=== PATIENT | female | born 1945 | race Caucasian/White ===

== ENCOUNTER 2018-05-21 10:24 | Inpatient (IN) ==
[2018-05-21] MEDS ORDERED: SODIUM CHLORIDE 0.9% 1000ML 1,000 ML IV SCH (11:00)
[2018-05-21] MEDS ORDERED: SODIUM CHLORIDE 0.9% 250 ML IV PRN ×2 (11:53→14:26)
[2018-05-21] MEDS ORDERED: PANTOprazole 80 MG in DEXTROSE 5% 100 ML IV ONE (11:54)
[2018-05-21 11:55] LABS: Basophils # (auto) 0.02 K/uL (0-0.2); Basophils % (auto) 0.2 %; Eosinophils # (auto) 0.17 K/uL (0-0.5); Eosinophils % (auto) 1.9 %; Hematocrit (blood only) 21.6 % (37-47); Immature Granulocytes # (auto) 0.02 K/uL (0.00-0.02); Immature Granulocytes % (auto) 0.2 %; Lymphocytes # (auto) 1.18 K/uL (1.2-3.4); Lymphocytes % (auto) 13.1 %; Mean Corpuscular Hgb Conc 32.4 g/dL (32-36); Mean Corpuscular Volume 95.6 fL (80-100); Mean Platelet Volume 9.7 fL (7.4-10.4); Monocytes # (auto) 0.55 K/uL (0.11-0.59); Monocytes % (auto) 6.1 %; Neutrophils % (auto) 78.5 %; Platelet Count 258 K/uL (130-400); RDW Coefficient of Variation 14.8 % (11.5-14.5); RDW Standard Deviation 51.1 fL (36.4-46.3); Red Blood Count 2.26 M/uL (4.2-5.4); White Blood Count 9.04 K/uL (4.8-10.8)
[2018-05-21 12:03] LABS: iSTAT Creatinine 1.9 mg/dl (0.6-1.3); iSTAT Hemoglobin 6.5 g/dl (12.0-16.0); iSTAT Ionized Calcium 1.15 mmol/l (1.12-1.32)
[2018-05-21 12:09] LABS: Partial Thromboplastin Ratio 0.9; Prothrombin Time 10.7 Seconds (9.0-12.0)
[2018-05-21 12:11] LABS: Albumin Level 3.3 gm/dl (3.4-5.0); BUN Creatinine Ratio 19.9 (10-20); Bilirubin Direct 0.1 mg/dl (0-0.2); Calcium 8.3 mg/dl (8.5-10.1); Creatinine Clr Calc Pharmacy 27.9 ml/min; Est GFR (African American) 27.3; Est GFR (Non-African American) 23.6
[2018-05-21 12:14] LABS: Bilirubin,Total 0.4 mg/dl (0.2-1); Total Protein 6.7 gm/dl (6.4-8.2)
[2018-05-21 12:19] LABS: RBC Morphology Unremarkable
[2018-05-21] MEDS: PANTOprazole 40 MG in DEXTROSE 5% 100 ML IV SCH ×3 (13:01→23:02)
--- NOTE | 2018-05-21 13:33 | History & Physical Report ---
Date of Service May 21, 2018 Assessment & Plan (1) GI bleed: (2) Anemia: -Admit to [facility] with telemetry -Patient presenting by referral of PCP for evaluation of anemia and dark stools/ bright red bleeding per rectum -Symptoms have been present for the past 1 week -In the ED, hemoglobin noted to be 7.4, patient hemodynamically stable -Given Protonix bolus and started on drip in the ED, will continue with -Type and crossed for 2 units PRBC -will transfuse -History of colonoscopy in 2009 that showed diverticulosis in the sigmoid colon ; no history of EGD -Likely upper GI bleed however bright red blood could be due to lower GI bleed as well; patient does take baby aspirin daily however no other blood thinners or antiplatelets, no history of NSAID or prednisone use -Case discussed with MINNIE Segovia -Clear liquids, n.p.o. after midnight (3) Hypertension: -BP controlled, continue amlodipine, hydralazine, labetalol, losartan -Holding triamterene/HCTZ for now due to GI bleed (4) CKD (chronic kidney disease), stage IV: - baseline creat runs in the low twos - creat noted to be 2.0 today - continue to monitor, avoid nephrotoxic agents when able (5) Diastolic dysfunction: -Echo 2017-EF 61%, grade 2 diastolic dysfunction -Utilizes mild diuretic at home (HCTZ) which is on hold for now due to anemia/ GI bleed -Monitor volume status closely (6) DM type 2 (diabetes mellitus, type 2): -Hgb A1c 5.7 03/2018 -Hold oral agents and utilize Lantus and NovoLog per protocol while hospitalized (7) ROXY on CPAP: -Patient is bringing her CPAP from home (8) COPD, severe: -No signs of acute exacerbation -Continue home inhalers (9) Dyslipidemia: -Continue statin (10) Depression: (11) Anxiety: -Continue bupropion and paroxetine (12) DVT prophylaxis: - SCDs due to GI bleed History of Present Illness Chief Complaint: Dark stools, anemia Primary Care Provider: Liban Chavez MD 73-year-old female who presents to the ED by referral PCP for evaluation of dark stools and anemia. Patient was seen for dark stools and bright red bleeding per rectum as an outpatient on 05/19. At that time, labs were ordered and colonoscopy was scheduled. Patient received a phone call today that her blood count was low and she needs to go to the ED for further evaluation. Patient reports dark stool as well as some bright bleeding per rectum over the past 1 week. She reports stools have been formed. She has been having to 3 bowel movements per day, normally she reports she only moves her bowels about every 3-4 days. She denies abdominal pain, nausea, vomiting. No NSAID or steroid use. She denies chest pain, shortness of breath, lightheadedness, dizziness, diaphoresis, syncopal events. No other recent illnesses, fevers, chills. She denies any urinary symptoms. In the ED, patient's hemoglobin is found to be 7.4. She is hemodynamically stable. She was given a Protonix bolus and started on a drip. She was typed and crossed for 2 units of blood. She was typed and crossed for 2 units of blood. Allergies Allergy/AdvReac Type Severity Reaction Status Date / Time levofloxacin [From Levaquin] Allergy Unknown Unverified 05/21/18 10:56 DOREEN Inhibitors AdvReac coughing Verified 05/21/18 10:56 Home Medications Home Medications Medication Instructions Recorded Confirmed Type amlodipine 10 mg PO DAILY 05/21/18 05/21/18 History aspirin 81 mg PO DAILY 05/21/18 05/21/18 History atorvastatin 20 mg PO DAILY 05/21/18 05/21/18 History bupropion HCl [Wellbutrin SR] 100 mg PO BID 05/21/18 05/21/18 History calcitriol 0.25 mcg PO DAILY 05/21/18 05/21/18 History cetirizine 5 mg PO HS 05/21/18 05/21/18 History cholecalciferol (vitamin D3) 1,000 unit PO DAILY 05/21/18 05/21/18 History [Vitamin D3] fluticasone [Flonase Allergy 2 spray INTRANASAL DAILY 05/21/18 05/21/18 History Relief] glimepiride 2 mg PO DAILY 05/21/18 05/21/18 History hydralazine 25 mg PO TID 05/21/18 05/21/18 History iron,carbonyl-vitamin C [Vitron-C] 1 tab PO DAILY 05/21/18 05/21/18 History labetalol 100 mg PO BID 05/21/18 05/21/18 History losartan 25 mg PO DAILY 05/21/18 05/21/18 History mometasone-formoterol [Dulera] 2 puff INHALATION BID 05/21/18 05/21/18 History montelukast [Singulair] 10 mg PO HS 05/21/18 05/21/18 History omeprazole 20 mg PO DAILY 05/21/18 05/21/18 History paroxetine HCl 40 mg PO DAILY 05/21/18 05/21/18 History triamterene-hydrochlorothiazid 1 tab PO DAILY 05/21/18 05/21/18 History Past Med/Surg History Medical History Depression (Chronic) Anxiety (Chronic) Diastolic dysfunction (Chronic) Hypertension (Chronic) ROXY on CPAP (Chronic) COPD, severe (Chronic) Hyperparathyroidism, secondary renal (Chronic) Dyslipidemia (Chronic) CKD (chronic kidney disease), stage IV (Chronic) DM type 2 (diabetes mellitus, type 2) (Chronic) Surgical History Status post trigger finger release (Chronic) History of cataract surgery (Chronic) Social History marital status: Single Current Living Situation: Alone current occupational status: retired Other Information That Helps Us Care for You: No Feels Safe at Home: Yes Safety Concerns: Feels Safe At This Time Smoking Status: Former smoker Do You Dip or Chew Tobacco: No Second Hand Exposure: No Tobacco Cessation Education Requested by Patient: No Hx Alcohol Use: Yes Alcohol Intake Frequency: a few times a month Hx Substance Use: No Beliefs That Will Affect Care: None Preferred Language: Citizen Of [place] Communication Ability: Effective Product Applications Scientist Required: No Review of Systems ROS per HPI, all other systems reviewed and negative Physical Exam 2 Vital Signs (Past 24 Hours): Last Vital Signs Temp 36.8 C 05/21/18 10:44 Pulse 69 05/21/18 12:45 Resp 20 05/21/18 12:45 BP 139/62 05/21/18 12:45 Pulse Ox 96 05/21/18 12:45 Constitutional: WD/WN, vitals as above Eyes: PERRL, conjunctivae normal, anicteric sclerae ENMT: external ear and nose normal, oropharynx normal Respiratory: normal respiratory effort, lungs clear to auscultation Cardiovascular: Rate/Rhythm: regular rate and regular rhythm Vessels: normal peripheral pulses Extremities: + edema (Trace edema BLE) Gastrointestinal (Abdomen): normal bowel sounds, soft, nontender, no hepatosplenomegaly Musculoskeletal: no cyanosis or clubbing, extremities motor strength 5/5 Skin: no rashes, warm and dry Neurologic: PERRL, EOMI, accommodation nl, no face palsy, no dysarthria Psychiatric: A+Ox3, euthymic affect Results & Data Laboratory Results Laboratory Last Values WBC 9.04 K/uL (4.8-10.8) 05/21/18 11:24 RBC 2.26 M/uL (4.2-5.4) L 05/21/18 11:24 Hgb 7.4 g/dL (12.0-16.0) L 05/21/18 14:36 POC Hgb 6.5 g/dl (12.0-16.0) L* 05/21/18 11:46 Hct 22.4 % (37-47) L 05/21/18 14:36 POC Hct 19 % (37-47) L* 05/21/18 11:46 MCV 95.6 fL (80-100) 05/21/18 11:24 MCH 31.0 pg (25-34) 05/21/18 11:24 MCHC 32.4 g/dL (32-36) 05/21/18 11:24 RDW Std Deviation 51.1 fL (36.4-46.3) H 05/21/18 11:24 RDW Coeff of Waqas 14.8 % (11.5-14.5) H 05/21/18 11:24 Plt Count 258 K/uL (130-400) 05/21/18 11:24 MPV 9.7 fL (7.4-10.4) 05/21/18 11:24 Immature Gran % (Auto) 0.2 % 05/21/18 11:24 Neut % (Auto) 78.5 % 05/21/18 11:24 Lymph % (Auto) 13.1 % 05/21/18 11:24 [place] % (Auto) 6.1 % 05/21/18 11:24 Eos % (Auto) 1.9 % 05/21/18 11:24 Baso % (Auto) 0.2 % 05/21/18 11:24 Immature Gran # (Auto) 0.02 K/uL (0.00-0.02) 05/21/18 11:24 Neut # (Auto) 7.10 K/uL (1.4-6.5) H 05/21/18 11:24 Lymph # (Auto) 1.18 K/uL (1.2-3.4) L 05/21/18 11:24 [place] # (Auto) 0.55 K/uL (0.11-0.59) 05/21/18 11:24 Eos # (Auto) 0.17 K/uL (0-0.5) 05/21/18 11:24 Baso # (Auto) 0.02 K/uL (0-0.2) 05/21/18 11:24 RBC Morphology Unremarkable 05/21/18 11:24 PT 10.7 Seconds (9.0-12.0) 05/21/18 11:24 INR 1.0 (0.9-1.1) 05/21/18 11:24 APTT 24.0 Seconds (21.0-31.0) 05/21/18 11:24 PTT Ratio 0.9 05/21/18 11:24 POC Sodium 141 mEq/L (135-144) 05/21/18 11:46 Sodium 140 mmol/L (136-145) 05/21/18 11:24 POC Potassium 4.0 mEq/L (3.3-5.0) 05/21/18 11:46 Potassium 4.0 mmol/L (3.5-5.1) 05/21/18 11:24 POC Chloride 107 mEq/L (101-112) 05/21/18 11:46 Chloride 108 mmol/L (98-107) H 05/21/18 11:24 Carbon Dioxide 22 mmol/L (21-32) 05/21/18 11:24 POC Total CO2 21 mEq/l (24-31) L 05/21/18 11:46 Anion Gap 10.0 (3-11) 05/21/18 11:24 POC Anion Gap 18.0 mmol/L (16-25) 05/21/18 11:46 POC BUN 33 mg/dl (7-18) H 05/21/18 11:46 BUN 41 mg/dl (7-18) H 05/21/18 11:24 Creatinine 2.04 mg/dl (0.6-1.2) H 05/21/18 11:24 POC Creatinine 1.9 mg/dl (0.6-1.3) H 05/21/18 11:46 Est Cr Clr Drug Dosing 27.9 ml/min 05/21/18 11:24 Est GFR ( Amer) 27.3 05/21/18 11:24 Est GFR (Non-Af Amer) 23.6 05/21/18 11:24 BUN/Creatinine Ratio 19.9 (10-20) 05/21/18 11:24 Glucose 258 mg/dl (70-99) H 05/21/18 11:24 POC Glucose (other) 262 mg/dl (70-99) H 05/21/18 11:46 Calcium 8.3 mg/dl (8.5-10.1) L 05/21/18 11:24 POC Ioniz Calcium [place] 1.15 mmol/l (1.12-1.32) 05/21/18 11:46 Total Bilirubin 0.4 mg/dl (0.2-1) 05/21/18 11:24 Direct Bilirubin 0.1 mg/dl (0-0.2) 05/21/18 11:24 AST 11 U/L (15-37) L 05/21/18 11:24 ALT 18 U/L (12-78) 05/21/18 11:24 Alkaline Phosphatase 65 U/L (45-117) 05/21/18 11:24 Total Protein 6.7 gm/dl (6.4-8.2) 05/21/18 11:24 Albumin 3.3 gm/dl (3.4-5.0) L 05/21/18 11:24 Lipase 119 U/L (73-393) 05/21/18 11:24 Blood Type A Positive 05/21/18 11:24 Blood Type Recheck A Positive 05/21/18 12:38 Antibody Screen NEGATIVE 05/21/18 11:24 Crossmatch See Detail 05/21/18 11:24 Code Status & VTE Plan VTE Prophylaxis Plan VTE Prophylaxis will be ordered: Yes Supervising Physician Co-Signing Physician Notes HISTORY: Record reviewed. Patient interviewed and examined. Care coordinated with MINNIE Love. Please refer to her documentation for patient's history. Briefly, 73-year-old female with history of left ventricular diastolic dysfunction, hypertension, COPD, sleep apnea, CKD, diabetes, and other problems as noted. Recently experiencing dark stools, sometimes with blood clots. No abdominal pain, nausea, vomiting. Feels fatigued. Takes low-dose aspirin, no nonsteroidal anti-inflammatory drugs, no alcohol abuse. EXAM: General- no distress Lungs- clear to auscultation; no respiratory distress Cardiovascular- RRR; I/ systolic murmur at base; no gallop; no JVD; no pretibial edema Abdomen- + bowel sounds, soft, nontender Extremities- no cyanosis; no calf tenderness Neuro- alert, oriented Skin- warm & dry DATA: Hemoglobin 6.5 by [id number] testing and 7.0 per laboratory phlebotomy. Prothrombin time, INR, PTT, platelets all normal. Normal electrolytes, BUN 41, creatinine 2.04, random glucose 258. Other lab studies as noted. EKG performed at 1107 reviewed and demonstrated normal sinus rhythm at 70/ minute, intraventricular conduction delay, poor R wave progression. ASSESSMENT AND PLAN: Severe anemia, probable acute blood loss anemia secondary to GI bleeding. Hemodynamically stable. Probable upper GI source. Patient received pantoprazole bolus/infusion. Transfuse to maintain adequate H&H. Consult GI. History of left ventricular diastolic dysfunction. Check chest x-ray in the morning to monitor for fluid overload associated with transfusions. Diurese PRN. CKD IV. Monitor renal function. Please refer to AFIA Valadez's documentation for discussion of other issues. _ (1) GI bleed GI bleed type/associated pathology: unspecified gastrointestinal hemorrhage type Gastritis type: Qualified Code(s): K92.2 - Gastrointestinal hemorrhage, unspecified
--- NOTE | 2018-05-21 13:45 | Gastrointestinal Consultation ---
Date of Consultation May 21, 2018 Assessment & Plan (1) GI bleed: Ms. Toledo is a73 yr old female with chronic anemia who experienced acute blood loss anemia with Hb 7, down from 10 on Apr 26. Her BUn is elevated and she reports loose black BMs, the largest volume was about a week ago, now with small loose infrequent but still black BMs. Most likely this represents an UGI bleed, possibly from ulcer disease, gastritis , duodenitis or AVM. The red blood in the BM is also suggestive of a lower GI bleed, possibly a diverticular or hemorrhoidal bleed. Plan: Clear liquids po PPI drip Plan for NPO after midnight and EGD on 05/22/18. Present on Admission?: Yes Supervising Physician Co-Signing Physician Notes I have seen and examined the patient on the floor. Admitted for anemia. Reports two episodes of reported melena - one monday and one last night. ? dizziness with this. No overt bleeding, hematemesis, hematochezia. Last colon 2009 with diverticulosis. Feeling fine on the floor- hungry. Ate a full breakfast prior to being called with abnormal test results this morning. No other complaints currently. Denies a known history of liver disease. Social drinker, [place]. EGD for evaluation of melena tomorrow in endo. NPO after midnitie, sips of liquid. Transfuse for hgb to be above 7. Check cbc/cmp/inr in am. Check an abdominal ultrasound to ensure her liver is normal. History of Present Illness Reason for Consultation: melena, anemia Requesting Physician: Debora Valadez NP Attending Physician: Ms. Arabella Toledo is a 73 yr old female with a hx of HTN, DM, CKDIV, COPD, ROXY on CPAP who presented to her PCP, Dr. Duarte on Monday for melena on Monday. Today, when labs were reviewed, her Hb on Monday was 7.5. Her most recent prior to that was on 10.1 on 04/26/2018. She reports experiencing several loose BMs that were black with some bright red blood. This occurred one day about a week ago, but doesn't remember what day that was. She did not have any pain at the time or since then. After that, she reverted back to her more typical pattern of one BM every 2-3 days, most recently about 12 hrs ago, though her BM's have been loose and have continued to be black, small amt. She has fatigue, weakness but no CP or SOB, no fevers, rashes. She has not had any N/V. No recent weight loss. She is seen and examined in the ED. She is awake, alert, oriented and ate a full breakfast this moring, prior to being notificed by her PCP office that she should present to the ED. Today, BP 147/64, HR 80's. BP 147/64. [place] [address] Madden: diverticulosis. She has never undergone EGD History of Present Illness Dr. Kumar Allergies Allergy/AdvReac Type Severity Reaction Status Date / Time levofloxacin [From Levaquin] Allergy Unknown Unverified 05/21/18 10:56 DOREEN Inhibitors AdvReac coughing Verified 05/21/18 10:56 Home Medications Home Medications Medication Instructions Recorded Confirmed Type amlodipine 10 mg PO DAILY 05/21/18 05/21/18 History aspirin 81 mg PO DAILY 05/21/18 05/21/18 History atorvastatin 20 mg PO DAILY 05/21/18 05/21/18 History bupropion HCl [Wellbutrin SR] 100 mg PO BID 05/21/18 05/21/18 History calcitriol 0.25 mcg PO DAILY 05/21/18 05/21/18 History cetirizine 5 mg PO HS 05/21/18 05/21/18 History cholecalciferol (vitamin D3) 1,000 unit PO DAILY 05/21/18 05/21/18 History [Vitamin D3] fluticasone [Flonase Allergy 2 spray INTRANASAL DAILY 05/21/18 05/21/18 History Relief] glimepiride 2 mg PO DAILY 05/21/18 05/21/18 History hydralazine 25 mg PO TID 05/21/18 05/21/18 History iron,carbonyl-vitamin C [Vitron-C] 1 tab PO DAILY 05/21/18 05/21/18 History labetalol 100 mg PO BID 05/21/18 05/21/18 History losartan 25 mg PO DAILY 05/21/18 05/21/18 History mometasone-formoterol [Dulera] 2 puff INHALATION BID 05/21/18 05/21/18 History montelukast [Singulair] 10 mg PO HS 05/21/18 05/21/18 History omeprazole 20 mg PO DAILY 05/21/18 05/21/18 History paroxetine HCl 40 mg PO DAILY 05/21/18 05/21/18 History triamterene-hydrochlorothiazid 1 tab PO DAILY 05/21/18 05/21/18 History Patient History Medical History Depression (Chronic) Anxiety (Chronic) Diastolic dysfunction (Chronic) Hypertension (Chronic) ROXY on CPAP (Chronic) COPD, severe (Chronic) Hyperparathyroidism, secondary renal (Chronic) Dyslipidemia (Chronic) CKD (chronic kidney disease), stage IV (Chronic) DM type 2 (diabetes mellitus, type 2) (Chronic) History of COPD Hx of diabetes mellitus Surgical History Status post trigger finger release (Chronic) History of cataract surgery (Chronic) Family History Other Family history non-contributory Social History marital status: Single Current Living Situation: Alone current occupational status: retired Other Information That Helps Us Care for You: No Feels Safe at Home: Yes Safety Concerns: Feels Safe At This Time Smoking Status: Former smoker Do You Dip or Chew Tobacco: No Second Hand Exposure: No Tobacco Cessation Education Requested by Patient: No Hx Alcohol Use: No Hx Substance Use: No Beliefs That Will Affect Care: None Preferred Language: Citizen Of [place] Communication Ability: Effective Breakfast Cook Required: No Review of Systems Constitutional: + fatigue, + malaise and + weakness; no fever, no chills, no sweats and no body aches Ear, Nose, Mouth, Throat: no dizziness, no hoarseness and no dysphagia Respiratory: + dyspnea (mild); no cough, no chest congestion and no hemoptysis Cardiovascular: + lightheadedness (during trip into the ED); no chest pain, no orthopnea, no palpitations, no syncope and no edema Gastrointestinal: as per Subjective / HPI, + change in bowel habits and + constipation (chronic); no abdominal pain, no belching, no early satiety, no heartburn, no nausea, no hematemesis, no dysphagia and no cramping Genitourinary (Female): no dysuria Neurologic: + falls (tripped "over my own feet"); no gait abnormality, no numbness and no restless legs Psychiatric: no hopelessness, no change in appetite, no irritability, no anxiety , no difficulty concentrating and no confusion Hematologic / Lymphatic: no easy bleeding, no easy bruising, no coagulopathy and no lymphadenopathy Physical Exam 2 Vital Signs (Past 24 Hours): Last Vital Signs Temp 36.8 C 05/21/18 10:44 Pulse 69 05/21/18 12:45 Resp 20 05/21/18 12:45 BP 139/62 05/21/18 12:45 Pulse Ox 96 05/21/18 12:45 Constitutional: WD/WN, vitals as above well developed, well nourished, + obese, cooperative and comfortable; no acute distress Eyes: normal visual santos by confrontation and PERRL; pupils not dilated ENMT: external ear and nose normal, oropharynx normal Neck: trachea midline, no thyromegaly Respiratory: normal respiratory effort, lungs clear to auscultation Cardiovascular: RRR, no murmur, no edema Gastrointestinal (Abdomen): Inspection/Auscultation: normal bowel sounds; abdomen not distended Percussion/Palpation: abdomen soft; abdomen nontender Skin: no rashes, warm and dry few spider angiomas on the lower neck/upper chest Neurologic: normal touch/pain/proprioception and awake; not confused Speech / Cognition: normal speech Motor/Sensory: no tremor Results & Data Laboratory Results Hb 7.0, Hct 19, MCV 98.6, BUN 45, _ (1) GI bleed GI bleed type/associated pathology: unspecified gastrointestinal hemorrhage type Gastritis type: Qualified Code(s): K92.2 - Gastrointestinal hemorrhage, unspecified
[2018-05-21] MEDS ORDERED: GLUCAGON FOR INJ 1 MG VIAL SQ PRN (14:26)
[2018-05-21] MEDS ORDERED: GLUCOSE 40% GEL 15 GM TUBE PO PRN (14:26)
[2018-05-21] MEDS ORDERED: GLUCOSE 10 TABS/TUBE PO PRN (14:26)
[2018-05-21] MEDS ORDERED: ACETAMINOPHEN 325 MG TAB PO PRN (14:26)
[2018-05-21] MEDS ORDERED: DEXTROSE 50% 50 ML SYRINGE IV PRN (14:26)
[2018-05-21 14:44] LABS: Hematocrit (blood only) 22.4 % (37-47); Hemoglobin 7.4 g/dL (12.0-16.0)
[2018-05-21 15:27] LABS: Prothrombin Time 10.3 Seconds (9.0-12.0)
[2018-05-21] MEDS: INSULIN ASPART 100 UNITS/ML 3 ML PEN SC SCH ×2 (17:19→20:11)
--- NOTE | 2018-05-21 18:36 | Emergency Department Note ---
Entered by Dede Campbell acting as a scribe for History of Present Illness General Chief complaint: Rectal Bleed Stated complaint: RECTAL BLEEDING - REF BY Time Seen by Provider: 05/21/18 10:53 Source: patient History of Present Illness Onset (ago): week(s) 1 Location: buttocks (rectal) Pain Consistency: + other (persistent) Quality: + other (bleeding) Associated symptoms: + denies other symptoms (abdominal pain) and + other (low hemoglobin, fatigue); no chest pain, no fever/chills (fever) and no shortness of breath The patient is a 73 year old female who presents to the Emergency Room with complaints of persistent rectal bleeding starting a week ago. The patient states she had bright red blood in her stool. She states that over the week she started having black stools. She reports that over the weekend she went and saw her PCP. She reports that they did blood work and called this morning telling her to come to the ED because her Hemoglobin is 7.5. The patient complains of fatigue. The patient denies using Pepto Bismol, abdominal pain, fever, chest pain, increased difficulty breathing and the use of blood thinners. Home Medications Home Medications Medication Instructions Recorded Confirmed Type amlodipine 10 mg PO DAILY 05/21/18 05/21/18 History aspirin 81 mg PO DAILY 05/21/18 05/21/18 History atorvastatin 20 mg PO DAILY 05/21/18 05/21/18 History bupropion HCl [Wellbutrin SR] 100 mg PO BID 05/21/18 05/21/18 History calcitriol 0.25 mcg PO DAILY 05/21/18 05/21/18 History cetirizine 5 mg PO HS 05/21/18 05/21/18 History cholecalciferol (vitamin D3) 1,000 unit PO DAILY 05/21/18 05/21/18 History [Vitamin D3] fluticasone [Flonase Allergy 2 spray INTRANASAL DAILY 05/21/18 05/21/18 History Relief] glimepiride 2 mg PO DAILY 05/21/18 05/21/18 History hydralazine 25 mg PO TID 05/21/18 05/21/18 History iron,carbonyl-vitamin C [Vitron-C] 1 tab PO DAILY 05/21/18 05/21/18 History labetalol 100 mg PO BID 05/21/18 05/21/18 History losartan 25 mg PO DAILY 05/21/18 05/21/18 History mometasone-formoterol [Dulera] 2 puff INHALATION BID 05/21/18 05/21/18 History montelukast [Singulair] 10 mg PO HS 05/21/18 05/21/18 History omeprazole 20 mg PO DAILY 05/21/18 05/21/18 History paroxetine HCl 40 mg PO DAILY 05/21/18 05/21/18 History triamterene-hydrochlorothiazid 1 tab PO DAILY 05/21/18 05/21/18 History Allergies Allergy/AdvReac Type Severity Reaction Status Date / Time levofloxacin [From Levaquin] Allergy Unknown Unverified 05/21/18 10:56 DOREEN Inhibitors AdvReac coughing Verified 05/21/18 10:56 Past Med/Surg History Medical History Depression (Chronic) Anxiety (Chronic) Diastolic dysfunction (Chronic) Hypertension (Chronic) ROXY on CPAP (Chronic) COPD, severe (Chronic) Hyperparathyroidism, secondary renal (Chronic) Dyslipidemia (Chronic) CKD (chronic kidney disease), stage IV (Chronic) DM type 2 (diabetes mellitus, type 2) (Chronic) Surgical History Status post trigger finger release (Chronic) History of cataract surgery (Chronic) Social History marital status: Single Current Living Situation: Alone current occupational status: retired Other Information That Helps Us Care for You: No Feels Safe at Home: Yes Safety Concerns: Feels Safe At This Time Smoking Status: Former smoker Do You Dip or Chew Tobacco: No Second Hand Exposure: No Tobacco Cessation Education Requested by Patient: No Hx Alcohol Use: Yes Alcohol Intake Frequency: a few times a month Hx Substance Use: No Beliefs That Will Affect Care: None Preferred Language: Bhutanese Communication Ability: Effective Digital Media Designer Required: No Review of Systems See HPI for pertinent positives & negatives. and A total of 10 systems reviewed and were otherwise negative Physical Exam Vital Signs Vital Signs - 24 hr 05/21/18 10:44 05/21/18 11:01 05/21/18 12:45 Temperature 36.8 C Temperature Source Oral Sepsis Recent Fever Within 48 Hours No Sepsis Action Taken by Nursing No Action Required Pulse Rate 73 69 Pulse Rate [Left Finger] Pulse Rate from SpO2 Sensor 70 Pulse Rhythm Pulse Strength Respiratory Rate 20 20 Respiratory Effort / Characteristics Respiratory Depth Respiratory Pattern Blood Pressure 146/68 H 139/62 Blood Pressure [Left Arm] Blood Pressure Mean 94 87 Blood Pressure Mean [Left Arm] Blood Pressure Position Blood Pressure Position [Left Arm] Pulse Oximetry 96 96 Oxygen Delivery Method Room Air Room Air Room Air 05/21/18 13:00 05/21/18 13:30 05/21/18 13:55 Temperature Temperature Source Sepsis Recent Fever Within 48 Hours Sepsis Action Taken by Nursing Pulse Rate 67 69 70 Pulse Rate [Left Finger] Pulse Rate from SpO2 Sensor 67 69 Pulse Rhythm Pulse Strength Respiratory Rate 22 18 20 Respiratory Effort / Characteristics Respiratory Depth Respiratory Pattern Blood Pressure 134/68 147/64 H 147/64 H Blood Pressure [Left Arm] Blood Pressure Mean 90 91 Blood Pressure Mean [Left Arm] Blood Pressure Position Blood Pressure Position [Left Arm] Pulse Oximetry 97 97 97 Oxygen Delivery Method Room Air 05/21/18 14:30 05/21/18 17:54 05/21/18 18:11 Temperature 36.8 C 37.0 C 37.4 C Temperature Source Oral Oral Oral Sepsis Recent Fever Within 48 Hours Sepsis Action Taken by Nursing Pulse Rate 71 71 Pulse Rate [Left Finger] 75 Pulse Rate from SpO2 Sensor Pulse Rhythm Pulse Strength Respiratory Rate 18 18 18 Respiratory Effort / Characteristics Non-Labored Spontaneous Respiratory Depth Normal Respiratory Pattern Regular Blood Pressure 151/63 H 166/67 H Blood Pressure [Left Arm] 163/67 H Blood Pressure Mean 92 100 Blood Pressure Mean [Left Arm] 99 Blood Pressure Position Lying Blood Pressure Position [Left Arm] Sitting Pulse Oximetry 96 98 98 Oxygen Delivery Method Room Air 05/21/18 18:26 Temperature 37.4 C Temperature Source Oral Sepsis Recent Fever Within 48 Hours Sepsis Action Taken by Nursing Pulse Rate 69 Pulse Rate [Left Finger] Pulse Rate from SpO2 Sensor Pulse Rhythm Regular Pulse Strength Normal Respiratory Rate 18 Respiratory Effort / Characteristics Respiratory Depth Respiratory Pattern Blood Pressure 136/68 Blood Pressure [Left Arm] Blood Pressure Mean 90 Blood Pressure Mean [Left Arm] Blood Pressure Position Sitting Blood Pressure Position [Left Arm] Pulse Oximetry 97 Oxygen Delivery Method Physical Exam GENERAL: She is oriented to person, place, and time. She appears well- developed and well-nourished. She does not appear distressed. HENT: Exam performed. -Head: Normocephalic and atraumatic. -Right Ear: External ear normal. No mastoid tenderness. -Left Ear: External ear normal. No mastoid tenderness. -Mouth/Throat: The oropharynx is clear and moist. No trismus in the jaw. No dental abscesses or uvula swelling. No oropharyngeal exudate or tonsillar abscesses. EYES: Conjunctivae and EOM are normal. Pupils are equal, round, and reactive to light. Right eye exhibits no discharge. Left eye exhibits no discharge. No scleral icterus. NECK: Normal range of motion. Neck supple. No JVD present. No spinous process tenderness present. No carotid bruit present. No rigidity. No tracheal deviation and normal range of motion present. No Brudzinski's sign and no Kernig 's sign noted. CV: Normal rate, regular rhythm, normal heart sounds and intact distal pulses. There is no peripheral edema. Palpable radial pulses bue. PULM/CHEST: Effort normal and breath sounds normal. No respiratory distress. No stridor. She has no wheezes. She has no rales. -Chest Wall: She exhibits no tenderness. ABD: The abdomen is soft. Bowel sounds are normal. She has no distension. No mass is present. There is no tenderness. There is no rebound, no guarding, no Martinez's sign and no tenderness at McBurney's point. Rovsig negative RECTAL: Hemacult positive. MUSC/SKEL: Normal range of motion. There is no peripheral edema, tenderness or deformity. LYMPH: No cervical adenopathy. NEURO: She is alert and oriented to person, place, and time. She has normal strength. No cranial nerve deficit or sensory deficit. Coordination and gait normal. GCS eye subscore is 4. GCS verbal subscore is 5. GCS motor subscore is 6. Cerebellar tests wnl. SKIN: Skin is warm and dry. She is not diaphoretic. PSYCH: She has a normal mood and affect. Behavior is normal. Judgment and thought content normal. Course 1054: Past medical records reviewed. The patient was evaluated in room C9, and a complete history and physical examination were performed. 1202: Vital signs stable. Patient's hemoglobin is 7 in the emergency department. She will be started on Protonix drip as well as given Protonix bolus. 2 units packed red blood cells will be transfused. I reviewed the patient's case with SHANE Love. She will evaluate the patient for further management. I reevaluated the patient and updated her on her test results. I discussed the treatment plan with her. She verbally agrees and understands. Consultations Consultation #1: I reviewed the patient's case with SHANE Love. She will evaluate the patient for further management. Time: 12:02 Administered Medications Hydralazine HCl (Apresoline) 25 mg PO TID MARIOLA Stop: 06/20/18 14:25 Last Admin: 05/21/18 16:25 Dose: 25 mg Pantoprazole Sodium 40 mg/ (Dextrose) 100 mls @ 20 mls/hr IV Q5H MARIOLA Stop: 06/20/18 11:59 Last Admin: 05/21/18 17:16 Dose: 20 mls/hr Infusion: 05/21/18 17:16 Dose: 20 mls/hr Admin: 05/21/18 13:01 Dose: 20 mls/hr Insulin Aspart (Novolog Flexpen) 0 units SC ACHS MARIOLA Stop: 06/20/18 16:29 Last Admin: 05/21/18 17:19 Dose: 4 units Miscellaneous (Order Awaiting Action) 1 ea N/A QS MARIOLA Stop: 06/20/18 15:59 Last Admin: 05/21/18 17:18 Dose: Not Given Discontinued Medications Sodium Chloride (Nss 1000ml) 1,000 mls @ 125 mls/hr IV .Q8H MARIOLA Stop: 06/20/18 10:59 Last Infusion: 05/21/18 14:27 Dose: 0 mls/hr Admin: 05/21/18 12:04 Dose: 125 mls/hr Pantoprazole Sodium 80 mg/ (Dextrose) 120 mls @ 400 mls/hr IV NOW ONE Stop: 05/21/18 12:11 Last Admin: 05/21/18 13:03 Dose: Not Given Pantoprazole Sodium 80 mg/ (Dextrose) 120 mls @ 400 mls/hr IV NOW ONE Stop: 05/21/18 12:11 Last Infusion: 05/21/18 12:46 Dose: 0 mls/hr Admin: 05/21/18 12:28 Dose: 400 mls/hr Medical Decision Making Medical Records Attestation: I reviewed the patient's medical records. Home Medications Current Medication List: was personally reviewed by me Laboratory Data Attestation: I reviewed the patient's lab results. Result diagrams: 05/21/18 14:36 05/21/18 11:24 Lab Results 05/21/18 05/21/18 05/21/18 Range/Units 11:24 11:24 11:24 WBC 9.04 (4.8-10.8) K/uL RBC 2.26 L (4.2-5.4) M/uL Hgb 7.0 L (12.0-16.0) g/dL POC Hgb (12.0-16.0) g/dl Hct 21.6 L (37-47) % POC Hct (37-47) % MCV 95.6 (80-100) fL MCH 31.0 (25-34) pg MCHC 32.4 (32-36) g/dL RDW Std Deviation 51.1 H (36.4-46.3) fL RDW Coeff of Waqas 14.8 H (11.5-14.5) % Plt Count 258 (130-400) K/uL MPV 9.7 (7.4-10.4) fL Immature Gran % (Auto) 0.2 % Neut % (Auto) 78.5 % Lymph % (Auto) 13.1 % [place] % (Auto) 6.1 % Eos % (Auto) 1.9 % Baso % (Auto) 0.2 % Immature Gran # (Auto) 0.02 (0.00-0.02) K/uL Neut # (Auto) 7.10 H (1.4-6.5) K/uL Lymph # (Auto) 1.18 L (1.2-3.4) K/uL [place] # (Auto) 0.55 (0.11-0.59) K/uL Eos # (Auto) 0.17 (0-0.5) K/uL Baso # (Auto) 0.02 (0-0.2) K/uL RBC Morphology Unremarkable PT 10.7 (9.0-12.0) Seconds INR 1.0 (0.9-1.1) APTT 24.0 (21.0-31.0) Seconds PTT Ratio 0.9 POC Sodium (135-144) mEq/L Sodium (136-145) mmol/L POC Potassium (3.3-5.0) mEq/L Potassium (3.5-5.1) mmol/L POC Chloride (101-112) mEq/L Chloride (98-107) mmol/L Carbon Dioxide (21-32) mmol/L POC Total CO2 (24-31) mEq/l Anion Gap (3-11) POC Anion Gap (16-25) mmol/L POC BUN (7-18) mg/dl BUN (7-18) mg/dl Creatinine (0.6-1.2) mg/dl POC Creatinine (0.6-1.3) mg/dl Est Cr Clr Drug Dosing ml/min Est GFR ( Amer) Est GFR (Non-Af Amer) BUN/Creatinine Ratio (10-20) Glucose (70-99) mg/dl POC Glucose (70-99) POC Glucose (other) (70-99) mg/dl Calcium (8.5-10.1) mg/dl POC Ioniz Calcium Anderson (1.12-1.32) mmol/l Total Bilirubin (0.2-1) mg/dl Direct Bilirubin (0-0.2) mg/dl AST (15-37) U/L ALT (12-78) U/L Alkaline Phosphatase (45-117) U/L Total Protein (6.4-8.2) gm/dl Albumin (3.4-5.0) gm/dl Lipase (73-393) U/L Blood Type A Positive Blood Type Recheck Antibody Screen NEGATIVE Crossmatch See Detail 05/21/18 05/21/18 05/21/18 Range/Units 11:24 11:46 12:38 WBC (4.8-10.8) K/uL RBC (4.2-5.4) M/uL Hgb (12.0-16.0) g/dL POC Hgb 6.5 L* (12.0-16.0) g/dl Hct (37-47) % POC Hct 19 L* (37-47) % MCV (80-100) fL MCH (25-34) pg MCHC (32-36) g/dL RDW Std Deviation (36.4-46.3) fL RDW Coeff of Waqas (11.5-14.5) % Plt Count (130-400) K/uL MPV (7.4-10.4) fL Immature Gran % (Auto) % Neut % (Auto) % Lymph % (Auto) % [place] % (Auto) % Eos % (Auto) % Baso % (Auto) % Immature Gran # (Auto) (0.00-0.02) K/uL Neut # (Auto) (1.4-6.5) K/uL Lymph # (Auto) (1.2-3.4) K/uL [place] # (Auto) (0.11-0.59) K/uL Eos # (Auto) (0-0.5) K/uL Baso # (Auto) (0-0.2) K/uL RBC Morphology PT (9.0-12.0) Seconds INR (0.9-1.1) APTT (21.0-31.0) Seconds PTT Ratio POC Sodium 141 (135-144) mEq/L Sodium 140 (136-145) mmol/L POC Potassium 4.0 (3.3-5.0) mEq/L Potassium 4.0 (3.5-5.1) mmol/L POC Chloride 107 (101-112) mEq/L Chloride 108 H (98-107) mmol/L Carbon Dioxide 22 (21-32) mmol/L POC Total CO2 21 L (24-31) mEq/l Anion Gap 10.0 (3-11) POC Anion Gap 18.0 (16-25) mmol/L POC BUN 33 H (7-18) mg/dl BUN 41 H (7-18) mg/dl Creatinine 2.04 H (0.6-1.2) mg/dl POC Creatinine 1.9 H (0.6-1.3) mg/dl Est Cr Clr Drug Dosing 27.9 ml/min Est GFR ( Amer) 27.3 Est GFR (Non-Af Amer) 23.6 BUN/Creatinine Ratio 19.9 (10-20) Glucose 258 H (70-99) mg/dl POC Glucose (70-99) POC Glucose (other) 262 H (70-99) mg/dl Calcium 8.3 L (8.5-10.1) mg/dl POC Ioniz Calcium [place] 1.15 (1.12-1.32) mmol/l Total Bilirubin 0.4 (0.2-1) mg/dl Direct Bilirubin 0.1 (0-0.2) mg/dl AST 11 L (15-37) U/L ALT 18 (12-78) U/L Alkaline Phosphatase 65 (45-117) U/L Total Protein 6.7 (6.4-8.2) gm/dl Albumin 3.3 L (3.4-5.0) gm/dl Lipase 119 (73-393) U/L Blood Type Blood Type Recheck A Positive Antibody Screen Crossmatch 05/21/18 05/21/18 05/21/18 Range/Units 14:36 14:59 16:48 WBC (4.8-10.8) K/uL RBC (4.2-5.4) M/uL Hgb 7.4 L (12.0-16.0) g/dL POC Hgb (12.0-16.0) g/dl Hct 22.4 L (37-47) % POC Hct (37-47) % MCV (80-100) fL MCH (25-34) pg MCHC (32-36) g/dL RDW Std Deviation (36.4-46.3) fL RDW Coeff of Waqas (11.5-14.5) % Plt Count (130-400) K/uL MPV (7.4-10.4) fL Immature Gran % (Auto) % Neut % (Auto) % Lymph % (Auto) % [place] % (Auto) % Eos % (Auto) % Baso % (Auto) % Immature Gran # (Auto) (0.00-0.02) K/uL Neut # (Auto) (1.4-6.5) K/uL Lymph # (Auto) (1.2-3.4) K/uL [place] # (Auto) (0.11-0.59) K/uL Eos # (Auto) (0-0.5) K/uL Baso # (Auto) (0-0.2) K/uL RBC Morphology PT 10.3 (9.0-12.0) Seconds INR 1.0 (0.9-1.1) APTT (21.0-31.0) Seconds PTT Ratio POC Sodium (135-144) mEq/L Sodium (136-145) mmol/L POC Potassium (3.3-5.0) mEq/L Potassium (3.5-5.1) mmol/L POC Chloride (101-112) mEq/L Chloride (98-107) mmol/L Carbon Dioxide (21-32) mmol/L POC Total CO2 (24-31) mEq/l Anion Gap (3-11) POC Anion Gap (16-25) mmol/L POC BUN (7-18) mg/dl BUN (7-18) mg/dl Creatinine (0.6-1.2) mg/dl POC Creatinine (0.6-1.3) mg/dl Est Cr Clr Drug Dosing ml/min Est GFR ( Amer) Est GFR (Non-Af Amer) BUN/Creatinine Ratio (10-20) Glucose (70-99) mg/dl POC Glucose 147 H (70-99) POC Glucose (other) (70-99) mg/dl Calcium (8.5-10.1) mg/dl POC Ioniz Calcium [place] (1.12-1.32) mmol/l Total Bilirubin (0.2-1) mg/dl Direct Bilirubin (0-0.2) mg/dl AST (15-37) U/L ALT (12-78) U/L Alkaline Phosphatase (45-117) U/L Total Protein (6.4-8.2) gm/dl Albumin (3.4-5.0) gm/dl Lipase (73-393) U/L Blood Type Blood Type Recheck Antibody Screen Crossmatch ECG Data Attestation: I personally reviewed and interpreted this ECG as follows: Indication: other (arrhythmia) Rate (beats per minute): 68 Rhythm: sinus rhythm Findings: + other (UT and QT-c interval within normal limits, QRS 130) Blood Pressure Blood Pressure Findings: Elevated blood pressure Blood Pressure Disposition: further management by hospitalist [facility] Narrative Vital signs stable. Patient's hemoglobin is 7 in the emergency department. She will be started on Protonix drip as well as given Protonix bolus. 2 units packed red blood cells will be transfused. I reviewed the patient's case with MINNIE Love- [facility] Hospitalist. She will evaluate the patient for further management. I reevaluated the patient and updated her on her test results. I discussed the treatment plan with her. She verbally agrees and understands. Impression & Plan Symptomatic anemia, GI bleed Critical Care Time I have personally spent greater than 73 minutes of critical care time in the direct management of this patient. This includes bedside care, interpretation of diagnostic studies, and testing, discussion with consultants, patient, and family members, and other required patient management activities. This 73 minutes is in excess of all separately billable procedures. Critical Care Time: Yes Total Critical Care Time: 73 Discharge Plan Visit Data *Final* Discharge Date/Time: 05/21/18 13:55 Chief Complaint: Rectal Bleed Stated Complaint: RECTAL BLEEDING - REF BY ED Provider: Dexter Starr Discharge Problem: Symptomatic anemia, GI bleed Patient Disposition: Admitted As Inpatient Discharge Instructions Interventions: ED Discharge Assessment Last Done: 05/21/18 13:55 The scribe's documentation has been prepared under my direction and personally reviewed by me in its entirety. I confirm that the note above accurately reflects all work, treatment, procedures, and medical decision making performed by me.
[2018-05-21] MEDS: CARBOHYDRATES FOR HYPOGLYCEMIA PO PRN ×2 (20:09→20:30)
[2018-05-21] MEDS: INSULIN GLARGINE SOLOSTAR 100 UNITS/ML 3 ML PEN SC SCH (20:11)
[2018-05-21] MEDS: LABETALOL HCL 100 MG TAB PO SCH (20:16)
[2018-05-21] MEDS: BuPROPion SR 100 MG TABCR PO SCH (20:16)
[2018-05-21] MEDS ORDERED: MONTELUKAST SODIUM 10 MG TABLET PO SCH (21:00)
[2018-05-21] MEDS ORDERED: CETIRIZINE HCL 10 MG TABLET PO SCH (21:00)
[2018-05-22] MEDS ORDERED: D5W AND LACTATED RINGERS 1,000 ML IV SCH (01:00)
[2018-05-22 01:19] LABS: Hematocrit (blood only) 26.4 % (37-47); Hemoglobin 8.8 g/dL (12.0-16.0)
[2018-05-22] MEDS: PANTOprazole 40 MG in DEXTROSE 5% 100 ML IV SCH ×2 (03:26→08:59)
[2018-05-22 07:15] LABS: Hematocrit (blood only) 26.5 % (37-47); Hemoglobin 8.7 g/dL (12.0-16.0); Mean Corpuscular Hgb Conc 32.8 g/dL (32-36); Platelet Count 228 K/uL (130-400); RDW Coefficient of Variation 17.1 % (11.5-14.5); Red Blood Count 2.85 M/uL (4.2-5.4); White Blood Count 7.85 K/uL (4.8-10.8)
--- NOTE | 2018-05-22 07:24 | XRay Report ---
XR chest 1V portable CLINICAL HISTORY: GI bleed dyspnea COMPARISON STUDY: 11/13/2010 FINDINGS: Mild cardiomegaly. Diaphragms smooth. Lungs are clear. IMPRESSION: No acute process. Mild cardiomegaly. The above report was generated using voice recognition software. It may contain grammatical, syntax or spelling errors. Electronically signed by: Marshall Curtis M.D. 05/22/2018 7:23 AM
[2018-05-22 07:46] LABS: BUN Creatinine Ratio 13.6 (10-20); Calcium 8.6 mg/dl (8.5-10.1); Creatinine Clr Calc Pharmacy 28.6 ml/min; Est GFR (African American) 27.8; Potassium 3.6 mmol/L (3.5-5.1)
--- NOTE | 2018-05-22 08:19 | Ultrasound Report ---
US abdomen limited HISTORY: 73 years-old Female evaluate for cirrhosis clinical concern for cirrhotic liver disease COMPARISON: Acute abdominal series radiographs 11/13/2010 TECHNIQUE: Multiple real-time sonographic images of the abdominal right upper quadrant were obtained assessing grayscale appearance and color flow FINDINGS: The visualized pancreas is mildly echogenic without focal lesion or pancreatic ductal dilation identi fied. The echogenicity of the liver is equal to that of the right kidney. No significant marginal nod ularity identified to suggest chronic liver disease. No focal hepatic mass lesions or intrahepatic bi liary ductal dilation identified. Common bile duct is normal, 5 mm. Cholelithiasis with trace gallbla dder sludge. There is no gallbladder wall thickening or pericholecystic fluid. Sonographic Martinez sig n not reported. Imaged right kidney is unremarkable without hydronephrosis. IMPRESSION: 1. Cholelithiasis and gallbladder sludge without sonographic evidence of acute cholecystitis. 2. No biliary ductal dilation. 3. No sonographic evidence of cirrhotic liver disease. The above report was generated using voice recognition software. It may contain grammatical, syntax o r spelling errors. Electronically signed by: Malik Sagastume M.D. 05/22/2018 8:18 AM
[2018-05-22] MEDS: INSULIN ASPART 100 UNITS/ML 3 ML PEN SC SCH ×3 (08:26→17:38)
[2018-05-22] MEDS: BuPROPion SR 100 MG TABCR PO SCH (08:27)
[2018-05-22] MEDS: LABETALOL HCL 100 MG TAB PO SCH (08:27)
[2018-05-22] MEDS: INSULIN GLARGINE SOLOSTAR 100 UNITS/ML 3 ML PEN SC SCH (08:29)
[2018-05-22] MEDS ORDERED: NON-FORMULARY MEDICATION (Iron,Carbonyl-Vitamin C [Vitron-C] 1 TAB) PO SCH (09:00)
[2018-05-22] MEDS ORDERED: PARoxetine HCl 20 MG TAB PO SCH (09:00)
[2018-05-22] MEDS ORDERED: CALCITRIOL 0.25 MCG CAPSULE PO SCH (09:00)
[2018-05-22] MEDS ORDERED: AMLODIPINE BESYLATE 5 MG TAB PO SCH (09:00)
[2018-05-22] MEDS ORDERED: PANTOprazole 40 MG TAB PO SCH (09:00)
[2018-05-22] MEDS ORDERED: ATORVASTATIN 20 MG TAB PO SCH (09:00)
[2018-05-22] MEDS ORDERED: CHOLECALCIFEROL 1,000 UNITS TAB PO SCH (09:00)
[2018-05-22] MEDS ORDERED: LOSARTAN POTASSIUM 25 MG TAB PO SCH (09:00)
--- NOTE | 2018-05-22 10:37 | History & Physical Bridge Note ---
Date of Service May 22, 2018 History & Physical Bridge Note I have examined the patient, reviewed the History & Physical and in the interval since the performance of the History & Physical I have noted the following changes of clinical significance: no changes noted EGD for evaluation of melena.
--- NOTE | 2018-05-22 10:45 | Anesthesiology Consultation ---
Date of Service May 22, 2018 Assessment & Plan (1) Encounter for pre-operative examination: Chart Review Chart Review: Acceptable Risk for Surgery and Patient NOT seen in Pre Admission Testing Consults Requested none NPO Date Last Intake of Fluids: 05/21/18 Time Last Intake of Fluids: 21:30 Date Last Intake of Solids: 05/21/18 Time Last Intake of Solids: 08:00 History Surgery Operation Date: 05/22/18 08:30 Proposed Procedures p Esophagogastroduodenoscopy Dr. José Kumar M.D. Height/Weight Height: 5 ft 1 in Weight: 109.7 kg Allergies Allergy/AdvReac Type Severity Reaction Status Date / Time levofloxacin [From Levaquin] Allergy Unknown Verified 05/22/18 10:06 DOREEN Inhibitors AdvReac coughing Verified 05/22/18 10:06 Medications Home Medications Medication Instructions Recorded Confirmed Last Taken amlodipine 10 mg PO DAILY 05/21/18 05/21/18 Unknown aspirin 81 mg PO DAILY 05/21/18 05/21/18 Unknown atorvastatin 20 mg PO DAILY 05/21/18 05/21/18 Unknown bupropion HCl [Wellbutrin SR] 100 mg PO BID 05/21/18 05/21/18 Unknown calcitriol 0.25 mcg PO DAILY 05/21/18 05/21/18 Unknown cetirizine 5 mg PO HS 05/21/18 05/21/18 Unknown cholecalciferol (vitamin D3) 1,000 unit PO DAILY 05/21/18 05/21/18 Unknown [Vitamin D3] fluticasone [Flonase Allergy 2 spray INTRANASAL DAILY 05/21/18 05/21/18 Unknown Relief] glimepiride 2 mg PO DAILY 05/21/18 05/21/18 Unknown hydralazine 25 mg PO TID 05/21/18 05/21/18 Unknown iron,carbonyl-vitamin C [Vitron-C] 1 tab PO DAILY 05/21/18 05/21/18 Unknown labetalol 100 mg PO BID 05/21/18 05/21/18 Unknown losartan 25 mg PO DAILY 05/21/18 05/21/18 Unknown mometasone-formoterol [Dulera] 2 puff INHALATION BID 05/21/18 05/21/18 Unknown montelukast [Singulair] 10 mg PO HS 05/21/18 05/21/18 Unknown omeprazole 20 mg PO DAILY 05/21/18 05/21/18 Unknown paroxetine HCl 40 mg PO DAILY 05/21/18 05/21/18 Unknown triamterene-hydrochlorothiazid 1 tab PO DAILY 05/21/18 05/21/18 Unknown Active Medications Generic Name Dose Route Start Last Admin Trade Name Hong PRN Reason Stop Dose Admin Amlodipine Besylate 10 mg 05/22/18 09:00 05/22/18 08:28 Norvasc PO 06/21/18 08:59 10 mg DAILY MARIOLA Administration Atorvastatin Calcium 20 mg 05/22/18 09:00 05/22/18 08:27 Lipitor PO 06/21/18 08:59 20 mg DAILY MARIOLA Administration Bupropion HCl 100 mg 05/21/18 21:00 05/22/18 08:27 Wellbutrin-Sr PO 06/20/18 20:59 100 mg BID MARIOLA Administration Calcitriol 0.25 mcg 05/22/18 09:00 05/22/18 08:28 Racaltrol PO 06/21/18 08:59 0.25 mcg DAILY MARIOLA Administration Cetirizine HCl 5 mg 05/21/18 21:00 05/21/18 20:18 Zyrtec PO 06/20/18 20:59 5 mg HS MARIOLA Administration Hydralazine HCl 25 mg 05/21/18 14:26 05/22/18 08:26 Apresoline PO 06/20/18 14:25 25 mg TID MARIOLA Administration Pantoprazole Sodium 40 mg/ 100 mls @ 20 mls/hr 05/21/18 12:00 05/22/18 09:59 Dextrose IV 06/20/18 11:59 0 mls/hr Q5H MARIOLA Infusion Dextrose/Lactated Ringer's 1,000 mls @ 80 mls/hr 05/22/18 01:00 05/22/18 10: 00 D5w And Lactated Ringers IV 06/21/18 00:59 0 mls/hr .[id number] MARIOLA Infusion Insulin Aspart 0 units 05/21/18 16:30 05/22/18 08:26 Novolog Flexpen SC 06/20/18 16:29 Not Given ACHS MARIOLA Insulin Glargine 5 - 15 units 05/21/18 21:00 05/22/18 08:29 Lantus Solostar Pen SC 06/20/18 20:59 5 units BID MARIOLA Administration Labetalol HCl 100 mg 05/21/18 21:00 05/22/18 08:27 Normodyne PO 06/20/18 20:59 100 mg BID MARIOLA Administration Losartan Potassium 25 mg 05/22/18 09:00 05/22/18 08:28 Cozaar PO 06/21/18 08:59 25 mg DAILY MARIOLA Administration Miscellaneous 1 ea 05/21/18 16:00 05/22/18 08:26 Order Awaiting Action N/A 06/20/18 15:59 Not Given QS MARIOLA Miscellaneous 15 - 30 gm 05/21/18 14:26 05/21/18 20:30 Carbohydrates For Hypoglycemia PO 06/20/18 14:25 15 gm UD PRN Administration Hypoglycemia Treatment Montelukast Sodium 10 mg 05/21/18 21:00 05/21/18 20:17 Singulair PO 06/20/18 20:59 10 mg HS MARIOLA Administration Paroxetine HCl 40 mg 05/22/18 09:00 05/22/18 08:27 Paxil PO 06/21/18 08:59 40 mg DAILY MARIOLA Administration Vitamin D 1,000 units 05/22/18 09:00 05/22/18 08:28 Vitamin D3 PO 06/21/18 08:59 1,000 units DAILY MARIOLA Administration Past Medical History Medical History Depression (Chronic) Anxiety (Chronic) Diastolic dysfunction (Chronic) Hypertension (Chronic) ROXY on CPAP (Chronic) COPD, severe (Chronic) Hyperparathyroidism, secondary renal (Chronic) Dyslipidemia (Chronic) CKD (chronic kidney disease), stage IV (Chronic) DM type 2 (diabetes mellitus, type 2) (Chronic) Past Family History Family History Sister Colon cancer Past Surgical History Surgical History Status post trigger finger release (Chronic) History of cataract surgery (Chronic) Social History Smoking Status: Former smoker Do You Dip or Chew Tobacco: No Hx Alcohol Use: Yes alcohol intake frequency: a few times a month Hx Substance Use: No substance use type: does not use Physical Exam Vital Signs Last Vital Signs Temp 36.7 C 05/22/18 10:11 Pulse 69 05/22/18 10:11 Resp 16 05/22/18 10:11 BP 153/61 H 05/22/18 10:11 Pulse Ox 97 05/22/18 10:11 Testing Laboratory Results 05/22/18 06:41 05/22/18 06:41 Blood Type A Positive 05/21/18 11:24 Antibody Screen NEGATIVE 05/21/18 11:24 PT 10.3 Seconds (9.0-12.0) 05/21/18 14:59 INR 1.0 (0.9-1.1) 05/21/18 14:59 APTT 24.0 Seconds (21.0-31.0) 05/21/18 11:24 05/22/18 05/22/18 08:00 06:06 POC Glucose 148 H 107 H
[2018-05-22] MEDS ORDERED: ePHEDrine sulfate 50 MG/ML AMP IV PRN (10:47)
[2018-05-22] MEDS ORDERED: ATROPINE SULFATE 0.1 MG/ML 10ML SYR IV PRN (10:47)
[2018-05-22] MEDS ORDERED: MIDAZOLAM HCL 1 MG/ML 2ML VIAL ONE (10:50)
[2018-05-22] MEDS ORDERED: PROPOFOL IV EMULSION 10 MG/ML 20 ML VIAL IV ONE (10:52)
[2018-05-22] MEDS ORDERED: LIDOCAINE HCL 2% 2 ML VIAL/AMP(20MG/ML) INFIL ONE (10:52)
[2018-05-22] MEDS ORDERED: ONDANSETRON INJ 2 MG/ML 2 ML VIAL ONE (10:53)
--- NOTE | 2018-05-22 11:09 | GI REPORT ---
Patient Name: Arabella Toledo Procedure Date: 05/22/2018 10:57 AM Date of : 1945 Admit Type: Inpatient Age: 73 Gender: Female Attending MD: Marycarmen Kumar M.d. Procedure: Upper GI endoscopy Providers: Marycarmen Kumar M.d. Referring MD: Chong Robles M.d. Indications: Melena Medicines: Per Anesthesia Complications: No immediate complications. Estimated Blood Loss: Estimated blood loss: none. Procedure: Pre-Anesthesia Assessment: - Patient identification and proposed procedure were verified prior to the procedure by the physician and the nurse. The procedure was verified in the pre-procedure area. - Prior to the procedure, a History and Physical was performed, and patient medications, allergies and sensitivities were reviewed. The patient's tolerance of previous anesthesia was reviewed. - The risks and benefits of the procedure and the sedation options and risks were discussed with the patient. All questions were answered and informed consent was obtained. - ASA Grade Assessment: III - A patient with severe systemic disease. After obtaining informed consent, the endoscope was passed under direct vision. Throughout the procedure, the patient's blood pressure, pulse, and oxygen saturations were monitored continuously. The Scope was introduced through the mouth, and advanced to the second part of duodenum. The upper GI endoscopy was accomplished without difficulty. The patient tolerated the procedure well. Findings: The examined esophagus appeared normal. The examined stomach appeared normal. The duodenal bulb and second portion of the duodenum were normal. Bile noted in D2. Impression: - Normal esophagus. - Normal stomach. - Normal duodenal bulb and second portion of the duodenum. Recommendation: - No signs of active GI bleeding were noted. - No ulceration or esophagitis seen in the esophagus, stomach, or duodenum. - Can take PPI once daily for 8 weeks. - Return to floor when ready. Ba Garcia M.d. 05/22/2018 11:09:20 AM This report has been signed electronically. Note Initiated On: 05/22/2018 10:57 AM Number of Addenda: 0 I attest to the content of the Intraoperative Record and orders documented therein, exceptions below {[id number]}
--- NOTE | 2018-05-22 11:10 | Gastroenterology Progress Note ---
Date of Service May 22, 2018 Supervising Physician Co-Signing Physician Notes EGD completed in endo - no signs of active GI bleeding. Can take PPI once daily for next 8 weeks. DC to home when ready- outpatient colonoscopy as previously scheduled. GI will sign off. Subjective NO acute distress Physical Exam 2 Vital Signs (Past 24 Hours): Last Vital Signs Temp 36.7 C 05/22/18 10:11 Pulse 69 05/22/18 10:11 Resp 16 05/22/18 10:11 BP 153/61 H 05/22/18 10:11 Pulse Ox 97 05/22/18 10:11 Physical Exam: NAD Eyes: PERRL, conjunctivae normal, anicteric sclerae Gastrointestinal (Abdomen): normal bowel sounds, soft, nontender, no hepatosplenomegaly Results & Data Laboratory Results Labs reviewed
--- NOTE | 2018-05-22 14:06 | Anesthesiology Progress Note ---
Date of Service May 22, 2018 Anesthesia Post Procedure Vital Signs Vital Signs: Temp Pulse Pulse Resp BP BP BP 05/22/18 11:43 66 20 154/71 H 05/22/18 11:28 66 20 141/66 H 05/22/18 11:13 36.7 C 66 20 122/56 L 05/22/18 10:11 36.7 C 69 16 153/61 H 05/22/18 09:28 62 05/22/18 07:23 36.9 C 69 18 158/74 H 05/22/18 03:29 36.9 C 61 14 123/67 05/22/18 00:00 36.7 C 66 16 137/55 L 05/21/18 23:00 36.5 C 71 16 151/75 H 05/21/18 22:30 36.5 C 67 16 146/72 H 05/21/18 22:00 36.8 C 64 16 136/39 L 05/21/18 21:45 36.7 C 63 18 136/69 05/21/18 21:22 36.7 C 65 18 133/67 05/21/18 21:20 36.5 C 65 18 133/67 05/21/18 20:56 36.8 C 65 18 128/61 05/21/18 20:00 36.9 C 75 18 164/74 H 05/21/18 19:00 37.1 C 68 18 166/68 H 05/21/18 18:55 37.1 C 68 18 166/68 H 05/21/18 18:26 37.4 C 69 18 136/68 05/21/18 18:11 37.4 C 71 18 166/67 H 05/21/18 17:54 37.0 C 71 18 151/63 H 05/21/18 14:30 36.8 C 75 18 163/67 H Pulse Ox 05/22/18 11:43 96 05/22/18 11:28 95 05/22/18 11:13 95 05/22/18 10:11 97 05/22/18 09:28 05/22/18 07:23 97 05/22/18 03:29 97 05/22/18 00:00 97 05/21/18 23:00 96 05/21/18 22:30 94 05/21/18 22:00 96 02/25/19 21:45 96 05/21/18 21:22 96 05/21/18 21:20 96 05/21/18 20:56 97 05/21/18 20:00 97 05/21/18 19:00 97 05/21/18 18:55 97 05/21/18 18:26 97 05/21/18 18:11 98 05/21/18 17:54 98 05/21/18 14:30 96 Notes Mental Status: alert / awake / arousable Patient Amnestic to Procedure: Yes Nausea / Vomiting: adequately controlled Pain: adequately controlled Airway Patency, RR, SpO2: stable & adequate BP & HR: stable & adequate Hydration State: stable & adequate Anesthetic Complications: no major complications apparent and Pt Satisfied with anesthetic care
--- NOTE | 2018-05-22 15:46 | Hospitalist Progress Note ---
Date of Service May 22, 2018 Assessment & Plan (1) GI bleed: (2) Anemia: Evaluated for acute blood loss anemia from suspected gastrointestinal bleed but no upper gastrointestinal source of bleeding was found -Patient presenting by referral of PCP for evaluation of anemia and dark stools/ bright red bleeding per rectum -Symptoms have been present for the past 1 week -In the ED on 05/21/18, hemoglobin noted to be 7.4, patient hemodynamically stable, patient was transfused 2 units of PRBC -05/22/18: patient had upper endoscopy and editor book did not find evidence of any acute upper gastrointestinal bleed source and gastroenterology service recommends discharge with outpatient colonoscopy Discharge with follow up appointments to: 05/29/2018 1:00 PM Provider Gisella Tomas MD Department General Internal Medicine [facility] outpatient colonoscopy 06/05/2018 10:00 AM Provider Thai Jones MD Department Endoscopy, [facility] Patient should hold aspirin for now until completion of colonscopy as outpatient or unless recommended to be resumed by primary care doctor Patient should take PPI (omeprazole) daily for 8 weeks (3) Hypertension: -BP controlled, continue amlodipine, hydralazine, labetalol, losartan -can resume triamterene/HCTZ (4) CKD (chronic kidney disease), stage IV: - baseline renal function (5) Diastolic dysfunction: -Echo 2017-EF 61%, grade 2 diastolic dysfunction -can resume triamterene/HCTZ (6) DM type 2 (diabetes mellitus, type 2): Controlled Type 2 Diabetes mellitus without complication and without robotic technician use of insulin -Hgb A1c 5.7 03/2018 -patient can resume home dose glimepiride (7) ROXY on CPAP: can continue CPAP at home (8) COPD, severe: -No signs of acute exacerbation -Continue home inhalers (9) Dyslipidemia: Morbidly obese, BMI 45.7 continue statin (10) Depression: (11) Anxiety: -Continue bupropion and paroxetine (12) DVT prophylaxis: - SCDs while inpatient Discharge diagnosis Evaluated for acute blood loss anemia from suspected gastrointestinal bleed but no upper gastrointestinal source of bleeding was found; Hypertension, Controlled Type 2 Diabetes mellitus without complication and without robotic technician use of insulin, ROXY on CPAP, CKD stage IV Subjective Patient returned from EGD denies vomiting. denies abdominal pain. denies shortness of breath or chest pain. EGD reports did not find evidence of any acute upper gastrointestinal bleed source and gastroenterology service recommends discharge with outpatient colonoscopy planned Physical Exam 2 Vital Signs (Past 24 Hours): Last Vital Signs Temp 37.1 C 05/22/18 15:12 Pulse 66 05/22/18 15:42 Resp 18 05/22/18 15:12 BP 138/70 05/22/18 15:12 Pulse Ox 95 05/22/18 15:12 Constitutional: WD/WN, vitals as above Eyes: PERRL, conjunctivae normal, anicteric sclerae EOM intact bilaterally ENMT: external ear and nose normal, oropharynx normal Neck: trachea midline, no thyromegaly Respiratory: normal respiratory effort, lungs clear to auscultation Cardiovascular: RRR, no murmur, no edema Gastrointestinal (Abdomen): normal bowel sounds, soft, nontender, no hepatosplenomegaly Musculoskeletal: no cyanosis or clubbing, extremities motor strength 5/5 Head/Neck/Chest: normocephalic and head atraumatic Neurologic: PERRL, EOMI, accommodation nl, no face palsy, no dysarthria CN' s II-XI intact bilaterally Psychiatric: A+Ox3, euthymic affect _ (1) GI bleed GI bleed type/associated pathology: unspecified gastrointestinal hemorrhage type Gastritis type: Qualified Code(s): K92.2 - Gastrointestinal hemorrhage, unspecified
--- NOTE | 2018-05-22 16:08 | Discharge Summary ---
Date of Service May 22, 2018 Admission HPI Per Admitting Provider 73-year-old female who presents to the ED by referral PCP for evaluation of dark stools and anemia. Patient was seen for dark stools and bright red bleeding per rectum as an outpatient on 05/19. At that time, labs were ordered and colonoscopy was scheduled. Patient received a phone call today that her blood count was low and she needs to go to the ED for further evaluation. Patient reports dark stool as well as some bright bleeding per rectum over the past 1 week. She reports stools have been formed. She has been having to 3 bowel movements per day, normally she reports she only moves her bowels about every 3-4 days. She denies abdominal pain, nausea, vomiting. No NSAID or steroid use. She denies chest pain, shortness of breath, lightheadedness, dizziness, diaphoresis, syncopal events. No other recent illnesses, fevers, chills. She denies any urinary symptoms. In the ED, patient's hemoglobin is found to be 7.4. She is hemodynamically stable. She was given a Protonix bolus and started on a drip. She was typed and crossed for 2 units of blood. She was typed and crossed for 2 units of blood. Admission Exam Per Admitting Provider Constitutional: WD/WN, vitals as above Eyes: PERRL, conjunctivae normal, anicteric sclerae ENMT: external ear and nose normal, oropharynx normal Respiratory: normal respiratory effort, lungs clear to auscultation Cardiovascular: Rate/Rhythm: regular rate and regular rhythm Vessels: normal peripheral pulses Extremities: + edema (Trace edema BLE) Gastrointestinal (Abdomen): normal bowel sounds, soft, nontender, no hepatosplenomegaly Musculoskeletal: no cyanosis or clubbing, extremities motor strength 5/5 Skin: no rashes, warm and dry Neurologic: PERRL, EOMI, accommodation nl, no face palsy, no dysarthria Psychiatric: A+Ox3, euthymic affect Principal Diagnosis Evaluated for acute blood loss anemia from suspected gastrointestinal bleed but no upper gastrointestinal source of bleeding was found; Hypertension, Controlled Type 2 Diabetes mellitus without complication and without correction use of insulin, ROXY on CPAP, CKD stage IV Discharge Exam Constitutional WD/WN, vitals as above Eyes PERRL, conjunctivae normal, anicteric sclerae EOM intact bilaterally ENMT external ear and nose normal, oropharynx normal Neck trachea midline, no thyromegaly Respiratory normal respiratory effort, lungs clear to auscultation Cardiovascular RRR, no murmur, no edema Gastrointestinal (Abdomen) normal bowel sounds, soft, nontender, no hepatosplenomegaly Musculoskeletal no cyanosis or clubbing, extremities motor strength 5/5 Head/Neck/Chest: normocephalic and head atraumatic Neurologic PERRL, EOMI, accommodation nl, no face palsy, no dysarthria CN's II-XI intact bilaterally Psychiatric A+Ox3, euthymic affect Discharge Data Allergies Allergy/AdvReac Type Severity Reaction Status Date / Time levofloxacin [From Levaquin] Allergy Unknown Verified 05/22/18 10:06 DOREEN Inhibitors AdvReac coughing Verified 05/22/18 10:06 Consultations 05/21/18 12:04 ED Decision to Admit Stat 05/21/18 14:26 Consult Gastroenterology Routine Procedures Performed Operation Date: 05/22/18 08:30 Actual Procedures p Esophagogastroduodenoscopy - Marycarmen Kumar M.D. Ordered Studies 05/22/18 abdomen limited Urgent Hospital Course (1) GI bleed: (2) Anemia: Evaluated for acute blood loss anemia from suspected gastrointestinal bleed but no upper gastrointestinal source of bleeding was found -Patient presenting by referral of PCP for evaluation of anemia and dark stools/ bright red bleeding per rectum -Symptoms have been present for the past 1 week -In the ED on 05/21/18, hemoglobin noted to be 7.4, patient hemodynamically stable, patient was transfused 2 units of PRBC -05/22/18: patient had upper endoscopy and spray operator did not find evidence of any acute upper gastrointestinal bleed source and gastroenterology service recommends discharge with outpatient colonoscopy Discharge with follow up appointments to: 05/29/2018 1:00 PM Provider Gisella Tomas MD Department General Internal Medicine [facility] outpatient colonoscopy 06/05/2018 10:00 AM Provider Thai Jones MD Department Endoscopy, [facility] Patient should hold aspirin for now until completion of colonscopy as outpatient or unless recommended to be resumed by primary care doctor Patient should take PPI (omeprazole) daily for 8 weeks (3) Hypertension: -BP controlled, continue amlodipine, hydralazine, labetalol, losartan -can resume triamterene/HCTZ (4) CKD (chronic kidney disease), stage IV: - baseline renal function (5) Diastolic dysfunction: -Echo 2018-EF 61%, grade 2 diastolic dysfunction -can resume triamterene/HCTZ (6) DM type 2 (diabetes mellitus, type 2): Controlled Type 2 Diabetes mellitus without complication and without terminal clerk use of insulin -Hgb A1c 5.7 03/2018 -patient can resume home dose glimepiride (7) ROXY on CPAP: can continue CPAP at home (8) COPD, severe: -No signs of acute exacerbation -Continue home inhalers (9) Dyslipidemia: Morbidly obese, BMI 45.7 continue statin (10) Depression: (11) Anxiety: -Continue bupropion and paroxetine (12) DVT prophylaxis: - SCDs while inpatient Discharge diagnosis Evaluated for acute blood loss anemia from suspected gastrointestinal bleed but no upper gastrointestinal source of bleeding was found; Hypertension, Controlled Type 2 Diabetes mellitus without complication and without correction use of insulin, ROXY on CPAP, CKD stage IV Total Time Total Time Spent Total Time Spent (In Minutes): 40 minutes Total Time Includes: Examination of the Patient, Discharge Planning and Medication Reconciliation Discharge Plan Discharge Items Patient Disposition: Home - Self-Care Reason For Visit: GI BLEED Discharge Diagnosis: Evaluated for acute blood loss anemia from suspected gastrointestinal bleed but no upper gastrointestinal source of bleeding was found; Hypertension, Controlled Type 2 Diabetes mellitus without complication and without correction use of insulin, ROXY on CPAP, CKD stage IV Condition: Good Discharge Goals: Improve disease control Activity: Resume your previous activity Non-emergency contact: Primary Care Provider and Anthropologist Physical Call non-emergency contact if: you have any medication questions Diet: Regular Addtl Provider Instructions: Discharge with follow up appointments to: 05/29/2018 1:00 PM Provider Gisella Tomas MD Department General Internal Medicine [facility] outpatient colonoscopy 06/05/2018 10:00 AM Provider Thai Jones MD Department Endoscopy, [facility] Patient should hold aspirin for now until completion of colonscopy as outpatient or unless recommended to be resumed by primary care doctor Patient should take PPI (omeprazole) daily for 8 weeks Prescriptions: Continue atorvastatin 20 mg Tablet 20 mg PO DAILY RF: 0 hydralazine 25 mg Tablet 25 mg PO TID RF: 0 bupropion HCl [Wellbutrin SR] 100 mg Tablet Sustained-Release 12 Hr 100 mg PO BID RF: 0 glimepiride 2 mg Tablet 2 mg PO DAILY RF: 0 amlodipine 10 mg Tablet 10 mg PO DAILY RF: 0 losartan 25 mg Tablet 25 mg PO DAILY RF: 0 triamterene-hydrochlorothiazid 37.5-25 mg Tablet 1 tab PO DAILY RF: 0 omeprazole 20 mg Capsule,Delayed Release(Dr/Ec) 20 mg PO DAILY RF: 0 montelukast [Singulair] 10 mg Tablet 10 mg PO HS RF: 0 labetalol 100 mg Tablet 100 mg PO BID RF: 0 fluticasone [Flonase Allergy Relief] 50 mcg/actuation [place],Suspension 2 spray INTRANASAL DAILY RF: 0 calcitriol 0.25 mcg Capsule 0.25 mcg PO DAILY RF: 0 mometasone-formoterol [Dulera] 100-5 mcg/actuation Hfa Aerosol Inhaler 2 puff INHALATION BID RF: 0 cetirizine 5 mg Tablet 5 mg PO HS RF: 0 paroxetine HCl 40 mg tablet 40 mg PO DAILY RF: 0 cholecalciferol (vitamin D3) [Vitamin D3] 1,000 unit Capsule 1,000 unit PO DAILY RF: 0 iron,carbonyl-vitamin C [Vitron-C] 65 mg iron- 125 mg Tablet,Delayed Release ( Dr/Ec) 1 tab PO DAILY RF: 0 Discontinued aspirin 81 mg Tablet,Delayed Release (Dr/Ec) 81 mg PO DAILY RF: 0 Stand-Alone Forms: [facility] Discharge Orders: Discharge Order (Routine); Ordered 05/22/18 Ordered By: Chong Robles Admission Data Admit Date/Time: 05/21/18 12:45 Attending Provider: Chong Robles Admit Provider: Tony Dozier Primary Care Provider: Liban Chavez Other Providers: Tony Dozier ; Marycarmen Kumar Service: Telemetry Medical Other Interventions: Discharge Summary Assessment (RN) Last Done: 05/22/18 12:42
== END 2018-05-22 18:41 | disposition home or self-care (01) ==
LOC: ED 10:24 → 2N 12:45

== ENCOUNTER 2018-10-15 13:18 | Inpatient (IN) ==
--- OUTSIDE RECORDS SUMMARY | 2018-10-15 13:21 | External Medical Summary | Continuity of Care Document ---
:1945 Author Name Lazaro Cosme Address Unavailable Unavailable , Care Team Providers Name Role Phone Skyler Cosme S. Unavailable [email or web address] Active medical history not documented Allergies and Adverse Reactions Allergy history not documented Medications Medications not documented Procedures Procedures not documented Immunizations Immunizations not documented Plan of Treatment Planned Observations Planned Goals not documented Results No Known Results Results not documented
--- NOTE | 2018-10-15 14:37 | XRay Report ---
XR chest 1V portable HISTORY: 73 years-old Female Edema, shob with exertion acute shortness of breath with possible pulmo nary edema COMPARISON: Chest radiograph 05/22/2018 TECHNIQUE: Portable AP view of the chest FINDINGS: Cardiac silhouette is mildly enlarged, unchanged. There is mild pulmonary vascular congestion. Calcif ication of the thoracic aortic arch. No pneumothorax, definite pleural effusion or lobar airspace con solidation. Degenerative changes of the shoulders and spine. IMPRESSION: Cardiomegaly with pulmonary vascular congestion. The above report was generated using voice recognition software. It may contain grammatical, syntax o r spelling errors. Electronically signed by: Malik Sagastume M.D. 10/15/2018 2:35 PM
[2018-10-15 14:52] LABS: Basophils # (auto) 0.03 K/uL (0-0.2); Basophils % (auto) 0.3 %; Eosinophils # (auto) 0.13 K/uL (0-0.5); Eosinophils % (auto) 1.5 %; Hemoglobin 9.9 g/dL (12.0-16.0); Immature Granulocytes # (auto) 0.03 K/uL (0.00-0.02); Immature Granulocytes % (auto) 0.3 %; Lymphocytes % (auto) 25.4 %; Mean Corpuscular Volume 96.5 fL (80-100); Mean Platelet Volume 10.1 fL (7.4-10.4); Monocytes # (auto) 0.57 K/uL (0.11-0.59); Monocytes % (auto) 6.6 %; Neutrophils % (auto) 65.9 %; Platelet Count 227 K/uL (130-400); RDW Coefficient of Variation 15.4 % (11.5-14.5); RDW Standard Deviation 54.4 fL (36.4-46.3); Red Blood Count 3.11 M/uL (4.2-5.4); White Blood Count 8.66 K/uL (4.8-10.8)
[2018-10-15 15:09] LABS: BUN Creatinine Ratio 19.9 (10-20); Blood Urea Nitrogen 43 mg/dl (7-18); Calcium 9.2 mg/dl (8.5-10.1); Carbon Dioxide 25 mmol/L (21-32); Chloride 109 mmol/L (98-107); Est GFR (African American) 25.4; Est GFR (Non-African American) 21.9; Glucose 95 mg/dl (70-99); Potassium 4.3 mmol/L (3.5-5.1); Sodium 142 mmol/L (136-145)
[2018-10-15] MEDS ORDERED: FUROSEMIDE 40 MG in SYRINGE 0 ML IV ONE (15:16)
[2018-10-15 15:19] LABS: NT Pro B Type Natriuretic Pept 617 pg/ml (0-900); Troponin I < 0.015 ng/ml (0-0.045)
[2018-10-15] MEDS ORDERED: FUROSEMIDE 40 MG/4 ML VIAL IV ONE (15:47)
--- NOTE | 2018-10-15 17:09 | History & Physical Report ---
Date of Service October 15, 2018 Assessment & Plan (1) Acute on chronic diastolic CHF (congestive heart failure): -Admit to [facility] with telemetry -Patient presenting from home with reports of increasing lower extremity edema and exertional shortness of breath for the past 1 week -Dopplers checked in the ED and negative for DVT -Likely volume overload; multifactorial due to recent travel, dietary indiscretions, obesity, recent prednisone use, amlodipine use -Echo 07/2017-EF 61%, grade 2 diastolic dysfunction; will update echo -Received furosemide 40 mg IV in the ED, will continue with 40 mg IV daily -EKG without acute ST changes -Noted home diuretic regimen includes torsemide 10 mg daily (was previously on 20 mg daily however this caused orthostatic symptoms, patient also was on HCTZ in the past however this was felt to be causing a rash) (2) DM type 2 (diabetes mellitus, type 2): -Hgb A1c 5.7 06/2018 -Hold oral agents and utilize NovoLog per protocol while hospitalized (3) CKD (chronic kidney disease), stage IV: - baseline creat runs in the high ones to low twos - creat noted to be 2.1 today - continue to monitor, avoid nephrotoxic agents when able -Continue routine renal medication (4) COPD, severe: -No wheezing on exam, no signs of acute exacerbation -Continue home inhalers (5) Hypertension: -BP elevated, likely secondary to volume overload -Should improve with IV diuresis -Continue home doses of losartan, amlodipine, labetalol, hydralazine (6) GERD (gastroesophageal reflux disease): -Continue PPI (7) Dyslipidemia: -Continue statin (8) ROXY on CPAP: -CPAP as per home settings (9) Depression: (10) Anxiety: -Continue bupropion and paroxetine (11) DVT prophylaxis: -SQ heparin History of Present Illness Chief Complaint: Lower extremity edema, shortness of breath Primary Care Provider: Liban Chavez MD 73-year-old male who presents to the ED with lower extremity edema and shortness of breath. Patient reports increasing symptoms over the past 1 week. Patient reports she has some mild lower extremity at baseline however this is currently much worse. Of note, patient was vacationing in [place] on a cruise at the end of August through the beginning of September for 16 days. Patient was also being seen as an outpatient for a rash that was felt to be caused by hydrochlorothiazide. Patient was mistaken and accidentally stopped her hydralazine instead of the hydrochlorothiazide. This was reconciled last week. Patient denies chest pain. She has some chronic exertional shortness of breath at baseline which is been worse as well. No shortness of breath at rest. She does not weigh herself on a daily basis. She denies lightheadedness, dizziness, diaphoresis, syncopal events. No abdominal pain, nausea, vomiting, diarrhea. She denies any fevers chills. No urinary symptoms. In the ED, labs are unremarkable. CXR shows pulmonary vascular congestion. BP elevated at 188/81. She was given furosemide 40 mg IV. Allergies Allergy/AdvReac Type Severity Reaction Status Date / Time levofloxacin [From Levaquin] Allergy Intermediate TORN TENDON Verified 10/15/18 15:04 DOREEN Inhibitors Allergy Mild coughing Verified 10/15/18 15:04 Home Medications Home Medications Medication Instructions Recorded Confirmed Type Dulera 2 puff INHALATION BID 05/21/18 10/15/18 History Vitron-C 1 tab PO QAM 05/21/18 10/15/18 History amlodipine 10 mg PO QAM 05/21/18 10/15/18 History atorvastatin 20 mg PO QAM 05/21/18 10/15/18 History bupropion HCl [Wellbutrin SR] 100 mg PO BID 05/21/18 10/15/18 History calcitriol 0.25 mcg PO QAM 05/21/18 10/15/18 History cetirizine 5 mg PO HS 05/21/18 10/15/18 History cholecalciferol (vitamin D3) 1,000 unit PO QAM 05/21/18 10/15/18 History [Vitamin D3] fluticasone propionate [Flonase 2 spray INTRANASAL DAILY 05/21/18 10/15/18 History Allergy Relief] glimepiride 2 mg PO QAM 05/21/18 10/15/18 History hydralazine 25 mg PO TID 05/21/18 10/15/18 History labetalol 100 mg PO BID 05/21/18 10/15/18 History losartan 25 mg PO QAM 05/21/18 10/15/18 History montelukast [Singulair] 10 mg PO HS 05/21/18 10/15/18 History omeprazole 20 mg PO QAM 05/21/18 10/15/18 History paroxetine HCl 40 mg PO QAM 05/21/18 10/15/18 History albuterol sulfate 2 puff INHALATION Q4H PRN 10/15/18 10/15/18 History albuterol sulfate 2.5 mg INHALATION QID PRN 10/15/18 10/15/18 History fexofenadine [Vonda Allergy] 180 mg PO DAILY PRN 10/15/18 10/15/18 History torsemide 10 mg PO DAILY 10/15/18 10/15/18 History Past Med/Surg History Medical History Chronic diastolic CHF (congestive heart failure) (Chronic) Restless leg syndrome (Chronic) GERD (gastroesophageal reflux disease) (Chronic) Osteoarthritis (Chronic) Gastrointestinal hemorrhage with melena (Resolved) Depression (Chronic) Anxiety (Chronic) Diastolic dysfunction (Chronic) Hypertension (Chronic) ROXY on CPAP (Chronic) COPD, severe (Chronic) Hyperparathyroidism, secondary renal (Chronic) Dyslipidemia (Chronic) CKD (chronic kidney disease), stage IV (Chronic) DM type 2 (diabetes mellitus, type 2) (Chronic) Surgical History History of tooth extraction (Chronic) Status post trigger finger release (Chronic) History of cataract surgery (Chronic) RT/LEFT Family History Sister Colon cancer Mother Family history of diabetes mellitus Social History Preferred Language: Guinean Communication Ability: Effective Safe And Vault Mechanic Required: No Beliefs That Will Affect Care: Gnosticist Gnosticist Beliefs: Advent marital status: Single Current Living Situation: Significant Other current occupational status: retired Other Information That Helps Us Care for You: No Feels Safe at Home: Yes Safety Concerns: Feels Safe At This Time Smoking Status: Former smoker Tobacco Type: cigarettes Smoking End Date: 1987 or Second Hand Exposure: No Hx Alcohol Use: Yes Alcohol type: wine and hard liquor Hx Substance Use: No Review of Systems Review of Systems: ROS per HPI, all other systems reviewed and negative Physical Exam Constitutional: WD/WN, vitals as above Eyes: PERRL, conjunctivae normal, anicteric sclerae ENMT: external ear and nose normal, oropharynx normal Respiratory: normal respiratory effort; no respiratory distress Auscultation: + diminished lung sounds; no crackles and no wheezes Cardiovascular: Rate/Rhythm: regular rate and regular rhythm Vessels: normal peripheral pulses Extremities: + edema (+3-4 pitting edema BLE) Gastrointestinal (Abdomen): normal bowel sounds, soft, nontender, no hepatosplenomegaly Musculoskeletal: no cyanosis or clubbing, extremities motor strength 5/5 Skin: no rashes, warm and dry Neurologic: PERRL, EOMI, accommodation nl, no face palsy, no dysarthria Psychiatric: A+Ox3, euthymic affect Results & Data Vital Signs (Past 12 Hours) Vital Signs Temp Pulse Pulse Resp BP BP Pulse Ox 10/15/18 16:02 96 10/15/18 15:54 87 20 174/91 H 94 10/15/18 14:51 76 18 188/81 H 94 10/15/18 13:28 36.9 C 75 18 147/70 H 96 Laboratory Results Short CBC 10/15/18 Range/Units 14:38 WBC 8.66 (4.8-10.8) K/uL Hgb 9.9 L (12.0-16.0) g/dL Hct 30.0 L (37-47) % Plt Count 227 (130-400) K/uL BMP 10/15/18 14:38 Sodium 142 Potassium 4.3 Chloride 109 H Carbon Dioxide 25 BUN 43 H Creatinine 2.17 H Glucose 95 Calcium 9.2 Cardiac Enzymes 10/15/18 Range/Units 14:38 Troponin I < 0.015 (0-0.045) ng/ml Diagnostic Findings CXR IMPRESSION: Cardiomegaly with pulmonary vascular congestion. BLLE DOPPLER IMPRESSION: No DVT within the right or left lower extremity. Code Status & VTE Plan Code Status Patient is a full code as per my discussion with her. VTE Prophylaxis Plan VTE Prophylaxis will be ordered: Yes Supervising Physician Co-Signing Physician Notes Attending addendum The patient was seen and examined in emergency room He has been complaining of bilateral leg swelling associated with shortness of breath on exertion this is been going on for some time Denies any chest pain and/or palpitation History of grade 2 diastolic dysfunction On examination Obese No apparent distress at rest Blood pressure noted to be on the higher side at presentation Chest decreased breath sounds both sides but no wheezing and/or crackles- Heart-S1-S2, regular Abdomen-distended,soft,, nontender and no organomegaly Extremities-2+ edema bilateral Admission labs and imaging studies reviewed Has increasing creatinine from her baseline of 2.0 to 2.17 with increasing BUN Likely has acute diastolic heart failure We will get echo Agree with assessment plan as outlined above by Debora Trevino
--- NOTE | 2018-10-15 17:15 | Ultrasound Report ---
US venous doppler LE BI HISTORY: Pain. Edema. new onset bilateral leg edema post vacation COMPARISON STUDY: None. FINDINGS: There is normal compressibility, flow, and augmentation within the bilateral lower extremit y deep venous systems. IMPRESSION: No DVT within the right or left lower extremity. The above report was generated using voice recognition software. It may contain grammatical, syntax or spelling errors. Electronically signed by: Marshall Curtis M.D. 10/15/2018 5:13 PM
[2018-10-15] MEDS ORDERED: LORazepam 1 MG TAB PO PRN (18:22)
[2018-10-15] MEDS ORDERED: CARBOHYDRATES FOR HYPOGLYCEMIA PO PRN (18:22)
[2018-10-15] MEDS ORDERED: ALBUTEROL 0.083% NEBU SOLN 3 ML VIAL INH PRN (18:22)
[2018-10-15] MEDS ORDERED: GLUCOSE 10 TABS/TUBE PO PRN (18:22)
[2018-10-15] MEDS ORDERED: GLUCOSE 40% GEL 15 GM TUBE PO PRN (18:22)
[2018-10-15] MEDS ORDERED: DEXTROSE 50% 50 ML SYRINGE IV PRN (18:22)
[2018-10-15] MEDS ORDERED: ACETAMINOPHEN 325 MG TAB PO PRN (18:22)
[2018-10-15] MEDS ORDERED: GLUCAGON FOR INJ 1 MG VIAL SQ PRN (18:22)
--- NOTE | 2018-10-15 18:57 | Emergency Department Note ---
Entered by Dede Reyes acting as a scribe for Ham Gil MD ED Provider Note Name: ParisArabella Age: 73, F Arrives Via: Walk-in Informant: Patient CC: Swelling to lower extremities. HPI: The patient is a 73 year old female who arrives for evaluation of lower extremity swelling. The patient states that the swelling is getting progressively worse and that it hurts to walk or move. The patient notes that this has never happened before. The patient states that she was recently in [place], but got back 2 weeks ago. The patient denies urinary problems, shortness of breath, back pain, chest pain, and kidney issues. ROS: See above HPI for pertinent positives & negatives. A total of 10 systems reviewed and were otherwise negative. Past Medical History: See below. Past Surgical History: See below. Family History: Colon cancer and diabetes. Social History: See below. Home Medications: See below. Allergies Levofloxacin, DOREEN inhibitors. Physical: Vitals: BP 174/91, P 87, RR 20, Temp 36.9 C, O2 sat 96 on NC. Exam: GENERAL: Patient is mildly uncomfortable appearing and in minimal distress. EYES: No scleral icterus, unremarkable pupils. ENT: Mucous membranes moist, no nasal congestion. NECK: No masses appreciated, no meningismus, trachea is midline. RESPIRATORY: Crackles in base of bilateral lungs. No dyspnea. No wheezes. CARDIOVASCULAR: Regular rate and rhythm. No murmurs, rubs, gallops appreciated. GASTROINTESTINAL: Abdomen soft, non-tender, no peritonitis. Bowel sounds positive. No masses appreciated. BACK: No midline tenderness, no CVA tenderness EXTREMITIES: 4+ pitting edema in bilateral legs. Normal motion all extremities, no cyanosis. NEUROLOGIC: Alert and oriented, no acute motor or sensory deficits, no focal weakness, cranial nerves grossly intact. SKIN: No rash, no jaundice, no diaphoresis. ED Course: Prior Medical Record, Triage/Nursing Notes, Medications, Allergies reviewed by Me Vital Signs: reviewed and remarkable for HTN Labs: Reviewed and remarkable for normal BNP Interventions: saline lock, lasix 40mg IV Imaging: Radiology results as stated below per my review and the radiologist's interpretation: XR chest 1V portable HISTORY: 73 years-old Female Edema, shob with exertion acute shortness of breath with possible pulmonary edema COMPARISON: Chest radiograph 05/22/2018 TECHNIQUE: Portable AP view of the chest FINDINGS: Cardiac silhouette is mildly enlarged, unchanged. There is mild pulmonary vascular congestion. Calcification of the thoracic aortic arch. No pneumothorax, definite pleural effusion or lobar airspace consolidation. Degenerative changes of the shoulders and spine. IMPRESSION: Cardiomegaly with pulmonary vascular congestion. The above report was generated using voice recognition software. It may contain grammatical, syntax or spelling errors. Electronically signed by: Malik Sagastume M.D. 10/15/2018 2:35 PM EKG: Per My Interpretation: Indication Leg Swelling. NSR 76 bpm with LBBB qtc 463. No ectopy nor ischemia. It appears LBBB is new from 05/21/2018. Course: 1413: Past medical records reviewed. The patient was evaluated in room B7. A complete history and physical exam was performed. 1520: I paged Adina at this time. 1524: I discussed the patient's case with Debora Valadez PA-C who is accepting for Dr. Ronnie Holden Hospitalist. He will evaluate the patient for further management. Blood pressure: Elevated - Referred to Hospitalist Disposition: Hospitalization Differentials: DVT, CHF, Arterial Occlusion, Infectious, Joint Effusion, Trauma, Lymphedema, Idiopathic, Trauma, amongst other pathologies entertained. Medical Decision Makin yr old female with bilateral leg swelling in addition to dyspnea on exertion. Recent travel thus [place] bilateral legs (negative for DVT). No SHOB/CP at rest thus no indication for CT PE. She has new appearing LBBB on EKG though did have mild intraventricular block previously. Labs with normal BNP and otherwise negative. Normal Trop. Unlikely ACS. Unclear why edema but it appears to have some on lungs. Given IV lasix. Reviewed with hospitalist who will bring in for further management. Impression: Bilateral leg edema, fluid overload, left bundle branch block. The scribe's documentation has been prepared under my direction and personally reviewed by me in its entirety. I confirm that the note above accurately reflects all work, treatment, procedures, and medical decision making performed by me. Ham Gil MD Impression & Plan Bilateral leg edema, Fluid overload, Bundle branch block, left Past Med/Surg History Medical History Chronic diastolic CHF (congestive heart failure) (Chronic) Restless leg syndrome (Chronic) GERD (gastroesophageal reflux disease) (Chronic) Osteoarthritis (Chronic) Gastrointestinal hemorrhage with melena (Resolved) Depression (Chronic) Anxiety (Chronic) Diastolic dysfunction (Chronic) Hypertension (Chronic) ROXY on CPAP (Chronic) COPD, severe (Chronic) Hyperparathyroidism, secondary renal (Chronic) Dyslipidemia (Chronic) CKD (chronic kidney disease), stage IV (Chronic) DM type 2 (diabetes mellitus, type 2) (Chronic) Surgical History History of tooth extraction (Chronic) Status post trigger finger release (Chronic) History of cataract surgery (Chronic) RT/LEFT Family History Sister Colon cancer Mother Family history of diabetes mellitus Social History Preferred Language: Setswana Communication Ability: Effective Assistant Credit Manager Required: No Beliefs That Will Affect Care: Pentecostal Pentecostal Beliefs: Voodoo marital status: Single Current Living Situation: Significant Other current occupational status: retired Other Information That Helps Us Care for You: No Feels Safe at Home: Yes Safety Concerns: Feels Safe At This Time Smoking Status: Former smoker Tobacco Type: cigarettes Smoking End Date: 1987 or Second Hand Exposure: No Hx Alcohol Use: Yes Alcohol type: wine and hard liquor Hx Substance Use: No Results & Data Vital Signs Vital Signs - 24 hr 10/15/18 13:28 10/15/18 14:51 10/15/18 15:54 Temperature 36.9 C Temperature Source Oral Sepsis Recent Fever Within 48 Hours No Sepsis New/Unexplained Change in Mental Status No Sepsis Action Taken by Nursing No Action Required Pulse Rate 75 Pulse Rate [Apical] 76 87 Respiratory Rate 18 18 20 Respiratory Effort / Characteristics Non-Labored Respiratory Depth Normal Blood Pressure 147/70 H Blood Pressure [Left Arm] 188/81 H 174/91 H Blood Pressure Mean 95 Blood Pressure Mean [Left Arm] 116 118 Blood Pressure Position [Left Arm] Lying Pulse Oximetry 96 94 94 Oxygen Delivery Method Room Air Room Air Oxygen Flow Rate 10/15/18 16:02 Temperature Temperature Source Sepsis Recent Fever Within 48 Hours Sepsis New/Unexplained Change in Mental Status Sepsis Action Taken by Nursing Pulse Rate Pulse Rate [Apical] Respiratory Rate Respiratory Effort / Characteristics Respiratory Depth Blood Pressure Blood Pressure [Left Arm] Blood Pressure Mean Blood Pressure Mean [Left Arm] Blood Pressure Position [Left Arm] Pulse Oximetry 96 Oxygen Delivery Method Nasal Cannula Oxygen Flow Rate 2 Home Medications Current Medication List: was personally reviewed by me Laboratory Data Attestation: I reviewed the patient's lab results. Result diagrams: 10/15/18 14:38 10/15/18 14:38 Lab Results 10/15/18 10/15/18 Range/Units 14:38 14:38 WBC 8.66 (4.8-10.8) K/uL RBC 3.11 L (4.2-5.4) M/uL Hgb 9.9 L (12.0-16.0) g/dL Hct 30.0 L (37-47) % MCV 96.5 (80-100) fL MCH 31.8 (25-34) pg MCHC 33.0 (32-36) g/dL RDW Std Deviation 54.4 H (36.4-46.3) fL RDW Coeff of Waqas 15.4 H (11.5-14.5) % Plt Count 227 (130-400) K/uL MPV 10.1 (7.4-10.4) fL Immature Gran % (Auto) 0.3 % Neut % (Auto) 65.9 % Lymph % (Auto) 25.4 % [place] % (Auto) 6.6 % Eos % (Auto) 1.5 % Baso % (Auto) 0.3 % Immature Gran # (Auto) 0.03 H (0.00-0.02) K/uL Neut # (Auto) 5.70 (1.4-6.5) K/uL Lymph # (Auto) 2.20 (1.2-3.4) K/uL [place] # (Auto) 0.57 (0.11-0.59) K/uL Eos # (Auto) 0.13 (0-0.5) K/uL Baso # (Auto) 0.03 (0-0.2) K/uL Sodium 142 (136-145) mmol/L Potassium 4.3 (3.5-5.1) mmol/L Chloride 109 H (98-107) mmol/L Carbon Dioxide 25 (21-32) mmol/L Anion Gap 8.0 (3-11) BUN 43 H (7-18) mg/dl Creatinine 2.17 H (0.6-1.2) mg/dl Est Cr Clr Drug Dosing Not Reportable Est GFR ( Amer) 25.4 Est GFR (Non-Af Amer) 21.9 BUN/Creatinine Ratio 19.9 (10-20) Glucose 95 (70-99) mg/dl Calcium 9.2 (8.5-10.1) mg/dl Troponin I < 0.015 (0-0.045) ng/ml NT-Pro-B Natriuret Pep 617 (0-900) pg/ml TSH 0.944 (0.300-4.500) uIu/ml Administered Medications Discontinued Medications Furosemide (Lasix) Confirm Administered Dose 40 mg IV .STK-MED ONE Stop: 10/15/18 15:48 Last Admin: 10/15/18 15:52 Dose: Not Given Documented by: [id number] Furosemide 40 mg/ Syringe 4 mls @ 4 mls/min IV ONE ONE Stop: 10/15/18 15:17 Last Admin: 10/15/18 15:52 Dose: 4 mls/min Documented by: [id number] Imaging Data Radiologist's Impression: Radiology results as stated below per my review and the radiologist's interpretation: XR chest 1V portable HISTORY: 73 years-old Female Edema, shob with exertion acute shortness of breath with possible pulmonary edema COMPARISON: Chest radiograph 05/22/2018 TECHNIQUE: Portable AP view of the chest FINDINGS: Cardiac silhouette is mildly enlarged, unchanged. There is mild pulmonary vascular congestion. Calcification of the thoracic aortic arch. No pneumothorax, definite pleural effusion or lobar airspace consolidation. Degenerative changes of the shoulders and spine. IMPRESSION: Cardiomegaly with pulmonary vascular congestion. The above report was generated using voice recognition software. It may contain grammatical, syntax or spelling errors. Electronically signed by: Malik Sagastume M.D. 10/15/2018 2:35 PM Blood Pressure Blood Pressure Findings: Elevated blood pressure Blood Pressure Disposition: further management by hospitalist Discharge Plan Visit Data Chief Complaint: Swelling/Edema to Extremity Stated Complaint: SWOLLEN LEGS AND FEET ED Provider: Ham Gil Discharge Problem: Bilateral leg edema, Fluid overload, Bundle branch block, left Patient Disposition: Being Evaluated by Hospitalist Discharge Instructions Interventions: ED Discharge Assessment Last Done: 10/15/18 17:45 The scribe's documentation has been prepared under my direction and personally reviewed by me in its entirety. I confirm that the note above accurately reflects all work, treatment, procedures, and medical decision making performed by me.
[2018-10-15 19:12] LABS: Prothrombin Time 10.5 Seconds (9.0-12.0)
[2018-10-15] MEDS: INSULIN ASPART 100 UNITS/ML 3 ML PEN SC SCH (21:00)
[2018-10-15] MEDS: MONTELUKAST SODIUM 10 MG TABLET PO SCH (21:03)
[2018-10-15] MEDS: CETIRIZINE HCL 10 MG TABLET PO SCH (21:03)
[2018-10-15] MEDS: LABETALOL HCL 100 MG TAB PO SCH (21:05)
[2018-10-15] MEDS: HEPARIN SOD 5,000 UNIT/0.5 ML VIAL SQ SCH (21:06)
[2018-10-15] MEDS: DULERA: ORDER AWAITING ACTION SCH (23:44)
[2018-10-16] MEDS: HEPARIN SOD 5,000 UNIT/0.5 ML VIAL SQ SCH ×3 (06:07→20:41)
[2018-10-16 06:34] LABS: Hematocrit (blood only) 30.2 % (37-47); Hemoglobin 9.7 g/dL (12.0-16.0); Mean Corpuscular Hgb Conc 32.1 g/dL (32-36); Mean Corpuscular Volume 96.2 fL (80-100); Mean Platelet Volume 10.4 fL (7.4-10.4); Platelet Count 230 K/uL (130-400); RDW Coefficient of Variation 15.4 % (11.5-14.5); Red Blood Count 3.14 M/uL (4.2-5.4); White Blood Count 8.28 K/uL (4.8-10.8)
[2018-10-16 07:23] LABS: Blood Urea Nitrogen 41 mg/dl (7-18); Calcium 8.8 mg/dl (8.5-10.1); Carbon Dioxide 28 mmol/L (21-32); Chloride 106 mmol/L (98-107); Est GFR (African American) 25.2; Est GFR (Non-African American) 21.8; Glucose 98 mg/dl (70-99); Potassium 3.5 mmol/L (3.5-5.1); Sodium 141 mmol/L (136-145)
[2018-10-16] MEDS: MULTIVITAMIN TAB PO SCH (08:37)
[2018-10-16] MEDS: LOSARTAN POTASSIUM 25 MG TAB PO SCH (08:37)
[2018-10-16] MEDS: PARoxetine HCl 20 MG TAB PO SCH (08:38)
[2018-10-16] MEDS: PANTOprazole 40 MG TAB PO SCH (08:38)
[2018-10-16] MEDS: AMLODIPINE BESYLATE 5 MG TAB PO SCH (08:38)
[2018-10-16] MEDS: THIAMINE HCL 100 MG TAB PO SCH (08:38)
[2018-10-16] MEDS: BuPROPion SR 100 MG TABCR PO SCH ×2 (08:39→20:40)
[2018-10-16] MEDS: CHOLECALCIFEROL 1,000 UNITS TAB PO SCH (08:39)
[2018-10-16] MEDS: LABETALOL HCL 100 MG TAB PO SCH ×2 (08:39→20:41)
[2018-10-16] MEDS: CALCITRIOL 0.25 MCG CAPSULE PO SCH (08:39)
[2018-10-16] MEDS: FOLIC ACID 1 MG TAB PO SCH (08:39)
[2018-10-16] MEDS: DULERA: ORDER AWAITING ACTION SCH ×2 (08:39→18:33)
[2018-10-16] MEDS: ATORVASTATIN 20 MG TAB PO SCH (08:40)
[2018-10-16] MEDS: FUROSEMIDE 40 MG in SYRINGE 0 ML IV SCH (08:40)
[2018-10-16] MEDS: INSULIN ASPART 100 UNITS/ML 3 ML PEN SC SCH ×4 (08:40→20:41)
[2018-10-16] MEDS ORDERED: NON-FORMULARY MEDICATION (Iron,Carbonyl-Vitamin C [Vitron-C] 1 TAB) PO SCH (09:00)
--- NOTE | 2018-10-16 18:54 | Hospitalist Progress Note ---
Date of Service October 16, 2018 Assessment & Plan (1) Acute on chronic diastolic CHF (congestive heart failure): Presented with increasing lower extremity edema and exertional shortness of breath for the past 1 week -Dopplers checked in the ED and negative for DVT -Likely volume overload; multifactorial due to recent travel, dietary indiscretions, obesity, recent prednisone use, amlodipine use -EKG without acute ST changes Echo: EF 66%, mild concentric LVH, grade 1 diastolic dysfunction -Noted home diuretic regimen includes torsemide 10 mg daily (was previously on 20 mg daily however this caused orthostatic symptoms, patient also was on HCTZ in the past however this was felt to be causing a rash) -Negative 900 cc fluid balance so far -Continue Lasix IV 40 mg daily -Follows with audiology service Dr. Boyd, will request consult for further recommendations (2) DM type 2 (diabetes mellitus, type 2): -Hgb A1c 5.7 06/2018 -Hold oral agents and utilize NovoLog per protocol while hospitalized (3) CKD (chronic kidney disease), stage IV: - baseline creat runs in the high ones to low twos Creatinine stable at 2.18 (4) COPD, severe: Not in exacerbation -Continue home inhalers (5) Hypertension: Blood pressure systolic 140s 150s -Continue home doses of losartan, amlodipine, labetalol, hydralazine -Monitor closely (6) GERD (gastroesophageal reflux disease): -Continue PPI (7) Dyslipidemia: -Continue statin (8) ROXY on CPAP: -CPAP as per home settings (9) Depression: (10) Anxiety: -Continue bupropion and paroxetine (11) DVT prophylaxis: -SQ heparin Disposition pending Anticipate discharge to home medically stable, cleared by cardiology service Subjective Follow-up for acute diastolic CHF exacerbation Seen resting in bed, comfortable, in good spirits States he feels better compared to yesterday No dyspnea with ambulation to the bathroom, no chest pain, dizziness, palpitations Denies other symptoms Review of Systems Review of Systems: All systems reviewed & are unremarkable except as noted in HPI & below Physical Exam Physical Exam: General- oriented x 3, not in distress, speaks in sentences with no effort or accessory muscle use Head- atraumatic Eyes- PERRL, EOMI, anicteric ENT- oropharynx clear Neck- supple, mild JVD, no adenopathy, no thyromegaly; carotids +2/2, no bruits appreciated Lungs-faint rales at the bases, no wheezing, good air entry bilaterally Heart- normal rate, regular rhythm; no murmur, no gallop, no rub appreciated Abdomen- normal bowel sounds, nondistended, soft, nontender, no masses or hepatosplenomegaly Extremities-mild lower leg edema, no calf tenderness; peripheral pulses intact Neuro- alert, oriented x 3; CN 2-12 grossly intact; motor 5/5 bilaterally;sensation 100% on all extremities; no other gross focal neurologic deficits Skin- warm & dry Results & Data Vital Signs (Past 12 Hours) Vital Signs Temp Pulse Pulse Resp BP BP Pulse Ox 10/16/18 16:00 70 10/16/18 15:25 36.4 C L 67 20 144/74 H 93 10/16/18 11:56 36.9 C 67 22 154/69 H 95 10/16/18 10:56 68 10/16/18 07:32 37.1 C 70 18 158/74 H 94 Laboratory Results Laboratory Results - last 24 hr 10/15/18 10/15/18 10/16/18 14:38 20:30 06:05 WBC 8.28 RBC 3.14 L Hgb 9.7 L Hct 30.2 L MCV 96.2 MCH 30.9 MCHC 32.1 RDW Std Deviation 54.0 H RDW Coeff of Waqas 15.4 H Plt Count 230 MPV 10.4 PT 10.5 INR 1.0 Sodium Potassium Chloride Carbon Dioxide Anion Gap BUN Creatinine Est Cr Clr Drug Dosing Est GFR ( Amer) Est GFR (Non-Af Amer) BUN/Creatinine Ratio Glucose POC Glucose 79 Calcium 10/16/18 10/16/18 10/16/18 06:05 07:43 11:32 WBC RBC Hgb Hct MCV MCH MCHC RDW Std Deviation RDW Coeff of Waqas Plt Count MPV PT INR Sodium 141 Potassium 3.5 D Chloride 106 Carbon Dioxide 28 Anion Gap 7.0 BUN 41 H Creatinine 2.18 H Est Cr Clr Drug Dosing Not Reportable Est GFR ( Amer) 25.2 Est GFR (Non-Af Amer) 21.8 BUN/Creatinine Ratio 19.0 Glucose 98 POC Glucose 102 H 139 H Calcium 8.8 10/16/18 16:39 WBC RBC Hgb Hct MCV MCH MCHC RDW Std Deviation RDW Coeff of Waqas Plt Count MPV PT INR Sodium Potassium Chloride Carbon Dioxide Anion Gap BUN Creatinine Est Cr Clr Drug Dosing Est GFR ( Amer) Est GFR (Non-Af Amer) BUN/Creatinine Ratio Glucose POC Glucose 84 Calcium
[2018-10-16] MEDS: MONTELUKAST SODIUM 10 MG TABLET PO SCH (20:39)
[2018-10-16] MEDS: CETIRIZINE HCL 10 MG TABLET PO SCH (20:40)
[2018-10-16] MEDS ORDERED: LORazepam 1 MG TAB PO STA (23:51)
[2018-10-17] MEDS: DULERA: ORDER AWAITING ACTION SCH ×4 (00:12→23:38)
[2018-10-17] MEDS: HEPARIN SOD 5,000 UNIT/0.5 ML VIAL SQ SCH ×3 (06:24→20:47)
[2018-10-17] MEDS: LABETALOL HCL 100 MG TAB PO SCH ×2 (07:54→20:45)
[2018-10-17] MEDS: AMLODIPINE BESYLATE 5 MG TAB PO SCH (07:55)
[2018-10-17] MEDS: ATORVASTATIN 20 MG TAB PO SCH (07:55)
[2018-10-17] MEDS: FOLIC ACID 1 MG TAB PO SCH (07:56)
[2018-10-17] MEDS: PANTOprazole 40 MG TAB PO SCH (07:56)
[2018-10-17] MEDS: MULTIVITAMIN TAB PO SCH (07:56)
[2018-10-17] MEDS: LOSARTAN POTASSIUM 25 MG TAB PO SCH (07:57)
[2018-10-17] MEDS: CHOLECALCIFEROL 1,000 UNITS TAB PO SCH (07:57)
[2018-10-17] MEDS: BuPROPion SR 100 MG TABCR PO SCH ×2 (07:57→17:25)
[2018-10-17] MEDS: CALCITRIOL 0.25 MCG CAPSULE PO SCH (07:57)
[2018-10-17] MEDS: THIAMINE HCL 100 MG TAB PO SCH (07:58)
[2018-10-17] MEDS: PARoxetine HCl 20 MG TAB PO SCH (07:58)
[2018-10-17] MEDS: INSULIN ASPART 100 UNITS/ML 3 ML PEN SC SCH ×4 (08:51→20:46)
[2018-10-17] MEDS ORDERED: KETOROLAC TROMETHAMINE 15 MG/ML VIAL IV ONE (11:01)
[2018-10-17] MEDS: FUROSEMIDE 40 MG in SYRINGE 0 ML IV SCH (11:16)
--- NOTE | 2018-10-17 11:30 | Hospitalist Progress Note ---
Date of Service October 17, 2018 Assessment & Plan (1) Acute on chronic diastolic CHF (congestive heart failure): Presented with increasing lower extremity edema and exertional shortness of breath for the past 1 week -Dopplers checked in the ED and negative for DVT -Likely volume overload; multifactorial due to recent travel, dietary indiscretions, obesity, recent prednisone use, amlodipine use -EKG without acute ST changes Echo: EF 66%, mild concentric LVH, grade 1 diastolic dysfunction -Noted home diuretic regimen includes torsemide 10 mg daily (was previously on 20 mg daily however this caused orthostatic symptoms, patient also was on HCTZ in the past however this was felt to be causing a rash) -Usually torsemide 10 mg p.o. daily Given Lasix 40 mg IV daily x2 days Negative 1250 cc fluid balance so far Crackles resolved, leg edema resolved Torsemide 20 mg p.o. daily started, but patient reports this dose made her dizzy in the past Follows with cardiology service Dr. Boyd, consult placed for further diuretic recommendations (2) DM type 2 (diabetes mellitus, type 2): -Hgb A1c 5.7 06/2018 -Hold oral agents and utilize NovoLog per protocol while hospitalized- Small discoloration noted on second and third inter phalangeal spaces, monitor as an outpatient (3) CKD (chronic kidney disease), stage IV: - baseline creat runs in the high ones to low twos Creatinine stable at 2.18 BMP pending today (4) COPD, severe: Not in exacerbation -Continue home inhalers (5) Hypertension: Blood pressure systolic 140s to 150s -Continue home doses of losartan, amlodipine, labetalol, hydralazine -Monitor closely (6) GERD (gastroesophageal reflux disease): -Continue PPI (7) Dyslipidemia: -Continue statin (8) ROXY on CPAP: -CPAP as per home settings (9) Depression: (10) Anxiety: -Continue bupropion and paroxetine (11) DVT prophylaxis: -SQ heparin Disposition pending Anticipate discharge to home medically stable, cleared by cardiology service Subjective Follow-up for acute on chronic CHF diastolic type Seen resting in bed, sleeping but easily awakened, comfortable States she feels better overall today No shortness of breath, ambulating to the bathroom with no problems Denies chest pain, dizziness, palpitations No other symptoms Review of Systems Review of Systems: All systems reviewed & are unremarkable except as noted in HPI & below Physical Exam Physical Exam: General- oriented x 3, not in distress, speaks in sentences with no effort or accessory muscle use Eyes- anicteric Neck- no JVD Lungs-very faint rales bilateral bases, no wheezing Heart- normal rate, regular rhythm; no murmurs Abdomen- normal bowel sounds, nondistended, soft, nontender Extremities- no pretibial edema, no calf tenderness Neuro- alert, oriented x 3; no gross focal neurologic deficits Skin- warm & dry Results & Data Vital Signs (Past 12 Hours) Vital Signs Temp Pulse Pulse Pulse Resp BP BP 10/17/18 11:22 36.9 C 67 18 145/74 H 10/17/18 10:39 65 154/67 H 10/17/18 07:28 36.8 C 77 18 184/78 H 10/17/18 07:26 65 10/17/18 05:43 36.7 C 69 19 149/80 H 10/17/18 01:05 71 Pulse Ox 10/17/18 11:22 90 10/17/18 10:39 10/17/18 07:28 91 10/17/18 07:26 10/17/18 05:43 90 10/17/18 01:05 Laboratory Results Laboratory Results - last 24 hr 10/16/18 10/16/18 10/16/18 11:32 16:39 20:00 POC Glucose 139 H 84 103 H 10/17/18 07:51 POC Glucose 124 H
[2018-10-17] MEDS: TORSEMIDE 10 MG TAB PO SCH (11:32)
[2018-10-17 11:56] LABS: D Dimer 1090 ug/L FEU (0-500)
[2018-10-17 12:18] LABS: BUN Creatinine Ratio 15.7 (10-20); Blood Urea Nitrogen 34 mg/dl (7-18); C Reactive Protein 0.75 mg/dl (0-0.29); Calcium 8.7 mg/dl (8.5-10.1); Carbon Dioxide 30 mmol/L (21-32); Chloride 105 mmol/L (98-107); Est GFR (African American) 25.2; Est GFR (Non-African American) 21.8; Glucose 160 mg/dl (70-99); Magnesium 2.4 mg/dl (1.8-2.4); Potassium 4.1 mmol/L (3.5-5.1); Sodium 139 mmol/L (136-145)
--- NOTE | 2018-10-17 15:44 | Cardiology Consultation ---
Date of Consultation October 17, 2018 Assessment & Plan (1) Edema leg: (2) Chronic diastolic CHF (congestive heart failure): (3) HTN (hypertension): (4) CKD (chronic kidney disease), stage IV: 73-year-old female admitted with worsening lower extremity edema attributed to dietary indiscretion and recent travel. Edema resolved with 1 dose of intravenous furosemide. Renal function remains at baseline. Continue torsemide 10 mg daily in the outpatient setting. Patient instructed to take an additional 10 mg of torsemide if weight increases more than 2 pounds in 48-hour period, or 5 pounds in 1 week. She will monitor for any worsening edema. Invited to contact me with any concerns or questions. Continue current antihypertensive medications. Sodium restriction advised. Other therapeutic lifestyle changes recommended including weight loss, dietary improvements, and regular aerobic exercise. Thank you for allowing to participate in the care of your patient. History of Present Illness Reason for Consultation: Diastolic heart failure Requesting Physician: Dr. Trevino Attending Physician: Hansa Trevino MD History of Present Illness 73-year-old female presented to the emergency room with lower extremity edema. Patient noted to have mildly elevated BNP. Previously evaluated by the undersigned in the outpatient setting for uncontrolled hypertension and diastolic dysfunction. Chronic left bundle branch block noted. Mild diastolic dysfunction with preserved LV systolic function per echocardiogram performed during current hospitalization. Blood pressure moderately elevated since admission. Dobutamine stress echo performed in April with results listed below. Patient reports recent vacation in [place] where she was on a cruise for 7 days. She then flew back on a long plane ride. Edema began the day she returned home. She became concerned because edema did not improve overnight. She came to the emergency department for further evaluation. Treated with 1 dose of IV furosemide. Edema has resolved. She has been compliant with daily torsemide 10 mg daily in the outpatient setting. Notes dietary indiscretions including excessive sodium intake. She does not wear compression stockings regularly. No orthopnea or paroxysmal nocturnal dyspnea. Denies chest pain, palpitations, lightheaded, dizziness, syncope, near syncope. Telemetry demonstrates sinus rhythm without dysrhythmia. Dobutamine stress echo report 05/10/2018: The stress echo is negative for inducible ischemia. Resting Study: The qualitative LV ejection fraction is 55-59% (normal). The LV wall thickness is mildly increased (concentric). The left ventricular diastolic function is mildly abnormal (grade I). Mild aortic valve sclerosis is present. Mild tricuspid regurgitation is present. The estimated pulmonary artery systolic pressure is 37mm Hg. Mild mitral regurgitation is present. Allergies Allergy/AdvReac Type Severity Reaction Status Date / Time levofloxacin [From Levaquin] Allergy Intermediate TORN TENDON Verified 10/15/18 15:04 DOREEN Inhibitors Allergy Mild coughing Verified 10/15/18 15:04 Home Medications Home Medications Medication Instructions Recorded Confirmed Type Dulera 2 puff INHALATION BID 05/21/18 10/15/18 History Vitron-C 1 tab PO QAM 05/21/18 10/15/18 History amlodipine 10 mg PO QAM 05/21/18 10/15/18 History atorvastatin 20 mg PO QAM 05/21/18 10/15/18 History bupropion HCl [Wellbutrin SR] 100 mg PO BID 05/21/18 10/15/18 History calcitriol 0.25 mcg PO QAM 05/21/18 10/15/18 History cetirizine 5 mg PO HS 05/21/18 10/15/18 History cholecalciferol (vitamin D3) 1,000 unit PO QAM 05/21/18 10/15/18 History [Vitamin D3] fluticasone propionate [Flonase 2 spray INTRANASAL DAILY 05/21/18 10/15/18 History Allergy Relief] glimepiride 2 mg PO QAM 05/21/18 10/15/18 History hydralazine 25 mg PO TID 05/21/18 10/15/18 History labetalol 100 mg PO BID 05/21/18 10/15/18 History losartan 25 mg PO QAM 05/21/18 10/15/18 History montelukast [Singulair] 10 mg PO HS 05/21/18 10/15/18 History omeprazole 20 mg PO QAM 05/21/18 10/15/18 History paroxetine HCl 40 mg PO QAM 05/21/18 10/15/18 History albuterol sulfate 2 puff INHALATION Q4H PRN 10/15/18 10/15/18 History albuterol sulfate 2.5 mg INHALATION QID PRN 10/15/18 10/15/18 History fexofenadine [Vonda Allergy] 180 mg PO DAILY PRN 10/15/18 10/15/18 History torsemide 10 mg PO DAILY 10/15/18 10/15/18 History Patient History Medical History Chronic diastolic CHF (congestive heart failure) (Chronic) Restless leg syndrome (Chronic) GERD (gastroesophageal reflux disease) (Chronic) Osteoarthritis (Chronic) Gastrointestinal hemorrhage with melena (Resolved) Depression (Chronic) Anxiety (Chronic) Diastolic dysfunction (Chronic) Hypertension (Chronic) ROXY on CPAP (Chronic) COPD, severe (Chronic) Hyperparathyroidism, secondary renal (Chronic) Dyslipidemia (Chronic) CKD (chronic kidney disease), stage IV (Chronic) DM type 2 (diabetes mellitus, type 2) (Chronic) Surgical History History of tooth extraction (Chronic) Status post trigger finger release (Chronic) History of cataract surgery (Chronic) RT/LEFT Family History Sister Colon cancer Mother Family history of diabetes mellitus Social History Preferred Language: [place] Communication Ability: Effective Piano Teacher Required: No Beliefs That Will Affect Care: Mosque Mosque Beliefs: Oriental Orthodox marital status: Single Current Living Situation: Significant Other current occupational status: retired Other Information That Helps Us Care for You: No Feels Safe at Home: Yes Safety Concerns: Feels Safe At This Time Smoking Status: Former smoker Tobacco Type: cigarettes Smoking End Date: 1987 Second Hand Exposure: No Hx Alcohol Use: Yes Alcohol type: wine and hard liquor Hx Substance Use: No Review of Systems Review of Systems: All systems reviewed & are unremarkable except as noted in HPI & below Physical Exam Physical Exam: General: NAD, AAO x3, well nourished. Obese. HEENT: Normocephalic. Atraumatic. Conjunctiva pink, no scleral icterus. Neck: No carotid bruits, the carotid upstrokes are brisk. No JVD. No HJR Heart: Regular normal S-1 and S-2 no S-3 or S-4 gallop. No murmurs or rub appreciated. PMI is not displaced. No RV heave. Lungs: Clear bilateral without rales , rhonchi, or wheeze. Abdomen: Normal bowel sounds. Soft. Nontender. No masses or organomegaly. No abdominal bruits. Extremities: No clubbing, cyanosis, or edema. Pulses: radial=2/4, Dorsalis pedis =2/4, posterior tibial=2/4. Neuro: Cranial nerves grossly intact. No focal motor deficit. Results & Data Vital Signs (Past 12 Hours) Vital Signs Temp Pulse Pulse Pulse Resp BP BP 10/17/18 15:10 62 10/17/18 11:22 36.9 C 67 18 145/74 H 10/17/18 10:39 65 154/67 H 10/17/18 07:28 36.8 C 77 18 184/78 H 10/17/18 07:26 65 10/17/18 05:43 36.7 C 69 19 149/80 H Pulse Ox 10/17/18 15:10 10/17/18 11:22 90 10/17/18 10:39 10/17/18 07:28 91 10/17/18 07:26 10/17/18 05:43 90
--- NOTE | 2018-10-17 15:48 | Nuclear Medicine Report ---
NM pul vent and perfuse CLINICAL HISTORY: Atypical chest pain and shortness of breath. Suspected pulmonary embolism. Positive d-dimer COMPARISON STUDY: Chest x-ray dated 10/15/2018 FINDINGS: The patient was ventilated utilizing 29.8 mCi of technetium 99m DTPA. The patient was perfu sed arising 5.5 mCi of technetium 99m MAA. There is marked central deposition of the tracer on the ve ntilatory portion of the study, consistent with airway disease. The perfusion pattern is patchy with multiple small to moderate defects. These appear largely matched. Due to the severe airway disease, a nd multiple matched defects, this study is of low intermediate probability for pulmonary embolism IMPRESSION: 1. Difficult study to interpret due to severe airway disease. There are multiple perfusion defects wh ich appear largely matched. This examination is of low intermediate probability for pulmonary embolis m. If there is a high a priori probability of pulmonary embolism, then CT angiography of the chest sh ould be obtained in follow-up. Electronically signed by: Eric Cheng M.D. 10/17/2018 3:47 PM
[2018-10-17] MEDS: MONTELUKAST SODIUM 10 MG TABLET PO SCH (20:45)
[2018-10-17] MEDS: CETIRIZINE HCL 10 MG TABLET PO SCH (20:47)
[2018-10-18] MEDS: HEPARIN SOD 5,000 UNIT/0.5 ML VIAL SQ SCH ×3 (06:16→21:07)
[2018-10-18] MEDS: DULERA: ORDER AWAITING ACTION SCH ×2 (08:16→17:02)
[2018-10-18] MEDS: ATORVASTATIN 20 MG TAB PO SCH (08:24)
[2018-10-18] MEDS: AMLODIPINE BESYLATE 5 MG TAB PO SCH (08:24)
[2018-10-18] MEDS: BuPROPion SR 100 MG TABCR PO SCH ×2 (08:25→17:31)
[2018-10-18] MEDS: PANTOprazole 40 MG TAB PO SCH (08:25)
[2018-10-18] MEDS: MULTIVITAMIN TAB PO SCH (08:25)
[2018-10-18] MEDS: CHOLECALCIFEROL 1,000 UNITS TAB PO SCH (08:25)
[2018-10-18] MEDS: FOLIC ACID 1 MG TAB PO SCH (08:26)
[2018-10-18] MEDS: LABETALOL HCL 100 MG TAB PO SCH ×2 (08:26→21:04)
[2018-10-18] MEDS: TORSEMIDE 10 MG TAB PO SCH (08:26)
[2018-10-18] MEDS: CALCITRIOL 0.25 MCG CAPSULE PO SCH (08:26)
[2018-10-18] MEDS: PARoxetine HCl 20 MG TAB PO SCH (08:27)
[2018-10-18] MEDS: THIAMINE HCL 100 MG TAB PO SCH (08:27)
[2018-10-18] MEDS: LOSARTAN POTASSIUM 25 MG TAB PO SCH (08:27)
[2018-10-18] MEDS: INSULIN ASPART 100 UNITS/ML 3 ML PEN SC SCH ×4 (08:29→20:53)
[2018-10-18 09:28] LABS: BUN Creatinine Ratio 15.6 (10-20); Blood Urea Nitrogen 35 mg/dl (7-18); Calcium 8.9 mg/dl (8.5-10.1); Carbon Dioxide 27 mmol/L (21-32); Chloride 103 mmol/L (98-107); Est GFR (Non-African American) 20.7; Glucose 171 mg/dl (70-99); Magnesium 2.3 mg/dl (1.8-2.4); Potassium 4.1 mmol/L (3.5-5.1); Sodium 138 mmol/L (136-145)
[2018-10-18] MEDS: HydrALAZINE TAB 50 MG TAB PO SCH ×2 (14:25→21:04)
--- NOTE | 2018-10-18 17:56 | Hospitalist Progress Note ---
Date of Service October 18, 2018 Assessment & Plan (1) Acute on chronic diastolic CHF (congestive heart failure): Presented with increasing lower extremity edema and exertional shortness of breath for the past 1 week Dopplers checked in the ED and negative for DVT Likely volume overload; multifactorial due to recent travel, dietary indiscretions, obesity, recent prednisone use, amlodipine use Echo: EF 66%, mild concentric LVH, grade 1 diastolic dysfunction Received Lasix 40 mg IV daily x2 days Torsemide 20 mg p.o. daily started, but patient reports this dose made her dizzy in the past Appreciate cardiology input and recommendation We will give additional torsemide of 10 mg if there is weight gain of 2 pounds in 48 hours as an outpatient (2) DM type 2 (diabetes mellitus, type 2): -Hgb A1c 5.7 06/2018 -Hold oral agents and utilize NovoLog per protocol while hospitalized- Small discoloration noted on second and third inter phalangeal spaces, monitor as an outpatient (3) CKD (chronic kidney disease), stage IV: Baseline creat runs around 1.9 Received Toradol for pain Creatinine went up to 2. 2 7 We will hold lisinopril for now Repeat PRP in the morning If creatinine has been improving will discharge her home (4) COPD, severe: Not in exacerbation -Continue home inhalers (5) Hypertension: Blood pressure systolic 140s to 150s -Continue home doses of losartan, amlodipine, labetalol, hydralazine -Blood pressure remains high -We will increase hydralazine to 50 mg 3 times daily and stop lisinopril -The blood pressure is reasonable tomorrow, will discharge home (6) GERD (gastroesophageal reflux disease): -Continue PPI (7) Dyslipidemia: -Continue statin (8) ROXY on CPAP: -CPAP as per home settings (9) Depression: (10) Anxiety: -Continue bupropion and paroxetine (11) DVT prophylaxis: -SQ heparin Disposition pending Anticipate discharge to home medically stable, cleared by cardiology service Subjective 10/18 Patient was seen and examined in medical telemetry unit She denies any symptoms at rest Complaint history of shortness of breath on exertion Clinical status seems to be stable Noted to have high blood pressure with systolic at 170 Review of Systems Review of Systems: ROS per HPI, all other systems reviewed and negative Physical Exam Physical Exam: Lying in bed comfortably Constitutional: no acute distress and not ill appearing Eyes: PERRL, conjunctivae normal, anicteric sclerae ENMT: external ear and nose normal, oropharynx normal Neck: trachea midline, no thyromegaly Respiratory: normal respiratory effort; no respiratory distress Auscultation: + diminished lung sounds; no crackles and no wheezes Cardiovascular: Rate/Rhythm: regular rate and regular rhythm Vessels: normal peripheral pulses Extremities: + edema (+3-4 pitting edema BLE) Gastrointestinal (Abdomen): Inspection/Auscultation: abdomen normal to inspection and normal bowel sounds Percussion/Palpation: abdomen soft Musculoskeletal: no cyanosis or clubbing, extremities motor strength 5/5 No acute arthritis in the Skin: no rashes, warm and dry Neurologic: PERRL, EOMI, accommodation nl, no face palsy, no dysarthria Psychiatric: A+Ox3, euthymic affect Lymphatic: no cervical or axillary lymphadenopathy Results & Data Vital Signs (Past 12 Hours) Vital Signs Temp Pulse Pulse Resp BP BP Pulse Ox 10/18/18 15:56 36.8 C 72 18 146/75 H 93 10/18/18 12:00 37.1 C 85 20 157/75 H 94 10/18/18 07:45 67 10/18/18 07:00 36.8 C 69 20 170/71 H 154/74 H 92 Laboratory Results [facility] 10/18/18 08:37 Sodium 138 Potassium 4.1 Chloride 103 Carbon Dioxide 27 BUN 35 H Creatinine 2.27 H Glucose 171 H Calcium 8.9 Medications Administered Current Inpatient Medications Acetaminophen (Tylenol) 650 mg PO Q4H PRN PRN Reason: pain/fever Stop: 11/14/18 18:21 Albuterol (Ventolin 0.083% 2.5mg/3ml) 2.5 mg INH QID PRN PRN Reason: Shortness Of Breath Stop: 11/14/18 18:21 Amlodipine Besylate (Norvasc) [facility] Stop: 11/15/18 08:59 Last Admin: 10/18/18 08:24 Dose: 10 mg Documented by: Atorvastatin Calcium (Lipitor) 20 mg PO QAM [facility] Stop: 11/15/18 08:59 Last Admin: 10/18/18 08:24 Dose: 20 mg Documented by: Bupropion HCl (Wellbutrin-Sr) 100 mg PO BID17 [facility] Stop: 11/15/18 08:59 Last Admin: 10/18/18 17:31 Dose: 100 mg Documented by: Calcitriol (Rocaltrol) 0.25 mcg PO QAM [facility] Stop: 11/15/18 08:59 Last Admin: 10/18/18 08:26 Dose: 0.25 mcg Documented by: Cetirizine HCl (Zyrtec) 5 mg PO HS [facility] Stop: 11/14/18 20:59 Last Admin: 10/17/18 20:47 Dose: 5 mg Documented by: Dextrose (Dextrose 50%) 25 - 50 ml IV UD PRN; Protocol PRN Reason: Hypoglycemia Protocol Stop: 11/14/18 18:21 Folic Acid (Folvite) 1 mg PO QAM [facility] Stop: 11/15/18 08:59 Last Admin: 10/18/18 08:26 Dose: 1 mg Documented by: Glucagon (Glucagen) 1 mg SQ UD PRN; Protocol PRN Reason: Hypoglycemia Protocol Stop: 11/14/18 18:21 Glucose (Glucose 40%) 15 - 30 gm PO UD PRN; Protocol PRN Reason: Hypoglycemia Protocol Stop: 11/14/18 18:21 Glucose (Dex4 Glucose) 4 - 8 tabs PO UD PRN; Protocol PRN Reason: Hypoglycemia Protocol Stop: 11/14/18 18:21 Heparin Sodium (Porcine) (Heparin Sodium (Porcine)) 5,000 units SQ Q8 [facility] Stop: 11/14/18 21:59 Last Admin: 10/18/18 14:03 Dose: 5,000 units Documented by: Hydralazine HCl (Apresoline) 50 mg PO TID [facility] Stop: 11/17/18 13:59 Last Admin: 10/18/18 14:25 Dose: 50 mg Documented by: Insulin Aspart (Novolog Flexpen) 0 units SC ACHS [facility] Stop: 11/14/18 20:59 Last Admin: 10/18/18 17:30 Dose: 4 units Documented by: Labetalol HCl (Normodyne) 100 mg PO BID [facility] Stop: 11/14/18 20:59 Last Admin: 10/18/18 08:26 Dose: 100 mg Documented by: Lorazepam (Ativan) 1 mg PO ONE PRN; Protocol PRN Reason: EtoH Withdrawal AWSS 6-10 Miscellaneous (Carbohydrates For Hypoglycemia) 15 - 30 gm PO UD PRN PRN Reason: Hypoglycemia Treatment Stop: 11/14/18 18:21 Miscellaneous (Order Awaiting Action) 1 ea N/A QS [facility] Stop: 11/15/18 00:00 Last Admin: 10/18/18 17:02 Dose: Not Given Documented by: Montelukast Sodium (Singulair) 10 mg PO [facility] Stop: 11/14/18 20:59 Last Admin: 10/17/18 20:45 Dose: 10 mg Documented by: Multivitamins (Multivitamin Tab) 1 tab PO [facility] Stop: 11/15/18 08:59 Last Admin: 10/18/18 08:25 Dose: 1 tab Documented by: Pantoprazole Sodium (Protonix) 40 mg PO [facility] Stop: 11/15/18 08:59 Last Admin: 10/18/18 08:25 Dose: 40 mg Documented by: Paroxetine HCl (Paxil) 40 mg PO [facility] Stop: 11/15/18 08:59 Last Admin: 10/18/18 08:27 Dose: 40 mg Documented by: Thiamine HCl (Vitamin B-1) 100 mg PO [facility] Stop: 11/15/18 08:59 Last Admin: 10/18/18 08:27 Dose: 100 mg Documented by: Torsemide (Demadex) 20 mg PO [facility] Stop: 11/16/18 10:14 Last Admin: 10/18/18 08:26 Dose: 20 mg Documented by: Vitamin D (Vitamin D3) 1,000 units PO [facility] Stop: 11/15/18 08:59 Last Admin: 10/18/18 08:25 Dose: 1,000 units Documented by:
[2018-10-18] MEDS: MONTELUKAST SODIUM 10 MG TABLET PO SCH (21:04)
[2018-10-18] MEDS: CETIRIZINE HCL 10 MG TABLET PO SCH (21:04)
[2018-10-19] MEDS: DULERA: ORDER AWAITING ACTION SCH ×4 (00:26→23:31)
[2018-10-19] MEDS: HEPARIN SOD 5,000 UNIT/0.5 ML VIAL SQ SCH ×3 (05:11→21:00)
[2018-10-19 06:47] LABS: BUN Creatinine Ratio 15.9 (10-20); Blood Urea Nitrogen 40 mg/dl (7-18); Calcium 9.4 mg/dl (8.5-10.1); Carbon Dioxide 29 mmol/L (21-32); Chloride 99 mmol/L (98-107); Est GFR (African American) 21.5; Est GFR (Non-African American) 18.5; Glucose 116 mg/dl (70-99); Magnesium 2.5 mg/dl (1.8-2.4); Potassium 3.7 mmol/L (3.5-5.1); Sodium 137 mmol/L (136-145)
[2018-10-19] MEDS: INSULIN ASPART 100 UNITS/ML 3 ML PEN SC SCH ×4 (09:21→21:03)
[2018-10-19] MEDS: HydrALAZINE TAB 50 MG TAB PO SCH ×3 (09:22→20:57)
[2018-10-19] MEDS: TORSEMIDE 10 MG TAB PO SCH (09:23)
[2018-10-19] MEDS: ATORVASTATIN 20 MG TAB PO SCH (09:24)
[2018-10-19] MEDS: FOLIC ACID 1 MG TAB PO SCH (09:24)
[2018-10-19] MEDS: MULTIVITAMIN TAB PO SCH (09:25)
[2018-10-19] MEDS: LABETALOL HCL 100 MG TAB PO SCH ×3 (09:26→20:56)
[2018-10-19] MEDS: PARoxetine HCl 20 MG TAB PO SCH (09:27)
[2018-10-19] MEDS: AMLODIPINE BESYLATE 5 MG TAB PO SCH (09:27)
[2018-10-19] MEDS: CHOLECALCIFEROL 1,000 UNITS TAB PO SCH ×2 (09:28→10:37)
[2018-10-19] MEDS: THIAMINE HCL 100 MG TAB PO SCH ×2 (09:28→10:37)
[2018-10-19] MEDS: PANTOprazole 40 MG TAB PO SCH (09:28)
[2018-10-19] MEDS: CALCITRIOL 0.25 MCG CAPSULE PO SCH (09:28)
[2018-10-19] MEDS: BuPROPion SR 100 MG TABCR PO SCH ×2 (09:29→17:25)
[2018-10-19] MEDS ORDERED: SODIUM CHLORIDE 0.9% 500 ML IV SCH (09:45)
[2018-10-19] MEDS: SODIUM CHLORIDE 0.9% 1000ML 1,000 ML IV SCH ×2 (10:38→19:13)
--- NOTE | 2018-10-19 13:12 | Hospitalist Progress Note ---
Date of Service October 19, 2018 Assessment & Plan (1) Acute on chronic diastolic CHF (congestive heart failure): Presented with increasing lower extremity edema and exertional shortness of breath for the past 1 week Dopplers checked in the ED and negative for DVT Likely volume overload; multifactorial due to recent travel, dietary indiscretions, obesity, recent prednisone use, amlodipine use Echo: EF 66%, mild concentric LVH, grade 1 diastolic dysfunction Received Lasix 40 mg IV daily x2 days Torsemide 20 mg p.o. daily started, but patient reports this dose made her dizzy in the past Appreciate cardiology input and recommendation We will give additional torsemide of 10 mg if there is weight gain of 2 pounds in 48 hours as an outpatient No fluid overload and no symptoms of CHF (2) DM type 2 (diabetes mellitus, type 2): -Hgb A1c 5.7 06/2018 -Hold oral agents and utilize NovoLog per protocol while hospitalized- Small discoloration noted on second and third inter phalangeal spaces, monitor as an outpatient (3) CKD (chronic kidney disease), stage IV: Baseline creat runs around 1.9 Received Toradol for pain Creatinine went up to 2. 2 7 We will hold lisinopril for now Repeat PRP in the morning If creatinine has been improving will discharge her home Creatinine went up to 2.49 on 10/19 Minutes likely intravascularly dehydrated and complicated by use of Toradol Will try 1 L of intravenous fluid and was advised to drink more fluid for today Check PRP at around 4:00 If creatinine has been improving, She will be discharged home (4) COPD, severe: Not in exacerbation -Continue home inhalers (5) Hypertension: Blood pressure systolic 140s to 150s -Continue home doses of losartan, amlodipine, labetalol, hydralazine -Blood pressure remains high -We will increase hydralazine to 50 mg 3 times daily and stop lisinopril -The blood pressure is reasonable tomorrow, will discharge home -Her blood pressure is well controlled with increasing dose of hydralazine -Will not restart her lisinopril (6) GERD (gastroesophageal reflux disease): -Continue PPI (7) Dyslipidemia: -Continue statin (8) ROXY on CPAP: -CPAP as per home settings (9) Depression: (10) Anxiety: -Continue bupropion and paroxetine (11) DVT prophylaxis: -SQ heparin Disposition pending Anticipate discharge to home medically stable, cleared by cardiology service Subjective 10/18 Patient was seen and examined in medical telemetry unit She denies any symptoms at rest Complaint history of shortness of breath on exertion Clinical status seems to be stable Noted to have high blood pressure with systolic at 170 10/19 The patient was seen and examined in the medical telemetry unit She denies any complaints but her creatinine went up to 2.49 today She is advised to ambulate more hard in the hospital Review of Systems Review of Systems: ROS per HPI, all other systems reviewed and negative Physical Exam Physical Exam: Sitting on a chair without any symptoms Constitutional: well developed, well nourished and + obese; no acute distress and not ill appearing Eyes: PERRL, conjunctivae normal, anicteric sclerae ENMT: external ear and nose normal, oropharynx normal Neck: trachea midline, no thyromegaly Respiratory: normal respiratory effort; no respiratory distress Auscultation: + diminished lung sounds; no crackles and no wheezes Cardiovascular: Rate/Rhythm: regular rate and regular rhythm Vessels: normal peripheral pulses Extremities: + edema (+3-4 pitting edema BLE) Gastrointestinal (Abdomen): Inspection/Auscultation: abdomen normal to inspection and normal bowel sounds Percussion/Palpation: abdomen soft Musculoskeletal: no cyanosis or clubbing, extremities motor strength 5/5 No acute arthritis in any joint Skin: no rashes, warm and dry Neurologic: PERRL, EOMI, accommodation nl, no face palsy, no dysarthria moves all extremities Psychiatric: A+Ox3, euthymic affect Lymphatic: no cervical or axillary lymphadenopathy Results & Data Vital Signs (Past 12 Hours) Vital Signs Temp Pulse Resp BP BP Pulse Ox 10/19/18 11:23 36.8 C 67 18 137/68 94 10/19/18 07:28 36.5 C 70 18 131/82 95 10/19/18 04:00 36.6 C 70 16 140/75 93 Laboratory Results [facility] 10/19/18 05:31 Sodium 137 Potassium 3.7 Chloride 99 Carbon Dioxide 29 BUN 40 H Creatinine 2.49 H Glucose 116 H Calcium 9.4 Medications Administered Current Inpatient Medications Acetaminophen (Tylenol) 650 mg PO Q4H PRN PRN Reason: pain/fever Stop: 11/14/18 18:21 Albuterol (Ventolin 0.083% 2.5mg/3ml) 2.5 mg INH QID PRN PRN Reason: Shortness Of Breath Stop: 11/14/18 18:21 Amlodipine Besylate (Norvasc) 10 mg PO QAM [facility] Stop: 11/15/18 08:59 Last Admin: 10/19/18 09:27 Dose: 10 mg Documented by: Atorvastatin Calcium (Lipitor) 20 mg PO QAM [facility] Stop: 11/15/18 08:59 Last Admin: 10/19/18 09:24 Dose: 20 mg Documented by: Bupropion HCl (Wellbutrin-Sr) 100 mg PO BID17 [facility] Stop: 11/15/18 08:59 Last Admin: 10/19/18 09:29 Dose: 100 mg Documented by: Calcitriol (Rocaltrol) 0.25 mcg PO QAM [facility] Stop: 11/15/18 08:59 Last Admin: 10/19/18 09:28 Dose: 0.25 mcg Documented by: Cetirizine HCl (Zyrtec) 5 mg PO HS [facility] Stop: 11/14/18 20:59 Last Admin: 10/18/18 21:04 Dose: 5 mg Documented by: Dextrose (Dextrose 50%) 25 - 50 ml IV UD PRN; Protocol PRN Reason: Hypoglycemia Protocol Stop: 11/14/18 18:21 Folic Acid (Folvite) 1 mg PO QAM [facility] Stop: 11/15/18 08:59 Last Admin: 10/19/18 09:24 Dose: 1 mg Documented by: Glucagon (Glucagen) 1 mg SQ UD PRN; Protocol PRN Reason: Hypoglycemia Protocol Stop: 11/14/18 18:21 Glucose (Glucose 40%) 15 - 30 gm PO UD PRN; Protocol PRN Reason: Hypoglycemia Protocol Stop: 11/14/18 18:21 Glucose (Dex4 Glucose) 4 - 8 tabs PO UD PRN; Protocol PRN Reason: Hypoglycemia Protocol Stop: 11/14/18 18:21 Heparin Sodium (Porcine) (Heparin Sodium (Porcine)) 5,000 units SQ Q8 [facility] Stop: 11/14/18 21:59 Last Admin: 10/19/18 12:55 Dose: Not Given Documented by: Hydralazine HCl (Apresoline) 50 mg PO TID [facility] Stop: 11/17/18 13:59 Last Admin: 10/19/18 12:55 Dose: 50 mg Documented by: Sodium Chloride (Nss 1000ml) 1,000 mls @ 125 mls/hr IV .Q8H [facility] Stop: 10/19/18 18:14 Last Admin: 10/19/18 10:38 Dose: 125 mls/hr Documented by: Insulin Aspart (Novolog Flexpen) 0 units SC ACHS [facility] Stop: 11/14/18 20:59 Last Admin: 10/19/18 12:54 Dose: 3 units Documented by: Labetalol HCl (Normodyne) 100 mg PO BID [facility] Stop: 11/14/18 20:59 Last Admin: 10/19/18 10:32 Dose: 100 mg Documented by: Lorazepam (Ativan) 1 mg PO ONE PRN; Protocol PRN Reason: EtoH Withdrawal AWSS 6-10 Miscellaneous (Carbohydrates For Hypoglycemia) 15 - 30 gm PO UD PRN PRN Reason: Hypoglycemia Treatment Stop: 11/14/18 18:21 Miscellaneous (Order Awaiting Action) 1 ea N/A QS [facility] Stop: 11/15/18 00:00 Last Admin: 10/19/18 09:22 Dose: Not Given Documented by: Montelukast Sodium (Singulair) 10 mg PO HS [facility] Stop: 11/14/18 20:59 Last Admin: 10/18/18 21:04 Dose: 10 mg Documented by: [facility]ivitamins ([facility]itamin Tab) [facility] [place]: 11/15/18 08:59 Last Admin: 10/19/18 09:25 Dose: 1 tab Documented by: Pantoprazole Sodium (Protonix) [facility] [place] Stop: 11/15/18 08:59 Last Admin: 10/19/18 09:28 Dose: 40 mg Documented by: Paroxetine HCl (Paxil) 40 mg PO QAM [facility] Stop: 11/15/18 08:59 Last Admin: 10/19/18 09:27 Dose: 40 mg Documented by: Thiamine HCl (Vitamin B-1) 100 mg PO QAM [facility] Stop: 11/15/18 08:59 Last Admin: 10/19/18 10:37 Dose: 100 mg Documented by: Torsemide (Demadex) 20 mg PO QAM [facility] Stop: 11/16/18 10:14 Last Admin: 10/19/18 09:23 Dose: 20 mg Documented by: Vitamin D (Vitamin D3) 1,[facility] [place] [place]: 11/15/18 08:59 Last Admin: 10/19/18 10:37 Dose: 1,000 units Documented by:
[2018-10-19 16:29] LABS: BUN Creatinine Ratio 15.9 (10-20); Blood Urea Nitrogen 40 mg/dl (7-18); Calcium 9.2 mg/dl (8.5-10.1); Carbon Dioxide 27 mmol/L (21-32); Chloride 103 mmol/L (98-107); Est GFR (African American) 21.3; Est GFR (Non-African American) 18.4; Glucose 109 mg/dl (70-99); Potassium 4.1 mmol/L (3.5-5.1); Sodium 138 mmol/L (136-145)
[2018-10-19] MEDS: MONTELUKAST SODIUM 10 MG TABLET PO SCH (20:57)
[2018-10-19] MEDS: CETIRIZINE HCL 10 MG TABLET PO SCH (20:58)
[2018-10-20] MEDS: HEPARIN SOD 5,000 UNIT/0.5 ML VIAL SQ SCH (05:42)
[2018-10-20] MEDS: DULERA: ORDER AWAITING ACTION SCH (07:48)
[2018-10-20] MEDS: ATORVASTATIN 20 MG TAB PO SCH (07:50)
[2018-10-20] MEDS: BuPROPion SR 100 MG TABCR PO SCH (07:50)
[2018-10-20] MEDS: PANTOprazole 40 MG TAB PO SCH (07:50)
[2018-10-20] MEDS: MULTIVITAMIN TAB PO SCH (07:50)
[2018-10-20] MEDS: CHOLECALCIFEROL 1,000 UNITS TAB PO SCH (07:50)
[2018-10-20] MEDS: AMLODIPINE BESYLATE 5 MG TAB PO SCH (07:50)
[2018-10-20] MEDS: HydrALAZINE TAB 50 MG TAB PO SCH (07:51)
[2018-10-20] MEDS: CALCITRIOL 0.25 MCG CAPSULE PO SCH (07:51)
[2018-10-20] MEDS: PARoxetine HCl 20 MG TAB PO SCH (07:51)
[2018-10-20] MEDS: TORSEMIDE 10 MG TAB PO SCH (07:51)
[2018-10-20] MEDS: LABETALOL HCL 100 MG TAB PO SCH (07:52)
[2018-10-20] MEDS: THIAMINE HCL 100 MG TAB PO SCH (07:52)
[2018-10-20] MEDS: FOLIC ACID 1 MG TAB PO SCH (07:52)
[2018-10-20] MEDS: INSULIN ASPART 100 UNITS/ML 3 ML PEN SC SCH ×2 (07:57→12:13)
[2018-10-20 08:38] LABS: BUN Creatinine Ratio 17.7 (10-20); Blood Urea Nitrogen 43 mg/dl (7-18); Calcium 8.9 mg/dl (8.5-10.1); Carbon Dioxide 29 mmol/L (21-32); Chloride 105 mmol/L (98-107); Est GFR (African American) 21.9; Est GFR (Non-African American) 18.9; Glucose 122 mg/dl (70-99); Potassium 3.9 mmol/L (3.5-5.1); Sodium 139 mmol/L (136-145)
--- NOTE | 2018-10-20 11:15 | Hospitalist Progress Note ---
Date of Service October 20, 2018 Assessment & Plan (1) Acute on chronic diastolic CHF (congestive heart failure): Presented with increasing lower extremity edema and exertional shortness of breath for the past 1 week Dopplers checked in the ED and negative for DVT Likely volume overload; multifactorial due to recent travel, dietary indiscretions, obesity, recent prednisone use, amlodipine use Echo: EF 66%, mild concentric LVH, grade 1 diastolic dysfunction Received Lasix 40 mg IV daily x2 days Torsemide 20 mg p.o. daily started, but patient reports this dose made her dizzy in the past Appreciate cardiology input and recommendation We will give additional torsemide of 10 mg if there is weight gain of 2 pounds in 48 hours as an outpatient No fluid overload and no symptoms of CHF (2) DM type 2 (diabetes mellitus, type 2): -Hgb A1c 5.7 06/2018 -Hold oral agents and utilize NovoLog per protocol while hospitalized- Small discoloration noted on second and third inter phalangeal spaces, monitor as an outpatient (3) CKD (chronic kidney disease), stage IV: Baseline creat runs around 1.9 Received Toradol for pain Creatinine went up to 2. 2 7 We will hold lisinopril for now Repeat PRP in the morning If creatinine has been improving will discharge her home Creatinine went up to 2.49 on 10/18 and 2.51 on 10/19 Has been improved at 2.45 this morning She will be discharged home today (4) COPD, severe: Not in exacerbation -Continue home inhalers (5) Hypertension: Blood pressure systolic 140s to 150s -Continue home doses of losartan, amlodipine, labetalol, hydralazine -Blood pressure remains high -We will increase hydralazine to 50 mg 3 times daily and stop lisinopril -The blood pressure is reasonable tomorrow, will discharge home -Her blood pressure is well controlled with increasing dose of hydralazine -Will not restart her lisinopril -Blood pressure seems to be controlled (6) GERD (gastroesophageal reflux disease): -Continue PPI (7) Dyslipidemia: -Continue statin (8) ROXY on CPAP: -CPAP as per home settings (9) Depression: (10) Anxiety: -Continue bupropion and paroxetine (11) DVT prophylaxis: -SQ heparin Disposition pending Anticipate discharge to home medically stable, cleared by cardiology service Discharge home today Subjective 10/18 Patient was seen and examined in medical telemetry unit She denies any symptoms at rest Complaint history of shortness of breath on exertion Clinical status seems to be stable Noted to have high blood pressure with systolic at 170 10/19 The patient was seen and examined in the medical telemetry unit She denies any complaints but her creatinine went up to 2.49 today She is advised to ambulate more hard in the hospital 10/20 The patient was seen and examined in medical floor She has been ambulating without any problem Denies any shortness of breath and her leg swelling Her kidney function has been improving Review of Systems Review of Systems: ROS per HPI, all other systems reviewed and negative Physical Exam Physical Exam: No apparent distress at rest Constitutional: well developed, well nourished and + obese; no acute distress and not ill appearing Eyes: PERRL, conjunctivae normal, anicteric sclerae ENMT: external ear and nose normal, oropharynx normal Neck: trachea midline, no thyromegaly Respiratory: normal respiratory effort; no respiratory distress Auscultation: + diminished lung sounds; no crackles and no wheezes Cardiovascular: Rate/Rhythm: regular rate and regular rhythm Vessels: normal peripheral pulses Extremities: + edema (Improved a lot ,trace edema bilaterally) Gastrointestinal (Abdomen): Inspection/Auscultation: abdomen normal to inspection and normal bowel sounds Percussion/Palpation: abdomen soft Musculoskeletal: no cyanosis or clubbing, extremities motor strength 5/5 Skin: no rashes, warm and dry Neurologic: PERRL, EOMI, accommodation nl, no face palsy, no dysarthria moves all extremities Psychiatric: A+Ox3, euthymic affect Lymphatic: no cervical or axillary lymphadenopathy Results & Data Vital Signs (Past 12 Hours) Vital Signs Temp Pulse Pulse Resp BP BP Pulse Ox 10/20/18 11:08 36.5 C 65 20 122/64 93 10/20/18 07:30 36.5 C 64 18 156/71 H 94 10/20/18 07:23 60 10/20/18 03:00 36.7 C 64 20 124/64 94 Laboratory Results [facility] 10/19/18 10/20/18 15:46 07:46 Sodium 138 139 Potassium 4.1 3.9 Chloride 103 105 Carbon Dioxide 27 29 BUN 40 H 43 H Creatinine 2.51 H 2.45 H Glucose 109 H 122 H Calcium 9.2 8.9 Medications Administered Current Inpatient Medications Acetaminophen (Tylenol) 650 mg PO Q4H PRN PRN Reason: pain/fever Stop: 11/14/18 18:21 Last Admin: 10/19/18 21:07 Dose: 650 mg Documented by: Albuterol (Ventolin 0.083% 2.5mg/3ml) 2.5 mg INH QID PRN PRN Reason: Shortness Of Breath Stop: 11/14/18 18:21 Amlodipine Besylate ([facility]asc) [facility] [place] Stop: 11/15/18 08:59 Last Admin: 10/20/18 07:50 Dose: 10 mg Documented by: Atorvastatin Calcium (Lipitor) 20 mg PO QAM [facility] Stop: 11/15/18 08:59 Last Admin: 10/20/18 07:50 Dose: 20 mg Documented by: Bupropion HCl (Wellbutrin-Sr) 100 mg PO BID17 [facility] Stop: 11/15/18 08:59 Last Admin: 10/20/18 07:50 Dose: 100 mg Documented by: Calcitriol (Rocaltrol) 0.25 mcg PO QAM [facility] Stop: 11/15/18 08:59 Last Admin: 10/20/18 07:51 Dose: 0.25 mcg Documented by: Cetirizine HCl (Zyrtec) 5 mg PO HS [facility] Stop: 11/14/18 20:59 Last Admin: 10/19/18 20:58 Dose: 5 mg Documented by: Dextrose (Dextrose 50%) 25 - 50 ml IV UD PRN; Protocol PRN Reason: Hypoglycemia Protocol Stop: 11/14/18 18:21 Folic Acid (Folvite) [facility] [place] Stop: 11/15/18 08:59 Last Admin: 10/20/18 07:52 Dose: 1 mg Documented by: Glucagon (Glucagen) 1 mg SQ UD PRN; Protocol PRN Reason: Hypoglycemia Protocol Stop: 11/14/18 18:21 Glucose (Glucose 40%) 15 - 30 gm PO UD PRN; Protocol PRN Reason: Hypoglycemia Protocol Stop: 11/14/18 18:21 Glucose (Dex4 Glucose) 4 - 8 tabs PO UD PRN; Protocol PRN Reason: Hypoglycemia Protocol Stop: 11/14/18 18:21 Heparin Sodium (Porcine) (Heparin Sodium (Porcine)) 5,000 units SQ Q8 [facility] Stop: 11/14/18 21:59 Last Admin: 10/20/18 05:42 Dose: Not Given Documented by: Hydralazine HCl (Apresoline) 50 mg PO TID [facility] Stop: 11/17/18 13:59 Last Admin: 10/20/18 07:51 Dose: 50 mg Documented by: Insulin Aspart (Novolog Flexpen) 0 units SC ACHS [facility] Stop: 11/14/18 20:59 Last Admin: 10/20/18 07:57 Dose: 4 units Documented by: Labetalol HCl (Normodyne) 100 mg PO BID [facility] Stop: 11/14/18 20:59 Last Admin: 10/20/18 07:52 Dose: 100 mg Documented by: Lorazepam (Ativan) 1 mg PO ONE PRN; Protocol PRN Reason: EtoH Withdrawal AWSS 6-10 Miscellaneous (Carbohydrates For Hypoglycemia) 15 - 30 gm PO UD PRN PRN Reason: Hypoglycemia Treatment Stop: 11/14/18 18:21 Miscellaneous (Order Awaiting Action) 1 ea N/A QS [facility] Stop: 11/15/18 00:00 Last Admin: 10/20/18 07:48 Dose: Not Given Documented by: Montelukast Sodium (Singulair) 10 mg PO HS [facility] Stop: 11/14/18 20:59 Last Admin: 10/19/18 20:57 Dose: 10 mg Documented by: Multivitamins (Multivitamin Tab) 1 tab PO QAM [facility] Stop: 11/15/18 08:59 Last Admin: 10/20/18 07:50 Dose: 1 tab Documented by: Pantoprazole Sodium (Protonix) 40 mg PO QAM [facility] Stop: 11/15/18 08:59 Last Admin: 10/20/18 07:50 Dose: 40 mg Documented by: Paroxetine HCl (Paxil) 40 mg PO QAM [facility] Stop: 11/15/18 08:59 Last Admin: 10/20/18 07:51 Dose: 40 mg Documented by: Thiamine HCl (Vitamin B-1) 100 mg PO QAM [facility] Stop: 11/15/18 08:59 Last Admin: 10/20/18 07:52 Dose: 100 mg Documented by: Torsemide (Demadex) 20 mg PO QAM [facility] Stop: 11/16/18 10:14 Last Admin: 10/20/18 07:51 Dose: 20 mg Documented by: Vitamin D (Vitamin D3) 1,[facility] [place] Stop: 11/15/18 08:59 Last Admin: 10/20/18 07:50 Dose: 1,000 units Documented by:
--- NOTE | 2018-10-21 07:55 | Discharge Summary ---
Date of Service October 21, 2018 Admission HPI Per Admitting Provider 73-year-old male who presents to the ED with lower extremity edema and shortness of breath. Patient reports increasing symptoms over the past 1 week. Patient reports she has some mild lower extremity at baseline however this is currently much worse. Of note, patient was vacationing in [place] on a cruise at the end of August through the beginning of September for 16 days. Patient was also being seen as an outpatient for a rash that was felt to be caused by hydrochlorothiazide. Patient was mistaken and accidentally stopped her hydralazine instead of the hydrochlorothiazide. This was reconciled last week. Patient denies chest pain. She has some chronic exertional shortness of breath at baseline which is been worse as well. No shortness of breath at rest. She does not weigh herself on a daily basis. She denies lightheadedness, dizziness, diaphoresis, syncopal events. No abdominal pain, nausea, vomiting, diarrhea. She denies any fevers chills. No urinary symptoms. In the ED, labs are unremarkable. CXR shows pulmonary vascular congestion. BP elevated at 188/81. She was given furosemide 40 mg IV. Admission Exam Per Admitting Provider Constitutional: WD/WN, vitals as above Eyes: PERRL, conjunctivae normal, anicteric sclerae ENMT: external ear and nose normal, oropharynx normal Respiratory: normal respiratory effort; no respiratory distress Auscultation: + diminished lung sounds; no crackles and no wheezes Cardiovascular: Rate/Rhythm: regular rate and regular rhythm Vessels: normal peripheral pulses Extremities: + edema (+3-4 pitting edema BLE) Gastrointestinal (Abdomen): normal bowel sounds, soft, nontender, no hepatosplenomegaly Musculoskeletal: no cyanosis or clubbing, extremities motor strength 5/5 Skin: no rashes, warm and dry Neurologic: PERRL, EOMI, accommodation nl, no face palsy, no dysarthria Psychiatric: A+Ox3, euthymic affect Principal Diagnosis Acute on chronic diastolic CHF, acute on chronic CKD stage IV, type 2 diabetes Discharge Exam Constitutional well developed, well nourished and + obese; no acute distress and not ill appearing Eyes PERRL, conjunctivae normal, anicteric sclerae ENMT external ear and nose normal, oropharynx normal Neck trachea midline, no thyromegaly Respiratory normal respiratory effort; no respiratory distress Auscultation: + diminished lung sounds; no crackles and no wheezes Cardiovascular Rate/Rhythm: regular rate and regular rhythm Vessels: normal peripheral pulses Extremities: + edema (Improved a lot ,trace edema bilaterally) Gastrointestinal (Abdomen) Inspection/Auscultation: abdomen normal to inspection and normal bowel sounds Percussion/Palpation: abdomen soft Musculoskeletal no cyanosis or clubbing, extremities motor strength 5/5 Skin no rashes, warm and dry Neurologic PERRL, EOMI, accommodation nl, no face palsy, no dysarthria moves all extremities Psychiatric A+Ox3, euthymic affect Lymphatic no cervical or axillary lymphadenopathy Discharge Data Allergies Allergy/AdvReac Type Severity Reaction Status Date / Time levofloxacin [From Levaquin] Allergy Intermediate TORN TENDON Verified 10/15/18 15:04 DOREEN Inhibitors Allergy Mild coughing Verified 10/15/18 15:04 Consultations 10/15/18 15:24 ED Decision to Admit Stat 10/17/18 08:00 Consult Cardiology Routine Ordered Studies 10/15/18 14:21 US venous doppler [facility] Hospital Course (1) Acute on chronic diastolic CHF (congestive heart failure): Presented with increasing lower extremity edema and exertional shortness of breath for the past 1 week Dopplers checked in the ED and negative for DVT Likely volume overload; multifactorial due to recent travel, dietary indiscretions, obesity, recent prednisone use, amlodipine use Echo: EF 66%, mild concentric LVH, grade 1 diastolic dysfunction Received Lasix 40 mg IV daily x2 days Torsemide 20 mg p.o. daily started, but patient reports this dose made her dizzy in the past Appreciate cardiology input and recommendation We will give additional torsemide of 10 mg if there is weight gain of 2 pounds in 48 hours as an outpatient No fluid overload and no symptoms of CHF (2) DM type 2 (diabetes mellitus, type 2): -Hgb A1c 5.7 06/2018 -Hold oral agents and utilize NovoLog per protocol while hospitalized- Small discoloration noted on second and third inter phalangeal spaces, monitor as an outpatient (3) CKD (chronic kidney disease), stage IV: Baseline creat runs around 1.9 Received Toradol for pain Creatinine went up to 2. 2 7 We will hold lisinopril for now Repeat PRP in the morning If creatinine has been improving will discharge her home Creatinine went up to 2.49 on 10/18 and 2.51 on 10/19 Has been improved at 2.45 this morning She will be discharged home today (4) COPD, severe: Not in exacerbation -Continue home inhalers (5) Hypertension: Blood pressure systolic 140s to 150s -Continue home doses of losartan, amlodipine, labetalol, hydralazine -Blood pressure remains high -We will increase hydralazine to 50 mg 3 times daily and stop lisinopril -The blood pressure is reasonable tomorrow, will discharge home -Her blood pressure is well controlled with increasing dose of hydralazine -Will not restart her lisinopril -Blood pressure seems to be controlled (6) GERD (gastroesophageal reflux disease): -Continue PPI (7) Dyslipidemia: -Continue statin (8) ROXY on CPAP: -CPAP as per home settings (9) Depression: (10) Anxiety: -Continue bupropion and paroxetine (11) DVT prophylaxis: -SQ heparin Disposition pending Anticipate discharge to home medically stable, cleared by cardiology service Discharge home today Total Time Total Time Spent Total Time Spent (In Minutes): 35 minutes Total Time Includes: Examination of the Patient, Discharge Planning, Medication Reconciliation and Communication With Other Providers Discharge Plan Discharge Items Patient Disposition: Home - Self-Care Reason For Visit: LOWER EXTREMITY EDEMA Discharge Diagnosis: Acute on chronic diastolic CHF, acute on chronic CKD stage IV, type 2 diabetes Condition: Good Discharge Goals: Decrease discomfort, Improve function and Increase independence Activity: Resume your previous activity Non-emergency contact: Primary Care Provider Call non-emergency contact if: you have any medication questions and your symptoms worsen Follow-up/Referrals: Liban Chavez MD [Primary Care Provider] - (Your doctor's office will call with an appointment within 7 days) Diet: Carb Consistent or DM2 and Heart Healthy Fluids: 1800ml (7 cups) Addtl Provider Instructions: Your torsemide dose has been changed. Losartan has been discontinued Hydralazine has been increased to 50 mg 3 times daily. New medications Folic acid, thiamine and multivitamins Prescriptions: New hydralazine 50 mg Tablet 50 mg PO TID 30 Days Qty: 90 RF: 0 multivitamin [Daily-Keyana] Tablet 1 tab PO QAM 30 Days Qty: 30 RF: 0 thiamine HCl (vitamin B1) [Vitamin B-1] 100 mg Tablet 100 mg PO QAM 30 Days Qty: 30 RF: 0 folic acid 1 mg Tablet 1 mg PO QAM 30 Days Qty: 30 RF: 0 Continued atorvastatin 20 mg Tablet 20 mg PO QAM RF: 0 bupropion HCl [Wellbutrin SR] 100 mg Tablet Sustained-Release 12 Hr 100 mg PO BID RF: 0 glimepiride 2 mg Tablet 2 mg PO QAM RF: 0 amlodipine 10 mg Tablet 10 mg PO QAM RF: 0 omeprazole 20 mg Capsule,Delayed Release(Dr/Ec) 20 mg PO QAM RF: 0 montelukast [Singulair] 10 mg Tablet 10 mg PO HS RF: 0 labetalol 100 mg Tablet 100 mg PO BID RF: 0 fluticasone propionate [Flonase Allergy Relief] 50 mcg/actuation [place],Suspension 2 spray INTRANASAL DAILY RF: 0 calcitriol 0.25 mcg Capsule 0.25 mcg PO QAM RF: 0 Dulera 100-5 mcg/actuation Hfa Aerosol Inhaler 2 puff INHALATION BID RF: 0 cetirizine 5 mg Tablet 5 mg PO HS RF: 0 paroxetine HCl 40 mg tablet 40 mg PO QAM RF: 0 cholecalciferol (vitamin D3) [Vitamin D3] 1,000 unit Capsule 1,000 unit PO QAM RF: 0 Vitron-C 65 mg iron- 125 mg Tablet,Delayed Release (Dr/Ec) 1 tab PO QAM RF: 0 albuterol sulfate 2.5 mg /3 mL (0.083 %) Solution For Nebulization 2.5 mg INHALATION QID PRN (Reason: Shortness Of Breath) RF: 0 fexofenadine [Vonda Allergy] 180 mg Tablet 180 mg PO DAILY PRN (Reason: Allergic Reaction) RF: 0 albuterol sulfate 90 mcg/actuation HFA aerosol inhaler 2 puff inhalation Q4H PRN (Reason: Shortness Of Breath) RF: 0 torsemide 20 mg tablet 10 mg PO DAILY Qty: 0 RF: 0 Changed hydralazine 25 mg Tablet 50 mg PO TID Qty: 0 RF: 0 Discontinued losartan 25 mg Tablet 25 mg PO QAM RF: 0 Stand-Alone Forms: [facility] Discharge Orders: Discharge Order (Routine); Ordered 10/20/18 Ordered By: Hansa Trevino Admission Data Admit Date/Time: 10/15/18 16:06 Attending Provider: Hansa Trevino Admit Provider: Hansa Tervino Primary Care Provider: Liban Chavez Other Providers: Hansa Trevino ; Leon Boyd ; Toro Shea Service: Telemetry Medical Other Interventions: Discharge Summary Assessment (RN) Last Done: 10/20/18 13:25 DC Date/Time DO NOT enter until pt leaves facility: 10/20/18 14:13
== END 2018-10-20 14:13 | disposition home or self-care (01) | DRG 291 ==
LOC: ED 13:18 → SUATTDRO 16:06 → 2N 16:06

== ENCOUNTER 2021-05-02 14:59 | Inpatient (IN) ==
[2021-05-02] MEDS ORDERED: SODIUM CHLORIDE 0.9% 1000ML 1,000 ML IV ONE (15:07)
[2021-05-02] MEDS ORDERED: ONDANSETRON INJ 2 MG/ML 2 ML VIAL IV STA (15:07)
[2021-05-02] MEDS ORDERED: HYDROmorphone INJ 0.5 MG/0.5 ML SYR IV STA ×2 (15:07→16:20)
--- NOTE | 2021-05-02 15:14 | Emergency Department Note ---
Impression & Plan Traumatic fracture of ribs of right side with pneumothorax, Rhabdomyolysis, Acute dehydration, Fall ED Provider Note Name: CARYN Whitman DONNA Age: 76 Sex: F Arrives Via: Ambulance Informant: Patient, EMS, Nursing ED Provider: Ham Gil MD Chief Complaint: Fall Impression: As per impressions above Medical Decision Making: Pleasant 76-year-old female with extensive past medical history but on no blood thinners arrives for evaluation following a fall laying on the floor this morning. Patient notes she was drinking heavily last night and after going to the bathroom this morning she fell to the ground. She hit her right ribs off the toilet. She has been laying on the ground since around 8 AM and eventually allowed friends to call 911 this afternoon. Patient has some mild crepitus over the right lateral ribs and a CT was obtained of the head, neck, chest, abdomen and pelvis. It was not obtained with IV contrast given her renal function. CT reveals multiple right lower rib fractures and a very trace pneumothorax. There is no hemothorax and there is no other evidence of traumatic findings. Her vital signs are normal and her labs look okay other than her chronic renal failure and elevated CK. She is not actively bleeding and she has no need for reversal of any anticoagulants as she is on none. Patient is tolerating IV narcotics which are working well for her pain and she was given a lidocaine patch over the ribs. I will note that her labs do reveal some rhabdomyolysis and given this with her chronic renal issues I do feel it would be indicated to monitor in the hospital overnight for fluid/hydration and pain control. Patient is on board with this plan. Hospitalist were consulted for further management. I do not feel that it is indicated to transfer at this time to a trauma center as she has an isolated right trace pneumothorax with several ribs fracture and no other acute traumatic findings. She would not be a candidate for chest tube at this time. Given the control of pain I do not feel that she requires spinal anesthesia at this time either. Prior Medical Record and Triage/Nursing Notes reviewed by Me Additional history obtained from friends, EMS and labs Differentials:Fracture, dislocation, contusion, intra-abdominal, pneumothorax, intrathoracic, intracranial, neurologic, compartment syndrome, rhabdomyolysis, as well as other pathologies. Vital Signs: reviewed and remarkable for no significant abnormalities Interventions: Saline lock, Dilaudid IV, normal saline bolus, lidocaine patch Labs:Reviewed and remarkable for elevated ck Imaging:CT of head, cervical, chest, abdomen, pelvis read by radiologist see results below. Findings remarkable for right rib fracture with sub q air EKG:Per My Interpretation: Indication weakness: NSR 63 bpm, qtc 458 with very faint P waves. No Ectopy. No Ischemia. Compared to EKG 10/15/18, no significant changes. Cardiac/Tele Monitoring: Cardiac Monitoring: An Order was placed for continuous cardiac monitoring. The monitor shows a rate of 60 with a normal sinus rhythm. Consults:Dr Abarca Plan: Disposition:Hospitalization. Condition: Good History of Present Illness:76-year-old female arrives for evaluation following a fall. Patient notes she was drinking heavily last night to celebrate her birthday and had gotten quite intoxicated. When she got up to go to the bathroom and after urinating she fell to the floor. She does not think she passed out but she does not really remember falling very well. She thinks she hit her right ribs off the toilet seat as she fell. She had been laying on the ground for the last 6+ hours unable to get out before she was able to call for h elp. Patient notes primarily she is having pain in her right ribs. She also notes she is feeling severely dehydrated and lightheaded. She denies any abdominal pain or back pain. She does note a bruise on her anterior abdomen which she does not recall how it got there. Patient denies any headache no neck pain at this time. She has had no focal neurologic deficits nor seizures. Patient denies any shortness of breath, chest pain other than with movement or deep inspiration in the area of her right lateral ribs. Patient denies being on any sort of blood thinner. She did not have her medications this morning due to being fact she has been lying on the floor. Patient states any movement makes worse and staying still without taking a deep breath makes her rib pain better. She was given 50 mcg of fentanyl by EMS with mild improvement in her pain though her oxygen dropped slightly. Patient denies a history of rib fractures. She denies regular falls. She denies previous or recent syncope issues. ROS: See above HPI for pertinent positives & negatives. A total of 10 systems reviewed and were otherwise negative. Past Medical History:See Below Past Surgical History:See Below Family History:See Below Social History:See Below Home Medications:See Below Allergies:levaquin, doreen Vitals:Blood Pressure: 143/73, Pulse 60, RR 18, T 36.7C, O2 96% on 2L NC Physical Exam: GENERAL: Patient is uncomfortable appearing and in moderate distress. Dehydrated appearing HEAD: AT/NC EYES: No scleral icterus, unremarkable pupils. ENT: Mucous membranes dry, no nasal congestion. NECK: No masses appreciated, nomeningismus, trachea is midline. CHEST: TTP over right lower ribs. Crackles bilateral bases, clear apical lung sounds bilaterally. RESPIRATORY: No dyspnea. Clear to auscultation and equal bilaterally. No wheeze, no rhonchi. CARDIOVASCULAR: Regular rate and rhythm.No murmurs, rubs, gallops appreciated. GASTROINTESTINAL: Small bruise anterior upper abdomen, otherwise abdomen soft, non-tender, no peritonitis.Bowel sounds positive.No masses appreciated. BACK: No midline tenderness, no CVA tenderness EXTREMITIES: Normal motion all extremities, no cyanosis, no edema. NEUROLOGIC: Alert and oriented, no acute motor or sensory deficits, no focal weakness, cranial nerves grossly intact. SKIN: Bruising abdomen and right knee. No rash, no jaundice, no diaphoresis. PSYCH: Appropriate GCS: 15 ED Course: Times/Reassessments: Full repeat evaluations patient comfortable with IV na rcotics and lidocaine patch. She is in no extremis and is agreeable to avoiding transfer to a trauma center at this time. Ham Gil MD Past Med/Surg History Medical History Anxiety Chronic diastolic CHF (congestive heart failure) CKD (chronic kidney disease), stage IV COPD, severe Depression Diastolic dysfunction DM type 2 (diabetes mellitus, type 2) Dyslipidemia Gastrointestinal hemorrhage with melena GERD (gastroesophageal reflux disease) Hyperparathyroidism, secondary renal Hypertension ROXY on CPAP Osteoarthritis Restless leg syndrome Surgical History H/O shoulder surgery History of cataract surgery RT/LEFT History of tooth extraction Status post trigger finger release Family History Sister Colon cancer Mother Family history of diabetes mellitus Social History Smoking Status: Former smoker Smoking End Date: 1987; Second Hand Exposure: No; Hx Alcohol Use: Yes Alcohol type: wine and hard liquor Alcohol Intake Frequency: 2-3 x/Week Alcohol Intake Frequency Comment: wine Hx Substance Use: No Preferred Language: Hungarian Communication Ability: Effective Therapeutic Specialist Required: No Beliefs That Will Affect Care: None marital status: Single Current Living Situation: Alone current occupational status: retired How many Children do You have: 1 Other Information That Helps Us Care for You: No Feels Safe at Home: Yes Safety Concerns: Feels Safe At This Time Assistive Devices: Oxygen - Continuous Allergies Allergies Allergy/AdvReac Type Severity Reaction Status Date / Time levofloxacin [From Levaquin] Allergy Intermediate TORN TENDON Verified 05/02/21 15:30 DOREEN Inhibitors Allergy Mild coughing Verified 05/02/21 15:30 hydrochlorothiazide Allergy Rash Verified 05/02/21 15:29 Home Meds Home Medications Medication Instructions Recorded Confirmed calcitriol 0.25 mcg capsule 0.25 mcg PO QAM 05/21/18 05/02/21 cholecalciferol (vitamin D3) 25 1,000 unit PO QAM 05/21/18 05/02/21 mcg (1,000 unit) capsule (Vitamin D3) iron,carbonyl 65 mg-vitamin C 125 1 tab PO QAM 05/21/18 05/02/21 mg tablet,delayed release (Vitron-C) montelukast 10 mg tablet 10 mg PO HS 05/21/18 05/02/21 (Singulair) omeprazole 20 mg capsule,delayed 20 mg PO QAM 05/21/18 05/02/21 release amlodipine 5 mg tablet 5 mg PO DAILY 05/02/21 05/02/21 aspirin 81 mg tablet 81 mg PO DAILY 05/02/21 05/02/21 atorvastatin 80 mg tablet 80 mg PO DAILY 05/02/21 05/02/21 bupropion HCl 100 mg tablet,12 hr 100 mg PO BID 05/02/21 05/02/21 sustained-release docusate sodium 100 mg capsule 100 mg PO DAILY 05/02/21 05/02/21 ezetimibe 10 mg tablet 10 mg PO DAILY 05/02/21 05/02/21 fluticasone propionate 115 2 puff INHALATION BID 05/02/21 05/02/21 mcg-salmeterol 21 mcg/actuation HFA inhaler (Advair HFA) folic acid 1 mg tablet 1 mg PO DAILY 05/02/21 05/02/21 glimepiride 1 mg tablet 1 mg PO DAILY 05/02/21 05/02/21 hydralazine 100 mg tablet 100 mg PO BID 05/02/21 05/02/21 multivitamin 1 tab PO DAILY 05/02/21 05/02/21 thiamine HCl (vitamin B1) 100 mg 100 mg PO DAILY 05/02/21 05/02/21 tablet tizanidine 4 mg tablet 4 mg PO Q8 PRN 05/02/21 05/02/21 torsemide 10 mg tablet 10 mg PO DAILY 05/02/21 05/02/21 Results & Data (ED) Vital Signs Vital Signs - 24 hr 05/02/21 14:58 05/02/21 15:10 05/02/21 15:20 Temperature 36.7 C Temperature Source Oral Pulse Rate 61 61 59 L Pulse Rate from SpO2 Sensor 61 59 L Respiratory Rate 16 17 18 Respiratory Effort / Characteristics Non-Labored Spontaneous Blood Pressure 154/78 H Blood Pressure Mean 103 Blood Pressure Position Lying Pulse Oximetry 94 94 92 Oxygen Delivery Method Room Air Room Air Room Air Oxygen Flow Rate Sepsis Recent Fever Within 48 Hours No Sepsis New/Unexplained Change in Mental Status No Sepsis Action Taken by Nursing No Action Required 05/02/21 15:30 05/02/21 15:40 Temperature Temperature Source Pulse Rate 59 L 59 L Pulse Rate from SpO2 Sensor 59 L 59 L Respiratory Rate 18 17 Respiratory Effort / Characteristics Blood Pressure 143/73 H Blood Pressure Mean 96 Blood Pressure Position Pulse Oximetry 97 96 Oxygen Delivery Method Nasal Cannula Nasal Cannula Oxygen Flow Rate 2 2 Sepsis Recent Fever Within 48 Hours Sepsis New/Unexplained Change in Mental Status Sepsis Action Taken by Nursing Laboratory Data Result diagrams: 05/04/21 06:00 05/04/21 06:00 Lab Results 05/02/21 05/02/21 05/02/21 Range/Units 14:53 15:10 15:10 WBC 12.66 H (4.8-10.8) K/uL RBC 3.44 L (4.2-5.4) M/uL Hgb 10.6 L (12.0-16.0) g/dL Hct 32.8 L (37-47) % MCV 95.3 (80-100) fL MCH 30.8 (25-34) pg MCHC 32.3 (32-36) g/dL RDW Std Deviation 47.4 H (36.4-46.3) fL RDW Coeff of Waqas 13.5 (11.5-14.5) % Plt Count 243 (130-400) K/uL MPV 10.3 (7.4-10.4) fL Immature Gran % (Auto) 0.2 % Neut % (Auto) 83.6 % Lymph % (Auto) 10.3 % [place] % (Auto) 5.5 % Eos % (Auto) 0.2 % Baso % (Auto) 0.2 % Neut # (Auto) 10.59 H (1.4-6.5) K/uL Lymph # (Auto) 1.30 (1.2-3.4) K/uL [place] # (Auto) 0.69 H (0.11-0.59) K/uL Eos # (Auto) 0.03 (0-0.5) K/uL Baso # (Auto) 0.03 (0-0.2) K/uL Immature Gran # (Auto) 0.02 (0.00-0.02) K/uL PT (9.0-12.0) Seconds INR (0.9-1.1) Sodium 142 (136-145) mmol/L Potassium 4.2 (3.5-5.1) mmol/L Chloride 110 H (98-107) mmol/L Carbon Dioxide 24 (21-32) mmol/L Anion Gap 8 (3-11) BUN 54 H (6-23) mg/dl Creatinine 1.99 H (0.6-1.2) mg/dl Est Cr Clr Drug Dosing 27.0 ml/min Est GFR ( Amer) 27.6 ml/min Est GFR (Non-Af Amer) 23.8 ml/min BUN/Creatinine Ratio 27.1 H (10-20) Glucose 181 H (70-99(Fasting)) mg/dl Calcium 8.8 (8.5-10.1) mg/dl Magnesium 2.4 (1.7-2.4) mg/dl Total Bilirubin 0.3 (0.2-1.0) mg/dl Direct Bilirubin 0.1 (0-0.2) mg/dl AST 27 (13-39) U/L ALT 22 (7-52) U/L Alkaline Phosphatase 68 (34-104) U/L Total Creatine Kinase 364 H (26-192) U/L Troponin I 0.04 (0-0.04) ng/ml Total Protein 6.8 (6.0-8.3) gm/dl Albumin 3.8 (3.4-5.0) gm/dl Lipase 24 (11-82) U/L SARS-CoV-2, RNA, NAAT NEGATIVE (NEGATIVE) 05/02/21 Range/Units 15:10 WBC (4.8-10.8) K/uL RBC (4.2-5.4) M/uL Hgb (12.0-16.0) g/dL Hct (37-47) % MCV (80-100) fL MCH (25-34) pg MCHC (32-36) g/dL RDW Std Deviation (36.4-46.3) fL RDW Coeff of Waqas (11.5-14.5) % Plt Count (130-400) K/uL MPV (7.4-10.4) fL Immature Gran % (Auto) % Neut % (Auto) % Lymph % (Auto) % [place] % (Auto) % Eos % (Auto) % Baso % (Auto) % Neut # (Auto) (1.4-6.5) K/uL Lymph # (Auto) (1.2-3.4) K/uL [place] # (Auto) (0.11-0.59) K/uL Eos # (Auto) (0-0.5) K/uL Baso # (Auto) (0-0.2) K/uL Immature Gran # (Auto) (0.00-0.02) K/uL PT 10.1 (9.0-12.0) Seconds INR 1.0 (0.9-1.1) Sodium (136-145) mmol/L Potassium (3.5-5.1) mmol/L Chloride (98-107) mmol/L Carbon Dioxide (21-32) mmol/L Anion Gap (3-11) BUN (6-23) mg/dl Creatinine (0.6-1.2) mg/dl Est Cr Clr Drug Dosing ml/min Est GFR ( Amer) ml/min Est GFR (Non-Af Amer) ml/min BUN/Creatinine Ratio (10-20) Glucose (70-99(Fasting)) mg/dl Calcium (8.5-10.1) mg/dl Magnesium (1.7-2.4) mg/dl Total Bilirubin (0.2-1.0) mg/dl Direct Bilirubin (0-0.2) mg/dl AST (13-39) U/L ALT (7-52) U/L Alkaline Phosphatase (34-104) U/L Total Creatine Kinase (26-192) U/L Troponin I (0-0.04) ng/ml Total Protein (6.0-8.3) gm/dl Albumin (3.4-5.0) gm/dl Lipase (11-82) U/L SARS-CoV-2, RNA, NAAT (NEGATIVE) Administered Medications Amlodipine Besylate (Amlodipine Besylate 5 Mg Tab) 5 mg PO DAILY [facility] Stop: 06/02/21 08:59 Last Admin: 05/03/21 09:16 Dose: 5 mg Documented by: [id number] Ascorbic Acid (Ascorbic Acid 500 Mg Tab) 250 mg PO DAILY [facility]; Protocol Stop: 06/02/21 08:59 Last Admin: 05/04/21 07:49 Dose: 250 mg Documented by: [id number] Admin: 05/03/21 09:16 Dose: 250 mg Documented by: [id number] Aspirin (Aspirin 81 Mg Ectab) 81 mg PO DAILY [facility] Stop: 06/02/21 08:59 Last Admin: 05/04/21 07:49 Dose: 81 mg Documented by: [id number] Admin: 05/03/21 09:16 Dose: 81 mg Documented by: [id number] Atorvastatin Calcium (Atorvastatin 40 Mg Tab) 80 mg PO DAILY [facility] Stop: 06/02/21 08:59 Last Admin: 05/04/21 07:50 Dose: 80 mg Documented by: [id number] Admin: 05/03/21 09:16 Dose: 80 mg Documented by: [id number] Bupropion HCl (Bupropion Sr 100 Mg Tabcr) 100 mg PO BID [facility] Stop: 06/01/21 20:59 Last Admin: 05/04/21 07:48 Dose: 100 mg Documented by: [id number] Admin: 05/03/21 20:07 Dose: 100 mg Documented by: [id number] Admin: 05/03/21 11:32 Dose: 100 mg Documented by: [id number] Admin: 05/02/21 21:59 Dose: 100 mg Documented by: [id number] Calcitriol (Calcitriol 0.25 Mcg Capsule) 0.25 mcg PO QAM [facility] Stop: 06/02/21 08:59 Last Admin: 05/04/21 07:49 Dose: 0.25 mcg Documented by: [id number] Admin: 05/03/21 09:15 Dose: 0.25 mcg Documented by: [id number] Docusate Sodium (Docusate Sodium 100 Mg Cap) 100 mg PO DAILY [facility] Stop: 06/01/21 19:44 Last Admin: 05/03/21 11:34 Dose: 100 mg Documented by: [id number] Admin: 05/02/21 22:00 Dose: 100 mg Documented by: [id number] Ezetimibe (Ezetimibe 10 Mg Tablet) 10 mg PO DAILY [facility] Stop: 06/02/21 08:59 Last Admin: 05/04/21 07:49 Dose: 10 mg Documented by: [id number] Admin: 05/03/21 09:14 Dose: 10 mg Documented by: [id number] Ferrous Sulfate (Ferrous Sulfate 325 Mg Tab) 325 mg PO DAILY [facility]; Protocol Stop: 06/02/21 08:59 Last Admin: 05/04/21 07:48 Dose: 325 mg Documented by: [id number] Admin: 05/03/21 09:16 Dose: 325 mg Documented by: [id number] Fluticasone/Vilanterol (Fluticasone/Vilanterol 100/25mcg 14 Puffs/Inhaler) 1 puffs INH DAILY [facility]; Protocol Stop: 06/02/21 08:59 Last Admin: 05/03/21 11:32 Dose: 1 puffs Documented by: [id number] Folic Acid (Folic Acid 1 Mg Tab) 1 mg PO DAILY [facility] Stop: 06/02/21 08:59 Last Admin: 05/04/21 07:49 Dose: 1 mg Documented by: [id number] Admin: 05/03/21 09:15 Dose: 1 mg Documented by: [id number] Hydralazine HCl (Hydralazine Tab 50 Mg Tab) 100 mg PO BID [facility] Stop: 06/01/21 19:34 Last Admin: 05/04/21 07:48 Dose: 100 mg Documented by: [id number] Admin: 05/03/21 20:06 Dose: 100 mg Documented by: [id number] Admin: 05/03/21 09:14 Dose: 100 mg Documented by: [id number] Admin: 05/02/21 22:01 Dose: Not Given Documented by: [id number] Admin: 05/02/21 21:58 Dose: 100 mg Documented by: [id number] Hydromorphone HCl (Hydromorphone Inj 0.5 Mg/0.5 Ml Syr) 0.5 mg IV Q4H PRN PRN Reason: Pain Stop: 05/17/21 01:15 Last Admin: 05/03/21 01:35 Dose: 0.5 mg Documented by: [id number] Insulin Aspart (Insulin Aspart Per Unit) 0 units SC ACHS [facility] Stop: 06/01/21 20:59 Last Admin: 05/04/21 08:58 Dose: Not Given Documented by: [id number] Admin: 05/03/21 23:17 Dose: Not Given Documented by: [id number] Cosigned by: [id number] Admin: 05/03/21 17:09 Dose: Not Given Documented by: [id number] Admin: 05/03/21 12:07 Dose: 4 units Documented by: [id number] Cosigned by: [id number] Admin: 05/03/21 09:18 Dose: 3 units Documented by: [id number] Cosigned by: [id number] Admin: 05/02/21 20:59 Dose: 1 units Documented by: [id number] Cosigned by: [id number] Miscellaneous (Remove Lidoderm Patch) 1 ea N/A DAILY@2100 [facility] Stop: 06/01/21 20:59 Last Admin: 05/03/21 20:14 Dose: Not Given Documented by: [id number] Admin: 05/02/21 22:00 Dose: 1 ea Documented by: [id number] Montelukast Sodium (Montelukast Sodium 10 Mg Tablet) 10 mg PO HS [facility] Stop: 06/01/21 20:59 Last Admin: 05/03/21 20:06 Dose: 10 mg Documented by: [id number] Admin: 05/02/21 22:00 Dose: 10 mg Documented by: [id number] Multivitamins (Multivitamin Tab) 1 tab PO QAM [facility] Stop: 06/02/21 08:59 Last Admin: 05/04/21 07:49 Dose: 1 tab Documented by: [id number] Admin: 05/03/21 09:16 Dose: 1 tab Documented by: [id number] Oxycodone/Acetaminophen (Oxycodone/Acetaminophen 5mg/325mg Tab) 1 tab PO Q6H PRN PRN Reason: Pain Stop: 05/16/21 19:34 Last Admin: 05/04/21 05:30 Dose: 1 tab Documented by: [id number] Admin: 05/03/21 19:54 Dose: 1 tab Documented by: [id number] Admin: 05/03/21 09:15 Dose: 1 tab Documented by: [id number] Admin: 05/02/21 21:02 Dose: 1 tab Documented by: [id number] Pantoprazole Sodium (Pantoprazole 40 Mg Tab) 40 mg PO QAM [facility]; Protocol Stop: 06/02/21 08:59 Last Admin: 05/04/21 07:50 Dose: 40 mg Documented by: [id number] Admin: 05/03/21 09:15 Dose: 40 mg Documented by: [id number] Polyethylene Glycol (Polyethylene (Miralax) 17 Gm Pack) 17 gm PO DAILY PRN PRN Reason: Constipation Stop: 06/01/21 20:53 Last Admin: 05/03/21 20:07 Dose: 17 gm Documented by: [id number] Admin: 05/03/21 01:22 Dose: 17 gm Documented by: [id number] Thiamine HCl (Thiamine Hcl 100 Mg Tab) 100 mg PO DAILY [facility] Stop: 06/02/21 08:59 Last Admin: 05/04/21 07:49 Dose: 100 mg Documented by: [id number] Admin: 05/03/21 09:16 Dose: 100 mg Documented by: [id number] Tizanidine HCl (Tizanidine Hcl 4 Mg Tablet) 4 mg PO Q8 PRN PRN Reason: Muscle Spasm Stop: 06/01/21 20:53 Last Admin: 05/03/21 09:15 Dose: 4 mg Documented by: [id number] Torsemide (Torsemide 10 Mg Tab) 10 mg PO DAILY [facility] Stop: 06/02/21 08:59 Last Admin: 05/04/21 07:48 Dose: 10 mg Documented by: [id number] Admin: 05/03/21 09:15 Dose: 10 mg Documented by: [id number] Vitamin D (Cholecalciferol 1,000 Units 25 Mcg Tab) 1,000 units PO QAM [facility] Stop: 06/02/21 08:59 Last Admin: 05/04/21 07:49 Dose: 1,000 units Documented by: [id number] Admin: 05/03/21 09:15 Dose: 1,000 units Documented by: [id number] Discontinued Medications Hydromorphone HCl (Hydromorphone Inj 0.5 Mg/0.5 Ml Syr) 0.5 mg IV NOW STA Stop: 05/02/21 15:08 Last Admin: 05/02/21 15:20 Dose: 0.5 mg Documented by: [id number] Hydromorphone HCl (Hydromorphone Inj 0.5 Mg/0.5 Ml Syr) 0.5 mg IV NOW STA Stop: 05/02/21 16:21 Last Admin: 05/02/21 16:34 Dose: 0.5 mg Documented by: [id number] Sodium Chloride (Nss 1000ml) 1,000 mls @ 999 mls/hr IV .Q1H1M ONE Stop: 05/02/21 16:07 Last Infusion: 05/02/21 16:24 Dose: 0 mls/hr Documented by: [id number] Admin: 05/02/21 15:20 Dose: 999 mls/hr Documented by: [id number] Sodium Chloride (Nss 1000ml) 1,000 mls @ 100 mls/hr IV .Q10H [facility] Stop: 05/03/21 12:29 Last Infusion: 05/03/21 17:09 Dose: 0 mls/hr Documented by: [id number] Admin: 05/03/21 04:39 Dose: 100 mls/hr Documented by: [id number] Infusion: 05/03/21 04:39 Dose: 0 mls/hr Documented by: [id number] Infusion: 05/02/21 21:08 Dose: 100 mls/hr Documented by: [id number] Admin: 05/02/21 16:32 Dose: 125 mls/hr Documented by: [id number] Lidocaine (Lidocaine 5% 1 Patch) 1 patch TD NOW STA Stop: 05/02/21 16:21 Last Admin: 05/02/21 16:36 Dose: 1 patch Documented by: [id number] Metoprolol Tartrate (Metoprolol Tartrate 25 Mg Tab) 25 mg PO NOW STA Stop: 05/02/21 21:50 Last Admin: 05/03/21 00:35 Dose: 25 mg Documented by: [id number] Ondansetron HCl (Ondansetron Inj 2 Mg/Ml 2 Ml Vial) 4 mg IV NOW STA Stop: 05/02/21 15:08 Last Admin: 05/02/21 15:20 Dose: 4 mg Documented by: [id number] Polyethylene Glycol (Polyethylene (Miralax) 17 Gm Pack) 17 gm PO ONE ONE Stop: 05/02/21 20:01 Last Admin: 05/02/21 22:00 Dose: 17 gm Documented by: [id number] Discharge Plan Visit Data Chief Complaint: Fall Stated Complaint: Fall, Rib Pain ED Provider: Ham Gil Discharge Problem: Traumatic fracture of ribs of right side with pneumothorax, Rhabdomyolysis, Acute dehydration, Fall Patient Disposition: Admitted As Inpatient Discharge Instructions Interventions: ED Discharge Assessment Last Done: 05/02/21 19:52 Discharge Problem: Fall Qualifiers: Encounter type: initial encounter Qualified Code(s): W19.XXXA - Unspecified fall, initial encounter
[2021-05-02 15:22] LABS: Basophils # (auto) 0.03 K/uL (0-0.2); Basophils % (auto) 0.2 %; Eosinophils # (auto) 0.03 K/uL (0-0.5); Eosinophils % (auto) 0.2 %; Hematocrit (blood only) 32.8 % (37-47); Hemoglobin 10.6 g/dL (12.0-16.0); Immature Granulocytes # (auto) 0.02 K/uL (0.00-0.02); Immature Granulocytes % (auto) 0.2 %; Lymphocytes % (auto) 10.3 %; Mean Corpuscular Hemoglobin 30.8 pg (25-34); Mean Corpuscular Hgb Conc 32.3 g/dL (32-36); Mean Corpuscular Volume 95.3 fL (80-100); Mean Platelet Volume 10.3 fL (7.4-10.4); Monocytes # (auto) 0.69 K/uL (0.11-0.59); Monocytes % (auto) 5.5 %; Neutrophils # (auto) 10.59 K/uL (1.4-6.5); Neutrophils % (auto) 83.6 %; Platelet Count 243 K/uL (130-400); RDW Coefficient of Variation 13.5 % (11.5-14.5); RDW Standard Deviation 47.4 fL (36.4-46.3); Red Blood Count 3.44 M/uL (4.2-5.4); White Blood Count 12.66 K/uL (4.8-10.8)
[2021-05-02 15:31] LABS: Prothrombin Time 10.1 Seconds (9.0-12.0)
[2021-05-02 15:57] LABS: Troponin I 0.04 ng/ml (0-0.04)
[2021-05-02 16:02] LABS: Albumin Level 3.8 gm/dl (3.4-5.0); BUN Creatinine Ratio 27.1 (10-20); Bilirubin Direct 0.1 mg/dl (0-0.2); Bilirubin,Total 0.3 mg/dl (0.2-1.0); Calcium 8.8 mg/dl (8.5-10.1); Est GFR (African American) 27.6 ml/min; Est GFR (Non-African American) 23.8 ml/min; Magnesium 2.4 mg/dl (1.7-2.4); Potassium 4.2 mmol/L (3.5-5.1); Total Protein 6.8 gm/dl (6.0-8.3)
[2021-05-02] MEDS ORDERED: LIDOCAINE 5% 1 PATCH TD STA (16:20)
[2021-05-02] MEDS: SODIUM CHLORIDE 0.9% 1000ML 1,000 ML IV SCH (16:32)
--- NOTE | 2021-05-02 17:03 | CT Scan Report ---
CT head/brain wo con CLINICAL HISTORY: fall, trauma . Pain COMPARISON STUDY: No previous studies for comparison. CT DOSE: TECHNIQUE: Standard CT of the Brain was performed without IV contrast. A dose lowering technique was utilized adhering to the principles of ALARA. FINDINGS: Extraaxial space: There is no evidence for subdural hematoma. There are no extra-axial fluid collecti ons. Ventricles and cisterns: The ventricles are normal in size and configuration. There is no evidence f or midline shift or mass effect. Parenchyma: There is no subarachnoid or intraparenchymal hemorrhage. There is no evidence for an acu te infarct or cerebral edema. There is mild cerebral cortical atrophy and decreased attenuation in th e periventricular white matter representing remote small vessel disease. There are no gross mass lesi ons. Osseous structures: There is no evidence for an acute fracture. The visualized paranasal sinuses are clear. The mastoid air cells are clear bilaterally. Soft tissues: There is no evidence for focal soft tissue swelling. IMPRESSION: No acute intracerebral pathology. Mild cerebral cortical atrophy and remote small vessel disease. ACT 112: Negative or not required by law. Electronically signed by: Vamshi Peña M.D. 05/02/2021 5:01 PM
--- NOTE | 2021-05-02 17:06 | CT Scan Report ---
CT cervical spine wo con CLINICAL HISTORY: fall, trauma . Neck pain COMPARISON STUDY: No previous studies for comparison. CT DOSE: 3853.74 mGy.cm TECHNIQUE: Standard CT of the Cervical Spine was performed without IV contrast. A dose lowering te chnique was utilized adhering to the principles of ALARA. FINDINGS: Bones: Bones are osteopenic. There is straightening and slight reversal of expected cervical lordosis related to degenerative change. There is no evidence for an acute fracture or malalignment. The heig hts of the vertebral bodies are maintained. The vertebral bodies are in anatomic alignment. The odont oid is intact. Degenerative changes are seen at the atlantoaxial articulation. Disc spaces:Moderate to marked disc space narrowing is present from C2 through C7 with endplate scler osis and osteophyte formation. Apophyseal joints:The apophyseal joints are intact bilaterally. Soft tissues:The prevertebral soft tissues are within normal limits. Extensive carotid artery calcifi cations present. IMPRESSION: Osteopenia with no acute osseous pathology. Degenerative disc and degenerative facet join t disease. Carotid artery calcification. ACT 112: Negative or not required by law. Electronically signed by: Vamshi Peña M.D. 05/02/2021 5:04 PM
--- NOTE | 2021-05-02 17:15 | CT Scan Report ---
CT chest diagnostic wo con CLINICAL HISTORY: fall, trauma, right rib injury COMPARISON STUDY: No previous studies for comparison. CT DOSE: TECHNIQUE: Standard CT of the Chest was performed without IV contrast. A dose lowering technique was utilized adhering to the principles of ALARA. FINDINGS: Airway: The airway is clear. No endobronchial lesion is identified. Lungs: There is a 10 mm noncalcified pulmonary nodule within the right lower lobe in the deep costoph renic angle. The lungs are otherwise clear of acute alveolar opacities, air bronchograms or additiona l pulmonary nodules. Minimal scarring is seen within the right middle lobe and lingula. Pleura: There is no evidence for pleural effusion. There is no evidence for pneumothorax. Mediastinum: There is no evidence for pathologic adenopathy on these limited noncontrast images. The heart size is within normal limits. The thoracic aorta is within normal limits. There is no evidence for pericardial effusion. Upper abdomen: The adrenal glands are normal bilaterally. Osseous structures: There are fractures of the right ninth and 10th ribs posterior laterally which ar e displaced. There is no adjacent lung contusion. However, there is mild subcutaneous emphysema seen within the right chest wall site fractures. IMPRESSION: 1. Mildly displaced fractures of the right ninth and 10th ribs posterior laterally with subcutaneous emphysema present. However, there is no evidence for adjacent lung contusion or pneumothorax. 2. 10 mm noncalcified right lower lobe pulmonary nodule. Follow-up CT in 3 months is recommended for further evaluation. 3. There is no other evidence for acute chest disease on these noncontrast images. ACT 112: Positive. There are findings on this exam that require communication between the performing entity and the patient following Patient Test Result Information Act ([place] Act 112) guidelines. Electronically signed by: Vamshi Peña M.D. 05/02/2021 5:14 PM
--- NOTE | 2021-05-02 17:24 | CT Scan Report ---
CT abd pelvis wo con CLINICAL HISTORY: right chest/abdominal trauma s/p fall COMPARISON STUDY: Chest CT from the same date. CT DOSE: TECHNIQUE: Standard CT of the Abdomen and Pelvis was performed without IV contrast. The patient did not receive oral contrast. A dose lowering technique was utilized adhering to the principles of JULIANNE Lopez. FINDINGS: Lung base: As seen on chest CT, there are mildly displaced fractures of the right ninth and 10th rib s posterolaterally. There is no evidence for lung contusion. Right lower lobe pulmonary nodule is aga in seen. This was described on chest CT. Abdominal cavity: There is no evidence for abdominal mass, adenopathy or ascites. There is no evidenc e for visceral injury. Liver: The liver is homogeneous in attenuation on these limited noncontrast images.. Spleen: The spleen is homogeneous in attenuation on these limited noncontrast images. Pancreas: The pancreas is homogeneous in attenuation on these limited noncontrast images. Gall Bladder: The gallbladder is well distended with no evidence for cholelithiasis, wall thickening or pericholecystic edema.. Adrenal glands: The adrenal glands are normal in size and attenuation on these limited noncontrast im ages. Kidneys: The kidneys are homogeneous in attenuation on these limited noncontrast images. There is no evidence for gross renal mass, calculus or hydronephrosis bilaterally. Bowel: There is a small to moderate size hiatal hernia. The bowel loops are normally placed within th e abdomen and pelvis without evidence for dilatation or obstruction. There is no evidence for mass le camilla. There is moderate fecal stasis without significant impaction or obstruction. There are no infla mmatory changes present. There is no evidence for free air. There is a normal retrocecal appendix. Bladder: There is distention of the bladder with no evidence for focal bladder wall thickening, calcu cj or diverticulum. : There is no evidence for pelvic mass or adenopathy. There is calcified fibroid uterus. Vasculature: There is no evidence for focal aneurysmal dilatation of the abdominal aorta. Atheroscler otic calcification is present. Osseous structures: There is no acute osseous pathology. Degenerative changes are present involving t he lumbar spine and both hips. IMPRESSION: 1. Mildly displaced fractures of the right ninth and 10th ribs are again seen is reported on chest CT . 2. No evidence for visceral injury within the abdomen. 3. Small to moderate size hiatal hernia. 4. Moderate fecal stasis without impaction or obstruction. 5. No other evidence for acute intra-abdominal or pelvic abnormality on these limited noncontrast felicitas ges. 6. Additional nonacute findings are delineated above. ACT 112: Negative or not required by law. Electronically signed by: Vamshi Peña M.D. 05/02/2021 5:22 PM
--- NOTE | 2021-05-02 18:01 | History & Physical Report ---
Date of Service May 02, 2021 Assessment & Plan (1) Fall: (2) Traumatic fracture of ribs of right side with pneumothorax: Plan: This is a 76yo F with a PMH of chronic diastolic heart failure, type 2 diabetes, CKD IV, COPD, hypertension, alcohol use, mood disorder, ROXY on CPAP and other medical problems listed below who presents after fall and was found to have mildly displaced fractures of R 9th and 10th ribs. Fell overnight and remained on floor for 6+ hours Chest CT with mildly displaced fractures of the right ninth and 10th ribs posterior laterally with subcutaneous emphysema present. No evidence for adjacent lung contusion or pneumothorax No evidence of other acute changes on head CT, cervical spine CT or CT abd/pelvis Pain control, ice, fall precautions (3) Elevated CK: Plan: CK 364 in setting of prolonged fall. Does not meet criteria for rhabdo. Renal function at baseline. Continue IV fluids (4) CKD (chronic kidney disease), stage IV: Plan: Renal function at baseline with Cr ~2 (baseline low-mid 2s) Monitor renal function, avoid nephrotoxic agents when able (5) HTN (hypertension): Plan: Missed AM medications. Give PM dose of hydralazine Continue amlodipine, hydralazine (6) DM type 2 (diabetes mellitus, type 2): Plan: A1c 6.9 in Jan 2021. Repeat a1c in AM Hold home agents SSI while in-patient BSG AC HS (7) Chronic diastolic CHF (congestive heart failure): Plan: Appears dehydrated on initial exam. Will give 1 L gentle fluids overnight and diet, reassess volume status in AM Plan to continue torsemide tomorrow (8) Depression: Plan: Continue buproprion (9) Alcohol use: Plan: Significant use in past, will add PRN Ativan with at risk precautions Continue home folic acid and thiamine (10) ROXY on CPAP: Plan: CPAP HS (11) Pulmonary nodule: Plan: CT chest with incidental 10 mm noncalcified right lower lobe pulmonary nodule. Follow-up CT in 3 months is recommended for further evaluation DVT Ppx: SCDs for now Code status: DNR per discussion with patient PCP: Kathy Dispo: Observation med tele Patient seen in collaboration with Dr. Abarca. Please see addendum. History of Present Illness Chief Complaint: fall, rib pain Primary Care Provider: Liban Chavez MD This is a 76yo F with a PMH of chronic diastolic heart failure, type 2 diabetes, CKD IV, COPD, hypertension, alcohol use, mood disorder, ROXY on CPAP and other medical problems listed below who presents after fall. She recalls drinking heavily last night to celebrate her birthday at a friend's house and when she got up to use the restroom during the night, she lost her balance and fell to the floor, hitting her right side on the toilet on her way down. Denies any preceding lightheadedness, CP or palpitations. Patient had been lying on the ground for over 6 hours and was unable to get up when she called for help. Pain is primarily over her ribs and is worse with deep inspiration or movement and made better with rest. Friends brought her into ED for further evaluation. Denies any headache and does not think she lost consciousness. No new focal weakness, lightheadedness, chest pain, shortness of breath, nausea, vomiting, abdominal pain, dysuria, diarrhea or constipation. Feels dehydrated. Allergies Allergy/AdvReac Type Severity Reaction Status Date / Time levofloxacin [From Levaquin] Allergy Intermediate TORN TENDON Verified 05/02/21 15:30 DOREEN Inhibitors Allergy Mild coughing Verified 05/02/21 15:30 hydrochlorothiazide Allergy Rash Verified 05/02/21 15:29 Home Medications Medication Instructions Recorded Confirmed Type calcitriol 0.25 mcg capsule 0.25 mcg PO QAM 05/21/18 05/02/21 History cholecalciferol (vitamin D3) 25 1,000 unit PO QAM 05/21/18 05/02/21 History mcg (1,000 unit) capsule (Vitamin D3) iron,carbonyl 65 mg-vitamin C 125 1 tab PO QAM 05/21/18 05/02/21 History mg tablet,delayed release (Vitron-C) montelukast 10 mg tablet 10 mg PO HS 05/21/18 05/02/21 History (Singulair) omeprazole 20 mg capsule,delayed 20 mg PO QAM 05/21/18 05/02/21 History release amlodipine 5 mg tablet 5 mg PO DAILY 05/02/21 05/02/21 History aspirin 81 mg tablet 81 mg PO DAILY 05/02/21 05/02/21 History atorvastatin 80 mg tablet 80 mg PO DAILY 05/02/21 05/02/21 History bupropion HCl 100 mg tablet,12 hr 100 mg PO BID 05/02/21 05/02/21 History sustained-release docusate sodium 100 mg capsule 100 mg PO DAILY 05/02/21 05/02/21 History ezetimibe 10 mg tablet 10 mg PO DAILY 05/02/21 05/02/21 History fluticasone propionate 115 2 puff INHALATION BID 05/02/21 05/02/21 History mcg-salmeterol 21 mcg/actuation HFA inhaler (Advair HFA) folic acid 1 mg tablet 1 mg PO DAILY 05/02/21 05/02/21 History glimepiride 1 mg tablet 1 mg PO DAILY 05/02/21 05/02/21 History hydralazine 100 mg tablet 100 mg PO BID 05/02/21 05/02/21 History multivitamin 1 tab PO DAILY 05/02/21 05/02/21 History thiamine HCl (vitamin B1) 100 mg 100 mg PO DAILY 05/02/21 05/02/21 History tablet tizanidine 4 mg tablet 4 mg PO Q8 PRN 05/02/21 05/02/21 History torsemide 10 mg tablet 10 mg PO DAILY 05/02/21 05/02/21 History Past Med/Surg History Medical History (Updated 05/02/21 @ 19:19 by Yari Sam PA-C) Anxiety Chronic diastolic CHF (congestive heart failure) CKD (chronic kidney disease), stage IV COPD, severe Depression Diastolic dysfunction DM type 2 (diabetes mellitus, type 2) Dyslipidemia Gastrointestinal hemorrhage with melena GERD (gastroesophageal reflux disease) Hyperparathyroidism, secondary renal Hypertension ROXY on CPAP Osteoarthritis Restless leg syndrome Surgical History (Updated 05/02/21 @ 18:25 by Yari Sam PA-C) H/O shoulder surgery History of cataract surgery RT/LEFT History of tooth extraction Status post trigger finger release Family History Sister Colon cancer Mother Family history of diabetes mellitus Social History Smoking Status: Former smoker Smoking End Date: 1987; Second Hand Exposure: No; Hx Alcohol Use: Yes Alcohol type: wine and hard liquor Alcohol Intake Frequency: 2-3 x/Week Alcohol Intake Frequency Comment: wine Hx Substance Use: No Preferred Language: Wallisian Communication Ability: Effective Applied Exercise Physiologist Required: No Beliefs That Will Affect Care: Worship Worship Beliefs: Alevism marital status: Single Current Living Situation: Significant Other current occupational status: retired Feels Safe at Home: Yes Assistive Devices: Glasses Review of Systems Review of Systems: At least ten systems reviewed and negative except as noted in the HPI. Physical Exam Physical Exam: Please see Dr. Abarca's addendum for physical exam. Results & Data Results & Data ([facility]) Vital Signs (Past 12 Hours) Vital Signs Temp Pulse Resp BP Pulse Ox 05/02/21 17:20 60 15 95 05/02/21 17:10 58 L 16 94 05/02/21 17:00 59 L 14 95 05/02/21 16:50 59 L 15 93 05/02/21 16:40 61 22 95 05/02/21 16:30 58 L 17 161/74 H 95 05/02/21 16:20 58 L 18 96 05/02/21 16:10 57 L 15 96 05/02/21 16:07 56 L 13 96 05/02/21 15:40 59 L 17 96 05/02/21 15:30 59 L 18 143/73 H 97 05/02/21 15:20 59 L 18 92 05/02/21 15:10 61 17 94 05/02/21 14:58 36.7 C 61 16 154/78 H 94 Laboratory Results Short CBC 05/02/21 Range/Units 15:10 WBC 12.66 H (4.8-10.8) K/uL Hgb 10.6 L (12.0-16.0) g/dL Hct 32.8 L (37-47) % Plt Count 243 (130-400) K/uL BMP 05/02/21 15:10 Sodium 142 Potassium 4.2 Chloride 110 H Carbon Dioxide 24 BUN 54 H Creatinine 1.99 H Glucose 181 H Calcium 8.8 Cardiac Enzymes 05/02/21 Range/Units 15:10 Total Creatine Kinase 364 H (26-192) U/L Troponin I 0.04 (0-0.04) ng/ml Liver Function 05/02/21 Range/Units 15:10 Total Bilirubin 0.3 (0.2-1.0) mg/dl Direct Bilirubin 0.1 (0-0.2) mg/dl AST 27 (13-39) U/L ALT 22 (7-52) U/L Alkaline Phosphatase 68 (34-104) U/L Albumin 3.8 (3.4-5.0) gm/dl Diagnostic Findings Abdomen/Pelvis CT 05/02/21 15:06 CT abd pelvis wo con CLINICAL HISTORY: right chest/abdominal trauma s/p fall COMPARISON STUDY: Chest CT from the same date. CT DOSE: TECHNIQUE: Standard CT of the Abdomen and Pelvis was performed without IV contrast. The patient did not receive oral contrast. A dose lowering technique was utilized adhering to the principles of ALARA. FINDINGS: Lung base: As seen on chest CT, there are mildly displaced fractures of the right ninth and 10th ribs posterolaterally. There is no evidence for lung contusion. Right lower lobe pulmonary nodule is again seen. This was described on chest CT. Abdominal cavity: There is no evidence for abdominal mass, adenopathy or ascites. There is no evidence for visceral injury. Liver: The liver is homogeneous in attenuation on these limited noncontrast images.. Spleen: The spleen is homogeneous in attenuation on these limited noncontrast images. Pancreas: The pancreas is homogeneous in attenuation on these limited noncontrast images. Gall Bladder: The gallbladder is well distended with no evidence for cholelithiasis, wall thickening or pericholecystic edema.. Adrenal glands: The adrenal glands are normal in size and attenuation on these limited noncontrast images. Kidneys: The kidneys are homogeneous in attenuation on these limited noncontrast images. There is no evidence for gross renal mass, calculus or hydronephrosis bilaterally. Bowel: There is a small to moderate size hiatal hernia. The bowel loops are normally placed within the abdomen and pelvis without evidence for dilatation or obstruction. There is no evidence for mass lesion. There is moderate fecal stasis without significant impaction or obstruction. There are no inflammatory changes present. There is no evidence for free air. There is a normal retrocecal appendix. Bladder: There is distention of the bladder with no evidence for focal bladder wall thickening, calculus or diverticulum. : There is no evidence for pelvic mass or adenopathy. There is calcified fibroid uterus. Vasculature: There is no evidence for focal aneurysmal dilatation of the abdominal aorta. Atherosclerotic calcification is present. Osseous structures: There is no acute osseous pathology. Degenerative changes are present involving the lumbar spine and both hips. IMPRESSION: 1. Mildly displaced fractures of the right ninth and 10th ribs are again seen is reported on chest CT. 2. No evidence for visceral injury within the abdomen. 3. Small to moderate size hiatal hernia. 4. Moderate fecal stasis without impaction or obstruction. 5. No other evidence for acute intra-abdominal or pelvic abnormality on these limited noncontrast images. 6. Additional nonacute findings are delineated above. ACT 112: Negative or not required by law. Electronically signed by: Vamshi Peña M.D. 05/02/2021 5:[address] 05/02/21 15:06 CT cervical spine wo con CLINICAL HISTORY: fall, trauma . Neck pain COMPARISON STUDY: No previous studies for comparison. CT DOSE: 3853.74 mGy.cm TECHNIQUE: Standard CT of the Cervical Spine was performed without IV contrast. A dose lowering technique was utilized adhering to the principles of ALARA. FINDINGS: Bones: Bones are osteopenic. There is straightening and slight reversal of expected cervical lordosis related to degenerative change. There is no evidence for an acute fracture or malalignment. The heights of the vertebral bodies are maintained. The vertebral bodies are in anatomic alignment. The odontoid is intact. Degenerative changes are seen at the atlantoaxial articulation. Disc spaces:Moderate to marked disc space narrowing is present from C2 through C7 with endplate sclerosis and osteophyte formation. Apophyseal joints:The apophyseal joints are intact bilaterally. Soft tissues:The prevertebral soft tissues are within normal limits. Extensive carotid artery calcifications present. IMPRESSION: Osteopenia with no acute osseous pathology. Degenerative disc and degenerative facet joint disease. Carotid artery calcification. ACT 112: Negative or not required by law. Electronically signed by: Vamshi Peña M.D. 05/02/2021 5:[address] 05/02/21 15:06 CT chest diagnostic wo con CLINICAL HISTORY: fall, trauma, right rib injury COMPARISON STUDY: No previous studies for comparison. CT DOSE: TECHNIQUE: Standard CT of the Chest was performed without IV contrast. A dose lowering technique was utilized adhering to the principles of ALARA. FINDINGS: Airway: The airway is clear. No endobronchial lesion is identified. Lungs: There is a 10 mm noncalcified pulmonary nodule within the right lower lobe in the deep costophrenic angle. The lungs are otherwise clear of acute alveolar opacities, air bronchograms or additional pulmonary nodules. Minimal scarring is seen within the right middle lobe and lingula. Pleura: There is no evidence for pleural effusion. There is no evidence for pneumothorax. Mediastinum: There is no evidence for pathologic adenopathy on these limited noncontrast images. The heart size is within normal limits. The thoracic aorta is within normal limits. There is no evidence for pericardial effusion. Upper abdomen: The adrenal glands are normal bilaterally. Osseous structures: There are fractures of the right ninth and 10th ribs posterior laterally which are displaced. There is no adjacent lung contusion. However, there is mild subcutaneous emphysema seen within the right chest wall site fractures. IMPRESSION: 1. Mildly displaced fractures of the right ninth and 10th ribs posterior laterally with subcutaneous emphysema present. However, there is no evidence for adjacent lung contusion or pneumothorax. 2. 10 mm noncalcified right lower lobe pulmonary nodule. Follow-up CT in 3 months is recommended for further evaluation. 3. There is no other evidence for acute chest disease on these noncontrast images. ACT 112: Positive. There are findings on this exam that require communication between the performing entity and the patient following Patient Test Result Information Act ([place] Act 112) guidelines. Electronically signed by: Vamshi Peña M.D. 05/02/2021 5:[address] 05/02/21 15:06 CT head/brain wo con CLINICAL HISTORY: fall, trauma . Pain COMPARISON STUDY: No previous studies for comparison. CT DOSE: TECHNIQUE: Standard CT of the Brain was performed without IV contrast. A dose lowering technique was utilized adhering to the principles of ALARA. FINDINGS: Extraaxial space: There is no evidence for subdural hematoma. There are no extra-axial fluid collections. Ventricles and cisterns: The ventricles are normal in size and configuration. There is no evidence for midline shift or mass effect. Parenchyma: There is no subarachnoid or intraparenchymal hemorrhage. There is no evidence for an acute infarct or cerebral edema. There is mild cerebral cortical atrophy and decreased attenuation in the periventricular white matter representing remote small vessel disease. There are no gross mass lesions. Osseous structures: There is no evidence for an acute fracture. The visualized paranasal sinuses are clear. The mastoid air cells are clear bilaterally. Soft tissues: There is no evidence for focal soft tissue swelling. IMPRESSION: No acute intracerebral pathology. Mild cerebral cortical atrophy and remote small vessel disease. ACT 112: Negative or not required by law. Electronically signed by: Vamshi Peña M.D. 05/02/2021 5:01 PM Supervising Physician Co-Signing Physician Notes 76yo F with a PMH of chronic diastolic heart failure, type 2 diabetes, CKD IV, COPD, hypertension, alcohol use, mood disorder, ROXY on CPAP presented 05/02 to our ED after fall at her friend's house. She lost her balance when getting up to use the restroom during the night. She had her birthday celebration yesterday night and drank alcohol. She denies any preceding signs and symptoms and no loss of consciousness after fall. Labs reviewed, WBC mildly elevated, continue to monitor, likely secondary to stress. Other labs including kidney function fairly WNL. Glucose level elevated. CK mildly elevated. Imagings reviewed, CT chest reveals mildly displaced fracture of ninth and 10th rib posterolaterally with subcutaneous emphysema. Also right lower lobe pulmonary nodule 10 mm noted, follow-up recommended in [address] chest[address] C-spine CT, CTAP and head CT fairly WNL with no acute findings. Pain control, gentle IV hydration, as needed Ativan with at risk precaution for her history of alcohol use, follow-up WBC in a.m. Resume home meds as and when appropriate. On sliding scale for diabetes. Upon Exam GENERAL: Alert and oriented x3. NAD, on 2L. Morbidly obese HEENT: No pallor, no icterus. Pupils equal, round and reactive to light. Oral mucosa moist. NECK: No JVD, no neck masses. HEART: S1 and S2 heard. Regular rate and rhythm. No murmur, no gallop. RESPIRATORY SYSTEM: Normal AP diameter. No accessory muscle use. No wheezing, no crackles. ABDOMEN: Soft, bowel sounds present, nontender, no distention. CENTRAL NERVOUS SYSTEM: No facial droop. Speech is clear. Obeys simple commands. Moves extremities. EXTREMITIES: No edema, no erythema seen. Tenderness over right posterior lateral back. I have seen and examined the patient and have discussed the case with the provider above. I agree with the assessment and plan as stated. (1) Fall Encounter type: initial encounter Qualified Code(s): W19.XXXA - Unspecified fall, initial encounter
[2021-05-02] MEDS ORDERED: POLYETHYLENE (MIRALAX) 17 GM PACK PO ONE (20:00)
[2021-05-02] MEDS ORDERED: GLUCOSE 40% GEL 15 GM TUBE PO PRN (20:54)
[2021-05-02] MEDS ORDERED: CARBOHYDRATES FOR HYPOGLYCEMIA PO PRN (20:54)
[2021-05-02] MEDS ORDERED: tiZANidine HCL 4 MG TABLET PO PRN (20:54)
[2021-05-02] MEDS ORDERED: GLUCOSE 10 TABS/TUBE PO PRN (20:54)
[2021-05-02] MEDS ORDERED: ONDANSETRON INJ 2 MG/ML 2 ML VIAL IV PRN (20:54)
[2021-05-02] MEDS ORDERED: DEXTROSE 50% 50 ML SYRINGE IV PRN (20:54)
[2021-05-02] MEDS ORDERED: GLUCAGON FOR INJ 1 MG VIAL SQ PRN (20:54)
[2021-05-02] MEDS ORDERED: LORazepam 1 MG/2 ML VIAL IV PRN (20:54)
[2021-05-02] MEDS: INSULIN ASPART PER UNIT SC SCH (20:59)
[2021-05-02] MEDS: oxyCODONE/ACETAMINOPHEN 5mg/325mg TAB PO PRN (21:02)
[2021-05-02] MEDS ORDERED: METOPROLOL TARTRATE 25 MG TAB PO STA (21:49)
[2021-05-02] MEDS: hydrALAZINE TAB 50 MG TAB PO SCH ×2 (21:58→22:01)
[2021-05-02] MEDS: buPROPion SR 100 MG TABCR PO SCH (21:59)
[2021-05-02] MEDS: DOCUSATE SODIUM 100 MG CAP PO SCH (22:00)
[2021-05-02] MEDS: MONTELUKAST SODIUM 10 MG TABLET PO SCH (22:00)
[2021-05-02 23:48] LABS: Appearance Urine Clear (Clear); Bacteria Urine Automated Negative (Negative); Bilirubin Urine Negative (Negative); Blood Urine Negative (Negative); Color Urine Yellow; Glucose Urine UA Negative (Negative); Ketones Urine Negative (Negative); Leukocyte Esterase Urine Negative (Negative); Nitrite Urine Negative (Negative); Protein Urine 1+ (Negative); RBC Urine Automated 0-4 /hpf (0-4); Specific Gravity Urine 1.019 (1.000-1.030); Urobilinogen Urine Negative (Negative)
[2021-05-03] MEDS: POLYETHYLENE (MIRALAX) 17 GM PACK PO PRN ×2 (01:22→20:07)
[2021-05-03] MEDS: HYDROmorphone INJ 0.5 MG/0.5 ML SYR IV PRN (01:35)
[2021-05-03] MEDS: SODIUM CHLORIDE 0.9% 1000ML 1,000 ML IV SCH (04:39)
[2021-05-03 06:12] LABS: Hemoglobin 9.4 g/dL (12.0-16.0); Mean Corpuscular Hemoglobin 30.5 pg (25-34); Mean Corpuscular Hgb Conc 31.3 g/dL (32-36); Mean Corpuscular Volume 97.4 fL (80-100); Mean Platelet Volume 10.5 fL (7.4-10.4); Platelet Count 215 K/uL (130-400); RDW Standard Deviation 50.3 fL (36.4-46.3); Red Blood Count 3.08 M/uL (4.2-5.4); White Blood Count 11.84 K/uL (4.8-10.8)
--- NOTE | 2021-05-03 06:13 | Electrocardiogram Report ---
Test Reason : Blood Pressure : / mmHG Vent. Rate : 063 BPM Atrial Rate : 054 BPM P-R Int : 000 ms QRS Dur : 136 ms QT Int : 448 ms P-R-T Axes : 000 -47 007 degrees QTc Int : 458 ms Possible Atrial fibrillation Left axis deviation Left bundle branch block Abnormal ECG When compared with ECG of 15-OCT-2018 14:41, Possible Atrial fibrillation has replaced Sinus rhythm Confirmed by Lawrence Fuentes ([id number]) on 05/03/2021 6:12:48 AM Referred By: Confirmed By:Lawrence Fuentes
[2021-05-03 06:42] LABS: Calcium 8.1 mg/dl (8.5-10.1); Creatinine Clr Calc Pharmacy 31.1 ml/min; Est GFR (Non-African American) 27.6 ml/min; Potassium 4.2 mmol/L (3.5-5.1)
[2021-05-03 08:04] LABS: Estimated Average Glucose 137 mg/dl; Hemoglobin A1C 6.4 % (4.5-5.6)
[2021-05-03] MEDS ORDERED: NON-FORMULARY MEDICATION (Iron,Carbonyl-Vitamin C [Vitron-C] 65 mg iron- 125 mg Tablet,Del PO SCH (09:00)
[2021-05-03] MEDS: hydrALAZINE TAB 50 MG TAB PO SCH ×2 (09:14→20:06)
[2021-05-03] MEDS: EZETIMIBE 10 MG TABLET PO SCH (09:14)
[2021-05-03] MEDS: FOLIC ACID 1 MG TAB PO SCH (09:15)
[2021-05-03] MEDS: oxyCODONE/ACETAMINOPHEN 5mg/325mg TAB PO PRN ×2 (09:15→19:54)
[2021-05-03] MEDS: CHOLECALCIFEROL 1,000 UNITS 25 MCG TAB PO SCH (09:15)
[2021-05-03] MEDS: PANTOprazole 40 MG TAB PO SCH (09:15)
[2021-05-03] MEDS: CALCITRIOL 0.25 MCG CAPSULE PO SCH (09:15)
[2021-05-03] MEDS: TORSEMIDE 10 MG TAB PO SCH (09:15)
[2021-05-03] MEDS: ASCORBIC ACID 500 MG TAB PO SCH (09:16)
[2021-05-03] MEDS: FERROUS SULFATE 325 MG TAB PO SCH (09:16)
[2021-05-03] MEDS: THIAMINE HCL 100 MG TAB PO SCH (09:16)
[2021-05-03] MEDS: ATORVASTATIN 40 MG TAB PO SCH (09:16)
[2021-05-03] MEDS: ASPIRIN 81 MG ECTAB PO SCH (09:16)
[2021-05-03] MEDS: amLODIPine BESYLATE 5 MG TAB PO SCH (09:16)
[2021-05-03] MEDS: MULTIVITAMIN TAB PO SCH (09:16)
[2021-05-03] MEDS: INSULIN ASPART PER UNIT SC SCH ×4 (09:18→23:17)
[2021-05-03] MEDS: buPROPion SR 100 MG TABCR PO SCH ×2 (11:32→20:07)
[2021-05-03] MEDS: FLUTICASONE/VILANTEROL 100/25MCG 14 PUFFS/INHALER INH SCH (11:32)
[2021-05-03] MEDS: DOCUSATE SODIUM 100 MG CAP PO SCH (11:34)
--- NOTE | 2021-05-03 12:41 | Cardiology Consultation ---
Date of Consultation May 03, 2021 Assessment & Plan (1) Alcohol use: (2) Traumatic fracture of ribs of right side with pneumothorax: (3) Fall: (4) Diastolic dysfunction: (5) Hypertension: (6) ROXY on CPAP: (7) CKD (chronic kidney disease), stage IV: (8) DM type 2 (diabetes mellitus, type 2): I reviewed the patient's EKGs and telemetry. 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 She does have, and what is new, what appears to be a junctional rhythm. It is very regular and I do not believe this this is atrial fibrillation with a controlled heart rate. I think this is a junctional escape rhythm. She has no electrolyte abnormalities and appears to be well-hydrated so I do not believe anything can be corrected there. She is not on any AV leslee blocking agents or other medications that could cause a junctional rhythm. She is currently hemodynamically stable but ultimately she may require permanent pacemaker. I will discuss it with my EP colleagues. Currently I would continue current treatment and keep the patient at bedrest. History of Present Illness Attending Physician: Hansa Trevino MD History of Present Illness This is a 76-year-old female with a history of obesity, stage IV chronic kidney disease, hypertension and chronic diastolic dysfunction. The patient has sleep apnea and is on CPAP. She has peripheral vascular disease and aortic sclerosis. She does have a interventricular conduction delay on EKGs from our clinic. She was in her usual state of health last night and was celebrating her birthday. She was drinking. She got up in the middle the night to go the bathroom. She insists that she fell. She did not have syncope or presyncope. She was not dizzy or lightheaded. When she fell she hit her right side on the toilet. She laid there for approximately 6 hours until she was able to call for help. She sustained rib fractures of the right ninth and 10th ribs. No pneumothorax or lung contusion. Recently she has had no dizziness or lightheadedness. She denies presyncope or syncope. Allergies Allergy/AdvReac Type Severity Reaction Status Date / Time levofloxacin [From Levaquin] Allergy Intermediate TORN TENDON Verified 05/02/21 15:30 DOREEN Inhibitors Allergy Mild coughing Verified 05/02/21 15:30 hydrochlorothiazide Allergy Rash Verified 05/02/21 15:29 Home Medications Medication Instructions Recorded Confirmed Type calcitriol 0.25 mcg capsule 0.25 mcg PO QAM 05/21/18 05/02/21 History cholecalciferol (vitamin D3) 25 1,000 unit PO QAM 05/21/18 05/02/21 History mcg (1,000 unit) capsule (Vitamin D3) iron,carbonyl 65 mg-vitamin C 125 1 tab PO QAM 05/21/18 05/02/21 History mg tablet,delayed release (Vitron-C) montelukast 10 mg tablet 10 mg PO HS 05/21/18 05/02/21 History (Singulair) omeprazole 20 mg capsule,delayed 20 mg PO QAM 05/21/18 05/02/21 History release amlodipine 5 mg tablet 5 mg PO DAILY 05/02/21 05/02/21 History aspirin 81 mg tablet 81 mg PO DAILY 05/02/21 05/02/21 History atorvastatin 80 mg tablet 80 mg PO DAILY 05/02/21 05/02/21 History bupropion HCl 100 mg tablet,12 hr 100 mg PO BID 05/02/21 05/02/21 History sustained-release docusate sodium 100 mg capsule 100 mg PO DAILY 05/02/21 05/02/21 History ezetimibe 10 mg tablet 10 mg PO DAILY 05/02/21 05/02/21 History fluticasone propionate 115 2 puff INHALATION BID 05/02/21 05/02/21 History mcg-salmeterol 21 mcg/actuation HFA inhaler (Advair HFA) folic acid 1 mg tablet 1 mg PO DAILY 05/02/21 05/02/21 History glimepiride 1 mg tablet 1 mg PO DAILY 05/02/21 05/02/21 History hydralazine 100 mg tablet 100 mg PO BID 05/02/21 05/02/21 History multivitamin 1 tab PO DAILY 05/02/21 05/02/21 History thiamine HCl (vitamin B1) 100 mg 100 mg PO DAILY 05/02/21 05/02/21 History tablet tizanidine 4 mg tablet 4 mg PO Q8 PRN 05/02/21 05/02/21 History torsemide 10 mg tablet 10 mg PO DAILY 05/02/21 05/02/21 History Patient History Medical History Anxiety Chronic diastolic CHF (congestive heart failure) CKD (chronic kidney disease), stage IV COPD, severe Depression Diastolic dysfunction DM type 2 (diabetes mellitus, type 2) Dyslipidemia Gastrointestinal hemorrhage with melena GERD (gastroesophageal reflux disease) Hyperparathyroidism, secondary renal Hypertension ROXY on CPAP Osteoarthritis Restless leg syndrome Surgical History H/O shoulder surgery History of cataract surgery RT/LEFT History of tooth extraction Status post trigger finger release Family History Sister Colon cancer Mother Family history of diabetes mellitus Social History Smoking Status: Former smoker Smoking End Date: 1987; Second Hand Exposure: No; Hx Alcohol Use: Yes Alcohol type: wine and hard liquor Alcohol Intake Frequency: 2-3 x/Week Alcohol Intake Frequency Comment: wine Hx Substance Use: No Preferred Language: [place] Communication Ability: Effective Assistant Gm Of Content [employer] Delivery Required: No Beliefs That Will Affect Care: None marital status: Single Current Living Situation: Alone current occupational status: retired How many Children do You have: 1 Other Information That Helps Us Care for You: No Feels Safe at Home: Yes Safety Concerns: Feels Safe At This Time Assistive Devices: Oxygen - Continuous Review of Systems Review of Systems: Review of Systems: See HPI for pertinent positives. All other 10 point review of systems are negative. Physical Exam Physical Exam: General: no acute distress and stated age Head: normocephalic, no masses, lesions, tenderness or abnormalities Eyes: conjunctiva are pink and non-injected, sclera clear Neck: supple, no adenopathy, no bruits, normal jugular venous pulse, no hepatojugular reflux Chest: normal shape and normal respiratory effort Lungs: clear to auscultation and percussion Cardiac Exam: - regular rate & rhythm, no murmurs gallops or rubs - normal S1, normal S2 Pulses: 2(+) throughout Abdomen: abdomen soft, non-tender, no abnormal masses and no hepatosplenomegaly Musculoskeletal: no gait disturbance, no joint inflammation, no deforming arthritis Extremities: no edema and no cyanosis Neuro: grossly normal exam Results & Data ([facility]) Vital Signs (Past 12 Hours) Vital Signs Temp Pulse Pulse Pulse Resp BP Pulse Ox 05/03/21 11:27 36.5 C 54 L 16 126/74 97 05/03/21 07:35 36.7 C 60 14 158/78 H 96 05/03/21 07:00 52 L 05/03/21 04:00 37.0 C 55 L 18 152/78 H 92 Laboratory Results Laboratory Results - last 24 hr 05/02/21 05/02/21 05/02/21 14:53 15:10 15:10 WBC 12.66 H RBC 3.44 L Hgb 10.6 L Hct 32.8 L MCV 95.3 MCH 30.8 MCHC 32.3 RDW Std Deviation 47.4 H RDW Coeff of [place] 13.5 Plt Count 243 MPV 10.3 Immature Gran % (Auto) 0.2 Neut % (Auto) 83.6 Lymph % (Auto) 10.3 [place] % (Auto) 5.5 Eos % (Auto) 0.2 Baso % (Auto) 0.2 Neut # (Auto) 10.59 H Lymph # (Auto) 1.30 [place] # (Auto) 0.69 H Eos # (Auto) 0.03 Baso # (Auto) 0.03 Immature Gran # (Auto) 0.02 PT INR Sodium 142 Potassium 4.2 Chloride 110 H Carbon Dioxide 24 Anion Gap 8 BUN 54 H Creatinine 1.99 H Est Cr Clr Drug Dosing 27.0 Est GFR ( Amer) 27.6 Est GFR (Non-Af Amer) 23.8 BUN/Creatinine Ratio 27.1 H Glucose 181 H POC Glucose Estimat Average Glucose Hemoglobin A1c Calcium 8.8 Magnesium 2.4 Total Bilirubin 0.3 Direct Bilirubin 0.1 AST 27 ALT 22 Alkaline Phosphatase 68 Total Creatine Kinase 364 H Troponin I 0.04 Total Protein 6.8 Albumin 3.8 Lipase 24 Urine Color Urine Appearance Urine pH Ur Specific [place] Urine Protein Urine Glucose (UA) Urine Ketones Urine Blood Urine Nitrite Urine Bilirubin Urine Urobilinogen Ur Leukocyte Esterase Urine WBC (Auto) Urine RBC (Auto) U Hyaline Cast (Auto) U Epithel Cells (Auto) Urine Bacteria (Auto) SARS-CoV-2, RNA, NAAT NEGATIVE 05/02/21 05/02/21 05/02/21 15:10 20:59 23:21 WBC RBC Hgb Hct MCV MCH MCHC RDW Std Deviation RDW Coeff of [place] Plt Count MPV Immature Gran % (Auto) Neut % (Auto) Lymph % (Auto) [place] % (Auto) Eos % (Auto) Baso % (Auto) Neut # (Auto) Lymph # (Auto) [place] # (Auto) Eos # (Auto) Baso # (Auto) Immature Gran # (Auto) PT 10.1 INR 1.0 Sodium Potassium Chloride Carbon Dioxide Anion Gap BUN Creatinine Est Cr Clr Drug Dosing Est GFR ( Amer) Est GFR (Non-Af Amer) BUN/Creatinine Ratio Glucose POC Glucose 164 H Estimat Average Glucose Hemoglobin A1c Calcium Magnesium Total Bilirubin Direct Bilirubin AST ALT Alkaline Phosphatase Total Creatine Kinase Troponin I Total Protein Albumin Lipase Urine Color Yellow Urine Appearance Clear Urine pH 5.0 Ur Specific [place] 1.019 Urine Protein 1+ H Urine Glucose (UA) Negative Urine Ketones Negative Urine Blood Negative Urine Nitrite Negative Urine Bilirubin Negative Urine Urobilinogen Negative Ur Leukocyte Esterase Negative Urine WBC (Auto) 1-5 Urine RBC (Auto) 0-4 U Hyaline Cast (Auto) 1-5 U Epithel Cells (Auto) 5-10 H Urine Bacteria (Auto) Negative SARS-CoV-2, RNA, NAAT 05/03/21 05/03/21 05/03/21 05:36 05:36 05:36 WBC 11.84 H RBC 3.08 L Hgb 9.4 L Hct 30.0 L MCV 97.4 MCH 30.5 MCHC 31.3 L RDW Std Deviation 50.3 H RDW Coeff of [place] 14.0 Plt Count 215 MPV 10.5 H Immature Gran % (Auto) Neut % (Auto) Lymph % (Auto) [place] % (Auto) Eos % (Auto) Baso % (Auto) Neut # (Auto) Lymph # (Auto) [place] # (Auto) Eos # (Auto) Baso # (Auto) Immature Gran # (Auto) PT INR Sodium 142 Potassium 4.2 Chloride 111 H Carbon Dioxide 24 Anion Gap 7 BUN 51 H Creatinine 1.76 H Est Cr Clr Drug Dosing 31.1 Est GFR ( Amer) 32.0 Est GFR (Non-Af Amer) 27.6 BUN/Creatinine Ratio 29.0 H Glucose 140 H POC Glucose Estimat Average Glucose 137 Hemoglobin A1c 6.4 H Calcium 8.1 L Magnesium Total Bilirubin Direct Bilirubin AST ALT Alkaline Phosphatase Total Creatine Kinase Troponin I Total Protein Albumin Lipase Urine Color Urine Appearance Urine pH Ur Specific [place] Urine Protein Urine Glucose (UA) Urine Ketones Urine Blood Urine Nitrite Urine Bilirubin Urine Urobilinogen Ur Leukocyte Esterase Urine WBC (Auto) Urine RBC (Auto) U Hyaline Cast (Auto) U Epithel Cells (Auto) Urine Bacteria (Auto) SARS-CoV-2, RNA, NAAT 05/03/21 05/03/21 07:44 11:49 WBC RBC Hgb Hct MCV MCH MCHC RDW Std Deviation RDW Coeff of [place] Plt Count MPV Immature Gran % (Auto) Neut % (Auto) Lymph % (Auto) [place] % (Auto) Eos % (Auto) Baso % (Auto) Neut # (Auto) Lymph # (Auto) [place] # (Auto) Eos # (Auto) Baso # (Auto) Immature Gran # (Auto) PT INR Sodium Potassium Chloride Carbon Dioxide Anion Gap BUN Creatinine Est Cr Clr Drug Dosing Est GFR ( Amer) Est GFR (Non-Af Amer) BUN/Creatinine Ratio Glucose POC Glucose 166 H 176 H Estimat Average Glucose Hemoglobin A1c Calcium Magnesium Total Bilirubin Direct Bilirubin AST ALT Alkaline Phosphatase Total Creatine Kinase Troponin I Total Protein Albumin Lipase Urine Color Urine Appearance Urine pH Ur Specific [place] Urine Protein Urine Glucose (UA) Urine Ketones Urine Blood Urine Nitrite Urine Bilirubin Urine Urobilinogen Ur Leukocyte Esterase Urine WBC (Auto) Urine RBC (Auto) U Hyaline Cast (Auto) U Epithel Cells (Auto) Urine Bacteria (Auto) SARS-CoV-2, RNA, NAAT Medications Administered Current Inpatient Medications Amlodipine Besylate (Amlodipine Besylate 5 Mg Tab) 5 mg PO DAILY [facility] Stop: 06/02/21 08:59 Last Admin: 05/03/21 09:16 Dose: 5 mg Documented by: Ascorbic Acid (Ascorbic Acid 500 Mg Tab) 250 mg PO DAILY [facility]; Protocol Stop: 06/02/21 08:59 Last Admin: 05/03/21 09:16 Dose: 250 mg Documented by: Aspirin (Aspirin 81 Mg Ectab) 81 mg PO DAILY [facility] Stop: 06/02/21 08:59 Last Admin: 05/03/21 09:16 Dose: 81 mg Documented by: Atorvastatin Calcium (Atorvastatin 40 Mg Tab) 80 mg PO DAILY [facility] Stop: 06/02/21 08:59 Last Admin: 05/03/21 09:16 Dose: 80 mg Documented by: Bupropion HCl (Bupropion Sr 100 Mg Tabcr) 100 mg PO BID [facility] Stop: 06/01/21 20:59 Last Admin: 05/03/21 11:32 Dose: 100 mg Documented by: Calcitriol (Calcitriol 0.25 Mcg Capsule) 0.25 mcg PO QAM [facility] Stop: 06/02/21 08:59 Last Admin: 05/03/21 09:15 Dose: 0.25 mcg Documented by: Dextrose (Dextrose 50% 50 Ml Syringe) 25 - 50 ml IV UD PRN; Protocol PRN Reason: Hypoglycemia Protocol Stop: 06/01/21 20:53 Docusate Sodium (Docusate Sodium 100 Mg Cap) 100 mg PO DAILY [facility] Stop: 06/01/21 19:44 Last Admin: 05/03/21 11:34 Dose: 100 mg Documented by: Ezetimibe (Ezetimibe 10 Mg Tablet) 10 mg PO DAILY [facility] Stop: 06/02/21 08:59 Last Admin: 05/03/21 09:14 Dose: 10 mg Documented by: Ferrous Sulfate (Ferrous Sulfate 325 Mg Tab) 325 mg PO DAILY [facility]; Protocol Stop: 06/02/21 08:59 Last Admin: 05/03/21 09:16 Dose: 325 mg Documented by: Fluticasone/Vilanterol (Fluticasone/Vilanterol 100/25mcg 14 Puffs/Inhaler) 1 puffs INH DAILY [facility]; Protocol Stop: 06/02/21 08:59 Last Admin: 05/03/21 11:32 Dose: 1 puffs Documented by: Folic Acid (Folic Acid 1 Mg Tab) 1 mg PO DAILY [facility] Stop: 06/02/21 08:59 Last Admin: 05/03/21 09:15 Dose: 1 mg Documented by: Glucagon (Glucagon For Inj 1 Mg Vial) 1 mg SQ UD PRN; Protocol PRN Reason: Hypoglycemia Protocol Stop: 06/01/21 20:53 Glucose (Glucose 10 Tabs/Tube) 4 - 8 tabs PO UD PRN; Protocol PRN Reason: Hypoglycemia Protocol Stop: 06/01/21 20:53 Glucose (Glucose 40% Gel 15 Gm Tube) 15 - 30 gm PO UD PRN; Protocol PRN Reason: Hypoglycemia Protocol Stop: 06/01/21 20:53 Hydralazine HCl (Hydralazine Tab 50 Mg Tab) 100 mg PO BID [facility] Stop: 06/01/21 19:34 Last Admin: 05/03/21 09:14 Dose: 100 mg Documented by: Hydromorphone HCl (Hydromorphone Inj 0.5 Mg/0.5 Ml Syr) 0.5 mg IV Q4H PRN PRN Reason: Pain Stop: 05/17/21 01:15 Last Admin: 05/03/21 01:35 Dose: 0.5 mg Documented by: Lorazepam (Ativan) 1 mg in 2 mls @ 2 mls/min IV ONE PRN; Protocol PRN Reason: EtoH Withdrawal AWSS 6-10 Stop: 06/01/21 20:53 Insulin Aspart (Insulin Aspart Per Unit) 0 units SC ACHS [facility] Stop: 06/01/21 20:59 Last Admin: 05/03/21 12:07 Dose: 4 units Documented by: Miscellaneous (Remove Lidoderm Patch) 1 ea N/A DAILY@2100 [facility] Stop: 06/01/21 20:59 Last Admin: 05/02/21 22:00 Dose: 1 ea Documented by: Miscellaneous (Carbohydrates For Hypoglycemia ) 15 - 30 gm PO UD PRN PRN Reason: Hypoglycemia Protocol Stop: 06/01/21 20:53 Montelukast Sodium (Montelukast Sodium 10 Mg Tablet) 10 mg PO HS [facility] Stop: 06/01/21 20:59 Last Admin: 05/02/21 22:00 Dose: 10 mg Documented by: Multivitamins (Multivitamin Tab) [facility] [place] [facility]: 06/02/21 08:59 Last Admin: 05/03/21 09:16 Dose: 1 tab Documented by: Ondansetron HCl (Ondansetron Inj 2 Mg/Ml 2 Ml Vial) 4 mg IV Q6H PRN PRN Reason: Nausea Stop: 06/01/21 20:53 Oxycodone/Acetaminophen (Oxycodone/Acetaminophen 5mg/325mg Tab) 1 tab PO Q6H PRN PRN Reason: Pain Stop: 05/16/21 19:34 Last Admin: 05/03/21 09:15 Dose: 1 tab Documented by: Pantoprazole Sodium (Pantoprazole 40 Mg Tab) 40 mg PO QAM [facility]; Protocol Stop: 06/02/21 08:59 Last Admin: 05/03/21 09:15 Dose: 40 mg Documented by: Polyethylene Glycol (Polyethylene (Miralax) 17 Gm Pack) 17 gm PO DAILY PRN PRN Reason: Constipation Stop: 06/01/21 20:53 Last Admin: 05/03/21 01:22 Dose: 17 gm Documented by: Thiamine HCl (Thiamine Hcl 100 Mg Tab) 100 mg PO DAILY [facility] Stop: 06/02/21 08:59 Last Admin: 05/03/21 09:16 Dose: 100 mg Documented by: Tizanidine HCl (Tizanidine Hcl 4 Mg Tablet) 4 mg PO Q8 PRN PRN Reason: Muscle Spasm Stop: 06/01/21 20:53 Last Admin: 05/03/21 09:15 Dose: 4 mg Documented by: Torsemide (Torsemide 10 Mg Tab) 10 mg PO DAILY [facility] Stop: 06/02/21 08:59 Last Admin: 05/03/21 09:15 Dose: 10 mg Documented by: Vitamin D (Cholecalciferol 1,000 Units 25 Mcg Tab) 1,000 units PO QAM [facility] Stop: 06/02/21 08:59 Last Admin: 05/03/21 09:15 Dose: 1,000 units Documented by: (1) Fall Encounter type: initial encounter Qualified Code(s): W19.XXXA - Unspecified fall, initial encounter
--- NOTE | 2021-05-03 14:26 | Hospitalist Progress Note ---
Date of Service May 03, 2021 Assessment & Plan (1) Fall: (2) Traumatic fracture of ribs of right side with pneumothorax: Plan: This is a 76yo F with a PMH of chronic diastolic heart failure, type 2 diabetes, CKD IV, COPD, hypertension, alcohol use, mood disorder, ROXY on CPAP and other medical problems listed below who presents after fall and was found to have mildly displaced fractures of R 9th and 10th ribs. Fell overnight and remained on floor for 6+ hours Chest CT with mildly displaced fractures of the right ninth and 10th ribs posterior laterally with subcutaneous emphysema present. No evidence for adjacent lung contusion or pneumothorax No evidence of other acute changes on head CT, cervical spine CT or CT abd/pelvis Pain control, ice, fall precautions Complains to have chest pain with deep inspiration Has been given incentive spirometry to try Remains stable Junctional bradycardia Noted to have junctional rhythm on monitor and the EKG is confirmatory Not on any beta-frannie and does not have any electrolyte abnormality Appreciate cardiology input and recommendation Likely going to have an EP cardiology evaluation (3) Elevated CK: Plan: CK 364 in setting of prolonged fall. Does not meet criteria for rhabdo. Renal function at baseline. Continue IV fluids Will repeat CK level (4) CKD (chronic kidney disease), stage IV: Plan: Renal function at baseline with Cr ~2 (baseline low-mid 2s) Monitor renal function, avoid nephrotoxic agents when able Creatinine has been improving and it is 1.76 as of 05/03/2021 (5) HTN (hypertension): Plan: Missed AM medications. Give PM dose of hydralazine Continue amlodipine, hydralazine (6) DM type 2 (diabetes mellitus, type 2): Plan: A1c 6.9 in Jan 2021. Repeat a1c in AM -6.4 Hold home agents SSI while in-patient BSG AC HS (7) Chronic diastolic CHF (congestive heart failure): Plan: Appears dehydrated on initial exam. Will give 1 L gentle fluids overnight and diet, reassess volume status in AM Plan to continue torsemide tomorrow No evidence of fluid overload (8) Depression: Plan: Continue buproprion (9) Alcohol use: Plan: Significant use in past, will add PRN Ativan with at risk precautions Continue home folic acid and thiamine (10) ROXY on CPAP: Plan: CPAP HS (11) Pulmonary nodule: Plan: CT chest with incidental 10 mm noncalcified right lower lobe pulmonary nodule. Follow-up CT in 3 months is recommended for further evaluation DVT Ppx: SCDs for now Code status: DNR per discussion with patient PCP: Kathy Dispo: Observation med tele Admission and Anticipated Discharge Date Admission Date: May 02, 2021 Subjective 05/03/2021 The patient was seen and examined in medical telemetry unit She has been complaining of pain with deep breathing Denies any chest pain otherwise and does not have any palpitation No nausea and or vomiting Review of Systems Review of Systems: All systems reviewed and are unremarkable except as noted below Constitutional: + malaise; no chills Physical Exam Physical Exam: Lying in bed comfortably Constitutional: well developed, well nourished, + ill appearing and + obese Eyes: PERRL, conjunctivae normal, anicteric sclerae ENMT: external ear and nose normal, oropharynx normal Neck: trachea midline, no thyromegaly Respiratory: no respiratory distress Auscultation: + diminished lung sounds; no crackles Cardiovascular: Rate/Rhythm: regular rate and regular rhythm; not bradycardic Heart Sounds: normal S1 and normal S2; no murmur Extremities: + edema (Trace edema bilaterally) Gastrointestinal (Abdomen): Inspection/Auscultation: normal bowel sounds; abdomen not distended Percussion/Palpation: abdomen soft; abdomen nontender Musculoskeletal: No acute arthritis in any joint Neurologic: Alert, awake and oriented x3 Results & Data Results & Data ([facility]) Vital Signs (Past 12 Hours) Vital Signs Temp Pulse Pulse Pulse Resp BP Pulse Ox 05/03/21 11:27 36.5 C 54 L 16 126/74 97 05/03/21 07:35 36.7 C 60 14 158/78 H 96 05/03/21 07:00 52 L 05/03/21 04:00 37.0 C 55 L 18 152/78 H 92 Laboratory Results Short CBC 05/02/21 05/03/21 Range/Units 15:10 05:36 WBC 12.66 H 11.84 H (4.8-10.8) K/uL Hgb 10.6 L 9.4 L (12.0-16.0) g/dL Hct 32.8 L 30.0 L (37-47) % Plt Count 243 215 (130-400) K/uL BMP 05/02/21 05/03/21 15:10 05:36 Sodium 142 142 Potassium 4.2 4.2 Chloride 110 H 111 H Carbon Dioxide 24 24 BUN 54 H 51 H Creatinine 1.99 H 1.76 H Glucose 181 H 140 H Calcium 8.8 8.1 L Cardiac Enzymes 05/02/21 Range/Units 15:10 Total Creatine Kinase 364 H (26-192) U/L Troponin I 0.04 (0-0.04) ng/ml Liver Function 05/02/21 Range/Units 15:10 Total Bilirubin 0.3 (0.2-1.0) mg/dl Direct Bilirubin 0.1 (0-0.2) mg/dl AST 27 (13-39) U/L ALT 22 (7-52) U/L Alkaline Phosphatase 68 (34-104) U/L Albumin 3.8 (3.4-5.0) gm/dl Urine 05/02/21 Range/Units 23:21 Urine Color Yellow Urine Appearance Clear (Clear) Urine pH 5.0 (4.5-7.5) Ur Specific [place] 1.019 (1.000-1.030) Urine Protein 1+ H (Negative) Urine Glucose (UA) Negative (Negative) Medications Administered Current Inpatient Medications Amlodipine Besylate (Amlodipine Besylate 5 Mg Tab) 5 mg PO DAILY [facility] Stop: 06/02/21 08:59 Last Admin: 05/03/21 09:16 Dose: 5 mg Documented by: Ascorbic Acid (Ascorbic Acid 500 Mg Tab) 250 mg PO DAILY [facility]; Protocol Stop: 06/02/21 08:59 Last Admin: 05/03/21 09:16 Dose: 250 mg Documented by: Aspirin (Aspirin 81 Mg Ectab) 81 mg PO DAILY [facility] Stop: 06/02/21 08:59 Last Admin: 05/03/21 09:16 Dose: 81 mg Documented by: Atorvastatin Calcium (Atorvastatin 40 Mg Tab) 80 mg PO DAILY [facility] Stop: 06/02/21 08:59 Last Admin: 05/03/21 09:16 Dose: 80 mg Documented by: Bupropion HCl (Bupropion Sr 100 Mg Tabcr) 100 mg PO BID [facility] Stop: 06/01/21 20:59 Last Admin: 05/03/21 11:32 Dose: 100 mg Documented by: Calcitriol (Calcitriol 0.25 Mcg Capsule) 0.25 mcg PO QAM [facility] Stop: 06/02/21 08:59 Last Admin: 05/03/21 09:15 Dose: 0.25 mcg Documented by: Dextrose (Dextrose 50% 50 Ml Syringe) 25 - 50 ml IV UD PRN; Protocol PRN Reason: Hypoglycemia Protocol Stop: 06/01/21 20:53 Docusate Sodium (Docusate Sodium 100 Mg Cap) 100 mg PO DAILY [facility] Stop: 06/01/21 19:44 Last Admin: 05/03/21 11:34 Dose: 100 mg Documented by: Ezetimibe (Ezetimibe 10 Mg Tablet) 10 mg PO DAILY [facility] Stop: 06/02/21 08:59 Last Admin: 05/03/21 09:14 Dose: 10 mg Documented by: Ferrous Sulfate (Ferrous Sulfate 325 Mg Tab) 325 mg PO DAILY [facility]; Protocol Stop: 06/02/21 08:59 Last Admin: 05/03/21 09:16 Dose: 325 mg Documented by: Fluticasone/Vilanterol (Fluticasone/Vilanterol 100/25mcg 14 Puffs/Inhaler) 1 puffs INH DAILY [facility]; Protocol Stop: 06/02/21 08:59 Last Admin: 05/03/21 11:32 Dose: 1 puffs Documented by: Folic Acid (Folic Acid 1 Mg Tab) 1 mg PO DAILY [facility] Stop: 06/02/21 08:59 Last Admin: 05/03/21 09:15 Dose: 1 mg Documented by: Glucagon (Glucagon For Inj 1 Mg Vial) 1 mg SQ UD PRN; Protocol PRN Reason: Hypoglycemia Protocol Stop: 06/01/21 20:53 Glucose (Glucose 10 Tabs/Tube) 4 - 8 tabs PO UD PRN; Protocol PRN Reason: Hypoglycemia Protocol Stop: 06/01/21 20:53 Glucose (Glucose 40% Gel 15 Gm Tube) 15 - 30 gm PO UD PRN; Protocol PRN Reason: Hypoglycemia Protocol Stop: 06/01/21 20:53 Hydralazine HCl (Hydralazine Tab 50 Mg Tab) 100 mg PO BID [facility] Stop: 06/01/21 19:34 Last Admin: 05/03/21 09:14 Dose: 100 mg Documented by: Hydromorphone HCl (Hydromorphone Inj 0.5 Mg/0.5 Ml Syr) 0.5 mg IV Q4H PRN PRN Reason: Pain Stop: 05/17/21 01:15 Last Admin: 05/03/21 01:35 Dose: 0.5 mg Documented by: Lorazepam (Ativan) 1 mg in 2 mls @ 2 mls/min IV ONE PRN; Protocol PRN Reason: EtoH Withdrawal AWSS 6-10 Stop: 06/01/21 20:53 Insulin Aspart (Insulin Aspart Per Unit) 0 units SC ACHS [facility] Stop: 06/01/21 20:59 Last Admin: 05/03/21 12:07 Dose: 4 units Documented by: Leidycellaneous (Remove Lidoderm Patch) 1 ea N/A DAILY@2100 [facility] Stop: 06/01/21 20:59 Last Admin: 05/02/21 22:00 Dose: 1 ea Documented by: [place]yer (Carbohydrates For Hypoglycemia ) 15 - 30 gm PO UD PRN PRN Reason: Hypoglycemia Protocol Stop: 06/01/21 20:53 Montelukast Sodium (Montelukast Sodium 10 Mg Tablet) 10 mg PO HS [facility] Stop: 06/01/21 20:59 Last Admin: 05/02/21 22:00 Dose: 10 mg Documented by: Multivitamins (Multivitamin Tab) 1 tab PO [facility] Stop: 06/02/21 08:59 Last Admin: 05/03/21 09:16 Dose: 1 tab Documented by: Ondansetron HCl (Ondansetron Inj 2 Mg/Ml 2 Ml Vial) 4 mg IV Q6H PRN PRN Reason: Nausea Stop: 06/01/21 20:53 Oxycodone/Acetaminophen (Oxycodone/Acetaminophen 5mg/325mg Tab) 1 tab PO Q6H PRN PRN Reason: Pain Stop: 05/16/21 19:34 Last Admin: 05/03/21 09:15 Dose: 1 tab Documented by: Pantoprazole Sodium (Pantoprazole 40 Mg Tab) 40 mg PO QAM [facility]; Protocol Stop: 06/02/21 08:59 Last Admin: 05/03/21 09:15 Dose: 40 mg Documented by: Polyethylene Glycol (Polyethylene (Miralax) 17 Gm Pack) 17 gm PO DAILY PRN PRN Reason: Constipation Stop: 06/01/21 20:53 Last Admin: 05/03/21 01:22 Dose: 17 gm Documented by: Thiamine HCl (Thiamine Hcl 100 Mg Tab) 100 mg PO DAILY [facility] Stop: 06/02/21 08:59 Last Admin: 05/03/21 09:16 Dose: 100 mg Documented by: Tizanidine HCl (Tizanidine Hcl 4 Mg Tablet) 4 mg PO Q8 PRN PRN Reason: Muscle Spasm Stop: 06/01/21 20:53 Last Admin: 05/03/21 09:15 Dose: 4 mg Documented by: Torsemide (Torsemide 10 Mg Tab) 10 mg PO DAILY [facility] Stop: 06/02/21 08:59 Last Admin: 05/03/21 09:15 Dose: 10 mg Documented by: Vitamin D (Cholecalciferol 1,000 Units 25 Mcg Tab) 1,000 units PO QAM [facility] Stop: 06/02/21 08:59 Last Admin: 05/03/21 09:15 Dose: 1,000 units Documented by: (1) Fall Encounter type: initial encounter Qualified Code(s): W19.XXXA - Unspecified fall, initial encounter
[2021-05-03] MEDS: MONTELUKAST SODIUM 10 MG TABLET PO SCH (20:06)
[2021-05-04] MEDS: oxyCODONE/ACETAMINOPHEN 5mg/325mg TAB PO PRN ×2 (05:30→18:13)
--- NOTE | 2021-05-04 06:35 | Electrocardiogram Report ---
Test Reason : Blood Pressure : / mmHG Vent. Rate : 051 BPM Atrial Rate : 054 BPM P-R Int : 000 ms QRS Dur : 132 ms QT Int : 454 ms P-R-T Axes : 000 -53 -14 degrees QTc Int : 418 ms Possible Junctional rhythm Left axis deviation Left bundle branch block Abnormal ECG When compared with ECG of 02-MAY-2021 15:10, similar findings Confirmed by Lawrence Fuentes ([id number]) on 05/04/2021 6:34:34 AM Referred By: REFERRED SELF Confirmed By:Lawrence Fuentes
[2021-05-04 06:45] LABS: Basophils # (auto) 0.04 K/uL (0-0.2); Basophils % (auto) 0.3 %; Eosinophils # (auto) 0.12 K/uL (0-0.5); Hematocrit (blood only) 31.2 % (37-47); Hemoglobin 9.8 g/dL (12.0-16.0); Immature Granulocytes # (auto) 0.03 K/uL (0.00-0.02); Immature Granulocytes % (auto) 0.2 %; Lymphocytes % (auto) 19.6 %; Mean Corpuscular Hemoglobin 30.3 pg (25-34); Mean Corpuscular Hgb Conc 31.4 g/dL (32-36); Mean Corpuscular Volume 96.6 fL (80-100); Mean Platelet Volume 10.5 fL (7.4-10.4); Monocytes # (auto) 1.05 K/uL (0.11-0.59); Monocytes % (auto) 8.6 %; Neutrophils # (auto) 8.61 K/uL (1.4-6.5); Neutrophils % (auto) 70.3 %; Platelet Count 196 K/uL (130-400); RDW Standard Deviation 49.5 fL (36.4-46.3); Red Blood Count 3.23 M/uL (4.2-5.4); White Blood Count 12.25 K/uL (4.8-10.8)
[2021-05-04 07:12] LABS: BUN Creatinine Ratio 27.4 (10-20); Calcium 8.6 mg/dl (8.5-10.1); Creatinine Clr Calc Pharmacy 31.1 ml/min; Est GFR (African American) 32.2 ml/min; Est GFR (Non-African American) 27.8 ml/min; Magnesium 2.3 mg/dl (1.7-2.4); Potassium 3.6 mmol/L (3.5-5.1)
[2021-05-04] MEDS: hydrALAZINE TAB 50 MG TAB PO SCH ×2 (07:48→21:47)
[2021-05-04] MEDS: TORSEMIDE 10 MG TAB PO SCH (07:48)
[2021-05-04] MEDS: FERROUS SULFATE 325 MG TAB PO SCH (07:48)
[2021-05-04] MEDS: buPROPion SR 100 MG TABCR PO SCH ×2 (07:48→21:49)
[2021-05-04] MEDS: CALCITRIOL 0.25 MCG CAPSULE PO SCH (07:49)
[2021-05-04] MEDS: CHOLECALCIFEROL 1,000 UNITS 25 MCG TAB PO SCH (07:49)
[2021-05-04] MEDS: THIAMINE HCL 100 MG TAB PO SCH (07:49)
[2021-05-04] MEDS: EZETIMIBE 10 MG TABLET PO SCH (07:49)
[2021-05-04] MEDS: FOLIC ACID 1 MG TAB PO SCH (07:49)
[2021-05-04] MEDS: MULTIVITAMIN TAB PO SCH (07:49)
[2021-05-04] MEDS: ASPIRIN 81 MG ECTAB PO SCH (07:49)
[2021-05-04] MEDS: ASCORBIC ACID 500 MG TAB PO SCH (07:49)
[2021-05-04] MEDS: ATORVASTATIN 40 MG TAB PO SCH (07:50)
[2021-05-04] MEDS: PANTOprazole 40 MG TAB PO SCH (07:50)
[2021-05-04] MEDS: INSULIN ASPART PER UNIT SC SCH ×4 (08:58→21:49)
--- NOTE | 2021-05-04 09:52 | Cardiology Progress Note ---
Date of Service May 04, 2021 Assessment & Plan (1) Alcohol use: (2) Traumatic fracture of ribs of right side with pneumothorax: (3) Fall: (4) Diastolic dysfunction: (5) Hypertension: (6) ROXY on CPAP: (7) CKD (chronic kidney disease), stage IV: (8) DM type 2 (diabetes mellitus, type 2): Plan: The patient has returned to normal sinus rhythm. Junctional rhythm, possibly was related to dehydration as she laid on the floor for at least 6 hours before being discovered. In any case, she is hemodynamically stable and I do not believe at this time she will require a pacemaker. After discharge I think she should have a ZIO monitor to be certain we are not dealing with sick sinus syndrome. Admission and Anticipated Discharge Date Admission Date: May 02, 2021 Subjective The patient is more alert today. Uneventful night. She has returned to normal sinus rhythm. Review of Systems Review of Systems: Review of Systems: See HPI for pertinent positives. All other 10 point review of systems are negative. Physical Exam Physical Exam: General: no acute distress and stated age Head: normocephalic, no masses, lesions, tenderness or abnormalities Eyes: conjunctiva are pink and non-injected, sclera clear Neck: supple, no adenopathy, no bruits, normal jugular venous pulse, no hepatojugular reflux Chest: normal shape and normal respiratory effort Lungs: clear to auscultation and percussion Cardiac Exam: - regular rate & rhythm, no murmurs gallops or rubs - normal S1, normal S2 Pulses: 2(+) throughout Abdomen: abdomen soft, non-tender, no abnormal masses and no hepatosplenomegaly Musculoskeletal: no gait disturbance, no joint inflammation, no deforming arthritis Extremities: no edema and no cyanosis Neuro: grossly normal exam Results & Data ([facility]) Vital Signs (Past 12 Hours) Vital Signs Temp Pulse Pulse Resp BP BP Pulse Ox 05/04/21 07:44 37.0 C 74 20 186/72 H 186/71 H 90 05/04/21 03:21 37.2 C 77 16 168/74 H 90 05/04/21 00:27 37.3 C 79 20 145/56 H 92 05/03/21 22:30 65 Laboratory Results Laboratory Results - last 24 hr 05/03/21 05/03/21 05/03/21 11:49 15:58 16:41 WBC RBC Hgb Hct MCV MCH MCHC RDW Std Deviation RDW Coeff of Waqas Plt Count MPV Immature Gran % (Auto) Neut % (Auto) Lymph % (Auto) [place] % (Auto) Eos % (Auto) Baso % (Auto) Neut # (Auto) Lymph # (Auto) [place] # (Auto) Eos # (Auto) Baso # (Auto) Immature Gran # (Auto) Sodium Potassium Chloride Carbon Dioxide Anion Gap BUN Creatinine Est Cr Clr Drug Dosing Est GFR ( Amer) Est GFR (Non-Af Amer) BUN/Creatinine Ratio Glucose POC Glucose 176 H 109 H Calcium Magnesium Total Creatine Kinase 400 H 05/03/21 05/04/21 05/04/21 20:28 06:00 06:00 WBC 12.25 H RBC 3.23 L Hgb 9.8 L Hct 31.2 L MCV 96.6 MCH 30.3 MCHC 31.4 L RDW Std Deviation 49.5 H RDW Coeff of Waqas 14.0 Plt Count 196 MPV 10.5 H Immature Gran % (Auto) 0.2 Neut % (Auto) 70.3 Lymph % (Auto) 19.6 [place] % (Auto) 8.6 Eos % (Auto) 1.0 Baso % (Auto) 0.3 Neut # (Auto) 8.61 H Lymph # (Auto) 2.40 [place] # (Auto) 1.05 H Eos # (Auto) 0.12 Baso # (Auto) 0.04 Immature Gran # (Auto) 0.03 H Sodium 139 Potassium 3.6 Chloride 109 H Carbon Dioxide 23 Anion Gap 7 BUN 48 H Creatinine 1.75 H Est Cr Clr Drug Dosing 31.1 Est GFR ( Amer) 32.2 Est GFR (Non-Af Amer) 27.8 BUN/Creatinine Ratio 27.4 H Glucose 100 H POC Glucose 120 H Calcium 8.6 Magnesium 2.3 Total Creatine Kinase 05/04/21 07:24 WBC RBC Hgb Hct MCV MCH MCHC RDW Std Deviation RDW Coeff of [place] Plt Count MPV Immature Gran % (Auto) Neut % (Auto) Lymph % (Auto) [place] % (Auto) Eos % (Auto) Baso % (Auto) Neut # (Auto) Lymph # (Auto) [place] # (Auto) Eos # (Auto) Baso # (Auto) Immature Gran # (Auto) Sodium Potassium Chloride Carbon Dioxide Anion Gap BUN Creatinine Est Cr Clr Drug Dosing Est GFR ( Amer) Est GFR (Non-Af Amer) BUN/Creatinine Ratio Glucose POC Glucose 107 H Calcium Magnesium Total Creatine Kinase Medications Administered Current Inpatient Medications Amlodipine Besylate (Amlodipine Besylate 5 Mg Tab) 5 mg PO DAILY [facility] Stop: 06/02/21 08:59 Last Admin: 05/03/21 09:16 Dose: 5 mg Documented by: Ascorbic Acid (Ascorbic Acid 500 Mg Tab) 250 mg PO DAILY [facility]; Protocol Stop: 06/02/21 08:59 Last Admin: 05/04/21 07:49 Dose: 250 mg Documented by: Aspirin (Aspirin 81 Mg Ectab) 81 mg PO DAILY [facility] Stop: 06/02/21 08:59 Last Admin: 05/04/21 07:49 Dose: 81 mg Documented by: Atorvastatin Calcium (Atorvastatin 40 Mg Tab) 80 mg PO DAILY [facility] Stop: 06/02/21 08:59 Last Admin: 05/04/21 07:50 Dose: 80 mg Documented by: Bupropion HCl (Bupropion Sr 100 Mg Tabcr) 100 mg PO BID [facility] Stop: 06/01/21 20:59 Last Admin: 05/04/21 07:48 Dose: 100 mg Documented by: Calcitriol (Calcitriol 0.25 Mcg Capsule) 0.25 mcg PO QAM [facility] Stop: 06/02/21 08:59 Last Admin: 05/04/21 07:49 Dose: 0.25 mcg Documented by: Dextrose (Dextrose 50% 50 Ml Syringe) 25 - 50 ml IV UD PRN; Protocol PRN Reason: Hypoglycemia Protocol Stop: 06/01/21 20:53 Docusate Sodium (Docusate Sodium 100 Mg Cap) 100 mg PO DAILY [facility] Stop: 06/01/21 19:44 Last Admin: 05/03/21 11:34 Dose: 100 mg Documented by: Ezetimibe (Ezetimibe 10 Mg Tablet) 10 mg PO DAILY [facility] Stop: 06/02/21 08:59 Last Admin: 05/04/21 07:49 Dose: 10 mg Documented by: Ferrous Sulfate (Ferrous Sulfate 325 Mg Tab) 325 mg PO DAILY [facility]; Protocol Stop: 06/02/21 08:59 Last Admin: 05/04/21 07:48 Dose: 325 mg Documented by: Fluticasone/Vilanterol (Fluticasone/Vilanterol 100/25mcg 14 Puffs/Inhaler) 1 puffs INH DAILY [facility]; Protocol Stop: 06/02/21 08:59 Last Admin: 05/03/21 11:32 Dose: 1 puffs Documented by: Folic Acid (Folic Acid 1 Mg Tab) 1 mg PO DAILY [facility] Stop: 06/02/21 08:59 Last Admin: 05/04/21 07:49 Dose: 1 mg Documented by: Glucagon (Glucagon For Inj 1 Mg Vial) 1 mg SQ UD PRN; Protocol PRN Reason: Hypoglycemia Protocol Stop: 06/01/21 20:53 Glucose (Glucose 10 Tabs/Tube) 4 - 8 tabs PO UD PRN; Protocol PRN Reason: Hypoglycemia Protocol Stop: 06/01/21 20:53 Glucose (Glucose 40% Gel 15 Gm Tube) 15 - 30 gm PO UD PRN; Protocol PRN Reason: Hypoglycemia Protocol Stop: 06/01/21 20:53 Hydralazine HCl (Hydralazine Tab 50 Mg Tab) 100 mg PO BID [facility] Stop: 06/01/21 19:34 Last Admin: 05/04/21 07:48 Dose: 100 mg Documented by: Hydromorphone HCl (Hydromorphone Inj 0.5 Mg/0.5 Ml Syr) 0.5 mg IV Q4H PRN PRN Reason: Pain Stop: 05/17/21 01:15 Last Admin: 05/03/21 01:35 Dose: 0.5 mg Documented by: Lorazepam (Ativan) 1 mg in 2 mls @ 2 mls/min IV ONE PRN; Protocol PRN Reason: EtoH Withdrawal AWSS 6-10 Stop: 06/01/21 20:53 Insulin Aspart (Insulin Aspart Per Unit) 0 units SC ACHS [facility] Stop: 06/01/21 20:59 Last Admin: 05/04/21 08:58 Dose: Not Given Documented by: Miscellaneous (Remove Lidoderm Patch) 1 ea N/A DAILY@2100 [facility] Stop: 06/01/21 20:59 Last Admin: 05/03/21 20:14 Dose: Not Given Documented by: Miscellaneous (Carbohydrates For Hypoglycemia ) 15 - 30 gm PO UD PRN PRN Reason: Hypoglycemia Protocol Stop: 06/01/21 20:53 Montelukast Sodium (Montelukast Sodium 10 Mg Tablet) 10 mg PO [facility] Stop: 06/01/21 20:59 Last Admin: 05/03/21 20:06 Dose: 10 mg Documented by: Multivitamins ([facility]amin Tab) [facility] Stop: 06/02/21 08:59 Last Admin: 05/04/21 07:49 Dose: 1 tab Documented by: Ondansetron HCl (Ondansetron Inj 2 Mg/Ml 2 Ml Vial) 4 mg IV Q6H PRN PRN Reason: Nausea Stop: 06/01/21 20:53 Oxycodone/Acetaminophen (Oxycodone/Acetaminophen 5mg/325mg Tab) 1 tab PO Q6H PRN PRN Reason: Pain Stop: 05/16/21 19:34 Last Admin: 05/04/21 05:30 Dose: 1 tab Documented by: Pantoprazole Sodium (Pantoprazole 40 Mg Tab) [facility]; Protocol Stop: 06/02/21 08:59 Last Admin: 05/04/21 07:50 Dose: 40 mg Documented by: Polyethylene Glycol (Polyethylene (Miralax) 17 Gm Pack) 17 gm PO DAILY PRN PRN Reason: Constipation Stop: 06/01/21 20:53 Last Admin: 05/03/21 20:07 Dose: 17 gm Documented by: Thiamine HCl (Thiamine Hcl 100 Mg Tab) 100 mg PO DAILY [facility] Stop: 06/02/21 08:59 Last Admin: 05/04/21 07:49 Dose: 100 mg Documented by: Tizanidine HCl (Tizanidine Hcl 4 Mg Tablet) 4 mg PO Q8 PRN PRN Reason: Muscle Spasm Stop: 06/01/21 20:53 Last Admin: 05/03/21 09:15 Dose: 4 mg Documented by: Torsemide (Torsemide 10 Mg Tab) 10 mg PO DAILY [facility] Stop: 06/02/21 08:59 Last Admin: 05/04/21 07:48 Dose: 10 mg Documented by: Vitamin D (Cholecalciferol 1,000 Units 25 Mcg Tab) 1,000 [facility] Stop: 06/02/21 08:59 Last Admin: 05/04/21 07:49 Dose: 1,000 units Documented by: (1) Fall Encounter type: initial encounter Qualified Code(s): W19.XXXA - Unspecified fall, initial encounter
[2021-05-04] MEDS: DOCUSATE SODIUM 100 MG CAP PO SCH (09:53)
[2021-05-04] MEDS: FLUTICASONE/VILANTEROL 100/25MCG 14 PUFFS/INHALER INH SCH (09:53)
[2021-05-04] MEDS: amLODIPine BESYLATE 5 MG TAB PO SCH (10:04)
--- NOTE | 2021-05-04 16:56 | Hospitalist Progress Note ---
Date of Service May 04, 2021 Assessment & Plan (1) Fall: (2) Traumatic fracture of ribs of right side with pneumothorax: Plan: This is a 76yo F with a PMH of chronic diastolic heart failure, type 2 diabetes, CKD IV, COPD, hypertension, alcohol use, mood disorder, ROXY on CPAP and other medical problems listed below who presents after fall and was found to have mildly displaced fractures of R 9th and 10th ribs. Fell overnight and remained on floor for 6+ hours Chest CT with mildly displaced fractures of the right ninth and 10th ribs posterior laterally with subcutaneous emphysema present. No evidence for adjacent lung contusion or pneumothorax No evidence of other acute changes on head CT, cervical spine CT or CT abd/pelvis Pain control, ice, fall precautions Complains to have chest pain with deep inspiration Has been given incentive spirometry to try Remains stable Can have CPAP placed Continue spirometry to improve lung function and prevent atelectasis Junctional bradycardia Noted to have junctional rhythm on monitor and the EKG is confirmatory Not on any beta-frannie and does not have any electrolyte abnormality Appreciate cardiology input and recommendation Likely going to have an EP cardiology evaluation Remained in sinus rhythm and does not require any pacemaker as per the film spooler Will have Zio patch on discharge (3) Elevated CK: Plan: CK 364 in setting of prolonged fall. Does not meet criteria for rhabdo. Renal function at baseline. Continue IV fluids Will repeat CK level Remains mildly elevated at 400 (4) CKD (chronic kidney disease), stage IV: Plan: Renal function at baseline with Cr ~2 (baseline low-mid 2s) Monitor renal function, avoid nephrotoxic agents when able Creatinine has been improving and it is 1.76 as of 05/03/2021 (5) HTN (hypertension): Plan: Missed AM medications. Give PM dose of hydralazine Continue amlodipine, hydralazine Minimally elevated at 174/55 (6) DM type 2 (diabetes mellitus, type 2): Plan: A1c 6.9 in Jan 2021. Repeat a1c in AM -6.4 Hold home agents SSI while in-patient BSG AC HS (7) Chronic diastolic CHF (congestive heart failure): Plan: Appears dehydrated on initial exam. Will give 1 L gentle fluids overnight and diet, reassess volume status in AM Plan to continue torsemide tomorrow No evidence of fluid overload (8) Depression: Plan: Continue buproprion (9) Alcohol use: Plan: Significant use in past, will add PRN Ativan with at risk precautions Continue home folic acid and thiamine (10) ROXY on CPAP: Plan: CPAP HS Continue CPAP (11) Pulmonary nodule: Plan: CT chest with incidental 10 mm noncalcified right lower lobe pulmonary nodule. Follow-up CT in 3 months is recommended for further evaluation Will have outpatient follow-up with CT in 3 months DVT Ppx: SCDs for now Code status: DNR per discussion with patient PCP: Kathy Dispo: Observation med tele PT/OT-recommended rehab Admission and Anticipated Discharge Date Admission Date: May 04, 2021 Subjective 05/03/2021 The patient was seen and examined in medical telemetry unit She has been complaining of pain with deep breathing Denies any chest pain otherwise and does not have any palpitation No nausea and or vomiting 05/04/2021 The patient was seen and examined in medical telemetry unit She noted to be a drowsy today and has not had her CPAP placed Denies any chest pain or palpitation, no abdominal pain nausea and or vomiting Review of Systems Review of Systems: All systems reviewed and are unremarkable except as noted below Constitutional: + malaise; no chills Physical Exam Physical Exam: Lying in bed comfortably with some drowsiness but no confusion Constitutional: well developed, well nourished, + ill appearing and + obese Eyes: PERRL, conjunctivae normal, anicteric sclerae ENMT: external ear and nose normal, oropharynx normal Neck: trachea midline, no thyromegaly Respiratory: no respiratory distress Auscultation: + diminished lung sounds; no crackles Cardiovascular: Rate/Rhythm: regular rate and regular rhythm; not bradycardic Heart Sounds: normal S1 and normal S2; no murmur Extremities: + edema (Trace edema bilaterally) Gastrointestinal (Abdomen): Inspection/Auscultation: normal bowel sounds; abdomen not distended Percussion/Palpation: abdomen soft; abdomen nontender Musculoskeletal: No acute arthritis in any joint Neurologic: Alert and awake. Minimal drowsiness without any confusion. Moves all extremities equally Results & Data Results & Data ([facility]) Vital Signs (Past 12 Hours) Vital Signs Temp Pulse Pulse Resp BP BP Pulse Ox 05/04/21 15:38 36.2 C L 78 22 174/55 H 97 05/04/21 15:13 80 05/04/21 13:22 36.8 C 77 22 164/74 H 97 05/04/21 07:44 37.0 C 74 20 186/72 H 186/71 H 90 05/04/21 07:00 76 Laboratory Results Short CBC 05/04/21 Range/Units 06:00 WBC 12.25 H (4.8-10.8) K/uL Hgb 9.8 L (12.0-16.0) g/dL Hct 31.2 L (37-47) % Plt Count 196 (130-400) K/uL BMP 05/04/21 06:00 Sodium 139 Potassium 3.6 Chloride 109 H Carbon Dioxide 23 BUN 48 H Creatinine 1.75 H Glucose 100 H Calcium 8.6 Medications Administered Current Inpatient Medications Amlodipine Besylate (Amlodipine Besylate 5 Mg Tab) 5 mg PO DAILY [facility] Stop: 06/02/21 08:59 Last Admin: 05/04/21 10:04 Dose: 5 mg Documented by: Ascorbic Acid (Ascorbic Acid 500 Mg Tab) 250 mg PO DAILY [facility]; Protocol Stop: 06/02/21 08:59 Last Admin: 05/04/21 07:49 Dose: 250 mg Documented by: Aspirin (Aspirin 81 Mg Ectab) 81 mg PO DAILY [facility] Stop: 06/02/21 08:59 Last Admin: 05/04/21 07:49 Dose: 81 mg Documented by: Atorvastatin Calcium (Atorvastatin 40 Mg Tab) 80 mg PO DAILY [facility] Stop: 06/02/21 08:59 Last Admin: 05/04/21 07:50 Dose: 80 mg Documented by: Bupropion HCl (Bupropion Sr 100 Mg Tabcr) 100 mg PO BID [facility] Stop: 06/01/21 20:59 Last Admin: 05/04/21 07:48 Dose: 100 mg Documented by: Calcitriol (Calcitriol 0.25 Mcg Capsule) 0.25 mcg PO QAM [facility] Stop: 06/02/21 08:59 Last Admin: 05/04/21 07:49 Dose: 0.25 mcg Documented by: Dextrose (Dextrose 50% 50 Ml Syringe) 25 - 50 ml IV UD PRN; Protocol PRN Reason: Hypoglycemia Protocol Stop: 06/01/21 20:53 Docusate Sodium (Docusate Sodium 100 Mg Cap) 100 mg PO DAILY [facility] Stop: 06/01/21 19:44 Last Admin: 05/04/21 09:53 Dose: 100 mg Documented by: Ezetimibe (Ezetimibe 10 Mg Tablet) 10 mg PO DAILY [facility] Stop: 06/02/21 08:59 Last Admin: 05/04/21 07:49 Dose: 10 mg Documented by: Ferrous Sulfate (Ferrous Sulfate 325 Mg Tab) 325 mg PO DAILY [facility]; Protocol Stop: 06/02/21 08:59 Last Admin: 05/04/21 07:48 Dose: 325 mg Documented by: Fluticasone/Vilanterol (Fluticasone/Vilanterol 100/25mcg 14 Puffs/Inhaler) 1 puffs INH DAILY [facility]; Protocol Stop: 06/02/21 08:59 Last Admin: 05/04/21 09:53 Dose: 1 puffs Documented by: Folic Acid (Folic Acid 1 Mg Tab) 1 mg PO DAILY [facility] Stop: 06/02/21 08:59 Last Admin: 05/04/21 07:49 Dose: 1 mg Documented by: Glucagon (Glucagon For Inj 1 Mg Vial) 1 mg SQ UD PRN; Protocol PRN Reason: Hypoglycemia Protocol Stop: 06/01/21 20:53 Glucose (Glucose 10 Tabs/Tube) 4 - 8 tabs PO UD PRN; Protocol PRN Reason: Hypoglycemia Protocol Stop: 06/01/21 20:53 Glucose (Glucose 40% Gel 15 Gm Tube) 15 - 30 gm PO UD PRN; Protocol PRN Reason: Hypoglycemia Protocol Stop: 06/01/21 20:53 Hydralazine HCl (Hydralazine Tab 50 Mg Tab) 100 mg PO BID [facility] Stop: 06/01/21 19:34 Last Admin: 05/04/21 07:48 Dose: 100 mg Documented by: Hydromorphone HCl (Hydromorphone Inj 0.5 Mg/0.5 Ml Syr) 0.5 mg IV Q4H PRN PRN Reason: Pain Stop: 05/17/21 01:15 Last Admin: 05/03/21 01:35 Dose: 0.5 mg Documented by: Lorazepam (Ativan) 1 mg in 2 mls @ 2 mls/min IV ONE PRN; Protocol PRN Reason: EtoH Withdrawal AWSS 6-10 Stop: 06/01/21 20:53 Insulin Aspart (Insulin Aspart Per Unit) 0 units SC ACHS [facility] Stop: 06/01/21 20:59 Last Admin: 02/08/22 12:10 Dose: Not Given Documented by: Miscellaneous (Remove Lidoderm Patch) 1 ea N/A DAILY@2100 [facility] Stop: 06/01/21 20:59 Last Admin: 05/03/21 20:14 Dose: Not Given Documented by: Miscellaneous (Carbohydrates For Hypoglycemia ) 15 - 30 gm PO UD PRN PRN Reason: Hypoglycemia Protocol Stop: 06/01/21 20:53 Montelukast Sodium (Montelukast Sodium 10 Mg Tablet) 10 mg PO [facility] Stop: 06/01/21 20:59 Last Admin: 05/03/21 20:06 Dose: 10 mg Documented by: Multivitamins (Multivitamin Tab) 1 tab PO [facility] Stop: 06/02/21 08:59 Last Admin: 05/04/21 07:49 Dose: 1 tab Documented by: Ondansetron HCl (Ondansetron Inj 2 Mg/Ml 2 Ml Vial) 4 mg IV Q6H PRN PRN Reason: Nausea Stop: 06/01/21 20:53 Oxycodone/Acetaminophen (Oxycodone/Acetaminophen 5mg/325mg Tab) 1 tab PO Q6H PRN PRN Reason: Pain Stop: 05/16/21 19:34 Last Admin: 05/04/21 05:30 Dose: 1 tab Documented by: Pantoprazole Sodium (Pantoprazole 40 Mg Tab) 40 mg PO [facility]; Protocol Stop: 06/02/21 08:59 Last Admin: 05/04/21 07:50 Dose: 40 mg Documented by: Polyethylene Glycol (Polyethylene (Miralax) 17 Gm Pack) 17 gm PO DAILY PRN PRN Reason: Constipation Stop: 06/01/21 20:53 Last Admin: 05/03/21 20:07 Dose: 17 gm Documented by: Thiamine HCl (Thiamine Hcl 100 Mg Tab) 100 mg PO DAILY [facility] Stop: 06/02/21 08:59 Last Admin: 05/04/21 07:49 Dose: 100 mg Documented by: Tizanidine HCl (Tizanidine Hcl 4 Mg Tablet) 4 mg PO Q8 PRN PRN Reason: Muscle Spasm Stop: 06/01/21 20:53 Last Admin: 05/03/21 09:15 Dose: 4 mg Documented by: Torsemide (Torsemide 10 Mg Tab) 10 mg PO DAILY [facility] Stop: 06/02/21 08:59 Last Admin: 05/04/21 07:48 Dose: 10 mg Documented by: Vitamin D (Cholecalciferol 1,000 Units 25 Mcg Tab) 1,000 units PO QAM [facility] Stop: 06/02/21 08:59 Last Admin: 05/04/21 07:49 Dose: 1,000 units Documented by: (1) Fall Encounter type: initial encounter Qualified Code(s): W19.XXXA - Unspecified fall, initial encounter
[2021-05-04] MEDS: MONTELUKAST SODIUM 10 MG TABLET PO SCH (21:48)
[2021-05-04] MEDS: HYDROmorphone INJ 0.5 MG/0.5 ML SYR IV PRN (21:55)
[2021-05-05] MEDS: oxyCODONE/ACETAMINOPHEN 5mg/325mg TAB PO PRN ×3 (03:46→23:32)
[2021-05-05 07:31] LABS: BUN Creatinine Ratio 24.2 (10-20); Calcium 8.5 mg/dl (8.5-10.1); Creatinine Clr Calc Pharmacy 34.6 ml/min; Est GFR (African American) 36.7 ml/min; Est GFR (Non-African American) 31.7 ml/min; Magnesium 2.1 mg/dl (1.7-2.4); Potassium 3.4 mmol/L (3.5-5.1)
[2021-05-05] MEDS: EZETIMIBE 10 MG TABLET PO SCH (08:17)
[2021-05-05] MEDS: INSULIN ASPART PER UNIT SC SCH ×4 (08:17→21:06)
[2021-05-05] MEDS: PANTOprazole 40 MG TAB PO SCH (08:17)
[2021-05-05] MEDS: buPROPion SR 100 MG TABCR PO SCH ×2 (08:17→21:06)
[2021-05-05] MEDS: THIAMINE HCL 100 MG TAB PO SCH (08:18)
[2021-05-05] MEDS: TORSEMIDE 10 MG TAB PO SCH (08:18)
[2021-05-05] MEDS: CALCITRIOL 0.25 MCG CAPSULE PO SCH (08:18)
[2021-05-05] MEDS: ASPIRIN 81 MG ECTAB PO SCH (08:18)
[2021-05-05] MEDS: CHOLECALCIFEROL 1,000 UNITS 25 MCG TAB PO SCH (08:18)
[2021-05-05] MEDS: amLODIPine BESYLATE 5 MG TAB PO SCH (08:18)
[2021-05-05] MEDS: ASCORBIC ACID 500 MG TAB PO SCH (08:18)
[2021-05-05] MEDS: MULTIVITAMIN TAB PO SCH (08:18)
[2021-05-05] MEDS: ATORVASTATIN 40 MG TAB PO SCH (08:19)
[2021-05-05] MEDS: hydrALAZINE TAB 50 MG TAB PO SCH ×2 (08:19→21:06)
[2021-05-05] MEDS: FOLIC ACID 1 MG TAB PO SCH (08:19)
[2021-05-05] MEDS: FERROUS SULFATE 325 MG TAB PO SCH (08:19)
[2021-05-05] MEDS: HYDROmorphone INJ 0.5 MG/0.5 ML SYR IV PRN (08:23)
[2021-05-05] MEDS: FLUTICASONE/VILANTEROL 100/25MCG 14 PUFFS/INHALER INH SCH (08:23)
[2021-05-05] MEDS: DOCUSATE SODIUM 100 MG CAP PO SCH (08:30)
--- NOTE | 2021-05-05 12:49 | Cardiology Progress Note ---
Date of Service May 05, 2021 Assessment & Plan (1) Alcohol use: (2) Traumatic fracture of ribs of right side with pneumothorax: (3) Fall: (4) Diastolic dysfunction: (5) Hypertension: (6) ROXY on CPAP: (7) CKD (chronic kidney disease), stage IV: (8) DM type 2 (diabetes mellitus, type 2): Plan: Reviewing the patient's telemetry, she has been in a sinus mechanism for over 24 hours now. Appropriate heart rates. I would recommend no additional cardiac testing during this hospital admission. After discharge she can have a ZIO monitor for a week and then follow-up with us. Admission and Anticipated Discharge Date Admission Date: May 04, 2021 Subjective The patient had an uneventful night. Review of Systems Review of Systems: Review of Systems: See HPI for pertinent positives. All other 10 point review of systems are negative. Physical Exam Physical Exam: General: no acute distress and stated age Head: normocephalic, no masses, lesions, tenderness or abnormalities Eyes: conjunctiva are pink and non-injected, sclera clear Neck: supple, no adenopathy, no bruits, normal jugular venous pulse, no hepatojugular reflux Chest: normal shape and normal respiratory effort Lungs: clear to auscultation and percussion Cardiac Exam: - regular rate & rhythm, no murmurs gallops or rubs - normal S1, normal S2 Pulses: 2(+) throughout Abdomen: abdomen soft, non-tender, no abnormal masses and no hepatosplenomegaly Musculoskeletal: no gait disturbance, no joint inflammation, no deforming arthritis Extremities: no edema and no cyanosis Neuro: grossly normal exam Results & Data ([facility]) Vital Signs (Past 12 Hours) Vital Signs Temp Pulse Pulse Resp BP Pulse Ox 05/05/21 11:29 37.3 C 77 14 165/73 H 98 05/05/21 10:08 76 05/05/21 07:29 37 C 79 18 181/71 H 97 05/05/21 04:19 37.2 C 86 20 174/55 H 96 05/05/21 03:56 22 98 Laboratory Results Laboratory Results - last 24 hr 05/04/21 05/04/21 05/05/21 16:41 20:15 06:31 Sodium 138 Potassium 3.4 L Chloride 107 Carbon Dioxide 24 Anion Gap 7 BUN 38 H Creatinine 1.57 H Est Cr Clr Drug Dosing 34.6 Est GFR ( Amer) 36.7 Est GFR (Non-Af Amer) 31.7 BUN/Creatinine Ratio 24.2 H Glucose 152 H POC Glucose 146 H 154 H Calcium 8.5 Magnesium 2.1 05/05/21 05/05/21 07:12 11:35 Sodium Potassium Chloride Carbon Dioxide Anion Gap BUN Creatinine Est Cr Clr Drug Dosing Est GFR ( Amer) Est GFR (Non-Af Amer) BUN/Creatinine Ratio Glucose POC Glucose 165 H 169 H Calcium Magnesium Medications Administered Current Inpatient Medications Amlodipine Besylate (Amlodipine Besylate 5 Mg Tab) 5 mg PO DAILY [facility] Stop: 06/02/21 08:59 Last Admin: 05/05/21 08:18 Dose: 5 mg Documented by: Ascorbic Acid (Ascorbic Acid 500 Mg Tab) 250 mg PO DAILY [facility]; Protocol Stop: 06/02/21 08:59 Last Admin: 05/05/21 08:18 Dose: 250 mg Documented by: Aspirin (Aspirin 81 Mg Ectab) 81 mg PO DAILY [facility] Stop: 06/02/21 08:59 Last Admin: 05/05/21 08:18 Dose: 81 mg Documented by: Atorvastatin Calcium (Atorvastatin 40 Mg Tab) 80 mg PO DAILY [facility] Stop: 06/02/21 08:59 Last Admin: 05/05/21 08:19 Dose: 80 mg Documented by: Bupropion HCl (Bupropion Sr 100 Mg Tabcr) 100 mg PO BID [facility] Stop: 06/01/21 20:59 Last Admin: 05/05/21 08:17 Dose: 100 mg Documented by: Calcitriol (Calcitriol 0.25 Mcg Capsule) 0.25 mcg PO QAM [facility] Stop: 06/02/21 08:59 Last Admin: 05/05/21 08:18 Dose: 0.25 mcg Documented by: Dextrose (Dextrose 50% 50 Ml Syringe) 25 - 50 ml IV UD PRN; Protocol PRN Reason: Hypoglycemia Protocol Stop: 06/01/21 20:53 Docusate Sodium (Docusate Sodium 100 Mg Cap) 100 mg PO DAILY [facility] Stop: 06/01/21 19:44 Last Admin: 05/05/21 08:30 Dose: 100 mg Documented by: Ezetimibe (Ezetimibe 10 Mg Tablet) 10 mg PO DAILY [facility] Stop: 06/02/21 08:59 Last Admin: 05/05/21 08:17 Dose: 10 mg Documented by: Ferrous Sulfate (Ferrous Sulfate 325 Mg Tab) 325 mg PO DAILY [facility]; Protocol Stop: 06/02/21 08:59 Last Admin: 05/05/21 08:19 Dose: 325 mg Documented by: Fluticasone/Vilanterol (Fluticasone/Vilanterol 100/25mcg 14 Puffs/Inhaler) 1 puffs INH DAILY [facility]; Protocol Stop: 06/02/21 08:59 Last Admin: 05/05/21 08:23 Dose: 1 puffs Documented by: Folic Acid (Folic Acid 1 Mg Tab) 1 mg PO DAILY [facility] Stop: 06/02/21 08:59 Last Admin: 05/05/21 08:19 Dose: 1 mg Documented by: Glucagon (Glucagon For Inj 1 Mg Vial) 1 mg SQ UD PRN; Protocol PRN Reason: Hypoglycemia Protocol Stop: 06/01/21 20:53 Glucose (Glucose 10 Tabs/Tube) 4 - 8 tabs PO UD PRN; Protocol PRN Reason: Hypoglycemia Protocol Stop: 06/01/21 20:53 Glucose (Glucose 40% Gel 15 Gm Tube) 15 - 30 gm PO UD PRN; Protocol PRN Reason: Hypoglycemia Protocol Stop: 06/01/21 20:53 Hydralazine HCl (Hydralazine Tab 50 Mg Tab) 100 mg PO BID [facility] Stop: 06/01/21 19:34 Last Admin: 05/05/21 08:19 Dose: 100 mg Documented by: Hydromorphone HCl (Hydromorphone Inj 0.5 Mg/0.5 Ml Syr) 0.5 mg IV Q4H PRN PRN Reason: Pain Stop: 05/17/21 01:15 Last Admin: 05/05/21 08:23 Dose: 0.5 mg Documented by: Lorazepam (Ativan) 1 mg in 2 mls @ 2 mls/min IV ONE PRN; Protocol PRN Reason: EtoH Withdrawal AWSS 6-10 Stop: 06/01/21 20:53 Insulin Aspart (Insulin Aspart Per Unit) 0 units SC ACHS [facility] Stop: 06/01/21 20:59 Last Admin: 05/05/21 12:07 Dose: 7 units Documented by: Miscellaneous (Remove Lidoderm Patch) 1 ea N/A DAILY@2100 [facility] Stop: 06/01/21 20:59 Last Admin: 05/04/21 21:48 Dose: Not Given Documented by: Miscellaneous (Carbohydrates For Hypoglycemia ) 15 - 30 gm PO UD PRN PRN Reason: Hypoglycemia Protocol Stop: 06/01/21 20:53 Montelukast Sodium (Montelukast Sodium 10 Mg Tablet) 10 mg PO [facility] Stop: 06/01/21 20:59 Last Admin: 05/04/21 21:48 Dose: 10 mg Documented by: Multivitamins (Multivitamin Tab) [facility] [place] Stop: 06/02/21 08:59 Last Admin: 05/05/21 08:18 Dose: 1 tab Documented by: Ondansetron HCl (Ondansetron Inj 2 Mg/Ml 2 Ml Vial) 4 mg IV Q6H PRN PRN Reason: Nausea Stop: 06/01/21 20:53 Oxycodone/Acetaminophen (Oxycodone/Acetaminophen 5mg/325mg Tab) 1 tab PO Q6H PRN PRN Reason: Pain Stop: 05/16/21 19:34 Last Admin: 05/05/21 11:13 Dose: 1 tab Documented by: Pantoprazole Sodium (Pantoprazole 40 Mg Tab) [facility] [place]; Protocol Stop: 06/02/21 08:59 Last Admin: 05/05/21 08:17 Dose: 40 mg Documented by: Polyethylene Glycol (Polyethylene (Miralax) 17 Gm Pack) 17 gm PO DAILY PRN PRN Reason: Constipation Stop: 06/01/21 20:53 Last Admin: 05/03/21 20:07 Dose: 17 gm Documented by: Thiamine HCl (Thiamine Hcl 100 Mg Tab) 100 mg PO DAILY [facility] Stop: 06/02/21 08:59 Last Admin: 05/05/21 08:18 Dose: 100 mg Documented by: Tizanidine HCl (Tizanidine Hcl 4 Mg Tablet) 4 mg PO Q8 PRN PRN Reason: Muscle Spasm Stop: 06/01/21 20:53 Last Admin: 05/03/21 09:15 Dose: 4 mg Documented by: Torsemide (Torsemide 10 Mg Tab) 10 mg PO DAILY [facility] Stop: 06/02/21 08:59 Last Admin: 05/05/21 08:18 Dose: 10 mg Documented by: Vitamin D (Cholecalciferol 1,000 Units 25 Mcg Tab) 1,000 units PO QAM [facility] Stop: 06/02/21 08:59 Last Admin: 05/05/21 08:18 Dose: 1,000 units Documented by: (1) Fall Encounter type: initial encounter Qualified Code(s): W19.XXXA - Unspecified fall, initial encounter
[2021-05-05] MEDS ORDERED: POTASSIUM CHLORIDE CRTAB 20 MEQ TABCR PO STA (12:58)
--- NOTE | 2021-05-05 13:25 | Hospitalist Progress Note ---
Date of Service May 05, 2021 Assessment & Plan (1) Fall: (2) Traumatic fracture of ribs of right side with pneumothorax: Plan: This is a 76yo F with a PMH of chronic diastolic heart failure, type 2 diabetes, CKD IV, COPD, hypertension, alcohol use, mood disorder, ROXY on CPAP and other medical problems listed below who presents after fall and was found to have mildly displaced fractures of R 9th and 10th ribs. Fell overnight and remained on floor for 6+ hours Chest CT with mildly displaced fractures of the right ninth and 10th ribs posterior laterally with subcutaneous emphysema present. No evidence for adjacent lung contusion or pneumothorax No evidence of other acute changes on head CT, cervical spine CT or CT abd/pelvis Pain control, ice, fall precautions Complains to have chest pain with deep inspiration Has been given incentive spirometry to try Can have CPAP placed Continue spirometry to improve lung function and prevent atelectasis Will continue titrate off oxygen Fall Ambulatory dysfunction CT showed right 9th and 10th posterior ribs fracture PT/OT on board that recommended inpatient rehab Pt does not want to go to rehab No safe to go home due to risk of fall and fracture Junctional bradycardia Noted to have junctional rhythm on monitor and the EKG is confirmatory Not on any beta-frannie and does not have any electrolyte abnormality Appreciate cardiology input and recommendation Likely going to have an EP cardiology evaluation Remained in sinus rhythm and does not require any pacemaker as per the emergency medical technician/driver Will have Zio patch on discharge [place] need outpatient follow up with cardio (3) Elevated CK: Plan: CK 364 in setting of prolonged fall. Does not meet criteria for rhabdo. Renal function at baseline. Continue IV fluids Will repeat CK level Remains mildly elevated at 400 (4) CKD (chronic kidney disease), stage IV: Plan: Renal function at baseline with Cr ~2 (baseline low-mid 2s) Monitor renal function, avoid nephrotoxic agents when able Creatinine has been improving and it is 1.5 today (5) HTN (hypertension): Plan: Missed AM medications. Give PM dose of hydralazine Continue amlodipine, hydralazine Continue monitor BP (6) DM type 2 (diabetes mellitus, type 2): Plan: A1c 6.9 in Jan 2021. Repeat a1c in AM -6.4 Hold home agents SSI while in-patient BSG AC HS (7) Chronic diastolic CHF (congestive heart failure): Plan: Appears dehydrated on initial exam. Will give 1 L gentle fluids overnight and diet, reassess volume status in AM Plan to continue torsemide tomorrow No evidence of fluid overload (8) Depression: Plan: Continue buproprion (9) Alcohol use: Plan: Significant use in past, will add PRN Ativan with at risk precautions Continue home folic acid and thiamine (10) ROXY on CPAP: Plan: CPAP HS Continue CPAP (11) Pulmonary nodule: Plan: CT chest with incidental 10 mm noncalcified right lower lobe pulmonary nodule. Follow-up CT in 3 months is recommended for further evaluation Will have outpatient follow-up with CT in 3 months DVT Ppx: SCDs for now Code status: DNR per discussion with patient PCP: Kathy Dispo: PT/OT-recommended rehab Admission and Anticipated Discharge Date Admission Date: May 04, 2021 Subjective Patient was seen and examined for follow-up of rib fracture due to fall Sitting in chair with no acute distress Pt that pain is control with the narcotic She said that she does have some pain around his rib area Denies any chest pain, palpitation, dizziness and SOB Review of Systems Review of Systems: All systems reviewed & are unremarkable except as noted in Subjective Physical Exam Physical Exam: General- No acute distress Head- atraumatic Eyes- PERRL, EOMI, ENT- oropharynx clear Neck- supple, no JVD Lungs- +diminished BS Heart- regular rhythm; no murmur Abdomen- normal bowel sounds, soft, nontender Extremities- no calf tenderness Neuro- alert, oriented x 3; PERRL, EOMI; no facial palsy; no dysarthria Skin- warm & dry Results & Data Results & Data ([facility]) Vital Signs (Past 12 Hours) Vital Signs Temp Pulse Pulse Resp BP Pulse Ox 05/05/21 11:29 37.3 C 77 14 165/73 H 98 05/05/21 10:08 76 05/05/21 07:29 37 C 79 18 181/71 H 97 05/05/21 04:19 37.2 C 86 20 174/55 H 96 05/05/21 03:56 22 98 (1) Fall Encounter type: initial encounter Qualified Code(s): W19.XXXA - Unspecified fall, initial encounter
[2021-05-05] MEDS: MONTELUKAST SODIUM 10 MG TABLET PO SCH (21:06)
[2021-05-06] MEDS: HYDROmorphone INJ 0.5 MG/0.5 ML SYR IV PRN (00:28)
[2021-05-06] MEDS: FLUTICASONE/VILANTEROL 100/25MCG 14 PUFFS/INHALER INH SCH (08:01)
[2021-05-06] MEDS: INSULIN ASPART PER UNIT SC SCH ×4 (08:01→20:14)
[2021-05-06] MEDS: ASPIRIN 81 MG ECTAB PO SCH (08:02)
[2021-05-06] MEDS: hydrALAZINE TAB 50 MG TAB PO SCH ×2 (08:02→20:13)
[2021-05-06] MEDS: buPROPion SR 100 MG TABCR PO SCH ×2 (08:02→20:12)
[2021-05-06] MEDS: EZETIMIBE 10 MG TABLET PO SCH (08:02)
[2021-05-06] MEDS: MULTIVITAMIN TAB PO SCH (08:02)
[2021-05-06] MEDS: CALCITRIOL 0.25 MCG CAPSULE PO SCH (08:03)
[2021-05-06] MEDS: TORSEMIDE 10 MG TAB PO SCH (08:03)
[2021-05-06] MEDS: PANTOprazole 40 MG TAB PO SCH (08:03)
[2021-05-06] MEDS: amLODIPine BESYLATE 5 MG TAB PO SCH (08:03)
[2021-05-06] MEDS: THIAMINE HCL 100 MG TAB PO SCH (08:03)
[2021-05-06] MEDS: FERROUS SULFATE 325 MG TAB PO SCH (08:03)
[2021-05-06] MEDS: ASCORBIC ACID 500 MG TAB PO SCH (08:03)
[2021-05-06] MEDS: FOLIC ACID 1 MG TAB PO SCH (08:03)
[2021-05-06] MEDS: ATORVASTATIN 40 MG TAB PO SCH (08:04)
[2021-05-06] MEDS: CHOLECALCIFEROL 1,000 UNITS 25 MCG TAB PO SCH (08:04)
[2021-05-06] MEDS: DOCUSATE SODIUM 100 MG CAP PO SCH (08:05)
[2021-05-06 10:38] LABS: BUN Creatinine Ratio 21.6 (10-20); Calcium 8.9 mg/dl (8.5-10.1); Creatinine Clr Calc Pharmacy 32.6 ml/min; Est GFR (African American) 35.4 ml/min; Est GFR (Non-African American) 30.5 ml/min; Potassium 4.2 mmol/L (3.5-5.1)
[2021-05-06] MEDS: METOPROLOL TARTRATE 25 MG TAB PO SCH ×2 (16:51→20:13)
--- NOTE | 2021-05-06 19:07 | Hospitalist Progress Note ---
Date of Service May 06, 2021 Assessment & Plan (1) Fall: (2) Traumatic fracture of ribs of right side with pneumothorax: Plan: This is a 76yo F with a PMH of chronic diastolic heart failure, type 2 diabetes, CKD IV, COPD, hypertension, alcohol use, mood disorder, ROXY on CPAP and other medical problems listed below who presents after fall and was found to have mildly displaced fractures of R 9th and 10th ribs. Fell overnight and remained on floor for 6+ hours Chest CT with mildly displaced fractures of the right ninth and 10th ribs posterior laterally with subcutaneous emphysema present. No evidence for adjacent lung contusion or pneumothorax No evidence of other acute changes on head CT, cervical spine CT or CT abd/pelvis Pain control, ice, fall precautions Complains to have chest pain with deep inspiration Has been given incentive spirometry to try Can have CPAP placed Continue spirometry to improve lung function and prevent atelectasis Will continue titrate off oxygen Fall Ambulatory dysfunction CT showed right 9th and 10th posterior ribs fracture PT/OT on board that recommended inpatient rehab Pt does not want to go to rehab No safe to go home due to risk of fall and fracture Tachycardia telemonitor showed possible atrial flutter EKG showed sinus tachy Case discussed with cardio that recommended to start on low dose beta frannie Continue monitor closely Junctional bradycardia Noted to have junctional rhythm on monitor and the EKG is confirmatory Not on any beta-frannie and does not have any electrolyte abnormality Appreciate cardiology input and recommendation Likely going to have an EP cardiology evaluation Remained in sinus rhythm and does not require any pacemaker as per the rn imaging Will have Zio patch on discharge Jay Jay need outpatient follow up with cardio (3) Elevated CK: Plan: CK 364 in setting of prolonged fall. Does not meet criteria for rhabdo. Renal function at baseline. Continue IV fluids Remains mildly elevated at 400 (4) CKD (chronic kidney disease), stage IV: Plan: Renal function at baseline with Cr ~2 (baseline low-mid 2s) Monitor renal function, avoid nephrotoxic agents when able Creatinine has been improving and it is 1.5 today (5) HTN (hypertension): Plan: Missed AM medications. Give PM dose of hydralazine Continue amlodipine, hydralazine Continue monitor BP (6) DM type 2 (diabetes mellitus, type 2): Plan: A1c 6.9 in Jan 2021. Repeat a1c in AM -6.4 Hold home agents SSI while in-patient BSG AC HS (7) Chronic diastolic CHF (congestive heart failure): Plan: to continue torsemide No evidence of fluid overload (8) Depression: Plan: Continue buproprion (9) Alcohol use: Plan: Significant use in past, will add PRN Ativan with at risk precautions Continue home folic acid and thiamine (10) ROXY on CPAP: Plan: CPAP HS Continue CPAP (11) Pulmonary nodule: Plan: CT chest with incidental 10 mm noncalcified right lower lobe pulmonary nodule. Follow-up CT in 3 months is recommended for further evaluation Will have outpatient follow-up with CT in 3 months DVT Ppx: SCDs for now Code status: DNR per discussion with patient PCP: Kathy Dispo: PT/OT-recommended rehab Admission and Anticipated Discharge Date Admission Date: May 04, 2021 Subjective Patient was seen and examined for follow-up of rib fracture due to fall Sitting in chair with no acute distress Tele monitor showed possible atrial flutter with rate in the 120's Denies any chest pain, palpitation, dizziness and SOB Review of Systems Review of Systems: All systems reviewed & are unremarkable except as noted in Subjective Physical Exam Physical Exam: General- No acute distress Head- atraumatic Eyes- PERRL, EOMI, ENT- oropharynx clear Neck- supple, no JVD Lungs- +diminished BS Heart- +tachycardia, no murmur Abdomen- normal bowel sounds, soft, nontender Extremities- no calf tenderness Neuro- alert, oriented x 3; PERRL, EOMI; no facial palsy; no dysarthria Skin- warm & dry Results & Data Results & Data ([facility]) Vital Signs (Past 12 Hours) Vital Signs Temp Pulse Pulse Resp BP Pulse Ox 05/06/21 15:15 121 H 05/06/21 14:44 37.1 C 126 H 20 153/93 H 94 05/06/21 11:03 36.6 C 74 21 160/78 H 94 05/06/21 07:21 72 (1) Fall Encounter type: initial encounter Qualified Code(s): W19.XXXA - Unspecified fall, initial encounter
[2021-05-06] MEDS: MONTELUKAST SODIUM 10 MG TABLET PO SCH (20:12)
[2021-05-06] MEDS ORDERED: SODIUM CHLORIDE 0.9% 500 ML IV ONE (22:46)
--- NOTE | 2021-05-06 22:47 | Communication Note ---
Date of Service: May 06, 2021 Patient with transient episode of atrial flutter as per RN. Will request AM provider to update clinical coordinator.
[2021-05-06] MEDS: oxyCODONE/ACETAMINOPHEN 5mg/325mg TAB PO PRN (22:48)
[2021-05-07 07:24] LABS: BUN Creatinine Ratio 21.6 (10-20); Calcium 8.7 mg/dl (8.5-10.1); Est GFR (Non-African American) 27.6 ml/min; Magnesium 1.9 mg/dl (1.7-2.4); Potassium 3.6 mmol/L (3.5-5.1)
[2021-05-07] MEDS: FLUTICASONE/VILANTEROL 100/25MCG 14 PUFFS/INHALER INH SCH (08:30)
[2021-05-07] MEDS: METOPROLOL TARTRATE 25 MG TAB PO SCH ×2 (08:30→20:18)
[2021-05-07] MEDS: hydrALAZINE TAB 50 MG TAB PO SCH ×2 (08:30→20:17)
[2021-05-07] MEDS: PANTOprazole 40 MG TAB PO SCH (08:30)
[2021-05-07] MEDS: buPROPion SR 100 MG TABCR PO SCH ×2 (08:30→20:17)
[2021-05-07] MEDS: ASCORBIC ACID 500 MG TAB PO SCH (08:30)
[2021-05-07] MEDS: MULTIVITAMIN TAB PO SCH (08:30)
[2021-05-07] MEDS: CALCITRIOL 0.25 MCG CAPSULE PO SCH (08:31)
[2021-05-07] MEDS: THIAMINE HCL 100 MG TAB PO SCH (08:31)
[2021-05-07] MEDS: ATORVASTATIN 40 MG TAB PO SCH (08:31)
[2021-05-07] MEDS: amLODIPine BESYLATE 5 MG TAB PO SCH ×2 (08:31→09:44)
[2021-05-07] MEDS: TORSEMIDE 10 MG TAB PO SCH (08:31)
[2021-05-07] MEDS: FOLIC ACID 1 MG TAB PO SCH (08:31)
[2021-05-07] MEDS: FERROUS SULFATE 325 MG TAB PO SCH (08:31)
[2021-05-07] MEDS: CHOLECALCIFEROL 1,000 UNITS 25 MCG TAB PO SCH (08:31)
[2021-05-07] MEDS: EZETIMIBE 10 MG TABLET PO SCH (08:31)
[2021-05-07] MEDS: ASPIRIN 81 MG ECTAB PO SCH (08:31)
[2021-05-07] MEDS: DOCUSATE SODIUM 100 MG CAP PO SCH (08:36)
[2021-05-07] MEDS: INSULIN ASPART PER UNIT SC SCH ×4 (08:37→20:17)
--- NOTE | 2021-05-07 08:48 | Cardiology Progress Note ---
Date of Service May 07, 2021 Assessment & Plan (1) Alcohol use: (2) Traumatic fracture of ribs of right side with pneumothorax: (3) Fall: (4) Diastolic dysfunction: (5) Hypertension: (6) ROXY on CPAP: (7) CKD (chronic kidney disease), stage IV: (8) DM type 2 (diabetes mellitus, type 2): (9) PAF (paroxysmal atrial fibrillation): Plan: The patient has not had any additional arrhythmias since starting metoprolol. Heart rates have been adequate. She is a little hypertensive today and I will increase her amlodipine. From a cardiac standpoint I believe she can be discharged with outpatient follow-up. She should continue with the metoprolol and aspirin only. I considered anticoagulation but given her recent fall and trauma I think it is best to just start aspirin for now and consider anticoagulation at a later date if indicated. Admission and Anticipated Discharge Date Admission Date: May 04, 2021 Subjective The patient is sitting in a chair comfortably. No complaints today. She has maintained sinus rhythm for the past 24 hours. Review of Systems Review of Systems: Review of Systems: See HPI for pertinent positives. All other 10 point review of systems are negative. Physical Exam Physical Exam: General: no acute distress and stated age Head: normocephalic, no masses, lesions, tenderness or abnormalities Eyes: conjunctiva are pink and non-injected, sclera clear Neck: supple, no adenopathy, no bruits, normal jugular venous pulse, no hepatojugular reflux Chest: normal shape and normal respiratory effort Lungs: clear to auscultation and percussion Cardiac Exam: - regular rate & rhythm, no murmurs gallops or rubs - normal S1, normal S2 Pulses: 2(+) throughout Abdomen: abdomen soft, non-tender, no abnormal masses and no hepatosplenomegaly Musculoskeletal: no gait disturbance, no joint inflammation, no deforming arthritis Extremities: no edema and no cyanosis Neuro: grossly normal exam Results & Data ([facility]) Vital Signs (Past 12 Hours) Vital Signs Temp Pulse Pulse Pulse Resp BP BP 05/07/21 08:12 36.6 C 65 20 186/83 H 05/07/21 03:58 37.7 C H 63 20 159/67 H 05/06/21 23:26 37.1 C 66 20 152/73 H 05/06/21 22:21 64 Pulse Ox 05/07/21 08:12 92 05/07/21 03:58 92 05/06/21 23:26 94 05/06/21 22:21 Laboratory Results Laboratory Results - last 24 hr 05/06/21 05/06/21 05/06/21 09:55 09:55 11:37 Sodium 140 Potassium 4.2 D Chloride 105 Carbon Dioxide 29 Anion Gap 6 BUN 35 H Creatinine 1.62 H Est Cr Clr Drug Dosing 32.6 Est GFR ( Amer) 35.4 Est GFR (Non-Af Amer) 30.5 BUN/Creatinine Ratio 21.6 H Glucose 209 H POC Glucose 169 H Calcium 8.9 Magnesium 2.0 05/06/21 05/06/21 05/07/21 16:33 20:07 06:48 Sodium 138 Potassium 3.6 Chloride 105 Carbon Dioxide 26 Anion Gap 7 BUN 38 H Creatinine 1.76 H Est Cr Clr Drug Dosing 31.0 Est GFR ( Amer) 32.0 Est GFR (Non-Af Amer) 27.6 BUN/Creatinine Ratio 21.6 H Glucose 143 H POC Glucose 137 H 117 H Calcium 8.7 Magnesium 1.9 05/07/21 07:55 Sodium Potassium Chloride Carbon Dioxide Anion Gap BUN Creatinine Est Cr Clr Drug Dosing Est GFR ( Amer) Est GFR (Non-Af Amer) BUN/Creatinine Ratio Glucose POC Glucose 148 H Calcium Magnesium Medications Administered Current Inpatient Medications Amlodipine Besylate (Amlodipine Besylate 5 Mg Tab) 5 mg PO DAILY [facility] Stop: 06/02/21 08:59 Last Admin: 05/07/21 08:31 Dose: 5 mg Documented by: Ascorbic Acid (Ascorbic Acid 500 Mg Tab) 250 mg PO DAILY [facility]; Protocol Stop: 06/02/21 08:59 Last Admin: 05/07/21 08:30 Dose: 250 mg Documented by: Aspirin (Aspirin 81 Mg Ectab) 81 mg PO DAILY [facility] Stop: 06/02/21 08:59 Last Admin: 05/07/21 08:31 Dose: 81 mg Documented by: Atorvastatin Calcium (Atorvastatin 40 Mg Tab) 80 mg PO DAILY [facility] Stop: 06/02/21 08:59 Last Admin: 05/07/21 08:31 Dose: 80 mg Documented by: Bupropion HCl (Bupropion Sr 100 Mg Tabcr) 100 mg PO BID [facility] Stop: 06/01/21 20:59 Last Admin: 05/07/21 08:30 Dose: 100 mg Documented by: Calcitriol (Calcitriol 0.25 Mcg Capsule) 0.25 mcg PO QAM [facility] Stop: 06/02/21 08:59 Last Admin: 05/07/21 08:31 Dose: 0.25 mcg Documented by: Dextrose (Dextrose 50% 50 Ml Syringe) 25 - 50 ml IV UD PRN; Protocol PRN Reason: Hypoglycemia Protocol Stop: 06/01/21 20:53 Docusate Sodium (Docusate Sodium 100 Mg Cap) 100 mg PO DAILY [facility] Stop: 06/01/21 19:44 Last Admin: 05/07/21 08:36 Dose: 100 mg Documented by: Ezetimibe (Ezetimibe 10 Mg Tablet) 10 mg PO DAILY [facility] Stop: 06/02/21 08:59 Last Admin: 05/07/21 08:31 Dose: 10 mg Documented by: Ferrous Sulfate (Ferrous Sulfate 325 Mg Tab) 325 mg PO DAILY [facility]; Protocol Stop: 06/02/21 08:59 Last Admin: 05/07/21 08:31 Dose: 325 mg Documented by: Fluticasone/Vilanterol (Fluticasone/Vilanterol 100/25mcg 14 Puffs/Inhaler) 1 puffs INH DAILY [facility]; Protocol Stop: 06/02/21 08:59 Last Admin: 05/07/21 08:30 Dose: 1 puffs Documented by: Folic Acid (Folic Acid 1 Mg Tab) 1 mg PO DAILY [facility] Stop: 06/02/21 08:59 Last Admin: 05/07/21 08:31 Dose: 1 mg Documented by: Glucagon (Glucagon For Inj 1 Mg Vial) 1 mg SQ UD PRN; Protocol PRN Reason: Hypoglycemia Protocol Stop: 06/01/21 20:53 Glucose (Glucose 10 Tabs/Tube) 4 - 8 tabs PO UD PRN; Protocol PRN Reason: Hypoglycemia Protocol Stop: 06/01/21 20:53 Glucose (Glucose 40% Gel 15 Gm Tube) 15 - 30 gm PO UD PRN; Protocol PRN Reason: Hypoglycemia Protocol Stop: 06/01/21 20:53 Hydralazine HCl (Hydralazine Tab 50 Mg Tab) 100 mg PO BID [facility] Stop: 06/01/21 19:34 Last Admin: 05/07/21 08:30 Dose: 100 mg Documented by: Hydromorphone HCl (Hydromorphone Inj 0.5 Mg/0.5 Ml Syr) 0.5 mg IV Q4H PRN PRN Reason: Pain Stop: 05/17/21 01:15 Last Admin: 05/06/21 00:28 Dose: 0.5 mg Documented by: Lorazepam (Ativan) 1 mg in 2 mls @ 2 mls/min IV ONE PRN; Protocol PRN Reason: EtoH Withdrawal AWSS 6-10 Stop: 06/01/21 20:53 Insulin Aspart (Insulin Aspart Per Unit) 0 units SC ACHS [facility] Stop: 06/01/21 20:59 Last Admin: 05/07/21 08:37 Dose: 5 units Documented by: Metoprolol Tartrate (Metoprolol Tartrate 25 Mg Tab) 25 mg PO BID [facility] Stop: 06/05/21 15:59 Last Admin: 05/07/21 08:30 Dose: 25 mg Documented by: Miscellaneous (Remove Lidoderm Patch) 1 ea N/A DAILY@2100 [facility] Stop: 06/01/21 20:59 Last Admin: 05/06/21 20:20 Dose: 1 ea Documented by: Miscellaneous (Carbohydrates For Hypoglycemia ) 15 - 30 gm PO UD PRN PRN Reason: Hypoglycemia Protocol Stop: 06/01/21 20:53 Montelukast Sodium (Montelukast Sodium 10 Mg Tablet) 10 mg PO HS [facility] Stop: 06/01/21 20:59 Last Admin: 05/06/21 20:12 Dose: 10 mg Documented by: Multivitamins (Multivitamin Tab) 1 tab PO [facility] Stop: 06/02/21 08:59 Last Admin: 05/07/21 08:30 Dose: 1 tab Documented by: Ondansetron HCl (Ondansetron Inj 2 Mg/Ml 2 Ml Vial) 4 mg IV Q6H PRN PRN Reason: Nausea Stop: 06/01/21 20:53 Oxycodone/Acetaminophen (Oxycodone/Acetaminophen 5mg/325mg Tab) 1 tab PO Q6H PRN PRN Reason: Pain Stop: 05/16/21 19:34 Last Admin: 05/06/21 22:48 Dose: 1 tab Documented by: Pantoprazole Sodium (Pantoprazole 40 Mg Tab) 40 mg PO [facility]; Protocol Stop: 06/02/21 08:59 Last Admin: 05/07/21 08:30 Dose: 40 mg Documented by: Polyethylene Glycol (Polyethylene (Miralax) 17 Gm Pack) 17 gm PO DAILY PRN PRN Reason: Constipation Stop: 06/01/21 20:53 Last Admin: 05/03/21 20:07 Dose: 17 gm Documented by: Thiamine HCl (Thiamine Hcl 100 Mg Tab) 100 mg PO DAILY [facility] Stop: 06/02/21 08:59 Last Admin: 05/07/21 08:31 Dose: 100 mg Documented by: Tizanidine HCl (Tizanidine Hcl 4 Mg Tablet) 4 mg PO Q8 PRN PRN Reason: Muscle Spasm Stop: 06/01/21 20:53 Last Admin: 05/03/21 09:15 Dose: 4 mg Documented by: Torsemide (Torsemide 10 Mg Tab) 10 mg PO DAILY [facility] Stop: 06/02/21 08:59 Last Admin: 05/07/21 08:31 Dose: 10 mg Documented by: Vitamin D (Cholecalciferol 1,000 Units 25 Mcg Tab) 1,000 units PO QAM [facility] Stop: 06/02/21 08:59 Last Admin: 05/07/21 08:31 Dose: 1,000 units Documented by: (1) Fall Encounter type: initial encounter Qualified Code(s): W19.XXXA - Unspecified fall, initial encounter
[2021-05-07] MEDS: MONTELUKAST SODIUM 10 MG TABLET PO SCH (20:18)
[2021-05-07] MEDS: oxyCODONE/ACETAMINOPHEN 5mg/325mg TAB PO PRN (22:21)
--- NOTE | 2021-05-07 23:32 | Hospitalist Progress Note ---
Date of Service May 07, 2021 Assessment & Plan (1) Fall: (2) Traumatic fracture of ribs of right side with pneumothorax: Plan: This is a 76yo F with a PMH of chronic diastolic heart failure, type 2 diabetes, CKD IV, COPD, hypertension, alcohol use, mood disorder, ROXY on CPAP and other medical problems listed below who presents after fall and was found to have mildly displaced fractures of R 9th and 10th ribs. Fell overnight and remained on floor for 6+ hours Chest CT with mildly displaced fractures of the right ninth and 10th ribs posterior laterally with subcutaneous emphysema present. No evidence for adjacent lung contusion or pneumothorax No evidence of other acute changes on head CT, cervical spine CT or CT abd/pelvis Pain control, ice, fall precautions Complains to have chest pain with deep inspiration Has been given incentive spirometry to try Can have CPAP place Continue spirometry to improve lung function and prevent atelectasis Currently saturating well on room air Continue monitor Fall Ambulatory dysfunction CT showed right 9th and 10th posterior ribs fracture PT/OT on board that recommended inpatient rehab Pt does not want to go to rehab Not safe to go home due to risk of fall and fracture Waiting for placement to rehab Tachycardia telemonitor showed possible atrial flutter yesterday EKG showed sinus tachy Case discussed with cardio that recommended to continue metoprolol 25 mg twice daily Continue monitor closely Junctional bradycardia Noted to have junctional rhythm on monitor and the EKG is confirmatory Not on any beta-frannie and does not have any electrolyte abnormality Appreciate cardiology input and recommendation Likely going to have an EP cardiology evaluation Remained in sinus rhythm and does not require any pacemaker as per the advertising rep Will have Zio patch on discharge Jay Jay need outpatient follow up with cardio (3) Elevated CK: Plan: CK 364 in setting of prolonged fall. Does not meet criteria for rhabdo. Renal function at baseline. Continue IV fluids Remains mildly elevated at 400 (4) CKD (chronic kidney disease), stage IV: Plan: Renal function at baseline with Cr ~2 (baseline low-mid 2s) Monitor renal function, avoid nephrotoxic agents when able Creatinine has been improving and it is 1.5 today (5) HTN (hypertension): Plan: Missed AM medications. Give PM dose of hydralazine Continue amlodipine, hydralazine Continue monitor BP (6) DM type 2 (diabetes mellitus, type 2): Plan: A1c 6.9 in Jan 2021. Repeat a1c in AM -6.4 Hold home agents SSI while in-patient BSG AC HS (7) Chronic diastolic CHF (congestive heart failure): Plan: to continue torsemide No evidence of fluid overload (8) Depression: Plan: Continue buproprion (9) Alcohol use: Plan: Significant use in past, will add PRN Ativan with at risk precautions Continue home folic acid and thiamine (10) ROXY on CPAP: Plan: CPAP HS Continue CPAP (11) Pulmonary nodule: Plan: CT chest with incidental 10 mm noncalcified right lower lobe pulmonary nodule. Follow-up CT in 3 months is recommended for further evaluation Will have outpatient follow-up with CT in 3 months DVT Ppx: SCDs for now Code status: DNR per discussion with patient PCP: Kathy Dispo: PT/OT-recommended rehab Admission and Anticipated Discharge Date Admission Date: May 04, 2021 Subjective Patient was seen and examined for follow-up of rib fracture due to fall and tachycardia Sitting in chair with no acute distress Currently off oxygen supplement and saturating well on room air Denies any chest pain, palpitation, dizziness and SOB Review of Systems Review of Systems: All systems reviewed & are unremarkable except as noted in Subjective Physical Exam Physical Exam: General- No acute distress Head- atraumatic Eyes- PERRL, EOMI, ENT- oropharynx clear Neck- supple, no JVD Lungs- +diminished BS Heart- regular, no murmur Abdomen- normal bowel sounds, soft, nontender Extremities- no calf tenderness Neuro- alert, oriented x 3; PERRL, EOMI; no facial palsy; no dysarthria Skin- warm & dry Results & Data Results & Data ([facility]) Vital Signs (Past 12 Hours) Vital Signs Temp Pulse Resp BP Pulse Ox Pulse Ox 05/07/21 22:13 36.7 C 65 20 158/71 H 92 05/07/21 20:00 94 05/07/21 19:37 36.8 C 67 18 153/79 H 94 05/07/21 15:33 36.6 C 60 20 156/71 H 93 05/07/21 11:48 36.7 C 59 L 20 131/72 93 (1) Fall Encounter type: initial encounter Qualified Code(s): W19.XXXA - Unspecified fall, initial encounter
--- NOTE | 2021-05-08 06:20 | Electrocardiogram Report ---
Test Reason : Blood Pressure : / mmHG Vent. Rate : 128 BPM Atrial Rate : 128 BPM P-R Int : 178 ms QRS Dur : 128 ms QT Int : 340 ms P-R-T Axes : 000 -63 086 degrees QTc Int : 496 ms Sinus tachycardia Left bundle branch block Abnormal ECG When compared with ECG of 03-MAY-2021 11:08, Sinus rhythm has replaced Junctional rhythm Vent. rate has increased BY 77 BPM T wave amplitude has increased in Anterior leads Confirmed by Lawrence Fuentes ([id number]) on 05/08/2021 6:20:32 AM Referred By: REFERRED SELF Confirmed By:Lawrence Fuentes
[2021-05-08 08:25] LABS: Hematocrit (blood only) 32.1 % (37-47); Hemoglobin 10.5 g/dL (12.0-16.0); Mean Corpuscular Hemoglobin 30.5 pg (25-34); Mean Corpuscular Hgb Conc 32.7 g/dL (32-36); Mean Corpuscular Volume 93.3 fL (80-100); Mean Platelet Volume 10.4 fL (7.4-10.4); Platelet Count 265 K/uL (130-400); RDW Coefficient of Variation 13.8 % (11.5-14.5); Red Blood Count 3.44 M/uL (4.2-5.4); White Blood Count 9.31 K/uL (4.8-10.8)
[2021-05-08 08:45] LABS: BUN Creatinine Ratio 22.2 (10-20); Calcium 9.2 mg/dl (8.5-10.1); Creatinine Clr Calc Pharmacy 29.3 ml/min; Est GFR (African American) 30.1 ml/min; Potassium 3.6 mmol/L (3.5-5.1)
[2021-05-08] MEDS: INSULIN ASPART PER UNIT SC SCH ×4 (09:17→21:20)
[2021-05-08] MEDS: ASCORBIC ACID 500 MG TAB PO SCH (09:19)
[2021-05-08] MEDS: FERROUS SULFATE 325 MG TAB PO SCH (09:20)
[2021-05-08] MEDS: CALCITRIOL 0.25 MCG CAPSULE PO SCH (09:20)
[2021-05-08] MEDS: THIAMINE HCL 100 MG TAB PO SCH (09:20)
[2021-05-08] MEDS: METOPROLOL TARTRATE 25 MG TAB PO SCH ×2 (09:20→21:28)
[2021-05-08] MEDS: FOLIC ACID 1 MG TAB PO SCH (09:20)
[2021-05-08] MEDS: EZETIMIBE 10 MG TABLET PO SCH (09:20)
[2021-05-08] MEDS: CHOLECALCIFEROL 1,000 UNITS 25 MCG TAB PO SCH (09:20)
[2021-05-08] MEDS: ATORVASTATIN 40 MG TAB PO SCH (09:21)
[2021-05-08] MEDS: ASPIRIN 81 MG ECTAB PO SCH (09:21)
[2021-05-08] MEDS: buPROPion SR 100 MG TABCR PO SCH ×2 (09:21→21:26)
[2021-05-08] MEDS: PANTOprazole 40 MG TAB PO SCH (09:21)
[2021-05-08] MEDS: TORSEMIDE 10 MG TAB PO SCH (09:21)
[2021-05-08] MEDS: MULTIVITAMIN TAB PO SCH (09:21)
[2021-05-08] MEDS: hydrALAZINE TAB 50 MG TAB PO SCH ×2 (09:21→23:39)
[2021-05-08] MEDS: FLUTICASONE/VILANTEROL 100/25MCG 14 PUFFS/INHALER INH SCH (09:22)
[2021-05-08] MEDS: DOCUSATE SODIUM 100 MG CAP PO SCH (10:31)
[2021-05-08] MEDS: LIDOCAINE 5% 1 PATCH TD SCH (10:56)
[2021-05-08] MEDS: amLODIPine BESYLATE 5 MG TAB PO SCH (10:56)
--- NOTE | 2021-05-08 17:07 | Cardiology Progress Note ---
Date of Service May 08, 2021 Assessment & Plan (1) PAF (paroxysmal atrial fibrillation): Plan: s/p fall, prolonged time on the floor Transient junctional rhythm pAF - Continue metoprolol. No anticoagulation for now given brief run of AF in setting of fall, rib fractures. Outpatient Zio monitor to reassess for bradycardia and recurrent AF. Admission and Anticipated Discharge Date Admission Date: May 04, 2021 Subjective Pt seen in follow up. Denies chest discomfort. Telemetry reveals SR in the 60s. Physical Exam Constitutional: + obese Respiratory: normal respiratory effort, lungs clear to auscultation Cardiovascular: RRR, no murmur, no edema Neurologic: PERRL, EOMI, accommodation nl, no face palsy, no dysarthria Results & Data ([facility]) Vital Signs (Past 12 Hours) Vital Signs Temp Pulse Pulse Resp BP BP Pulse Ox 05/08/21 15:15 36.9 C 61 16 115/71 95 05/08/21 11:30 36.9 C 62 16 132/73 95 05/08/21 07:41 36.8 C 66 18 165/74 H 91 05/08/21 06:20 65
--- NOTE | 2021-05-08 21:20 | Hospitalist Progress Note ---
Date of Service May 08, 2021 Assessment & Plan (1) Fall: (2) Traumatic fracture of ribs of right side with pneumothorax: Plan: This is a 76yo F with a PMH of chronic diastolic heart failure, type 2 diabetes, CKD IV, COPD, hypertension, alcohol use, mood disorder, ROXY on CPAP and other medical problems listed below who presents after fall and was found to have mildly displaced fractures of R 9th and 10th ribs. Fell overnight and remained on floor for 6+ hours Chest CT with mildly displaced fractures of the right ninth and 10th ribs posterior laterally with subcutaneous emphysema present. No evidence for adjacent lung contusion or pneumothorax No evidence of other acute changes on head CT, cervical spine CT or CT abd/pelvis Pain control, ice, fall precautions Complains to have chest pain with deep inspiration Has been given incentive spirometry to try Can have CPAP place Continue spirometry to improve lung function and prevent atelectasis Currently saturating well on room air Continue monitor Fall Ambulatory dysfunction CT showed right 9th and 10th posterior ribs fracture PT/OT on board that recommended inpatient rehab Pt does not want to go to rehab Not safe to go home due to risk of fall and fracture Waiting for placement to rehab Tachycardia telemonitor showed possible atrial flutter yesterday EKG showed sinus tachy Case discussed with cardio that recommended to continue metoprolol 25 mg twice daily Continue monitor closely Junctional bradycardia Noted to have junctional rhythm on monitor and the EKG is confirmatory Not on any beta-frannie and does not have any electrolyte abnormality Appreciate cardiology input and recommendation Likely going to have an EP cardiology evaluation Remained in sinus rhythm and does not require any pacemaker as per the osteologist Will have Zio patch on discharge Jay Jay need outpatient follow up with cardio (3) Elevated CK: Plan: CK 364 in setting of prolonged fall. Does not meet criteria for rhabdo. Renal function at baseline. Continue IV fluids Remains mildly elevated at 400 (4) CKD (chronic kidney disease), stage IV: Plan: Renal function at baseline with Cr ~2 (baseline low-mid 2s) Monitor renal function, avoid nephrotoxic agents when able Creatinine has been improving and it is 1.5 today (5) HTN (hypertension): Plan: Missed AM medications. Give PM dose of hydralazine Continue amlodipine, hydralazine Continue monitor BP (6) DM type 2 (diabetes mellitus, type 2): Plan: A1c 6.9 in Jan 2021. Repeat a1c in AM -6.4 Hold home agents SSI while in-patient BSG AC HS (7) Chronic diastolic CHF (congestive heart failure): Plan: to continue torsemide No evidence of fluid overload (8) Depression: Plan: Continue buproprion (9) Alcohol use: Plan: Significant use in past, will add PRN Ativan with at risk precautions Continue home folic acid and thiamine (10) ROXY on CPAP: Plan: CPAP HS Continue CPAP (11) Pulmonary nodule: Plan: CT chest with incidental 10 mm noncalcified right lower lobe pulmonary nodule. Follow-up CT in 3 months is recommended for further evaluation Will have outpatient follow-up with CT in 3 months DVT Ppx: SCDs for now Code status: DNR per discussion with patient PCP: Kathy Dispo: PT/OT-recommended rehab Admission and Anticipated Discharge Date Admission Date: May 04, 2021 Subjective Patient was seen and examined for follow-up of rib fracture due to fall and tachycardia Sitting in chair with no acute distress Currently off oxygen supplement and saturating well on room air Denies any chest pain, palpitation, dizziness and SOB Review of Systems Review of Systems: All systems reviewed & are unremarkable except as noted in Subjective Physical Exam Physical Exam: General- No acute distress Head- atraumatic Eyes- PERRL, EOMI, ENT- oropharynx clear Neck- supple, no JVD Lungs- +diminished BS Heart- regular, no murmur Abdomen- normal bowel sounds, soft, nontender Extremities- no calf tenderness Neuro- alert, oriented x 3; PERRL, EOMI; no facial palsy; no dysarthria Skin- warm & dry Results & Data Results & Data ([facility]) Vital Signs (Past 12 Hours) Vital Signs Temp Pulse Pulse Pulse Resp BP Pulse Ox 05/08/21 19:22 36.4 C L 65 20 120/73 95 05/08/21 18:41 59 L 05/08/21 15:15 36.9 C 61 16 115/71 95 05/08/21 11:30 36.9 C 62 16 132/73 95 (1) Fall Encounter type: initial encounter Qualified Code(s): W19.XXXA - Unspecified fall, initial encounter
[2021-05-08] MEDS: MONTELUKAST SODIUM 10 MG TABLET PO SCH (21:26)
[2021-05-09] MEDS: HYDROmorphone INJ 0.5 MG/0.5 ML SYR IV PRN ×2 (01:17→23:00)
[2021-05-09 08:15] LABS: BUN Creatinine Ratio 24.9 (10-20); Calcium 8.6 mg/dl (8.5-10.1); Creatinine Clr Calc Pharmacy 29.1 ml/min; Est GFR (African American) 30.1 ml/min; Potassium 3.5 mmol/L (3.5-5.1)
[2021-05-09] MEDS: buPROPion SR 100 MG TABCR PO SCH ×2 (08:50→20:48)
[2021-05-09] MEDS: TORSEMIDE 10 MG TAB PO SCH (08:50)
[2021-05-09] MEDS: hydrALAZINE TAB 50 MG TAB PO SCH ×2 (08:50→21:05)
[2021-05-09] MEDS: ATORVASTATIN 40 MG TAB PO SCH (08:51)
[2021-05-09] MEDS: PANTOprazole 40 MG TAB PO SCH (08:51)
[2021-05-09] MEDS: amLODIPine BESYLATE 5 MG TAB PO SCH (08:51)
[2021-05-09] MEDS: METOPROLOL TARTRATE 25 MG TAB PO SCH ×2 (08:51→20:49)
[2021-05-09] MEDS: CHOLECALCIFEROL 1,000 UNITS 25 MCG TAB PO SCH (08:51)
[2021-05-09] MEDS: CALCITRIOL 0.25 MCG CAPSULE PO SCH (08:52)
[2021-05-09] MEDS: FERROUS SULFATE 325 MG TAB PO SCH (08:52)
[2021-05-09] MEDS: ASCORBIC ACID 500 MG TAB PO SCH (08:52)
[2021-05-09] MEDS: ASPIRIN 81 MG ECTAB PO SCH (08:52)
[2021-05-09] MEDS: FOLIC ACID 1 MG TAB PO SCH (08:52)
[2021-05-09] MEDS: EZETIMIBE 10 MG TABLET PO SCH (08:53)
[2021-05-09] MEDS: THIAMINE HCL 100 MG TAB PO SCH (08:53)
[2021-05-09] MEDS: FLUTICASONE/VILANTEROL 100/25MCG 14 PUFFS/INHALER INH SCH (08:53)
[2021-05-09] MEDS: MULTIVITAMIN TAB PO SCH (08:53)
[2021-05-09] MEDS: DOCUSATE SODIUM 100 MG CAP PO SCH (08:54)
[2021-05-09] MEDS: INSULIN ASPART PER UNIT SC SCH ×4 (09:02→20:47)
[2021-05-09] MEDS: LIDOCAINE 5% 1 PATCH TD SCH (12:28)
--- NOTE | 2021-05-09 19:47 | Hospitalist Progress Note ---
Date of Service May 09, 2021 Assessment & Plan (1) Fall: (2) Traumatic fracture of ribs of right side with pneumothorax: Plan: This is a 76yo F with a PMH of chronic diastolic heart failure, type 2 diabetes, CKD IV, COPD, hypertension, alcohol use, mood disorder, ROXY on CPAP and other medical problems listed below who presents after fall and was found to have mildly displaced fractures of R 9th and 10th ribs. Fell overnight and remained on floor for 6+ hours Chest CT with mildly displaced fractures of the right ninth and 10th ribs posterior laterally with subcutaneous emphysema present. No evidence for adjacent lung contusion or pneumothorax No evidence of other acute changes on head CT, cervical spine CT or CT abd/pelvis Pain control, ice, fall precautions Complains to have chest pain with deep inspiration Continue CPAP Continue spirometry to improve lung function and prevent atelectasis Currently saturating well on room air Continue monitor Fall Ambulatory dysfunction CT showed right 9th and 10th posterior ribs fracture PT/OT on board that recommended inpatient rehab Pt does not want to go to rehab Not safe to go home due to risk of fall and fracture Waiting for placement to rehab Tachycardia telemonitor showed possible atrial flutter yesterday EKG showed sinus tachy Case discussed with cardio that recommended to continue metoprolol 25 mg twice daily Continue monitor closely Resolved Junctional bradycardia Noted to have junctional rhythm on monitor and the EKG is confirmatory Not on any beta-frannie and does not have any electrolyte abnormality Appreciate cardiology input and recommendation Likely going to have an EP cardiology evaluation Remained in sinus rhythm and does not require any pacemaker as per the surveillance director Will have Zio patch on discharge Will need outpatient follow up with cardio (3) Elevated CK: Plan: CK 364 in setting of prolonged fall. Does not meet criteria for rhabdo. Renal function at baseline. Continue IV fluids Remains mildly elevated at 400 (4) CKD (chronic kidney disease), stage IV: Plan: Renal function at baseline with Cr ~2 (baseline low-mid 2s) Monitor renal function, avoid nephrotoxic agents when able Creatinine 1.85 today (5) HTN (hypertension): Plan: Missed AM medications. Give PM dose of hydralazine Continue amlodipine, hydralazine Continue monitor BP (6) DM type 2 (diabetes mellitus, type 2): Plan: A1c 6.9 in Jan 2021. Repeat a1c in AM -6.4 Hold home agents SSI while in-patient BSG AC HS (7) Chronic diastolic CHF (congestive heart failure): Plan: to continue torsemide No evidence of fluid overload (8) Depression: Plan: Continue buproprion (9) Alcohol use: Plan: Significant use in past, will add PRN Ativan with at risk precautions Continue home folic acid and thiamine (10) ROXY on CPAP: Plan: CPAP HS Continue CPAP (11) Pulmonary nodule: Plan: CT chest with incidental 10 mm noncalcified right lower lobe pulmonary nodule. Follow-up CT in 3 months is recommended for further evaluation Will have outpatient follow-up with CT in 3 months DVT Ppx: SCDs for now Code status: DNR per discussion with patient PCP: Kathy Dispo: PT/OT-recommended rehab Waiting for placement to rehab Admission and Anticipated Discharge Date Admission Date: May 04, 2021 Subjective Patient was seen and examined for follow-up of rib fracture due to fall and tachycardia Sitting in chair with no acute distress Saturated well on RA Denies any chest pain, palpitation, dizziness and SOB Review of Systems Review of Systems: All systems reviewed & are unremarkable except as noted in Subjective Physical Exam Physical Exam: General- No acute distress Head- atraumatic Eyes- PERRL, EOMI, ENT- oropharynx clear Neck- supple, no JVD Lungs- +diminished BS Heart- regular, no murmur Abdomen- normal bowel sounds, soft, nontender Extremities- no calf tenderness Neuro- alert, oriented x 3; PERRL, EOMI; no facial palsy; no dysarthria Skin- warm & dry Results & Data Results & Data ([facility]) Vital Signs (Past 12 Hours) Vital Signs Temp Pulse Pulse Resp BP BP Pulse Ox 05/09/21 19:15 37.1 C 61 132/75 95 05/09/21 16:45 36.8 C 58 L 18 117/74 93 05/09/21 15:00 59 L 05/09/21 10:58 36.8 C 59 L 18 137/73 95 05/09/21 07:52 36.6 C 60 16 139/66 94 (1) Fall Encounter type: initial encounter Qualified Code(s): W19.XXXA - Unspecified fall, initial encounter
[2021-05-09] MEDS: MONTELUKAST SODIUM 10 MG TABLET PO SCH (20:50)
[2021-05-10 06:30] LABS: Calcium 8.7 mg/dl (8.5-10.1); Creatinine Clr Calc Pharmacy 27.2 ml/min; Est GFR (African American) 27.4 ml/min; Est GFR (Non-African American) 23.7 ml/min; Potassium 3.8 mmol/L (3.5-5.1)
[2021-05-10] MEDS: amLODIPine BESYLATE 5 MG TAB PO SCH (07:45)
[2021-05-10] MEDS: CHOLECALCIFEROL 1,000 UNITS 25 MCG TAB PO SCH (07:45)
[2021-05-10] MEDS: THIAMINE HCL 100 MG TAB PO SCH (07:45)
[2021-05-10] MEDS: PANTOprazole 40 MG TAB PO SCH (07:46)
[2021-05-10] MEDS: ASCORBIC ACID 500 MG TAB PO SCH (07:46)
[2021-05-10] MEDS: METOPROLOL TARTRATE 25 MG TAB PO SCH ×2 (07:47→20:07)
[2021-05-10] MEDS: ATORVASTATIN 40 MG TAB PO SCH (07:48)
[2021-05-10] MEDS: TORSEMIDE 10 MG TAB PO SCH (07:48)
[2021-05-10] MEDS: FERROUS SULFATE 325 MG TAB PO SCH (07:48)
[2021-05-10] MEDS: EZETIMIBE 10 MG TABLET PO SCH (07:48)
[2021-05-10] MEDS: CALCITRIOL 0.25 MCG CAPSULE PO SCH (07:48)
[2021-05-10] MEDS: FOLIC ACID 1 MG TAB PO SCH (07:49)
[2021-05-10] MEDS: ASPIRIN 81 MG ECTAB PO SCH (07:49)
[2021-05-10] MEDS: MULTIVITAMIN TAB PO SCH (07:49)
[2021-05-10] MEDS: buPROPion SR 100 MG TABCR PO SCH ×2 (07:50→20:07)
[2021-05-10] MEDS: hydrALAZINE TAB 50 MG TAB PO SCH ×2 (07:50→20:06)
[2021-05-10] MEDS: FLUTICASONE/VILANTEROL 100/25MCG 14 PUFFS/INHALER INH SCH (07:51)
[2021-05-10] MEDS: LIDOCAINE 5% 1 PATCH TD SCH (07:51)
[2021-05-10] MEDS: DOCUSATE SODIUM 100 MG CAP PO SCH (07:55)
[2021-05-10] MEDS: INSULIN ASPART PER UNIT SC SCH ×4 (08:03→21:02)
[2021-05-10] MEDS: MONTELUKAST SODIUM 10 MG TABLET PO SCH (20:08)
--- NOTE | 2021-05-10 22:55 | Hospitalist Progress Note ---
Date of Service May 10, 2021 Assessment & Plan (1) Fall: (2) Traumatic fracture of ribs of right side with pneumothorax: Plan: This is a 76yo F with a PMH of chronic diastolic heart failure, type 2 diabetes, CKD IV, COPD, hypertension, alcohol use, mood disorder, ROXY on CPAP and other medical problems listed below who presents after fall and was found to have mildly displaced fractures of R 9th and 10th ribs. Fell overnight and remained on floor for 6+ hours Chest CT with mildly displaced fractures of the right ninth and 10th ribs posterior laterally with subcutaneous emphysema present. No evidence for adjacent lung contusion or pneumothorax No evidence of other acute changes on head CT, cervical spine CT or CT abd/pelvis Pain control, ice, fall precautions Complains to have chest pain with deep inspiration Continue CPAP Continue spirometry to improve lung function and prevent atelectasis Currently saturating well on room air Continue monitor Fall Ambulatory dysfunction CT showed right 9th and 10th posterior ribs fracture PT/OT on board that recommended inpatient rehab Pt does not want to go to rehab Not safe to go home due to risk of fall and fracture Waiting for placement to rehab Tachycardia telemonitor showed possible atrial flutter yesterday EKG showed sinus tachy Case discussed with cardio that recommended to continue metoprolol 25 mg twice daily Continue monitor closely Resolved Junctional bradycardia Noted to have junctional rhythm on monitor and the EKG is confirmatory Not on any beta-frannie and does not have any electrolyte abnormality Appreciate cardiology input and recommendation Likely going to have an EP cardiology evaluation Remained in sinus rhythm and does not require any pacemaker as per the staff registered nurse Will have Zio patch on discharge Will need outpatient follow up with cardio (3) Elevated CK: Plan: CK 364 in setting of prolonged fall. Does not meet criteria for rhabdo. Renal function at baseline. Continue IV fluids CPK normal (4) CKD (chronic kidney disease), stage IV: Plan: Renal function at baseline with Cr ~2 (baseline low-mid 2s) Monitor renal function, avoid nephrotoxic agents when able Creatinine 2.0 today Will hold Torsemide Will monitor BMP (5) HTN (hypertension): Plan: Missed AM medications. Give PM dose of hydralazine Continue amlodipine, hydralazine Continue monitor BP (6) DM type 2 (diabetes mellitus, type 2): Plan: A1c 6.9 in Jan 2021. Repeat a1c in AM -6.4 Hold home agents SSI while in-patient BSG AC HS (7) Chronic diastolic CHF (congestive heart failure): Plan: to continue torsemide No evidence of fluid overload (8) Depression: Plan: Continue buproprion (9) Alcohol use: Plan: Significant use in past, will add PRN Ativan with at risk precautions Continue home folic acid and thiamine (10) ROXY on CPAP: Plan: CPAP HS Continue CPAP (11) Pulmonary nodule: Plan: CT chest with incidental 10 mm noncalcified right lower lobe pulmonary nodule. Follow-up CT in 3 months is recommended for further evaluation Will have outpatient follow-up with CT in 3 months DVT Ppx: SCDs for now Code status: DNR per discussion with patient PCP: Kathy Dispo: PT/OT-recommended rehab Waiting for placement to rehab Admission and Anticipated Discharge Date Admission Date: May 04, 2021 Subjective Patient was seen and examined for follow-up of rib fracture due to fall and tachycardia Sitting in chair with no acute distress Saturated well on RA Denies any chest pain, palpitation, dizziness and SOB Review of Systems Review of Systems: All systems reviewed & are unremarkable except as noted in Subjective Physical Exam Physical Exam: General- No acute distress Head- atraumatic Eyes- PERRL, EOMI, ENT- oropharynx clear Neck- supple, no JVD Lungs- +diminished BS Heart- regular, no murmur Abdomen- normal bowel sounds, soft, nontender Extremities- no calf tenderness Neuro- alert, oriented x 3; PERRL, EOMI; no facial palsy; no dysarthria Skin- warm & dry Results & Data Results & Data ([facility]) Vital Signs (Past 12 Hours) Vital Signs Temp Pulse Pulse Pulse Resp BP BP 05/10/21 20:36 36.6 C 66 18 163/74 H 05/10/21 16:30 62 05/10/21 15:30 37.1 C 60 18 125/77 05/10/21 11:47 36.7 C 61 18 136/82 Pulse Ox 05/10/21 20:36 94 05/10/21 16:30 05/10/21 15:30 92 05/10/21 11:47 95 (1) Fall Encounter type: initial encounter Qualified Code(s): W19.XXXA - Unspecified fall, initial encounter
[2021-05-11] MEDS: oxyCODONE/ACETAMINOPHEN 5mg/325mg TAB PO PRN (00:01)
[2021-05-11] MEDS ORDERED: MELATONIN 3 MG TAB PO PRN (00:06)
[2021-05-11 07:38] LABS: BUN Creatinine Ratio 23.3 (10-20); Calcium 8.8 mg/dl (8.5-10.1); Creatinine Clr Calc Pharmacy 26.6 ml/min; Est GFR (African American) 27.1 ml/min; Est GFR (Non-African American) 23.4 ml/min; Potassium 3.7 mmol/L (3.5-5.1)
[2021-05-11] MEDS: FOLIC ACID 1 MG TAB PO SCH (08:54)
[2021-05-11] MEDS: EZETIMIBE 10 MG TABLET PO SCH (08:54)
[2021-05-11] MEDS: hydrALAZINE TAB 50 MG TAB PO SCH (08:54)
[2021-05-11] MEDS: CHOLECALCIFEROL 1,000 UNITS 25 MCG TAB PO SCH (08:54)
[2021-05-11] MEDS: ATORVASTATIN 40 MG TAB PO SCH (08:55)
[2021-05-11] MEDS: FERROUS SULFATE 325 MG TAB PO SCH (08:55)
[2021-05-11] MEDS: THIAMINE HCL 100 MG TAB PO SCH (08:55)
[2021-05-11] MEDS: amLODIPine BESYLATE 5 MG TAB PO SCH (08:55)
[2021-05-11] MEDS: MULTIVITAMIN TAB PO SCH (08:55)
[2021-05-11] MEDS: ASPIRIN 81 MG ECTAB PO SCH (08:55)
[2021-05-11] MEDS: PANTOprazole 40 MG TAB PO SCH (08:55)
[2021-05-11] MEDS: ASCORBIC ACID 500 MG TAB PO SCH (08:57)
[2021-05-11] MEDS: CALCITRIOL 0.25 MCG CAPSULE PO SCH (08:57)
[2021-05-11] MEDS: METOPROLOL TARTRATE 25 MG TAB PO SCH (08:57)
[2021-05-11] MEDS: buPROPion SR 100 MG TABCR PO SCH (08:57)
[2021-05-11] MEDS: DOCUSATE SODIUM 100 MG CAP PO SCH (08:59)
[2021-05-11] MEDS: FLUTICASONE/VILANTEROL 100/25MCG 14 PUFFS/INHALER INH SCH (08:59)
[2021-05-11] MEDS: LIDOCAINE 5% 1 PATCH TD SCH (08:59)
[2021-05-11] MEDS: INSULIN ASPART PER UNIT SC SCH ×2 (09:07→11:52)
--- NOTE | 2021-05-19 08:07 | Discharge Summary ---
Date of Service May 11, 2021 Admission HPI Per Admitting Provider This is a 76yo F with a PMH of chronic diastolic heart failure, type 2 diabetes, CKD IV, COPD, hypertension, alcohol use, mood disorder, ROXY on CPAP and other medical problems listed below who presents after fall. She recalls drinking heavily last night to celebrate her birthday at a friend's house and when she got up to use the restroom during the night, she lost her balance and fell to the floor, hitting her right side on the toilet on her way down. Denies any preceding lightheadedness, CP or palpitations. Patient had been lying on the ground for over 6 hours and was unable to get up when she called for help. Pain is primarily over her ribs and is worse with deep inspiration or movement and made better with rest. Friends brought her into ED for further evaluation. Denies any headache and does not think she lost consciousness. No new focal weakness, lightheadedness, chest pain, shortness of breath, nausea, vomiting, abdominal pain, dysuria, diarrhea or constipation. Feels dehydrated. Admission Exam Per Admitting Provider GENERAL: Alert and oriented x3. NAD, on 2L. Morbidly obese HEENT: No pallor, no icterus. Pupils equal, round and reactive to light. Oral mucosa moist. NECK: No JVD, no neck masses. HEART: S1 and S2 heard. Regular rate and rhythm. No murmur, no gallop. RESPIRATORY SYSTEM: Normal AP diameter. No accessory muscle use. No wheezing, no crackles. ABDOMEN: Soft, bowel sounds present, nontender, no distention. CENTRAL NERVOUS SYSTEM: No facial droop. Speech is clear. Obeys simple comman ds. Moves extremities. EXTREMITIES: No edema, no erythema seen. Tenderness over right posterior lateral back. Principal Diagnosis Fall Traumatic fracture of ribs of right side with pneumothorax: Ambulatory dysfunction Tachycardia Junctional bradycardia Elevated CK: CKD (chronic kidney disease), stage IV: HTN (hypertension): DM type 2 (diabetes mellitus, type 2): Chronic diastolic CHF (congestive heart failure): Depression: Alcohol use: ROXY on CPAP: Pulmonary nodule: Discharge Exam General- No acute distress Head- atraumatic Eyes- PERRL, EOMI, ENT- oropharynx clear Neck- supple, no JVD Lungs- +diminished BS Heart- regular, no murmur Abdomen- normal bowel sounds, soft, nontender Extremities- no calf tenderness Neuro- alert, oriented x 3; PERRL, EOMI; no facial palsy; no dysarthria Skin- warm & dry Discharge Data Allergies Allergy/AdvReac Type Severity Reaction Status Date / Time levofloxacin [From Levaquin] Allergy Intermediate TORN TENDON Verified 05/02/21 15:30 DOREEN Inhibitors Allergy Mild coughing Verified 05/02/21 15:30 hydrochlorothiazide Allergy Rash Verified 05/02/21 15:29 Consultations 05/02/21 17:29 ED Decision to Admit Stat 05/03/21 11:53 Consult Cardiology Routine Ordered Studies 05/02/21 15:06 CT abd pelvis wo con Stat CT cervical spine wo con Stat CT chest diagnostic wo con Stat CT head/brain wo con Stat CT head/brain wo con CLINICAL HISTORY: fall, trauma . Pain COMPARISON STUDY: No previous studies for comparison. CT DOSE: TECHNIQUE: Standard CT of the Brain was performed without IV contrast. A dose lowering technique was utilized adhering to the principles of ALARA. FINDINGS: Extraaxial space: There is no evidence for subdural hematoma. There are no extra-axial fluid collections. Ventricles and cisterns: The ventricles are normal in size and configuration. There is no evidence for midline shift or mass effect. Parenchyma: There is no subarachnoid or intraparenchymal hemorrhage. There is no evidence for an acute infarct or cerebral edema. There is mild cerebral cortical atrophy and decreased attenuation in the periventricular white matter representing remote small vessel disease. There are no gross mass lesions. Osseous structures: There is no evidence for an acute fracture. The visualized paranasal sinuses are clear. The mastoid air cells are clear bilaterally. Soft tissues: There is no evidence for focal soft tissue swelling. IMPRESSION: No acute intracerebral pathology. Mild cerebral cortical atrophy and remote small vessel disease. ACT 112: Negative or not required by law. Electronically signed by: Vamshi Peña M.D. 05/02/2021 5:01 PM Dictated:05/02/211658 Transcribed: 05/02/211658 CT chest diagnostic wo con CLINICAL HISTORY: fall, trauma, right rib injury COMPARISON STUDY: No previous studies for comparison. CT DOSE: TECHNIQUE: Standard CT of the Chest was performed without IV contrast. A dose lowering technique was utilized adhering to the principles of ALARA. FINDINGS: Airway: The airway is clear. No endobronchial lesion is identified. Lungs: There is a 10 mm noncalcified pulmonary nodule within the right lower lobe in the deep costophrenic angle. The lungs are otherwise clear of acute alveolar opacities, air bronchograms or additional pulmonary nodules. Minimal scarring is seen within the right middle lobe and lingula. Pleura: There is no evidence for pleural effusion. There is no evidence for pneumothorax. Mediastinum: There is no evidence for pathologic adenopathy on these limited noncontrast images. The heart size is within normal limits. The thoracic aorta is within normal limits. There is no evidence for pericardial effusion. Upper abdomen: The adrenal glands are normal bilaterally. Osseous structures: There are fractures of the right ninth and 10th ribs posterior laterally which are displaced. There is no adjacent lung contusion. However, there is mild subcutaneous emphysema seen within the right chest wall site fractures. IMPRESSION: 1. Mildly displaced fractures of the right ninth and 10th ribs posterior laterally with subcutaneous emphysema present. However, there is no evidence for adjacent lung contusion or pneumothorax. 2. 10 mm noncalcified right lower lobe pulmonary nodule. Follow-up CT in 3 months is recommended for further evaluation. 3. There is no other evidence for acute chest disease on these noncontrast images. ACT 112: Positive. There are findings on this exam that require communication between the performing entity and the patient following Patient Test Result Information Act ([place] Act 112) guidelines. Electronically signed by: Vamshi Peña M.D. 05/02/2021 5:14 PM Dictated:05/02/211703 Transcribed: 05/02/211703 CT cervical spine wo con CLINICAL HISTORY: fall, trauma . Neck pain COMPARISON STUDY: No previous studies for comparison. CT DOSE: 3853.74 mGy.cm TECHNIQUE: Standard CT of the Cervical Spine was performed without IV contrast. A dose lowering technique was utilized adhering to the principles of ALARA. FINDINGS: Bones: Bones are osteopenic. There is straightening and slight reversal of expected cervical lordosis related to degenerative change. There is no evidence for an acute fracture or malalignment. The heights of the vertebral bodies are maintained. The vertebral bodies are in anatomic alignment. The odontoid is intact. Degenerative changes are seen at the atlantoaxial articulation. Disc spaces:Moderate to marked disc space narrowing is present from C2 through C7 with endplate sclerosis and osteophyte formation. Apophyseal joints:The apophyseal joints are intact bilaterally. Soft tissues:The prevertebral soft tissues are within normal limits. Extensive carotid artery calcifications present. IMPRESSION: Osteopenia with no acute osseous pathology. Degenerative disc and degenerative facet joint disease. Carotid artery calcification. ACT 112: Negative or not required by law. Electronically signed by: Vamshi Peña M.D. 05/02/2021 5:04 PM Dictated:05/02/211700 Transcribed: 05/02/211700 CT abd pelvis wo con CLINICAL HISTORY: right chest/abdominal trauma s/p fall COMPARISON STUDY: Chest CT from the same date. CT DOSE: TECHNIQUE: Standard CT of the Abdomen and Pelvis was performed without IV contrast. The patient did not receive oral contrast. A dose lowering technique was utilized adhering to the principles of ALARA. FINDINGS: Lung base: As seen on chest CT, there are mildly displaced fractures of the right ninth and 10th ribs posterolaterally. There is no evidence for lung contusion. Right lower lobe pulmonary nodule is again seen. This was described on chest CT. Abdominal cavity: There is no evidence for abdominal mass, adenopathy or ascites. There is no evidence for visceral injury. Liver: The liver is homogeneous in attenuation on these limited noncontrast images.. Spleen: The spleen is homogeneous in attenuation on these limited noncontrast images. Pancreas: The pancreas is homogeneous in attenuation on these limited noncontrast images. Gall Bladder: The gallbladder is well distended with no evidence for cholelithiasis, wall thickening or pericholecystic edema.. Adrenal glands: The adrenal glands are normal in size and attenuation on these limited noncontrast images. Kidneys: The kidneys are homogeneous in attenuation on these limited noncontrast images. There is no evidence for gross renal mass, calculus or hydronephrosis bilaterally. Bowel: There is a small to moderate size hiatal hernia. The bowel loops are normally placed within the abdomen and pelvis without evidence for dilatation or obstruction. There is no evidence for mass lesion. There is moderate fecal stasis without significant impaction or obstruction. There are no inflammatory changes present. There is no evidence for free air. There is a normal retrocecal appendix. Bladder: There is distention of the bladder with no evidence for focal bladder wall thickening, calculus or diverticulum. : There is no evidence for pelvic mass or adenopathy. There is calcified fibroid uterus. Vasculature: There is no evidence for focal aneurysmal dilatation of the abdominal aorta. Atherosclerotic calcification is present. Osseous structures: There is no acute osseous pathology. Degenerative changes are present involving the lumbar spine and both hips. IMPRESSION: 1. Mildly displaced fractures of the right ninth and 10th ribs are again seen is reported on chest CT. 2. No evidence for visceral injury within the abdomen. 3. Small to moderate size hiatal hernia. 4. Moderate fecal stasis without impaction or obstruction. 5. No other evidence for acute intra-abdominal or pelvic abnormality on these limited noncontrast images. 6. Additional nonacute findings are delineated above. ACT 112: Negative or not required by law. Electronically signed by: Vamshi Peña M.D. 05/02/2021 5:22 PM Dictated:05/02/211714 Transcribed: 05/02/211714 Hospital Course (1) Fall: (2) Traumatic fracture of ribs of right side with pneumothorax: This is a 76yo F with a PMH of chronic diastolic heart failure, type 2 diabetes, CKD IV, COPD, hypertension, alcohol use, mood disorder, ROXY on CPAP and other medical problems listed below who presents after fall and was found to have mildly displaced fractures of R 9th and 10th ribs. Fell overnight and remained on floor for 6+ hours Chest CT with mildly displaced fractures of the right ninth and 10th ribs posterior laterally with subcutaneous emphysema present. No evidence for adjacent lung contusion or pneumothorax No evidence of other acute changes on head CT, cervical spine CT or CT abd/pelvis Pain control, ice, fall precautions Complains to have chest pain with deep inspiration Continue CPAP Continue spirometry to improve lung function and prevent atelectasis Currently saturating well on room air Continue monitor Fall Ambulatory dysfunction CT showed right 9th and 10th posterior ribs fracture PT/OT on board that recommended inpatient rehab Pt does not want to go to rehab Not safe to go home due to risk of fall and fracture Waiting for placement to rehab Tachycardia telemonitor showed possible atrial flutter yesterday EKG showed sinus tachy Case discussed with cardio that recommended to continue metoprolol 25 mg twice daily Continue monitor closely Resolved Junctional bradycardia Noted to have junctional rhythm on monitor and the EKG is confirmatory Not on any beta-frannie and does not have any electrolyte abnormality Appreciate cardiology input and recommendation Likely going to have an EP cardiology evaluation Remained in sinus rhythm and does not require any pacemaker as per the drum printer Will have Zio patch on discharge Will need outpatient follow up with cardio (3) Elevated CK: CK 364 in setting of prolonged fall. Does not meet criteria for rhabdo. Renal function at baseline. Continue IV fluids CPK normal (4) CKD (chronic kidney disease), stage IV: Renal function at baseline with Cr ~2 (baseline low-mid 2s) Monitor renal function, avoid nephrotoxic agents when able Creatinine 2.0 today Will hold Torsemide Will monitor BMP (5) HTN (hypertension): Missed AM medications. Give PM dose of hydralazine Continue amlodipine, hydralazine Continue monitor BP (6) DM type 2 (diabetes mellitus, type 2): A1c 6.9 in Jan 2021. Repeat a1c in AM -6.4 Hold home agents SSI while in-patient BSG AC HS (7) Chronic diastolic CHF (congestive heart failure): to continue torsemide No evidence of fluid overload (8) Depression: Continue buproprion (9) Alcohol use: Significant use in past, will add PRN Ativan with at risk precautions Continue home folic acid and thiamine (10) ROXY on CPAP: CPAP HS Continue CPAP (11) Pulmonary nodule: CT chest with incidental 10 mm noncalcified right lower lobe pulmonary nodule. Follow-up CT in 3 months is recommended for further evaluation Will have outpatient follow-up with CT in 3 months DVT Ppx: SCDs for now Code status: DNR per discussion with patient PCP: Kathy Dispo: PT/OT-recommended rehab Waiting for placement to rehab Total Time Total Time Spent Total Time Spent (In Minutes): 35 minutes Discharge Plan Discharge Items Patient Disposition: Home - Home Health Services Reason For Visit: FALL, R RIB FRACTURES, RHABDO Discharge Diagnosis: Fall Traumatic fracture of ribs of right side with pneumothorax: Ambulatory dysfunction Tachycardia Junctional bradycardia Elevated CK: CKD (chronic kidney disease), stage IV: HTN (hypertension): DM type 2 (diabetes mellitus, type 2): Chronic diastolic CHF (congestive heart failure): Depression: Alcohol use: ROXY on CPAP: Pulmonary nodule: Activity: Resume your previous activity Non-emergency contact: Primary Care Provider Call non-emergency contact if: you have any medication questions Follow-up/Referrals: Liban Chavez MD [Primary Care Provider] - (Date & Time 05/17/2021 10:20 AM Provider Gisella Tomas MD Department General Internal Medicine [facility] ) Diet: Heart Healthy Addtl Attending Provider Instructions: Follow up with your primary care provider Dr. Tomas on 05/17/2021 @ 10:20 AM Follow up with cardiology outpatient (You will need to arrange for a Zio patch on discharge ) Continue physical and occupational therapy Please hold torsemide for 1 to 2 days, then resume Check BMP in 1 week to monitor your renal function Seek medical attention if symptoms worsening You have an incidental 10 mm noncalcified right lower lobe pulmonary nodule. You will need a follow-up CT in 3 months is recommended for further evaluation Fall precaution Please do not drive or operate any machine while taking narcotic Please hold next dose of narcotic if you become drowsy Continue incentive spirometry Ok to take Tylenol for the pain as needed Amlodipine increased to 10mg daily to manage your blood pressure. Continue monitor your blood pressure Pending Studies at Discharge: No Stand-Alone Forms: [facility], Smoking Cessation Medications and DC Order Prescriptions: New metoprolol tartrate 25 mg Tablet 25 mg PO BID 30 Days Qty: 60 RF: 0 amlodipine 10 mg tablet 10 mg PO DAILY Qty: 30 RF: 0 Continued omeprazole 20 mg Capsule,Delayed Release(Dr/Ec) 20 mg PO QAM RF: 0 montelukast [Singulair] 10 mg Tablet 10 mg PO HS RF: 0 calcitriol 0.25 mcg Capsule 0.25 mcg PO QAM RF: 0 cholecalciferol (vitamin D3) [Vitamin D3] 1,000 unit Capsule 1,000 unit PO QAM RF: 0 Vitron-C 65 mg iron- 125 mg Tablet,Delayed Release (Dr/Ec) 1 tab PO QAM RF: 0 Advair HFA 115-21 mcg/actuation HFA aerosol inhaler 2 puff INHALATION BID RF: 0 tizanidine 4 mg tablet 4 mg PO Q8 PRN (Reason: Muscle Spasm) RF: 0 hydralazine 100 mg tablet 100 mg PO BID RF: 0 ezetimibe 10 mg tablet 10 mg PO DAILY RF: 0 atorvastatin 80 mg tablet 80 mg PO DAILY RF: 0 torsemide 10 mg tablet 10 mg PO DAILY RF: 0 glimepiride 1 mg tablet 1 mg PO DAILY RF: 0 thiamine HCl (vitamin B1) 100 mg Tablet 100 mg PO DAILY RF: 0 docusate sodium 100 mg Capsule 100 mg PO DAILY RF: 0 folic acid 1 mg Tablet 1 mg PO DAILY RF: 0 multivitamin Tablet,Chewable 1 tab PO DAILY RF: 0 bupropion HCl 100 mg tablet sustained-release 12 hr 100 mg PO BID RF: 0 aspirin 81 mg Tablet 81 mg PO DAILY RF: 0 Discontinued amlodipine 5 mg tablet 5 mg PO DAILY RF: 0 Discharge Orders: Discharge Order (Routine); Ordered 05/11/21 Ordered By: Noemi Flores/Other Patient Handouts: Managing Type 2 Diabetes Admission Data Admit Date/Time: 05/04/21 09:18 Attending Provider: Noemi Ruiz Admit Provider: Fredrick Abarca Primary Care Provider: Liban Chavez Other Providers: Hansa Trevino ; [place] ; Marielena Marshall [facility] ; [facility] ; Fredrick Abarca ; Felipe You Other Interventions: Discharge Summary Assessment (RN) Last Done: 05/11/21 13:03
== END 2021-05-11 14:22 | disposition home health service (06) | DRG 200 ==
LOC: 2N 14:59 → ED 14:59 → SUATTDRO 18:03 → 2N 19:52 → SUATTDRO 05-04 09:18
DX: Y92.002 Bathroom of unspecified non-institutional (private) residence as the place of occurrence of the external cause; Z79.82 Long term (current) use of aspirin; Z79.84 Long term (current) use of oral hypoglycemic drugs; N18.4 Chronic kidney disease, stage 4 (severe); R91.1 Solitary pulmonary nodule; I13.10 Hypertensive heart and chronic kidney disease without heart failure, with stage 1 through stage 4 chronic kidney disease, or unspecified chronic kidney disease; F32.A Depression, unspecified; S27.0XXA Traumatic pneumothorax, initial encounter; R00.1 Bradycardia, unspecified; Z87.891 Personal history of nicotine dependence; Z88.8 Allergy status to other drugs, medicaments and biological substances; W01.198A Fall on same level from slipping, tripping and stumbling with subsequent striking against other object, initial encounter; I48.92 Unspecified atrial flutter; E11.22 Type 2 diabetes mellitus with diabetic chronic kidney disease; S22.41XA Multiple fractures of ribs, right side, initial encounter for closed fracture; E66.01 Morbid (severe) obesity due to excess calories; T79.7XXA Traumatic subcutaneous emphysema, initial encounter; G47.33 Obstructive sleep apnea (adult) (pediatric); Z79.899 Other long term (current) drug therapy

== ENCOUNTER 2025-02-07 15:59 | Observation (INO) ==
[2025-02-07 16:40] LABS: Hematocrit (blood only) 36.3 % (37.0-47.0); Hemoglobin 12.3 g/dL (12.0-16.0); Immature Granulocytes # (auto) 0.02 K/uL (0.01-0.20); Immature Granulocytes % (auto) 0.3 %; Mean Corpuscular Hemoglobin 33.3 pg (25.0-34.0); Mean Corpuscular Volume 98.4 fL (80.0-100.0); Platelet Count 191 K/uL (130-400); RDW Standard Deviation 50.8 fL (36.4-46.3); Red Blood Count 3.69 M/uL (4.20-5.40); White Blood Count 7.19 K/ul (4.8-10.8)
--- NOTE | 2025-02-07 16:41 | Emergency Department Note ---
Impression & Plan Hypertension, Dizziness, Pain in [facility] Provider Note Provider: Kyler Metzger MD CHIEF COMPLAINT: Hypertension, dizzy HISTORY OF PRESENT ILLNESS: Patient is a 79-year-old female past medical history of GERD, COPD, CKD presenting here today reporting that she woke up this morning was feeling somewhat dizzy. Took her blood pressure at home and it read high. States she does not normally take her blood pressure she difficulty taking and she lives alone. Denies any headache or chest pain or shortness of breath. Denies falling. States she did have a drink of alcohol last night and does drink a lot of diet soda but denies alcohol use today. Does report she saw her director of medicare approximately 2 weeks ago and started back on losartan. Has gained a little bit of weight and her blood pressure is headed up a little bit into the 160s at that visit. Patient states she talked with her son and given the blood pressure was reading high she had a little dizzy she came here for evaluation. Denies numbness or tingling or speech issues currently. PAST MEDICAL HISTORY: As noted above MEDICATIONS: Reviewed her medications at bedside with the patient including recent addition of losartan. SOCIAL HISTORY: Lives alone PHYSICAL EXAM: GENERAL: alert and oriented in no acute distress on stretcher Head: normocephalic and atraumatic EYES: No injection, discharge or icterus. EOMI. NECK: Trachea midline. Good range of motion ENT: Mucous membranes pink and moist. LUNGS: Airway patent. No retractions. Breath sounds clear HEART: Regular rate tachycardia and rhythm. No chest wall tenderness ABDOMEN: Soft and non-tender, without guarding or rebound. SKIN: Acyanotic, warm, dry, without rashes EXTREMITIES: Without swelling, tenderness or deformity NEUROLOGICAL: No focal deficits. No aphasia. No facial droop or slurred speech. Normal strength and tone in the extremities. Sensation to gross touch normal. Ambulatory. EK bpm sinus tachycardia occasional PVC. Left axis without acute ST segment elevation or depression and intraventricular conduction delay. QTc 450. CONTINUOUS CARDIAC MONITORING: was ordered and showed a heart rate of 80s to 120s bpm in sinus tachycardia normal sinus rhythm Patient's laboratory studies and imaging reviewed. Differential includes Benign hypertension, hypertensive emergency, cardiovascular pathology, toxicologic, pheochromocytoma, electrolyte abnormality, renal disease, endorgan damage, as well as other pathologies. IMPRESSION/MEDICAL DECISION MAKING: Patient denies shortness of breath or chest pain. Is hypertensive upon arrival. Recently added losartan at director of medicare. Is on torsemide and a small dose of amlodipine otherwise. No falls. No numbness or weakness. No speech issues. Will complete in the CT of the head given the hypertensive and dizziness but lower suspicion for CVA. In any event outside the window for thrombolytics and I doubt LVO. Troponin and EKG obtained. Is somewhat tachycardic upon arrival but quickly decreases into the 80s.. Not having other shortness of breath or chest pain concerning for PE or dissection at this time. Blood work here today without leukocytosis or anemia and denies any infectious symptoms. Electrolytes here without severe abnormality and a CKD of 1.4 not severely elevated. No concerning transaminitis. Troponin 18.9 just above normal but given her CKD likely chronic. No prior baseline established in the computer. Do not see evidence of heart failure and not having active chest pain. CT of the head without acute findings per radiology. Later relays to me on reassessment that she did fall several days ago while lifting a package and hurt her tailbone and it is a bit sore. She wonders if this could be contributing to her pain. Given a small amount of fentanyl. She has been using Tylenol at home. Will obtain pelvis x-ray but doubt significant fracture given her stability and ability ambulate currently. Will avoid NSAIDs given her renal dysfunction. Reassessed after pain medicine and pain improvement with still significant hypertensive. Family updated at bedside and discussed with the patient recommendation for hospitalization given her severe hypertension. Do not see obvious finding of fracture on pelvic x-ray on my review. Radiology report pending. She was initially in agreement and given some labetalol here. Hospitalist was consulted. DIAGNOSIS: Hypertension, dizziness, sacral pain DISPOSITION: Hospitalist will evaluate Patient was agreeable with this plan. Past Med/Surg History Problem List (Updated 02/07/25 @ 19:53 by Kyler Metzger M.D.) Pain in sacrum (Acute) Dizziness (Acute) Hypertension (Acute) DVT prophylaxis Restless leg syndrome (Chronic) History of tooth extraction (Chronic) GERD (gastroesophageal reflux disease) (Chronic) Osteoarthritis (Chronic) Status post trigger finger release (Chronic) History of cataract surgery (Chronic) RT/LEFT Anxiety (Chronic) COPD, severe (Chronic) Hyperparathyroidism, secondary renal (Chronic) Dyslipidemia (Chronic) Medical History Anxiety Chronic diastolic CHF (congestive heart failure) CKD (chronic kidney disease), stage IV COPD, severe Depression Diastolic dysfunction DM type 2 (diabetes mellitus, type 2) Dyslipidemia Gastrointestinal hemorrhage with melena GERD (gastroesophageal reflux disease) Hyperparathyroidism, secondary renal Hypertension ROXY on CPAP Osteoarthritis Restless leg syndrome Surgical History H/O shoulder surgery History of cataract surgery RT/LEFT History of tooth extraction Status post trigger finger release Family History Sister Colon cancer Mother Family history of diabetes mellitus Social History Smoking Status: Never smoker Second Hand Exposure: No; Do You Dip or Chew Tobacco: No; Hx Alcohol Use: Yes Alcohol type: wine and hard liquor Alcohol Intake Frequency: 2-3 x/Week Alcohol Intake Frequency Comment: wine Hx Substance Use: No Preferred Language: [place] Communication Ability: Effective Director Packaging Required: No Beliefs That Will Affect Care: None marital status: Single Current Living Situation: Alone current occupational status: retired How many Children do You have: 1 Feels Safe at Home: Yes Assistive Devices: Glasses Allergies Allergies Allergy/AdvReac Type Severity Reaction Status Date / Time levofloxacin [From Levaquin] Allergy Intermediate TORN TENDON Verified 05/02/21 15:30 DOREEN Inhibitors Allergy Mild coughing Verified 05/02/21 15:30 hydrochlorothiazide Allergy Rash Verified 05/02/21 15:29 Home Meds Home Medications Medication Instructions Recorded Confirmed cholecalciferol (vitamin D3) 25 1,000 unit PO QAM 05/21/18 02/07/25 mcg (1,000 unit) capsule (Vitamin D3) iron,carbonyl 65 mg-vitamin C 125 1 tab PO QAM 05/21/18 02/07/25 mg tablet,delayed release (Vitron-C) montelukast 10 mg tablet 10 mg PO QAM 05/21/18 02/07/25 (Singulair) omeprazole 20 mg capsule,delayed 20 mg PO DAILYBB 05/21/18 02/07/25 release aspirin 81 mg tablet 81 mg PO AMHS 05/02/21 02/07/25 atorvastatin 80 mg tablet 80 mg PO QAM 05/02/21 02/07/25 ezetimibe 10 mg tablet 10 mg PO QAM 05/02/21 02/07/25 fluticasone propionate 115 2 puff inhalation AMHS 05/02/21 02/07/25 mcg-salmeterol 21 mcg/actuation HFA inhaler (Advair HFA) folic acid 1 mg tablet 1 mg PO QAM 05/02/21 02/07/25 thiamine HCl (vitamin B1) 100 mg 100 mg PO QAM 05/02/21 02/07/25 tablet acetaminophen 500 mg tablet 1,000 mg PO AMPM 02/07/25 02/07/25 albuterol sulfate 90 mcg/actuation 2 puff inhalation Q4 PRN 02/07/25 02/07/25 aerosol inhaler wheezing,SOB,cough amlodipine 2.5 mg tablet 2.5 mg PO QAM 02/07/25 02/07/25 losartan 50 mg tablet 50 mg PO QAM 02/07/25 02/07/25 multivitamin 1 tab PO UD 02/07/25 02/07/25 paroxetine HCl 40 mg tablet 40 mg PO QAM 02/07/25 02/07/25 semaglutide 0.25 mg or 0.5 mg (2 0.5 mg subcut WK 02/07/25 02/07/25 mg/3 mL) subcutaneous pen injector (Ozempic) torsemide 10 mg tablet 10 mg PO QAM 02/07/25 02/07/25 Results & Data (ED) Vital Signs Vital Signs - 24 hr 02/07/25 16:00 02/07/25 16:01 02/07/25 16:10 Temperature 37.2 C Temperature Source Temporal Artery Scan Pulse Rate 121 H 110 H Pulse Rate [Right Finger] 110 H Pulse Rate from SpO2 Sensor Respiratory Rate 18 18 18 Respiratory Effort / Characteristics Non-Labored Spontaneous Respiratory Depth Normal Respiratory Pattern Regular Blood Pressure 210/120 H Blood Pressure [Right Arm] 189/115 H Blood Pressure Mean 150 Blood Pressure Mean [Right Arm] 139 Pulse Oximetry 98 94 97 Oxygen Delivery Method Room Air Room Air Room Air Sepsis Recent Fever Within 48 Hours No Sepsis New/Unexplained Change in Mental Status N/A Sepsis Action Taken by Nursing No Action Required 02/07/25 16:37 02/07/25 16:45 02/07/25 16:45 Temperature Temperature Source Pulse Rate 112 H Pulse Rate [Right Finger] Pulse Rate from SpO2 Sensor Respiratory Rate Respiratory Effort / Characteristics Respiratory Depth Respiratory Pattern Blood Pressure 181/108 H 181/108 H Blood Pressure [Right Arm] Blood Pressure Mean 126 126 Blood Pressure Mean [Right Arm] Pulse Oximetry Oxygen Delivery Method Sepsis Recent Fever Within 48 Hours Sepsis New/Unexplained Change in Mental Status Sepsis Action Taken by Nursing 02/07/25 16:45 02/07/25 16:45 02/07/25 16:45 Temperature Temperature Source Pulse Rate 83 Pulse Rate [Right Finger] Pulse Rate from SpO2 Sensor 84 Respiratory Rate 19 Respiratory Effort / Characteristics Respiratory Depth Respiratory Pattern Blood Pressure 181/108 H 181/108 H Blood Pressure [Right Arm] Blood Pressure Mean 126 126 Blood Pressure Mean [Right Arm] Pulse Oximetry 92 Oxygen Delivery Method Sepsis Recent Fever Within 48 Hours Sepsis New/Unexplained Change in Mental Status Sepsis Action Taken by Nursing 02/07/25 16:51 02/07/25 17:00 02/07/25 17:01 Temperature Temperature Source Pulse Rate 110 H 112 H Pulse Rate [Right Finger] Pulse Rate from SpO2 Sensor 111 H Respiratory Rate 24 22 Respiratory Effort / Characteristics Respiratory Depth Respiratory Pattern Blood Pressure 198/168 H Blood Pressure [Right Arm] Blood Pressure Mean 176 Blood Pressure Mean [Right Arm] Pulse Oximetry 94 Oxygen Delivery Method Sepsis Recent Fever Within 48 Hours Sepsis New/Unexplained Change in Mental Status Sepsis Action Taken by Nursing 02/07/25 17:01 02/07/25 17:01 02/07/25 17:01 Temperature Temperature Source Pulse Rate Pulse Rate [Right Finger] Pulse Rate from SpO2 Sensor Respiratory Rate Respiratory Effort / Characteristics Respiratory Depth Respiratory Pattern Blood Pressure 198/168 H 198/168 H 198/168 H Blood Pressure [Right Arm] Blood Pressure Mean 176 176 176 Blood Pressure Mean [Right Arm] Pulse Oximetry Oxygen Delivery Method Sepsis Recent Fever Within 48 Hours Sepsis New/Unexplained Change in Mental Status Sepsis Action Taken by Nursing 02/07/25 17:01 02/07/25 17:12 02/07/25 17:30 Temperature Temperature Source Pulse Rate 81 Pulse Rate [Right Finger] Pulse Rate from SpO2 Sensor Respiratory Rate 24 Respiratory Effort / Characteristics Respiratory Depth Respiratory Pattern Blood Pressure 198/168 H 187/113 H Blood Pressure [Right Arm] Blood Pressure Mean 176 130 Blood Pressure Mean [Right Arm] Pulse Oximetry Oxygen Delivery Method Sepsis Recent Fever Within 48 Hours Sepsis New/Unexplained Change in Mental Status Sepsis Action Taken by Nursing 02/07/25 17:30 02/07/25 17:30 02/07/25 17:30 Temperature Temperature Source Pulse Rate Pulse Rate [Right Finger] Pulse Rate from SpO2 Sensor Respiratory Rate Respiratory Effort / Characteristics Respiratory Depth Respiratory Pattern Blood Pressure 187/113 H 187/113 H 187/113 H Blood Pressure [Right Arm] Blood Pressure Mean 130 130 130 Blood Pressure Mean [Right Arm] Pulse Oximetry Oxygen Delivery Method Sepsis Recent Fever Within 48 Hours Sepsis New/Unexplained Change in Mental Status Sepsis Action Taken by Nursing 02/07/25 17:45 02/07/25 17:45 02/07/25 17:45 Temperature Temperature Source Pulse Rate Pulse Rate [Right Finger] Pulse Rate from SpO2 Sensor Respiratory Rate Respiratory Effort / Characteristics Respiratory Depth Respiratory Pattern Blood Pressure 194/126 H 194/126 H 194/126 H Blood Pressure [Right Arm] Blood Pressure Mean 137 137 137 Blood Pressure Mean [Right Arm] Pulse Oximetry Oxygen Delivery Method Sepsis Recent Fever Within 48 Hours Sepsis New/Unexplained Change in Mental Status Sepsis Action Taken by Nursing 02/07/25 17:45 02/07/25 18:00 02/07/25 18:00 Temperature Temperature Source Pulse Rate Pulse Rate [Right Finger] Pulse Rate from SpO2 Sensor Respiratory Rate Respiratory Effort / Characteristics Respiratory Depth Respiratory Pattern Blood Pressure 194/126 H 217/104 H 217/104 H Blood Pressure [Right Arm] Blood Pressure Mean 137 167 167 Blood Pressure Mean [Right Arm] Pulse Oximetry Oxygen Delivery Method Sepsis Recent Fever Within 48 Hours Sepsis New/Unexplained Change in Mental Status Sepsis Action Taken by Nursing 02/07/25 18:00 02/07/25 18:00 02/07/25 18:00 Temperature Temperature Source Pulse Rate Pulse Rate [Right Finger] Pulse Rate from SpO2 Sensor Respiratory Rate Respiratory Effort / Characteristics Respiratory Depth Respiratory Pattern Blood Pressure 217/104 H 217/104 H 217/104 H Blood Pressure [Right Arm] Blood Pressure Mean 167 167 167 Blood Pressure Mean [Right Arm] Pulse Oximetry Oxygen Delivery Method Sepsis Recent Fever Within 48 Hours Sepsis New/Unexplained Change in Mental Status Sepsis Action Taken by Nursing 02/07/25 18:07 02/07/25 18:07 02/07/25 18:07 Temperature Temperature Source Pulse Rate Pulse Rate [Right Finger] Pulse Rate from SpO2 Sensor Respiratory Rate Respiratory Effort / Characteristics Respiratory Depth Respiratory Pattern Blood Pressure 212/115 H 212/115 H 212/115 H Blood Pressure [Right Arm] Blood Pressure Mean 145 145 145 Blood Pressure Mean [Right Arm] Pulse Oximetry Oxygen Delivery Method Sepsis Recent Fever Within 48 Hours Sepsis New/Unexplained Change in Mental Status Sepsis Action Taken by Nursing 02/07/25 18:07 02/07/25 18:07 02/07/25 18:15 Temperature Temperature Source Pulse Rate Pulse Rate [Right Finger] Pulse Rate from SpO2 Sensor Respiratory Rate Respiratory Effort / Characteristics Respiratory Depth Respiratory Pattern Blood Pressure 212/115 H 212/115 H 186/118 H Blood Pressure [Right Arm] Blood Pressure Mean 145 145 148 Blood Pressure Mean [Right Arm] Pulse Oximetry Oxygen Delivery Method Sepsis Recent Fever Within 48 Hours Sepsis New/Unexplained Change in Mental Status Sepsis Action Taken by Nursing 02/07/25 18:15 02/07/25 18:15 02/07/25 18:15 Temperature Temperature Source Pulse Rate Pulse Rate [Right Finger] Pulse Rate from SpO2 Sensor Respiratory Rate Respiratory Effort / Characteristics Respiratory Depth Respiratory Pattern Blood Pressure 186/118 H 186/118 H 186/118 H Blood Pressure [Right Arm] Blood Pressure Mean 148 148 148 Blood Pressure Mean [Right Arm] Pulse Oximetry Oxygen Delivery Method Sepsis Recent Fever Within 48 Hours Sepsis New/Unexplained Change in Mental Status Sepsis Action Taken by Nursing 02/07/25 18:15 02/07/25 18:27 02/07/25 18:30 Temperature Temperature Source Pulse Rate Pulse Rate [Right Finger] Pulse Rate from SpO2 Sensor 76 Respiratory Rate Respiratory Effort / Characteristics Respiratory Depth Respiratory Pattern Blood Pressure 186/118 H 184/103 H Blood Pressure [Right Arm] Blood Pressure Mean 148 131 Blood Pressure Mean [Right Arm] Pulse Oximetry 96 Oxygen Delivery Method Sepsis Recent Fever Within 48 Hours Sepsis New/Unexplained Change in Mental Status Sepsis Action Taken by Nursing 02/07/25 18:30 02/07/25 18:30 02/07/25 18:30 Temperature Temperature Source Pulse Rate Pulse Rate [Right Finger] Pulse Rate from SpO2 Sensor Respiratory Rate Respiratory Effort / Characteristics Respiratory Depth Respiratory Pattern Blood Pressure 184/103 H 184/103 H 184/103 H Blood Pressure [Right Arm] Blood Pressure Mean 131 131 131 Blood Pressure Mean [Right Arm] Pulse Oximetry Oxygen Delivery Method Sepsis Recent Fever Within 48 Hours Sepsis New/Unexplained Change in Mental Status Sepsis Action Taken by Nursing 02/07/25 18:30 02/07/25 18:30 02/07/25 18:42 Temperature Temperature Source Pulse Rate Pulse Rate [Right Finger] Pulse Rate from SpO2 Sensor 76 74 Respiratory Rate Respiratory Effort / Characteristics Respiratory Depth Respiratory Pattern Blood Pressure 184/103 H Blood Pressure [Right Arm] Blood Pressure Mean 131 Blood Pressure Mean [Right Arm] Pulse Oximetry 96 95 Oxygen Delivery Method Sepsis Recent Fever Within 48 Hours Sepsis New/Unexplained Change in Mental Status Sepsis Action Taken by Nursing 02/07/25 18:45 02/07/25 18:45 02/07/25 18:45 Temperature Temperature Source Pulse Rate Pulse Rate [Right Finger] Pulse Rate from SpO2 Sensor Respiratory Rate Respiratory Effort / Characteristics Respiratory Depth Respiratory Pattern Blood Pressure 192/111 H 192/111 H 192/111 H Blood Pressure [Right Arm] Blood Pressure Mean 144 144 144 Blood Pressure Mean [Right Arm] Pulse Oximetry Oxygen Delivery Method Sepsis Recent Fever Within 48 Hours Sepsis New/Unexplained Change in Mental Status Sepsis Action Taken by Nursing 02/07/25 18:45 02/07/25 18:45 02/07/25 18:45 Temperature Temperature Source Pulse Rate Pulse Rate [Right Finger] Pulse Rate from SpO2 Sensor 74 Respiratory Rate Respiratory Effort / Characteristics Respiratory Depth Respiratory Pattern Blood Pressure 192/111 H 192/111 H Blood Pressure [Right Arm] Blood Pressure Mean 144 144 Blood Pressure Mean [Right Arm] Pulse Oximetry 95 Oxygen Delivery Method Sepsis Recent Fever Within 48 Hours Sepsis New/Unexplained Change in Mental Status Sepsis Action Taken by Nursing 02/07/25 18:51 02/07/25 19:00 02/07/25 19:00 Temperature Temperature Source Pulse Rate Pulse Rate [Right Finger] Pulse Rate from SpO2 Sensor 76 Respiratory Rate Respiratory Effort / Characteristics Respiratory Depth Respiratory Pattern Blood Pressure 199/106 H 199/106 H Blood Pressure [Right Arm] Blood Pressure Mean 156 156 Blood Pressure Mean [Right Arm] Pulse Oximetry 95 Oxygen Delivery Method Sepsis Recent Fever Within 48 Hours Sepsis New/Unexplained Change in Mental Status Sepsis Action Taken by Nursing 02/07/25 19:00 02/07/25 19:00 02/07/25 19:00 Temperature Temperature Source Pulse Rate Pulse Rate [Right Finger] Pulse Rate from SpO2 Sensor Respiratory Rate Respiratory Effort / Characteristics Respiratory Depth Respiratory Pattern Blood Pressure 199/106 H 199/106 H 192/111 H Blood Pressure [Right Arm] Blood Pressure Mean 156 156 144 Blood Pressure Mean [Right Arm] Pulse Oximetry Oxygen Delivery Method Sepsis Recent Fever Within 48 Hours Sepsis New/Unexplained Change in Mental Status Sepsis Action Taken by Nursing 02/07/25 19:15 02/07/25 19:16 02/07/25 19:16 Temperature Temperature Source Pulse Rate Pulse Rate [Right Finger] Pulse Rate from SpO2 Sensor 83 Respiratory Rate Respiratory Effort / Characteristics Respiratory Depth Respiratory Pattern Blood Pressure 195/110 H 195/110 H Blood Pressure [Right Arm] Blood Pressure Mean 157 157 Blood Pressure Mean [Right Arm] Pulse Oximetry 96 Oxygen Delivery Method Sepsis Recent Fever Within 48 Hours Sepsis New/Unexplained Change in Mental Status Sepsis Action Taken by Nursing 02/07/25 19:16 02/07/25 19:16 02/07/25 19:16 Temperature Temperature Source Pulse Rate Pulse Rate [Right Finger] Pulse Rate from SpO2 Sensor Respiratory Rate Respiratory Effort / Characteristics Respiratory Depth Respiratory Pattern Blood Pressure 195/110 H 195/110 H 195/110 H Blood Pressure [Right Arm] Blood Pressure Mean 157 157 157 Blood Pressure Mean [Right Arm] Pulse Oximetry Oxygen Delivery Method Sepsis Recent Fever Within 48 Hours Sepsis New/Unexplained Change in Mental Status Sepsis Action Taken by Nursing 02/07/25 19:21 02/07/25 19:30 02/07/25 19:31 Temperature Temperature Source Pulse Rate Pulse Rate [Right Finger] Pulse Rate from SpO2 Sensor 77 81 Respiratory Rate Respiratory Effort / Characteristics Respiratory Depth Respiratory Pattern Blood Pressure 210/114 H Blood Pressure [Right Arm] Blood Pressure Mean 121 Blood Pressure Mean [Right Arm] Pulse Oximetry 96 97 Oxygen Delivery Method Sepsis Recent Fever Within 48 Hours Sepsis New/Unexplained Change in Mental Status Sepsis Action Taken by Nursing 02/07/25 19:31 02/07/25 19:33 02/07/25 19:33 Temperature Temperature Source Pulse Rate Pulse Rate [Right Finger] Pulse Rate from SpO2 Sensor 80 Respiratory Rate Respiratory Effort / Characteristics Respiratory Depth Respiratory Pattern Blood Pressure 210/114 H 196/106 H Blood Pressure [Right Arm] Blood Pressure Mean 121 140 Blood Pressure Mean [Right Arm] Pulse Oximetry 97 Oxygen Delivery Method Sepsis Recent Fever Within 48 Hours Sepsis New/Unexplained Change in Mental Status Sepsis Action Taken by Nursing 02/07/25 19:33 02/07/25 19:33 02/07/25 19:33 Temperature Temperature Source Pulse Rate Pulse Rate [Right Finger] Pulse Rate from SpO2 Sensor Respiratory Rate Respiratory Effort / Characteristics Respiratory Depth Respiratory Pattern Blood Pressure 196/106 H 196/106 H 196/106 H Blood Pressure [Right Arm] Blood Pressure Mean 140 140 140 Blood Pressure Mean [Right Arm] Pulse Oximetry Oxygen Delivery Method Sepsis Recent Fever Within 48 Hours Sepsis New/Unexplained Change in Mental Status Sepsis Action Taken by Nursing 02/07/25 19:33 02/07/25 19:42 02/07/25 19:45 Temperature Temperature Source Pulse Rate Pulse Rate [Right Finger] Pulse Rate from SpO2 Sensor 77 Respiratory Rate Respiratory Effort / Characteristics Respiratory Depth Respiratory Pattern Blood Pressure 196/106 H 196/103 H Blood Pressure [Right Arm] Blood Pressure Mean 140 145 Blood Pressure Mean [Right Arm] Pulse Oximetry 97 Oxygen Delivery Method Sepsis Recent Fever Within 48 Hours Sepsis New/Unexplained Change in Mental Status Sepsis Action Taken by Nursing 02/07/25 19:45 02/07/25 19:45 02/07/25 19:45 Temperature Temperature Source Pulse Rate Pulse Rate [Right Finger] Pulse Rate from SpO2 Sensor Respiratory Rate Respiratory Effort / Characteristics Respiratory Depth Respiratory Pattern Blood Pressure 196/103 H 196/103 H 196/103 H Blood Pressure [Right Arm] Blood Pressure Mean 145 145 145 Blood Pressure Mean [Right Arm] Pulse Oximetry Oxygen Delivery Method Sepsis Recent Fever Within 48 Hours Sepsis New/Unexplained Change in Mental Status Sepsis Action Taken by Nursing 02/07/25 19:45 02/07/25 19:51 02/07/25 20:00 Temperature Temperature Source Pulse Rate Pulse Rate [Right Finger] Pulse Rate from SpO2 Sensor 76 77 Respiratory Rate Respiratory Effort / Characteristics Respiratory Depth Respiratory Pattern Blood Pressure 196/103 H Blood Pressure [Right Arm] Blood Pressure Mean 145 Blood Pressure Mean [Right Arm] Pulse Oximetry 96 95 Oxygen Delivery Method Sepsis Recent Fever Within 48 Hours Sepsis New/Unexplained Change in Mental Status Sepsis Action Taken by Nursing 02/07/25 20:00 02/07/25 20:00 02/07/25 20:00 Temperature Temperature Source Pulse Rate Pulse Rate [Right Finger] Pulse Rate from SpO2 Sensor Respiratory Rate Respiratory Effort / Characteristics Respiratory Depth Respiratory Pattern Blood Pressure 198/104 H 198/104 H 198/104 H Blood Pressure [Right Arm] Blood Pressure Mean 133 133 133 Blood Pressure Mean [Right Arm] Pulse Oximetry Oxygen Delivery Method Sepsis Recent Fever Within 48 Hours Sepsis New/Unexplained Change in Mental Status Sepsis Action Taken by Nursing 02/07/25 20:00 02/07/25 20:00 02/07/25 20:00 Temperature Temperature Source Pulse Rate Pulse Rate [Right Finger] Pulse Rate from SpO2 Sensor Respiratory Rate Respiratory Effort / Characteristics Respiratory Depth Respiratory Pattern Blood Pressure 198/104 H 198/104 H 198/104 H Blood Pressure [Right Arm] Blood Pressure Mean 133 133 133 Blood Pressure Mean [Right Arm] Pulse Oximetry Oxygen Delivery Method Sepsis Recent Fever Within 48 Hours Sepsis New/Unexplained Change in Mental Status Sepsis Action Taken by Nursing 02/07/25 20:01 02/07/25 20:06 02/07/25 20:30 Temperature Temperature Source Pulse Rate 79 Pulse Rate [Right Finger] Pulse Rate from SpO2 Sensor 69 Respiratory Rate Respiratory Effort / Characteristics Respiratory Depth Respiratory Pattern Blood Pressure 198/104 H 156/87 H Blood Pressure [Right Arm] Blood Pressure Mean 125 Blood Pressure Mean [Right Arm] Pulse Oximetry 96 Oxygen Delivery Method Sepsis Recent Fever Within 48 Hours Sepsis New/Unexplained Change in Mental Status Sepsis Action Taken by Nursing 02/07/25 20:30 02/07/25 20:30 02/07/25 20:30 Temperature Temperature Source Pulse Rate Pulse Rate [Right Finger] Pulse Rate from SpO2 Sensor Respiratory Rate Respiratory Effort / Characteristics Respiratory Depth Respiratory Pattern Blood Pressure 156/87 H 156/87 H 156/87 H Blood Pressure [Right Arm] Blood Pressure Mean 125 125 125 Blood Pressure Mean [Right Arm] Pulse Oximetry Oxygen Delivery Method Sepsis Recent Fever Within 48 Hours Sepsis New/Unexplained Change in Mental Status Sepsis Action Taken by Nursing 02/07/25 20:30 02/07/25 20:58 Temperature Temperature Source Pulse Rate 72 Pulse Rate [Right Finger] Pulse Rate from SpO2 Sensor Respiratory Rate Respiratory Effort / Characteristics Respiratory Depth Respiratory Pattern Blood Pressure 156/87 H Blood Pressure [Right Arm] Blood Pressure Mean 125 Blood Pressure Mean [Right Arm] Pulse Oximetry Oxygen Delivery Method Sepsis Recent Fever Within 48 Hours Sepsis New/Unexplained Change in Mental Status Sepsis Action Taken by Nursing Laboratory Data 02/07/25 16:26 02/07/25 16:26 Lab Results 02/07/25 Range/Units 16:26 WBC 7.19 (4.8-10.8) K/ul RBC 3.69 L (4.20-5.40) M/uL Hgb 12.3 (12.0-16.0) g/dL Hct 36.3 L (37.0-47.0) % MCV 98.4 (80.0-100.0) fL MCH 33.3 (25.0-34.0) pg MCHC 33.9 (32.0-36.0) g/dL RDW Std Deviation 50.8 H (36.4-46.3) fL RDW Coeff of Waqas 14.0 (11.5-14.5) % Plt Count 191 (130-400) K/uL MPV 10.4 (9.4-12.4) fL Immature Gran % (Auto) 0.3 % Neut % (Auto) 48.8 % Lymph % (Auto) 38.4 % Parmer % (Auto) 7.5 % Eos % (Auto) 4.3 % Baso % (Auto) 0.7 % Neut # (Auto) 3.51 (1.40-6.50) K/uL Lymph # (Auto) 2.76 (1.20-3.40) K/uL Parmer # (Auto) 0.54 (0.11-0.59) K/uL Eos # (Auto) 0.31 (0.00-0.50) K/uL Baso # (Auto) 0.05 (0.00-0.20) K/uL Immature Gran # (Auto) 0.02 (0.01-0.20) K/uL Sodium 141 (136-145) mmol/L Potassium 4.2 (3.5-5.1) mmol/L Chloride 105 (98-107) mmol/L Carbon Dioxide 26 (21-32) mmol/L Anion Gap 10 (3-11) BUN 39 H (6-23) mg/dl Creatinine 1.40 H (0.6-1.2) mg/dl Est Cr Clr Drug Dosing 31.8 ml/min eGFR 38.27 BUN/Creatinine Ratio 27.9 H (10-20) Glucose 123 H (70-99(Fasting)) mg/dl Calcium 9.6 (8.6-10.3) mg/dl Magnesium 2.0 (1.7-2.4) mg/dl Total Bilirubin 0.7 (0.2-1.0) mg/dl AST 23 (13-39) U/L ALT 15 (7-52) U/L Alkaline Phosphatase 83 (34-104) U/L Troponin I High Sens 18.9 H (0-14) pg/ml Total Protein 7.3 (6.0-8.3) gm/dl Albumin 3.9 (3.4-5.0) gm/dl Globulin 3.4 (2.5-4.0) gm/dl Albumin/Globulin Ratio 1.1 (0.9-2) TSH 0.471 (0.300-4.500) uIu/ml Administered Medications Sodium Chloride (Nss) 1,000 mls @ 60 mls/hr IV .[id number] ONE Stop: 02/08/25 12:57 Last Admin: 02/07/25 20:46 Dose: 60 mls/hr Documented By: dougie Discontinued Medications Amlodipine Besylate (Amlodipine Besylate 5 Mg Tab) 2.5 mg PO NOW ONE Stop: 02/07/25 20:19 Last Admin: 02/07/25 20:45 Dose: 2.5 mg Documented By: dougie Fentanyl Citrate (Fentanyl Citrate Pf 100 Mcg/2 Ml Vial) 25 mcg IV NOW STA Stop: 02/07/25 18:12 Last Admin: 02/07/25 18:24 Dose: 25 mcg Documented By: FLOYD Labetalol HCl (Labetalol Hcl Iv 5 Mg/Ml 20ml) 10 mg IV NOW STA Stop: 02/07/25 19:52 Last Admin: 02/07/25 20:01 Dose: 10 mg Documented By: ANN Imaging Data Radiologist's Impression: Chest X-Ray 02/07/25 16:10 Clinical History: Hypertension Technique: A frontal view of the chest was obtained Findings: There are no confluent pulmonary infiltrates. The heart size is within normal limits. No pleural effusion or pneumothorax is seen. There is no definite pulmonary nodule. There are old healed right rib fractures Impression: No active disease Electronically signed by William Ramirez 02-07-2025 5:[address] 02/07/25 16:43 Clinical History: Dizziness and hypertension Technique: Axial computed tomography images were obtained of the brain without intravenous contrast. Findings: There is diffuse cerebral atrophy, within expected limits for the patient's age. Areas of decreased attenuation are seen within the periventricular white matter, likely representing chronic small vessel ischemic disease. There is no definite sign of acute or old infarction. No intracranial hemorrhage is evident. No definite mass lesion is seen on this noncontrast examination. There is no midline shift or other form of herniation. No hydrocephalus is seen. No fracture is identified. The orbits and the visualized paranasal sinuses appear unremarkable. The mastoid air cells appear clear. Impression: 1. Cerebral atrophy and chronic small vessel ischemic disease 2. Otherwise unremarkable noncontrast CT of the brain Electronically signed by William Ramirez 02-07-2025 5:42 PM Pelvis X-Ray 02/07/25 18:11 Exam: Pelvis 2 views. Reason for exam: Fall with pain. Previous studies: None FINDINGS: Right total hip arthroplasty is noted. At this time, no definite fracture, dislocation or destructive bony process is evident. IMPRESSION: Negative for acute bony trauma on this limited study of the pelvis. If pelvic and/or hip pain persists, more sensitive evaluation with CT scan would be recommended. Electronically signed by Patrick Christine 02-07-2025 8:49 PM Discharge Plan Visit Data Chief Complaint: Hypertension Stated Complaint: HYPERTENSION, BP MEDS CHANGED, DIZZY, SINCE YEST ED Provider: Kyler Metzger Discharge Problem: Hypertension, Dizziness, Pain in sacrum Patient Disposition: Home - Self-Care Condition: Fair Forms Stand Alone Forms: [facility], Important Visit Information Prescriptions Prescriptions: No Action omeprazole 20 mg Capsule,Delayed Release(Dr/Ec) 20 mg PO DAILYBB montelukast [Singulair] 10 mg Tablet 10 mg PO QAM cholecalciferol (vitamin D3) [Vitamin D3] 1,000 unit Capsule 1,000 unit PO QAM Vitron-C 65 mg iron- 125 mg Tablet,Delayed Release (Dr/Ec) 1 tab PO QAM fluticasone propion-salmeterol [Advair HFA] 115-21 mcg/actuation HFA aerosol inhaler 2 puff INHALATION AMHS ezetimibe 10 mg tablet 10 mg PO QAM atorvastatin 80 mg tablet 80 mg PO QAM thiamine HCl (vitamin B1) 100 mg Tablet 100 mg PO QAM folic acid 1 mg Tablet 1 mg PO QAM aspirin 81 mg Tablet 81 mg PO AMHS losartan 50 mg tablet 50 mg PO QAM amlodipine 2.5 mg tablet 2.5 mg PO QAM torsemide 10 mg tablet 10 mg PO QAM paroxetine HCl 40 mg tablet 40 mg PO QAM Ozempic 0.25 mg or 0.5 mg (2 mg/3 mL) pen injector 0.5 mg SUBCUT WK Rx Instructions: tuesdays acetaminophen 500 mg Tablet 1,000 mg PO AMPM albuterol sulfate 90 mcg/actuation Hfa Aerosol Inhaler 2 puff INHALATION Q4 PRN (Reason: wheezing,SOB,cough) Multivitamin W/Vitamin C Tablet,Chewable 1 tab PO UD Referrals Referrals: Liban Chavez MD [Primary Care Provider] -
[2025-02-07 16:59] LABS: Alanine Aminotransferase 15.0 U/L (7-52); Albumin Globulin Ratio 1.1 (0.9-2); Albumin Level 3.9 gm/dl (3.4-5.0); Alkaline Phosphatase 83.0 U/L (34-104); Anion Gap 10.0 (3-11); Bilirubin,Total 0.7 mg/dl (0.2-1.0); Blood Urea Nitrogen 39.0 mg/dl (6-23); Calcium 9.6 mg/dl (8.6-10.3); Carbon Dioxide 26.0 mmol/L (21-32); Chloride 105.0 mmol/L (98-107); Creatinine Clr Calc Pharmacy 31.8 ml/min; Globulin 3.4 gm/dl (2.5-4.0); Glucose 123.0 mg/dl (70-99(Fasting)); Magnesium 2.0 mg/dl (1.7-2.4); Potassium 4.2 mmol/L (3.5-5.1); Sodium 141.0 mmol/L (136-145); Total Protein 7.3 gm/dl (6.0-8.3)
[2025-02-07 17:15] LABS: Thyroid Stimulating Hormone 0.471 uIu/ml (0.300-4.500)
--- NOTE | 2025-02-07 17:42 | CT Scan Report ---
Clinical History: Dizziness and hypertension Technique: Axial computed tomography images were obtained of the brain without intravenous contrast. Findings: There is diffuse cerebral atrophy, within expected limits for the patient's age. Areas of decreased attenuation are seen within the periventricular white matter, likely representing chronic small vessel ischemic disease. There is no definite sign of acute or old infarction. No intracranial hemorrhage is evident. No definite mass lesion is seen on this noncontrast examination. There is no midline shift or other form of herniation. No hydrocephalus is seen. No fracture is identified. The orbits and the visualized paranasal sinuses appear unremarkable. The mastoid air cells appear clear. Impression: 1. Cerebral atrophy and chronic small vessel ischemic disease 2. Otherwise unremarkable noncontrast CT of the brain Electronically signed by William Ramirez 02-07-2025 5:42 PM
--- NOTE | 2025-02-07 17:51 | XRay Report ---
Clinical History: Hypertension Technique: A frontal view of the chest was obtained Findings: There are no confluent pulmonary infiltrates. The heart size is within normal limits. No pleural effusion or pneumothorax is seen. There is no definite pulmonary nodule. There are old healed right rib fractures Impression: No active disease Electronically signed by William Ramirez 02-07-2025 5:51 PM
[2025-02-07] MEDS: LABETALOL HCL IV 5 MG/ML 20ML IV STA (20:01)
--- NOTE | 2025-02-07 20:41 | History & Physical Report ---
Date of Service February 07, 2025 Assessment & Plan (1) Hypertensive crisis: Plan: Assessment and plan below following discussion of case with ED provider and reviewing patient history/pertinent normal/abnormal diagnostic test results. Hypertensive crisis Improved after initial intervention at the ER hx chronic diastolic heart failure (EF 60%, TTE 2022), patient euvolemic hx PAF hyperlipidemia, on statin Rx hx PVD COPD, lung status at baseline ROXY on CPAP DM2 on Ozempic, well-controlled as of recent hemoglobin A1c of 6.4 last August 2024 CRI, creatinine at baseline past tobacco abuse OBS Admit to med/tele Titrate amlodipine Nephrology consult for BP management if without improvement (Patient known to Dr. Muller.) ISS BG goal 110-140, carb count coverage DVT prophylaxis. Heparin subcu Full code Text document was generated using [employer] voice recognition software. It may contain grammatical or spelling errors. Kindly contact undersigned for clarification of any documentation item in question. History of Present Illness Chief Complaint: Dizziness Primary Care Provider: Liban Chavez MD History obtained from patient and records. Medical history significant for chronic diastolic heart failure (EF 60%, TTE 2022), PAF, hypertension, hyperlipidemia, PVD, COPD, ROXY on CPAP, DM2 on Ozempic, CRI (baseline creatinine 1.5), RLS, anxiety/mood disorder, past tobacco abuse. Last confinement 2021 for traumatic rib fractures/pneumothorax secondary to fall. Patient seen at [facility] for CKD follow-up 3 weeks ago. SBP noted to be 160s. Losartan restarted by specialist. Patient woke up feeling dizzy and lightheaded this morning. Denies chest pain, SOB. Compliant with home medications and CPAP. Denies OTC NSAID intake or dietary indiscretion. Denies unusual stress. SBP noted to be 170s at home which is unusual for her. IV labetalol administered at the ER. Medical History as above Surgical History : Cataract surgeries, trigger finger release, shoulder surgery, right hip replacement Family History : Asthma, colon cancer, heart disease Personal/Social history : Past tobacco abuse, occasional EtOH intake, retired [employer] employee Allergies Allergy/AdvReac Type Severity Reaction Status Date / Time levofloxacin [From Levaquin] Allergy Intermediate TORN TENDON Verified 05/02/21 15:30 DOREEN Inhibitors Allergy Mild coughing Verified 05/02/21 15:30 hydrochlorothiazide Allergy Rash Verified 05/02/21 15:29 Home Medications Medication Instructions Recorded Confirmed Type cholecalciferol (vitamin D3) 25 1,000 unit PO QAM 05/21/18 02/07/25 History mcg (1,000 unit) capsule (Vitamin D3) iron,carbonyl 65 mg-vitamin C 125 1 tab PO QAM 05/21/18 02/07/25 History mg tablet,delayed release (Vitron-C) montelukast 10 mg tablet 10 mg PO QAM 05/21/18 02/07/25 History (Singulair) omeprazole 20 mg capsule,delayed 20 mg PO DAILYBB 05/21/18 02/07/25 History release aspirin 81 mg tablet 81 mg PO AMHS 05/02/21 02/07/25 History atorvastatin 80 mg tablet 80 mg PO QAM 05/02/21 02/07/25 History ezetimibe 10 mg tablet 10 mg PO QAM 05/02/21 02/07/25 History fluticasone propionate 115 2 puff inhalation AMHS 05/02/21 02/07/25 History mcg-salmeterol 21 mcg/actuation HFA inhaler (Advair HFA) folic acid 1 mg tablet 1 mg PO QAM 05/02/21 02/07/25 History thiamine HCl (vitamin B1) 100 mg 100 mg PO QAM 05/02/21 02/07/25 History tablet acetaminophen 500 mg tablet 1,000 mg PO AMPM 02/07/25 02/07/25 History albuterol sulfate 90 mcg/actuation 2 puff inhalation Q4 PRN 02/07/25 02/07/25 History aerosol inhaler wheezing,SOB,cough amlodipine 2.5 mg tablet 2.5 mg PO QAM 02/07/25 02/07/25 History losartan 50 mg tablet 50 mg PO QAM 02/07/25 02/07/25 History multivitamin 1 tab PO UD 02/07/25 02/07/25 History paroxetine HCl 40 mg tablet 40 mg PO QAM 02/07/25 02/07/25 History semaglutide 0.25 mg or 0.5 mg (2 0.5 mg subcut WK 02/07/25 02/07/25 History mg/3 mL) subcutaneous pen injector (Ozempic) torsemide 10 mg tablet 10 mg PO QAM 02/07/25 02/07/25 History Past Med/Surg History Problem List (Updated 02/08/25 @ 04:12 by Abdirizak Joiner MD) Hypertensive crisis Pain in sacrum (Acute) Dizziness (Acute) Hypertension (Acute) DVT prophylaxis Restless leg syndrome (Chronic) History of tooth extraction (Chronic) GERD (gastroesophageal reflux disease) (Chronic) Osteoarthritis (Chronic) Status post trigger finger release (Chronic) History of cataract surgery (Chronic) RT/LEFT Anxiety (Chronic) COPD, severe (Chronic) Hyperparathyroidism, secondary renal (Chronic) Dyslipidemia (Chronic) Medical History Anxiety Chronic diastolic CHF (congestive heart failure) CKD (chronic kidney disease), stage IV COPD, severe Depression Diastolic dysfunction DM type 2 (diabetes mellitus, type 2) Dyslipidemia Gastrointestinal hemorrhage with melena GERD (gastroesophageal reflux disease) Hyperparathyroidism, secondary renal Hypertension ROXY on CPAP Osteoarthritis Restless leg syndrome Surgical History H/O shoulder surgery History of cataract surgery RT/LEFT History of tooth extraction Status post trigger finger release Family History Sister Colon cancer Mother Family history of diabetes mellitus Social History Smoking Status: Former smoker Tobacco Type: Cigarettes Second Hand Exposure: No; Do You Dip or Chew Tobacco: No; Hx Alcohol Use: Yes Alcohol type: wine and hard liquor Alcohol Intake Frequency: 2-3 x/Week Alcohol Intake Frequency Comment: wine Hx Substance Use: No Preferred Language: Yi Communication Ability: Effective Motion Picture Camera Lens Technician Required: No Beliefs That Will Affect Care: None marital status: Single Current Living Situation: Alone current occupational status: retired How many Children do You have: 1 Other Information That Helps Us Care for You: No Feels Safe at Home: Yes Safety Concerns: Feels Safe At This Time Assistive Devices: Cane Review of Systems Review of Systems: As per HPI, all other systems reviewed and negative Physical Exam Physical Exam: GENERAL: Comfortable, obese, pleasant, no respiratory distress SKIN: Normal color, warm HEENT: Terry palpebral conjunctivae, no ptosis, dry buccal mucosa NECK : Supple, no tenderness CHEST : CTA, no tenderness HEART : RRR, no obvious murmurs ABDOMEN: Some distention, nontender EXTREMITIES : Minimal LE swelling, no LE tenderness, palpable pulses, no other conspicuous deformities noted NEUROLOGIC : Coherent, no facial asymmetry, no other gross focality Results & Data Results & Data Vital Signs (Past 12 Hours) Vital Signs Temp Pulse Pulse Resp BP BP Pulse Ox 02/07/25 20:30 156/87 H 02/07/25 20:30 156/87 H 02/07/25 20:30 156/87 H 02/07/25 20:30 156/87 H 02/07/25 20:30 156/87 H 02/07/25 20:06 96 02/07/25 20:01 79 198/104 H 02/07/25 20:00 198/104 H 02/07/25 20:00 198/104 H 02/07/25 20:00 198/104 H 02/07/25 20:00 198/104 H 02/07/25 20:00 198/104 H 02/07/25 20:00 198/104 H 02/07/25 20:00 95 02/07/25 19:51 96 02/07/25 19:45 196/103 H 02/07/25 19:45 196/103 H 02/07/25 19:45 196/103 H 02/07/25 19:45 196/103 H 02/07/25 19:45 196/103 H 02/07/25 19:42 97 02/07/25 19:33 196/106 H 02/07/25 19:33 196/106 H 02/07/25 19:33 196/106 H 02/07/25 19:33 196/106 H 02/07/25 19:33 196/106 H 02/07/25 19:33 97 02/07/25 19:31 210/114 H 02/07/25 19:31 210/114 H 02/07/25 19:30 97 02/07/25 19:21 96 02/07/25 19:16 195/110 H 02/07/25 19:16 195/110 H 02/07/25 19:16 195/110 H 02/07/25 19:16 195/110 H 02/07/25 19:16 195/110 H 02/07/25 19:15 96 02/07/25 19:00 192/111 H 02/07/25 19:00 199/106 H 02/07/25 19:00 199/106 H 02/07/25 19:00 199/106 H 02/07/25 19:00 199/106 H 02/07/25 18:51 95 02/07/25 18:45 95 02/07/25 18:45 192/111 H 02/07/25 18:45 192/111 H 02/07/25 18:45 192/111 H 02/07/25 18:45 192/111 H 02/07/25 18:45 192/111 H 02/07/25 18:42 95 02/07/25 18:30 96 02/07/25 18:30 184/103 H 02/07/25 18:30 184/103 H 02/07/25 18:30 184/103 H 02/07/25 18:30 184/103 H 02/07/25 18:30 184/103 H 02/07/25 18:27 96 02/07/25 18:15 186/118 H 02/07/25 18:15 186/118 H 02/07/25 18:15 186/118 H 02/07/25 18:15 186/118 H 02/07/25 18:15 186/118 H 02/07/25 18:07 212/115 H 02/07/25 18:07 212/115 H 02/07/25 18:07 212/115 H 02/07/25 18:07 212/115 H 02/07/25 18:07 212/115 H 02/07/25 18:00 217/104 H 02/07/25 18:00 217/104 H 02/07/25 18:00 217/104 H 02/07/25 18:00 217/104 H 02/07/25 18:00 217/104 H 02/07/25 17:45 194/126 H 02/07/25 17:45 194/126 H 02/07/25 17:45 194/126 H 02/07/25 17:45 194/126 H 02/07/25 17:30 187/113 H 02/07/25 17:30 187/113 H 02/07/25 17:30 187/113 H 02/07/25 17:30 187/113 H 02/07/25 17:12 81 24 02/07/25 17:01 198/168 H 02/07/25 17:01 198/168 H 02/07/25 17:01 198/168 H 02/07/25 17:01 198/168 H 02/07/25 17:01 198/168 H 02/07/25 17:00 112 H 22 02/07/25 16:51 110 H 24 94 02/07/25 16:45 83 19 92 02/07/25 16:45 181/108 H 02/07/25 16:45 181/108 H 02/07/25 16:45 181/108 H 02/07/25 16:45 181/108 H 02/07/25 16:37 112 H 02/07/25 16:10 110 H 18 97 02/07/25 16:01 37.2 C 121 H 18 210/120 H 94 02/07/25 16:00 110 H 18 189/115 H 98 O2 Del Method 02/07/25 20:30 02/07/25 20:30 02/07/25 20:30 02/07/25 20:30 02/07/25 20:30 02/07/25 20:06 02/07/25 20:01 02/07/25 20:00 02/07/25 20:00 02/07/25 20:00 02/07/25 20:00 02/07/25 20:00 02/07/25 20:00 02/07/25 20:00 02/07/25 19:51 02/07/25 19:45 02/07/25 19:45 02/07/25 19:45 02/07/25 19:45 02/07/25 19:45 02/07/25 19:42 02/07/25 19:33 02/07/25 19:33 02/07/25 19:33 02/07/25 19:33 02/07/25 19:33 02/07/25 19:33 02/07/25 19:31 02/07/25 19:31 02/07/25 19:30 02/07/25 19:21 02/07/25 19:16 02/07/25 19:16 02/07/25 19:16 02/07/25 19:16 02/07/25 19:16 02/07/25 19:15 02/07/25 19:00 02/07/25 19:00 02/07/25 19:00 02/07/25 19:00 02/07/25 19:00 02/07/25 18:51 02/07/25 18:45 02/07/25 18:45 02/07/25 18:45 02/07/25 18:45 02/07/25 18:45 02/07/25 18:45 02/07/25 18:42 02/07/25 18:30 02/07/25 18:30 02/07/25 18:30 02/07/25 18:30 02/07/25 18:30 02/07/25 18:30 02/07/25 18:27 02/07/25 18:15 02/07/25 18:15 02/07/25 18:15 02/07/25 18:15 02/07/25 18:15 02/07/25 18:07 02/07/25 18:07 02/07/25 18:07 02/07/25 18:07 02/07/25 18:07 02/07/25 18:00 02/07/25 18:00 02/07/25 18:00 02/07/25 18:00 02/07/25 18:00 02/07/25 17:45 02/07/25 17:45 02/07/25 17:45 02/07/25 17:45 02/07/25 17:30 02/07/25 17:30 02/07/25 17:30 02/07/25 17:30 02/07/25 17:12 02/07/25 17:01 02/07/25 17:01 02/07/25 17:01 02/07/25 17:01 02/07/25 17:01 02/07/25 17:00 02/07/25 16:51 02/07/25 16:45 02/07/25 16:45 02/07/25 16:45 02/07/25 16:45 02/07/25 16:45 02/07/25 16:37 02/07/25 16:10 Room Air 02/07/25 16:01 Room Air 02/07/25 16:00 Room Air Laboratory Results Laboratory Results WBC 7.19 K/ul (4.8-10.8) 02/07/25 16: RBC 3.69 M/uL (4.20-5.40) L 02/07/25 16: Hgb 12.3 g/dL (12.0-16.0) 02/07/25 16: Hct 36.3 % (37.0-47.0) L 02/07/25 16: MCV 98.4 fL (80.0-100.0) 02/07/25 16: MCH 33.3 pg (25.0-34.0) 02/07/25 16: MCHC 33.9 g/dL (32.0-36.0) 02/07/25 16: RDW Std Deviation 50.8 fL (36.4-46.3) H 02/07/25 16: RDW Coeff of Waqas 14.0 % (11.5-14.5) 02/07/25 16: Plt Count 191 K/uL (130-400) 02/07/25 16: MPV 10.4 fL (9.4-12.4) 02/07/25 16: Immature Gran % (Auto) 0.3 % 02/07/25 16: Neut % (Auto) 48.8 % 02/07/25 16: Lymph % (Auto) 38.4 % 02/07/25 16: Sutter % (Auto) 7.5 % 02/07/25 16: Eos % (Auto) 4.3 % 02/07/25 16: Baso % (Auto) 0.7 % 02/07/25 16: Neut # (Auto) 3.51 K/uL (1.40-6.50) 02/07/25 16: Lymph # (Auto) 2.76 K/uL (1.20-3.40) 02/07/25 16: Sutter # (Auto) 0.54 K/uL (0.11-0.59) 02/07/25 16: Eos # (Auto) 0.31 K/uL (0.00-0.50) 02/07/25 16: Baso # (Auto) 0.05 K/uL (0.00-0.20) 02/07/25 16:26 Immature Gran # (Auto) 0.02 K/uL (0.01-0.20) 02/07/25 16:26 Sodium 141 mmol/L (136-145) 02/07/25 16:26 Potassium 4.2 mmol/L (3.5-5.1) 02/07/25 16:26 Chloride 105 mmol/L (98-107) 02/07/25 16:26 Carbon Dioxide 26 mmol/L (21-32) 02/07/25 16:26 Anion Gap 10 (3-11) 02/07/25 16:26 BUN 39 mg/dl (6-23) H 02/07/25 16:26 Creatinine 1.40 mg/dl (0.6-1.2) H 02/07/25 16:26 Est Cr Clr Drug Dosing 31.8 ml/min 02/07/25 16:26 eGFR 38.27 02/07/25 16:26 BUN/Creatinine Ratio 27.9 (10-20) H 02/07/25 16:26 Glucose 123 mg/dl (70-99(Fasting)) H 02/07/25 16:26 Calcium 9.6 mg/dl (8.6-10.3) 02/07/25 16:26 Magnesium 2.0 mg/dl (1.7-2.4) 02/07/25 16:26 Total Bilirubin 0.7 mg/dl (0.2-1.0) 02/07/25 16:26 AST 23 U/L (13-39) 02/07/25 16:26 ALT 15 U/L (7-52) 02/07/25 16:26 Alkaline Phosphatase 83 U/L (34-104) 02/07/25 16:26 Troponin I High Sens 18.9 pg/ml (0-14) H 02/07/25 16:26 Total Protein 7.3 gm/dl (6.0-8.3) 02/07/25 16:26 Albumin 3.9 gm/dl (3.4-5.0) 02/07/25 16:26 Globulin 3.4 gm/dl (2.5-4.0) 02/07/25 16:26 Albumin/Globulin Ratio 1.1 (0.9-2) 02/07/25 16:26 TSH 0.471 uIu/ml (0.300-4.500) 02/07/25 16:26 Impressions Chest X-Ray 02/07/25 16:10 Clinical History: Hypertension Technique: A frontal view of the chest was obtained Findings: There are no confluent pulmonary infiltrates. The heart size is within normal limits. No pleural effusion or pneumothorax is seen. There is no definite pulmonary nodule. There are old healed right rib fractures Impression: No active disease Electronically signed by William Ramirez 02-07-2025 5:[address] 02/07/25 16:43 Clinical History: Dizziness and hypertension Technique: Axial computed tomography images were obtained of the brain without intravenous contrast. Findings: There is diffuse cerebral atrophy, within expected limits for the patient's age. Areas of decreased attenuation are seen within the periventricular white matter, likely representing chronic small vessel ischemic disease. There is no definite sign of acute or old infarction. No intracranial hemorrhage is evident. No definite mass lesion is seen on this noncontrast examination. There is no midline shift or other form of herniation. No hydrocephalus is seen. No fracture is identified. The orbits and the visualized paranasal sinuses appear unremarkable. The mastoid air cells appear clear. Impression: 1. Cerebral atrophy and chronic small vessel ischemic disease 2. Otherwise unremarkable noncontrast CT of the brain Electronically signed by William Ramirez 02-07-2025 5:42 PM Diagnostic Findings EKG as per my interpretation :Rate 110, sinus tachycardia, LAD, LFD, septal infarct, no ischemia,
[2025-02-07] MEDS: SODIUM CHLORIDE 0.9% 1,000 ML IV ONE (20:46)
--- NOTE | 2025-02-07 20:50 | XRay Report ---
Exam: Pelvis 2 views. Reason for exam: Fall with pain. Previous studies: None FINDINGS: Right total hip arthroplasty is noted. At this time, no definite fracture, dislocation or destructive bony process is evident. IMPRESSION: Negative for acute bony trauma on this limited study of the pelvis. If pelvic and/or hip pain persists, more sensitive evaluation with CT scan would be recommended. Electronically signed by Patrick Christine 02-07-2025 8:49 PM
[2025-02-07] MEDS ORDERED: PROMETHAZINE 6.25 MG/50.25 ML BAG IV PRN (21:42)
[2025-02-07] MEDS ORDERED: ACETAMINOPHEN 325 MG TAB PO PRN (21:42)
[2025-02-07] MEDS ORDERED: GLUCAGON FOR INJ 1 MG VIAL SQ PRN (22:18)
[2025-02-07] MEDS ORDERED: GLUCOSE 10 TAB/TUBE PO PRN (22:18)
[2025-02-07] MEDS ORDERED: CARBOHYDRATES FOR HYPOGLYCEMIA PO PRN (22:18)
[2025-02-07] MEDS ORDERED: GLUCOSE 40% GEL 15 GM TUBE PO PRN (22:18)
[2025-02-07] MEDS ORDERED: DEXTROSE 50% 50 ML SYRINGE IV PRN (22:18)
[2025-02-07] MEDS: HEPARIN SOD 5,000 UNIT/0.5 ML VIAL SQ SCH (22:30)
[2025-02-07] MEDS: ACETAMINOPHEN 500 MG TAB PO SCH (22:49)
[2025-02-07] MEDS: INSULIN ASPART PER UNIT CHARGE SC SCH (22:59)
[2025-02-08 06:40] LABS: Appearance Urine Clear (Clear); Bacteria Urine Automated None Seen (None Seen); Cast Urine Automated 0-2 /lpf (0-2); Glucose Urine UA Negative (Negative); RBC Urine Automated 0-2 /hpf (0-2)
[2025-02-08 07:14] LABS: Hematocrit (blood only) 32.4 % (37.0-47.0); Hemoglobin 11.1 g/dL (12.0-16.0); Immature Granulocytes # (auto) 0.01 K/uL (0.01-0.20); Immature Granulocytes % (auto) 0.2 %; Mean Corpuscular Hemoglobin 33.9 pg (25.0-34.0); Mean Corpuscular Volume 99.1 fL (80.0-100.0); Platelet Count 174 K/uL (130-400); RDW Standard Deviation 50.7 fL (36.4-46.3); Red Blood Count 3.27 M/uL (4.20-5.40); White Blood Count 6.14 K/ul (4.8-10.8)
[2025-02-08 08:13] LABS: Anion Gap 6.0 (3-11); Blood Urea Nitrogen 32.0 mg/dl (6-23); Calcium 9.3 mg/dl (8.6-10.3); Carbon Dioxide 29.0 mmol/L (21-32); Chloride 108.0 mmol/L (98-107); Creatinine Clr Calc Pharmacy 37.4 ml/min; Glucose 97.0 mg/dl (70-99(Fasting)); Potassium 3.5 mmol/L (3.5-5.1); Sodium 143.0 mmol/L (136-145)
--- NOTE | 2025-02-08 08:37 | Electrocardiogram Report ---
Test Reason : Blood Pressure : */* mmHG Vent. Rate : 112 BPM Atrial Rate : 112 BPM P-R Int : 186 ms QRS Dur : 122 ms QT Int : 330 ms P-R-T Axes : * -66 70 degrees QTcB Int : 450 ms Sinus tachycardia with occasional Premature ventricular complexes Left axis deviation Left bundle branch block Abnormal ECG When compared with ECG of 06-May-2021 14:36, Premature ventricular complexes are now Present Confirmed by Keenan Mays ([id number]) on 02/08/2025 8:37:27 AM Referred By: REFERRED SELF Confirmed By: Keenan Mays
[2025-02-08] MEDS: ATORVASTATIN 40 MG TAB PO SCH (08:45)
[2025-02-08] MEDS: FOLIC ACID 1 MG TAB PO SCH (08:45)
[2025-02-08] MEDS: ASPIRIN 81 MG ECTAB PO SCH (08:45)
[2025-02-08] MEDS: MONTELUKAST SODIUM 10 MG TABLET PO SCH (08:45)
[2025-02-08] MEDS: LOSARTAN POTASSIUM 50 MG TAB PO SCH (08:45)
[2025-02-08] MEDS: EZETIMIBE 10 MG TAB PO SCH (08:45)
[2025-02-08] MEDS: MULTIVITAMIN CHEWABLE TAB PO SCH (08:46)
[2025-02-08] MEDS: THIAMINE HCL 100 MG TAB PO SCH (08:46)
[2025-02-08] MEDS: CHOLECALCIFEROL 25 MCG (1000 UNITS) TAB PO SCH (08:46)
[2025-02-08] MEDS: FLUTICASONE/VILANTEROL 100/25MCG 14 PUFFS/INHALER INH SCH (08:47)
[2025-02-08] MEDS ORDERED: NON-FORMULARY MEDICATION (Iron,Carbonyl-Vitamin C [Vitron-C] 65 mg iron- 125 mg Tablet,Del PO SCH (09:00)
[2025-02-08] MEDS: FERROUS SULFATE 325 MG TAB PO SCH (10:34)
[2025-02-08] MEDS: ASCORBIC ACID 500 MG TAB PO SCH (10:34)
[2025-02-08] MEDS: TORSEMIDE 10 MG TAB PO SCH (10:35)
--- NOTE | 2025-02-08 11:40 | Hospitalist Progress Note ---
<Statement entered by Valente Mesa, - 02/08/25 15:21> I have seen and examined the patient and have discussed the case with the advance practice provider. I have reviewed the advanced practitioner's documentation, and I agree with, and take responsibility for that plan of care. Patient's blood pressure improving. She denies any chest pain or shortness of breath. Discussed medication changes with Flaco. I spent a total of 15 minutes coordinating, documenting, and providing care for this patient excluding time spent by another provider/QHP. Date of Service February 08, 2025 Assessment & Plan (1) Hypertensive crisis: Plan: This is a 79yo F with a PMH of chronic diastolic heart failure, type 2 diabetes, CKD IV, COPD, hypertension, mood disorder, ROXY on CPAP and other medical problems listed below who presents from home with dizziness that has since resolved. Elevated blood pressure, uncontrolled BP on admission 210/120, given 10mg IV Labetalol in ER and improved to 174/90 Dizziness has resolved No evidence of end organ damage, CKD known previously Increased amlodipine to 5mg, continued torsemide 10mg daily, transitioning from losartan to valsartan 80mg BID Monitor BP, optimize pain control of tailbone which is likely contributing to elevated BPs Sacral discomfort From fall weeks ago. Has still been ambulating with walker/cane at home at baseline Pelvis XR negative for acute bony trauma, study limited Schedule tylenol, trial lidocaine patch PT/OT pending If pain persists or limits mobility, consider further imaging with CT although likely conservative measures CKD (chronic kidney disease), stage IV Renal function with Cr 1.19 (improved from baseline of [address] Muller note, likely lower Cr 2/2 muscle loss on Ozempic) Monitor renal function DM type 2 (diabetes mellitus, type 2) A1c 6.4 in August Improved on Ozempic, not on home oral agents Add SSI as needed while inpatient Chronic diastolic CHF (congestive heart failure) Euvolemic Preserved EF 60% on 2D echo 2022 Continue torsemide as above Depression Continue Paxil ROXY on CPAP CPAP HS COPD Continue Advair, albuterol PRN DVT Ppx: SQ heparin Code status: FULL PCP: Kathy Dispo: Observation med tele, anticipate dc tomorrow Patient seen in collaboration with Dr. Mesa. Please see addendum. I spent a total of 50 minutes coordinating, documenting, and providing care for this patient excluding time spent in the performance of separately billed services or time spent by another provider/QHP. Admission and Anticipated Discharge Date Admission Date: February 07, 2025 Subjective Seen and examined in 284-2. Feeling better this AM. Dizziness has resolved but has not been out of bed yet today. No headache, CP or nausea. Does have pain near tailbone from fall 2 weeks ago. Lives alone and ambulates with a walker at baseline. Recently was started on losartan by Dr. Muller due to elevated BP for past few months. No F/C, CP, SOB. Review of Systems Review of Systems: At least ten systems reviewed and negative except as noted in the HPI. Physical Exam Physical Exam: Gen: WD/WN, NAD, resting in bed, A&Ox3 HEENT: Normocephalic, atraumatic, mucous membranes moist Lung: Clear to Auscultation bilaterally Heart: Regular rate, regular rhythm Abdomen: Soft, NT, ND +BS x 4 Extremities: Sacral TTP, no edema Skin: Warm, no rash Results & Data Results & Data Vital Signs (Past 12 Hours) Vital Signs Temp Pulse Pulse Resp BP Pulse Ox O2 Del Method 02/08/25 08:21 36.7 C 62 18 174/90 H 94 Room Air 02/08/25 07:36 62 02/08/25 02:15 36.8 C 64 18 159/81 H 93 Room Air Laboratory Results Short CBC 02/07/25 02/08/25 Range/Units 16:26 06:23 WBC 7.19 6.14 (4.8-10.8) K/ul Hgb 12.3 11.1 L (12.0-16.0) g/dL Hct 36.3 L 32.4 L (37.0-47.0) % Plt Count 191 174 (130-400) K/uL BMP 02/07/25 02/08/25 16:26 06:23 Sodium 141 143 Potassium 4.2 3.5 Chloride 105 108 H Carbon Dioxide 26 29 BUN 39 H 32 H Creatinine 1.40 H 1.19 Glucose 123 H 97 Calcium 9.6 9.3 Liver Function 02/07/25 Range/Units 16:26 Total Bilirubin 0.7 (0.2-1.0) mg/dl AST 23 (13-39) U/L ALT 15 (7-52) U/L Alkaline Phosphatase 83 (34-104) U/L Albumin 3.9 (3.4-5.0) gm/dl Urine 02/08/25 Range/Units Unknown Urine Color Yellow Urine Appearance Clear (Clear) Urine pH 6.5 (4.5-7.5) Ur Specific [place] 1.015 (1.000-1.030) Urine Protein 1+ H (Negative) Urine Glucose (UA) Negative (Negative) Diagnostic Findings Chest X-Ray 02/07/25 16:10 Clinical History: Hypertension Technique: A frontal view of the chest was obtained Findings: There are no confluent pulmonary infiltrates. The heart size is within normal limits. No pleural effusion or pneumothorax is seen. There is no definite pulmonary nodule. There are old healed right rib fractures Impression: No active disease Electronically signed by William Ramirez 02-07-2025 5:[address] 02/07/25 16:43 Clinical History: Dizziness and hypertension Technique: Axial computed tomography images were obtained of the brain without intravenous contrast. Findings: There is diffuse cerebral atrophy, within expected limits for the patient's age. Areas of decreased attenuation are seen within the periventricular white matter, likely representing chronic small vessel ischemic disease. There is no definite sign of acute or old infarction. No intracranial hemorrhage is evident. No definite mass lesion is seen on this noncontrast examination. There is no midline shift or other form of herniation. No hydrocephalus is seen. No fracture is identified. The orbits and the visualized paranasal sinuses appear unremarkable. The mastoid air cells appear clear. Impression: 1. Cerebral atrophy and chronic small vessel ischemic disease 2. Otherwise unremarkable noncontrast CT of the brain Electronically signed by William Ramirez 02-07-2025 5:42 PM Pelvis X-Ray 02/07/25 18:11 Exam: Pelvis 2 views. Reason for exam: Fall with pain. Previous studies: None FINDINGS: Right total hip arthroplasty is noted. At this time, no definite fracture, dislocation or destructive bony process is evident. IMPRESSION: Negative for acute bony trauma on this limited study of the pelvis. If pelvic and/or hip pain persists, more sensitive evaluation with CT scan would be recommended. Electronically signed by Patrick Christine 02-07-2025 8:49 PM
[2025-02-08] MEDS: LIDOCAINE 5% 1 PATCH TD ONE (14:00)
[2025-02-08] MEDS: ACETAMINOPHEN 500 MG TAB PO SCH (17:00)
[2025-02-08] MEDS: VALSARTAN 80 MG TAB PO SCH (20:27)
[2025-02-08] MEDS: REMOVE LIDODERM PATCH SCH (22:50)
[2025-02-09 06:55] LABS: Hematocrit (blood only) 32.1 % (37.0-47.0); Hemoglobin 10.9 g/dL (12.0-16.0); Mean Corpuscular Hemoglobin 33.5 pg (25.0-34.0); Mean Corpuscular Volume 98.8 fL (80.0-100.0); Platelet Count 175 K/uL (130-400); RDW Standard Deviation 49.7 fL (36.4-46.3); Red Blood Count 3.25 M/uL (4.20-5.40); White Blood Count 6.21 K/ul (4.8-10.8)
[2025-02-09 07:21] LABS: Anion Gap 7.0 (3-11); Blood Urea Nitrogen 40.0 mg/dl (6-23); Calcium 9.5 mg/dl (8.6-10.3); Carbon Dioxide 28.0 mmol/L (21-32); Chloride 106.0 mmol/L (98-107); Creatinine Clr Calc Pharmacy 26.1 ml/min; Glucose 107.0 mg/dl (70-99(Fasting)); Potassium 4.1 mmol/L (3.5-5.1); Sodium 141.0 mmol/L (136-145)
[2025-02-09 08:09] VITALS: BP 144/82; PULSE 58; RESP 18; TEMP 97.9; O2SAT 96
--- NOTE | 2025-02-09 10:11 | Discharge Summary ---
<Statement entered by Valente Mesa, DO - 02/09/25 15:49> I have seen and examined the patient and have discussed the case with the advance practice provider. I have reviewed the advanced practitioner's documentation, and I agree with, and take responsibility for that plan of care. Patient evaluated this morning, playing Scrabble on her iPad. No chest pain. No shortness of breath. Blood pressure significantly improved Plan for discharge as outlined below with continued monitoring of her blood pressure and adjustments to medications outpatient through her PCP I spent a total of 10 minutes coordinating, documenting, and providing care for this patient excluding time spent by another provider/QHP. Discharge Summary Date of Service February 09, 2025 Principal Dx & Hospital Course #1 = Principal Diagnosis (1) Hypertensive crisis: This is a 79yo F with a PMH of chronic diastolic heart failure, type 2 diabetes, CKD IV, COPD, hypertension, mood disorder, ROXY on CPAP and other medical problems listed below who presents from home with dizziness that has since resolved. Elevated blood pressure, uncontrolled BP on admission 210/120, given 10mg IV Labetalol in ER and improved to 174/90 Dizziness has resolved No evidence of end organ damage, CKD known previously Increased amlodipine to 5mg, continued torsemide 10mg daily, transitioning from losartan to valsartan 80mg BID with improved BP now 140s/80 Optimized pain control of tailbone which is likely contributing to elevated BPs Instructed to keep BP log at home and bring to PCP follow up Sacral discomfort From fall weeks ago. Has still been ambulating with walker/cane at home at baseline Pelvis XR negative for acute bony trauma, study limited Schedule tylenol, trial lidocaine patch If pain persists or limits mobility, consider further imaging with CT although likely conservative measures CKD (chronic kidney disease), stage IV Renal function fluctuating Cr 1.1-1.7 during admission (appears improved from baseline of [address] Muller note, likely lower Cr 2/2 muscle loss on Ozempic, Cystatin C value unchanged) DM type 2 (diabetes mellitus, type 2) A1c 6.4 in August Improved on Ozempic, not on home oral agents Chronic diastolic CHF (congestive heart failure) Euvolemic Preserved EF 60% on 2D echo 2022 Continue torsemide as above Depression Continue Paxil ROXY on CPAP CPAP HS COPD Continue Advair, albuterol PRN Discharged home today. Hemodynamically stable and seen ambulating independently in room with walker/cane. Care coordinated with Dr. Mesa Notes For Next Care Provider Uncontrolled BP, uptitrated home meds Medication Changes From Visit Valsartan 80 mg BID for BP Amlodipine increased to 5mg daily Discontinued losartan 50mg daily Continue Tylenol 1,000 mg up to 3x/day, lidocaine patch for tailbone discomfort Admission HPI Per Admitting Provider History obtained from patient and records. Medical history significant for chronic diastolic heart failure (EF 60%, TTE 2022), PAF, hypertension, hyperlipidemia, PVD, COPD, ROXY on CPAP, DM2 on Ozempic, CRI (baseline creatinine 1.5), RLS, anxiety/mood disorder, past tobacco abuse. Last confinement 2021 for traumatic rib fractures/pneumothorax secondary to fall. Patient seen at [facility] Nephrology office for CKD follow-up 3 weeks ago. SBP noted to be 160s. Losartan restarted by specialist. Patient woke up feeling dizzy and lightheaded this morning. Denies chest pain, SOB. Compliant with home medications and CPAP. Denies OTC NSAID intake or dietary indiscretion. Denies unusual stress. SBP noted to be 170s at home which is unusual for her. IV labetalol administered at the ER. 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 Admission Exam Per Admitting Provider GENERAL: Comfortable, obese, pleasant, no respiratory distress SKIN: Normal color, warm HEENT: Leith palpebral conjunctivae, no ptosis, dry buccal mucosa NECK : Supple, no tenderness CHEST : CTA, no tenderness HEART : RRR, no obvious murmurs ABDOMEN: Some distention, nontender EXTREMITIES : Minimal LE swelling, no LE tenderness, palpable pulses, no other conspicuous deformities noted NEUROLOGIC : Coherent, no facial asymmetry, no other gross focality Discharge Exam Gen: WD/WN, NAD, resting in bed, A&Ox3 HEENT: Normocephalic, atraumatic, mucous membranes moist Lung: Clear to Auscultation bilaterally Heart: Regular rate, regular rhythm Abdomen: Soft, NT, ND +BS x 4 Extremities: Sacral TTP, no edema Skin: Warm, no rash Updated Medication List Medication Instructions Recorded Confirmed Type cholecalciferol (vitamin D3) 25 1,000 unit PO QAM 05/21/18 02/07/25 History mcg (1,000 unit) capsule (Vitamin D3) iron,carbonyl 65 mg-vitamin C 125 1 tab PO QAM 05/21/18 02/07/25 History mg tablet,delayed release (Vitron-C) montelukast 10 mg tablet 10 mg PO HS 05/21/18 02/08/25 History (Singulair) omeprazole 20 mg capsule,delayed 20 mg PO DAILYBB 05/21/18 02/07/25 History release aspirin 81 mg tablet 81 mg PO AMHS 05/02/21 02/07/25 History atorvastatin 80 mg tablet 80 mg PO QAM 05/02/21 02/07/25 History ezetimibe 10 mg tablet 10 mg PO QAM 05/02/21 02/07/25 History fluticasone propionate 115 2 puff inhalation AMHS 05/02/21 02/07/25 History mcg-salmeterol 21 mcg/actuation HFA inhaler (Advair HFA) folic acid 1 mg tablet 1 mg PO QAM 05/02/21 02/07/25 History thiamine HCl (vitamin B1) 100 mg 100 mg PO QAM 05/02/21 02/07/25 History tablet acetaminophen 500 mg tablet 1,000 mg PO AMPM 02/07/25 02/07/25 History albuterol sulfate 90 mcg/actuation 2 puff inhalation Q4 PRN 02/07/25 02/07/25 History aerosol inhaler wheezing,SOB,cough multivitamin 1 tab PO UD 02/07/25 02/07/25 History paroxetine HCl 40 mg tablet 40 mg PO QAM 02/07/25 02/07/25 History semaglutide 0.25 mg or 0.5 mg (2 0.5 mg subcut WK 02/07/25 02/07/25 History mg/3 mL) subcutaneous pen injector (Ozempic) torsemide 10 mg tablet 10 mg PO QAM 02/07/25 02/07/25 History acetaminophen 500 mg tablet 1,000 mg (2 x 500 mg) PO Q8H #0 02/09/25 Rx (Tylenol Extra Strength) tabs amlodipine 5 mg tablet 5 mg PO QAM #30 tabs 02/09/25 Rx lidocaine 5 % topical patch 1 patch topical DAILY #15 ea 02/09/25 Rx (Lidoderm) valsartan 80 mg tablet (Diovan) 80 mg PO BID #60 tabs 02/09/25 Rx Hospital Stay Data Consultations 02/07/25 19:51 ED Decision to Admit Stat Diagnostic Imagining Performed 02/07/25 16:43 CT head/brain wo con Stat Pending Results Patient Have Any Pending Studies at Discharge: No Discharge Instructions Given to Patient (Per Discharging Provider) MEDICATION CHANGES: NEW: Valsartan 80 mg twice a day for blood pressure Tylenol 1,000 mg up to 3x/day for tailbone discomfort Lidocaine patch to tailbone as needed CHANGED: Amlodipine increased to 5mg every morning for blood pressure STOPPED: Losartan PENDING TEST RESULTS: None RECOMMENDATIONS FOR FOLLOW-UP: Use your blood pressure cuff at home and keep a log so PCP can follow up next week and make adjustments as needed. Follow up with PCP as scheduled - recommend repeat BMP in 1 week. Manage pain of tailbone as above as it has likely contributed to higher blood pressure. Continue medication regimen as scheduled aside from changes noted above. OTHER INSTRUCTIONS: Seek medical attention if you have: * temperature above 101 * chest pain or trouble breathing * abdominal pain, nausea, vomiting * diarrhea, dark stools or bloody stools * any unanswered questions or concerns Call 911 if symptoms are severe. Please take good care of yourself. Call if you have any questions or problems. You can reach a [facility] hospitalist on duty at [facility] 24 hours a day by calling [phone]. Total Time Total Time Spent Total Time Spent (In Minutes): 45
== END 2025-02-09 12:30 | disposition home or self-care (01) ==
LOC: 2N 15:59 → ED 15:59 → SUATTDRO 20:41 → 2N 02-08 05:53